=== PATIENT | male | born 1955 | race Caucasian/White ===

== ENCOUNTER → 2019-12-11 14:08 | Outpatient (BNVA) | payer MEDICARE, MEDICAID, SELFPAY | PROVIDERS: Visit Provider Urology | DX: Z76.89 Persons encountering health services in other specified circumstances (principal) ==

== ENCOUNTER → 2020-07-24 14:19 | Outpatient (BNVA) | payer MEDICARE, MEDICAID, SELFPAY | PROVIDERS: Visit Provider Urology | CPT/HCPCS: Q3014 ==

== ENCOUNTER 2020-07-29 12:02 | Outpatient (REF) | payer MEDICARE, MEDICAID, SELFPAY ==
[2020-07-29 13:19] LABS: Prostate Specific Antigen < 0.05 ng/mL (<0.05-4.0)
[2020-08-02 13:47] LABS: Testosterone, Total 247 ng/dL (250-1100)
== END 2020-07-29 12:03 | disposition home or self-care (01) ==
LOC: HO.LAB 12:02
PROVIDERS: Visit Provider Urology
DX: E29.1 Testicular hypofunction (principal); Z12.5 Encounter for screening for malignant neoplasm of prostate
CPT/HCPCS: 36415; 84153; 84403

== ENCOUNTER → 2020-08-12 15:37 | Outpatient (BNVA) | payer MEDICARE, MEDICAID, SELFPAY | PROVIDERS: Visit Provider Urology | DX: C61 Malignant neoplasm of prostate (principal); E29.1 Testicular hypofunction | CPT/HCPCS: 99212 ==

== ENCOUNTER 2021-02-03 11:41 | Outpatient (REF) | payer MEDICARE, MEDICAID, SELFPAY ==
[2021-02-03 13:54] LABS: PSA,Total (Free>4and<10) < 0.05 ng/mL (0.00-4.00)
[2021-02-10 16:16] LABS: Testosterone, Total 233 ng/dL (250-1100)
== END 2021-02-03 11:42 | disposition home or self-care (01) ==
LOC: HO.LAB 11:41
PROVIDERS: PCP Nurse Practitioner Family; Visit Provider Urology
DX: Z12.5 Encounter for screening for malignant neoplasm of prostate (principal); C61 Malignant neoplasm of prostate; N40.1 Benign prostatic hyperplasia with lower urinary tract symptoms; N13.8 Other obstructive and reflux uropathy
CPT/HCPCS: 36415; 84153; 84403

== ENCOUNTER → 2021-02-10 13:28 | Outpatient (BNVA) | payer MEDICARE, MEDICAID, SELFPAY | PROVIDERS: PCP Nurse Practitioner Family; Visit Provider Urology | DX: E29.1 Testicular hypofunction (principal); C61 Malignant neoplasm of prostate | CPT/HCPCS: Q3014 ==

== ENCOUNTER 2021-08-04 10:46 | Outpatient (REF) | payer MEDICARE, MEDICAID, SELFPAY ==
[2021-08-04 12:47] LABS: Prostate Specific Antigen < 0.05 ng/mL (<0.05-4.0)
[2021-08-10 11:57] LABS: Testosterone, Total 302 ng/dL (250-1100)
== END 2021-08-04 10:47 | disposition home or self-care (01) ==
LOC: HO.LAB 10:46
PROVIDERS: Visit Provider Urology
DX: Z12.5 Encounter for screening for malignant neoplasm of prostate (principal); C61 Malignant neoplasm of prostate
CPT/HCPCS: 36415; 84153; 84403

== ENCOUNTER → 2021-08-11 11:42 | Outpatient (BNVA) | payer MEDICARE, MEDICAID, SELFPAY | PROVIDERS: Visit Provider Urology | DX: E29.1 Testicular hypofunction (principal); C61 Malignant neoplasm of prostate | CPT/HCPCS: Q3014 ==

== ENCOUNTER 2022-08-26 10:55 | Outpatient (REF) | payer MEDICARE, MEDICAID, SELFPAY | END 2022-08-26 10:56 | disposition home or self-care (01) | LOC: HO.LAB 10:55 | PROVIDERS: Visit Provider Nurse Practitioner Family | DX: N40.1 Benign prostatic hyperplasia with lower urinary tract symptoms (principal); N13.8 Other obstructive and reflux uropathy; Z12.5 Encounter for screening for malignant neoplasm of prostate | CPT/HCPCS: 36415; 84153 ==

== ENCOUNTER 2022-09-02 10:56 | Outpatient (AMB) | payer MEDICARE, MEDICAID, SELFPAY ==
--- NOTE | 2022-09-02 11:09 | A.OFFVIS_ITS ---
Intake Intake Visit Reasons: 1 year follow up PSA Intake Note: Patient is present for follow up Hypogonadism/PSA (psa 0.10) Urology Medications: none Blood Thinner: aspirin Computational Theory Scientist Required: Yes Accompanied by: Unknown Allergies No Known Allergies [No Known Allergies*] Allergy (Verified 09/02/22 11:58) Medication List - Last Reconciled 09/02/22 by DONNA Murphy acetaminophen 650 mg PO Q4H PRN alcohol swabs 0 pad topical amlodipine 0 mg PO amlodipine 5 mg PO DAILY aspirin 81 mg PO DAILY atenolol 100 mg PO DAILY atorvastatin 20 mg PO BEDTIME blood sugar diagnostic (FreeStyle Lite Strips) As directed bupropion HCl 150 mg PO BID cetirizine 10 mg PO DAILY fluticasone propionate 50 mcg/actuation sprays intranasal glipizide ER 2.5 mg PO DAILY lancets (FreeStyle Lancets) As directed loratadine 10 mg PO DAILY drjxjgan-xdg-wqmfofi fumarate 15 mg iron 1 tab PO DAILY cwebbjyv-ncr-htmq fum-folic ac 7.5 mg iron-400 mcg 1 tab PO DAILY multivitamin with minerals 1 tab PO DAILY polyethylene glycol 3350 17 grams PO DAILY HPI HPI Comments History of Present Illness Details Henry Springer is a very pleasant 67 year old Italian speaking male patient of Dr Cota who is accompanied 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 He presents to the office today for a follow up of his prostate cancer and hypogonadism. He has a PMH of dementia, hypertension, hyperlipidemia, diabetes, hypogonadism, and prostate cancer. When asked patient reports to be doing and feeling well. Patient's provides much of today's history due to patient's progressive dementia. He is able to answer basic yes and no questions however at times is slow to respond. reports as patients demenita progresses she notes patient to be having more frequent urinary incontinent episodes. Discussed at length timed voiding/scheduled toileting to assist with decreasing incontinent episodes. She otherwise denies any issues or concerns at this time. Recent PSA results reviewed with the patient and his today. 09/11-- <0.10. It appears no testosterone level was drawn as patient had previously been having checked as he had been recieving T replacement here in the office. reports since COVID patient has since stopped his testosterone injections. She reports she will think about having them restarted but currently does not wish to. She otherwise denies any issues or concerns at this time. PREVIOUS HISTORY Prostate cancer was diagnosed 08/2014. Diagnosis was reached by needle biopsy, for elevated PSA, PSA at diagnosis 7.1. The Chloe grade is At biopsy, 3+4 = 7, right apex, right mid gland, left apex, left mid gland , at surgery, 3+4 = 7. TNM Classification of Malignant Tumours (TNM) T1c. The D'Humberto (NCCN) risk category is Intermediate Risk (PSA 10-20, Gl 7, T2). Initial therapy included Primary treatment, Prostatectomy (RRP/Robotic). Recent labs included a PSA (prostate-specific antigen) November 2015 , < 0.1, March 2016, < 0.1, a testosterone March 2016 139 10/07 PSA < 0.1, 02/09 <0.1, 08/11 <0.1 T 300, 09/11 <0.10 Associated conditions erectile dysfunction Yes hematuria No hot flashes No incontinence Yes Bladder neck contracture. Incision 09/05 Stress incontinence occasional, with cough, laugh, sneeze, does not require pad protection Urge incontinence Yes Worsening urge incontinence with use of protection osteopenia No pathologic fracture No radiation cystitis No rectal urgency No Therapeutic plan: Continue with surveillance Hypogonadism: Hematocrit persistent at 58. Needs phlebotomy. This is starting next week. Planning for therapeutic blood removal. Laboratories of planned. To happen at [facility]. He presents today for further evaluation and followup of his hypogonadism - T shot. Initial symptoms include erectile dysfunction Yes decreased libido Yes change in mood/depression Yes in muscle size/strength Yes increased fatigue/malaise Yes increased abdominal fat No tender breasts/gynecomastia No hair loss No osteopenia No The onset of symptoms has been gradual. Associate conditions include chronic pain with opioid use Yes obstructive sleep apnea No CAD No diabetes Yes dyslipidemia Yes obesity No stress - financial, family, employment No heavy alcohol or illicit drug use No He has been taking narcotics. Laboratory results baseline 03/08 139 8 T 800 HCT 53 PSA < 0.1 04/10 T 650 PSA < 0.1, HCT borderline 55 11/08 T 815 PSA < 0.1 HCt 58 - reduce T to 75units. 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 [facility] Medical History (Updated 09/04/22 @ 15:17 by DONNA Murphy) Dementia Diabetes HTN (hypertension) Social History Alcohol intake: never Patient Tobacco Use Status: Never used Tobacco Review of Systems Const Unobtainable due to mental status Reports as per HPI Physical Exam Const General: cooperative, comfortable, no acute distress, well developed and alert Orientation/consciousness: oriented to person Limitations: wheelchair HEENT Head: Yes normal to inspection, Yes normocephalic and Yes atraumatic Eyes General: appearance normal, both eyes and all related structures Neck Neck: Yes normal visual inspection and Yes trachea midline Chest Chest palpation & inspection: normal inspection of the chest Resp Effort & Inspection: normal respiratory effort and able to speak in complete sentences Cardio Rate: regular rate GI Inspection: Yes normal to inspection General: Yes no CVA tenderness Back/Spine/Pelvis Back: no CVA tenderness Skin General skin exam: no rashes or lesions noted Neuro General: oriented to person Extrem General: Yes normal to inspection Psych Appearance: grossly normal and well kempt Speech and movement: Clear speech present Attitude: cooperative Insight: Limited insight present (Psych) Judgement: Limited judgement present (Psych) Results AMB Urinalysis, Automated UA Leukoctes 0 Cindy/uL Last Edit by EzeHear It Firstemmanuelle Coronel on 09/02/22 11:50 UA Nitrite Last Edit by Elise Coronel on 09/02/22 11:50 UA Urobilinogen 0.2 mg/dL Last Edit by Elise Coronel on 09/02/22 11:50 UA Protein 30 mg/dL Last Edit by Sharingforceenma Coronel on 09/02/22 11:50 UA pH 5.5 Last Edit by Elise Coronel on 09/02/22 11:50 UA Blood 0 Dave/uL Last Edit by Elise Coronel on 09/02/22 11:50 UA Specific Sperry 1.030 Last Edit by EzeHear It Firstemmanuelle Coronel on 09/02/22 11:50 UA Ketone Negative Last Edit by Elise Coronel on 09/02/22 11:50 UA Bilirubin 1 mg/dL Last Edit by Elise Coronel on 09/02/22 11:50 UA Glucose 100 mg/dL Last Edit by Elise Coronel on 09/02/22 11:50 Results Reviewed Results Reviewed: Laboratory Last Values Urine pH (Auto) 5.5 09/02/22 11:14 Specific Sperry (Auto) 1.030 09/02/22 11:14 Urine Protein (Auto) 30 mg/dL 09/02/22 11:14 Glucose (UA)(Auto) 100 mg/dL 09/02/22 11:14 Urine Ketones (Auto) Negative 09/02/22 11:14 Urine Blood (Auto) 0 Dave/uL 09/02/22 11:14 Urine Bilirubin (Auto) 1 mg/dL 09/02/22 11:14 Urine Urobilinogen (Auto) 0.2 mg/dL 09/02/22 11:14 Leukocyte Esterase (Auto) 0 Cindy/uL 09/02/22 11:14 Assessment & Plan Assessment & Plan (1) Prostate cancer: Code(s): C61 - Malignant neoplasm of prostate (2) Hypogonadism in male: Code(s): E29.1 - Testicular hypofunction Plan In office urinalysis results reviewed with the patient his today. Recent PSA results reviewed with the patient his today; as noted above. Discussed timed voiding and scheduled toileting PSA in 6 months. Testosterone 6 months. Follow-up in 6 months with labs to be completed prior; or sooner with any issues, concerns, and or questions. Orders: Orders Prostate Specific Antigen 08/26/22 N13.8 - Other obstructive and reflux uropathy, N40.1 - Benign prostatic hyperplasia with lower urinary tract symptoms Prostate Specific Antigen 6 Months C61 - Malignant neoplasm of prostate Testosterone, Total 6 Months C61 - Malignant neoplasm of prostate AMB Urinalysis Automated 09/02/22 Z13.9 - Encounter for screening, unspecified Patient Instructions: The patient had an opportunity to ask questions regarding the treatment plan. All questions were answered. Physical exam, labs, and imaging were discussed and reviewed in detail. As well as risks, benefits, and discussion of treatment choices. No major barriers to understanding were identified. The patient expressed understanding and agreement with the above treatment plan. The patient was made aware they should contact our office by phone for worsening of their current condition, the appearance of new symptoms, or with any questions or concerns. Compliance is encouraged with any medications and follow up testing that is ordered. It is a privilege to be allowed the opportunity to participate in? your urological care.? Again, if you have any questions or concerns If you have any questions or concerns please do not hesitate to contact me. The office is [phone]. This note is constructed using voice recognition software. While every effort has been made to ensure accuracy multifold operator errors may have been included. Yours sincerely, DONNA Murphy Coding Level of Care Code Est Pt Level 3 (65000) Diagnoses Prostate cancer C61 Hypogonadism in male E29.1
== END 2022-09-02 11:56 | disposition home or self-care (01) ==
PROVIDERS: Visit Provider Nurse Practitioner Family
DX: C61 Malignant neoplasm of prostate (principal); E29.1 Testicular hypofunction
CPT/HCPCS: 99213

== ENCOUNTER → 2022-09-02 10:56 | Outpatient (BNVA) | payer MEDICARE, MEDICAID, SELFPAY | PROVIDERS: Visit Provider Nurse Practitioner Family | DX: C61 Malignant neoplasm of prostate (principal); E29.1 Testicular hypofunction | CPT/HCPCS: 99212 ==

== ENCOUNTER 2022-12-30 11:16 | Outpatient (AMB) | payer MEDICARE, MEDICAID, SELFPAY ==
[2022-12-30 11:32] VITALS: BP 130/80; PULSE 114; BMI 27.0
--- NOTE | 2022-12-30 11:32 | HO.NEPHOV_ITS ---
HPI HPI Comments History of Present Illness Details Henry was seen in the office accompanied by his . He has not had any recent medical issues or hospitalizations. His is providing at most attention to his medical care. He denies any chest pain, shortness of breath, nausea vomiting or diarrhea. He has no pedal edema or urinary symptoms. He had been followed up by Dr. Lopez for his prostate cancer. His blood sugar control had been quite suboptimal. He is just on glipizide 5 mg daily. His is concerned about his high blood sugars. His renal functions have been stable. [facility] Medical History (Updated 01/03/23 @ 12:55 by Karsten Kwong MD) Dementia Diabetes HTN (hypertension) Surgical History (Updated 12/30/22 @ 11:39 by Christina Alonso MA) History of prostate surgery Social History Alcohol intake: never Patient Tobacco Use Status: Never used Tobacco Vital Signs 12/30/22 11:32 Height 5 ft 9 in Weight 183 lb 2 oz BMI 27.0 BP 130/80 Blood Pressure Location Rt brachial Position Sitting Pulse 114 H Pulse Source Pulse Oximeter Physical Exam Vital Signs: Last Vital Signs Pulse 114 H 12/30/22 11:32 BP 130/80 12/30/22 11:32 BMI result Body Mass Index 27.0 Const General: comfortable and no acute distress HEENT Head: Yes normocephalic Mouth: Normal oral and palatal mucosa present Eyes EOM: EOMs intact bilaterally Neck Neck: Yes supple Resp Auscultation: clear to auscultation bilaterally Cardio Jugular venous distension: no JVD Rate: regular rate GI Palpation (GI): Soft to palpation Auscultation: normal bowel sounds General: Yes no CVA tenderness Back/Spine/Pelvis Back: no CVA tenderness Skin General skin exam: no rashes or lesions noted Neuro General: moves all extremities Extrem General: Yes no pedal edema Assessment & Plan Assessment & Plan (1) CKD (chronic kidney disease) stage 3, GFR 30-59 ml/min: Code(s): N18.30 - Chronic kidney disease, stage 3 unspecified Qualifiers: Chronic kidney disease stage 3 subtype: stage 3a (GFR 45-59) Qualified Code(s): N18.31 - Chronic kidney disease, stage 3a (2) Proteinuria: Code(s): R80.9 - Proteinuria, unspecified Qualifiers: Proteinuria type: other Qualified Code(s): R80.8 - Other proteinuria (3) HTN (hypertension): Code(s): I10 - Essential (primary) hypertension Qualifiers: Hypertension type: primary hypertension Qualified Code(s): I10 - Essential (primary) hypertension Cathy Figueroa is known to have chronic kidney disease stage 3 at baseline. He is diabetic. His history of prostate cancer. He is currently clinically stable. His blood pressure is at goal. He is on amlodipine and atenolol. He is not on any CHINTAN inhibitor or ARB. His blood sugar control is not optimal. He is only taking glipizide 5 mg which I asked them to go up to 7.5 mg daily. He is going to contact his primary care physician to come up with the Optimal medication strategy to keep his blood sugar at goal. I have ordered follow-up blood work . I did not make any other medication changes today. All his 's questions were answered. Time for all retrieving data, patient encounter and recommendation 21 minutes. Orders: Orders Protein Creatinine Ratio, Ur 12/30/22 N18.30 - Chronic kidney disease, stage 3 unspecified, R80.9 - Proteinuria, unspecified Electrolytes 12/30/22 N18.30 - Chronic kidney disease, stage 3 unspecified, R80.9 - Proteinuria, unspecified Blood Urea Nitrogen 12/30/22 N18.30 - Chronic kidney disease, stage 3 unspecified, R80.9 - Proteinuria, unspecified Creatinine 12/30/22 N18.30 - Chronic kidney disease, stage 3 unspecified, R80.9 - Proteinuria, unspecified Calcium 12/30/22 N18.30 - Chronic kidney disease, stage 3 unspecified, R80.9 - Proteinuria, unspecified Coding Level of Care Code Est Pt Level 3 (68130) Diagnoses Stage 3a chronic kidney disease N18.31 Chronic kidney disease stage 3 subtype: stage 3a (GFR 45-59) Other proteinuria R80.8 Proteinuria type: other Primary hypertension I10 Hypertension type: primary hypertension
== END 2022-12-30 12:23 | disposition home or self-care (01) ==
PROVIDERS: PCP Internal Medicine; Visit Provider Internal Medicine Nephrology
DX: I12.9 Hypertensive chronic kidney disease with stage 1 through stage 4 chronic kidney disease, or unspecified chronic kidney disease (principal); E11.22 Type 2 diabetes mellitus with diabetic chronic kidney disease; N18.31 Chronic kidney disease, stage 3a; R80.8 Other proteinuria
CPT/HCPCS: 99213

== ENCOUNTER → 2022-12-30 11:16 | Outpatient (BNVA) | payer MEDICARE, MEDICAID, SELFPAY | PROVIDERS: PCP Internal Medicine; Visit Provider Internal Medicine Nephrology | DX: I11.0 Hypertensive heart disease with heart failure (principal); N18.31 Chronic kidney disease, stage 3a; R80.8 Other proteinuria | CPT/HCPCS: 99212 ==

== ENCOUNTER 2023-05-16 11:27 | Outpatient (REF) | payer MEDICARE, MEDICAID, SELFPAY ==
[2023-05-16 13:23] LABS: Prostate Specific Antigen < 0.10 ng/mL (<0.05-4.0)
[2023-05-20 15:48] LABS: Testosterone, Total 286 ng/dL (250-1100)
== END 2023-05-16 11:28 | disposition home or self-care (01) ==
LOC: HO.LAB 11:27
PROVIDERS: PCP Internal Medicine; Visit Provider Nurse Practitioner Family
DX: C61 Malignant neoplasm of prostate (principal); Z12.5 Encounter for screening for malignant neoplasm of prostate
CPT/HCPCS: 36415; 84153; 84403

== ENCOUNTER 2023-05-25 14:54 | Outpatient (AMB) | payer MEDICARE, MEDICAID, SELFPAY ==
--- OUTSIDE RECORDS SUMMARY | 2023-05-25 14:55 | XMS_ITS | Continuity of Care Document ---
Author Organization [facility] Address [address] [place] [id number]- Care Team Providers Care Band Tacker Name Role Host Coordinator Declan ALVAREZ Primary Care Physician [phone] Encounter [facility] Date(s): 12/27/22 - 01/26/[address] [address] Allergies, Adverse Reactions, Alerts No Known Allergies Immunizations Given and Recorded Vaccine Date Status Refusal Reason pneumococcal 20-valent conjugate vaccine 12/23/22 Given tetanus/diphtheria/pertussis, acel(Tdap) 12/23/22 Given influenza virus vaccine, inactivated 12/23/22 Give n influenza virus vaccine, inactivated 01/18/22 Give n influenza virus vaccine, inactivated 12/19/19 Give n influenza virus vaccine, inactivated 01/09/19 Give n influenza virus vaccine, inactivated 03/27/17 Give n influenza virus vaccine, inactivated 12/28/15 Give n influenza virus vaccine, inactivated 12/08/14 Give n influenza virus vaccine, inactivated 11/12/14 Sudeep rded influenza virus vaccine, inactivated 02/26/14 Give n influenza virus vaccine, inactivated 11/16/12 Give n influenza virus vaccine, inactivated 1 12/06/10 Gi dory [id number] 12y+ bivalent booster vax 01/18/22 Given SARS-CoV-2 (COVID-19) mRNA BNT-162b2 vac 02/08/21 Given SARS-CoV-2 (COVID-19) mRNA BNT-162b2 vac 01/18/21 Given pneumococcal 23-valent vaccine 12/08/14 Given FluLaval (oldterm) 2 12/26/11 Given tetanus-diphtheria toxoids (Td) 3 12/06/10 Given 1Admin Note: vis given Citizen Of [place] 2Admin Note: vis [id number] 3Admin Note: VIS given Citizen Of [place]. Medications acetaminophen 325 mg oral tablet 650 mg, By Mouth, Every 4 hours, PRN, # 50 tablet, Refills 5, Tot. Refills 5, Maintenance, as needed for pain, 11/23/20 13:09:00 EDT, Route to Pharmacy Electronically, [facility]/pharmacy #[id number], 183, cm, 08/10/20 16:05:00 EDT, Height, 84.8, kg, 07/01/19 22:2... Start Date: 11/23/20 Status: Ordered amLODIPine 10 mg oral tablet 10 mg, By Mouth, Daily, Refills 0, Maintenance, 01/09/23 14:21:00 EST, Partial fill upon patient request if the prescription is for a schedule II opioid drug. Start Date: 01/09/23 Status: Ordered Aspirin Low Dose 81 mg oral delayed release tablet See Instructions, MARCOS BENDER, # 90 tablet, 1 Refills, Maintenance, 12/13/22 10:54:00 EDT, [id number], 175, cm, 01/18/22 12:03:00 EST, Height, 81.9, kg, 08/31/21 14:47:00 EDT, Dry Weight Start Date: 12/13/22 Status: Ordered atorvastatin 20 mg oral tablet See Instructions, MARCOS BENDER AT SUPPER, # 90 tablet, 1 Refills, Maintenance, 10/03/22 12:31:00 EDT, [id number], 175, cm, 01/18/22 12:03:00 EST, Height, 81.9, kg, 08/31/21 14:47:00 EDT, Dry Weight Start Date: 10/03/22 Status: Ordered BuPROPion (Eqv-Wellbutrin SR) 150 mg/12 hours oral tablet, extended release See Instructions, MARCOS STEWARD DOS VECES AL BALA, # 180 each, 1 Refills, Maintenance, 12/23/22 11:44:00 EDT, [facility]/pharmacy #[id number], 175, cm, 12/23/22 11:32:00 EDT, Height, 81.9, kg, 08/31/21 14:47:00EDT, Dry Weight Start Date: 12/23/22 Status: Ordered Coreg 6.25 mg oral tablet 12.5 mg, By Mouth, 2 times a day, Refills 0, Maintenance, 01/09/23 14:21:00 EST, Partial fill upon patient request if the prescription is for a schedule II opioid drug. Start Date: 01/09/23 Status: Ordered Daily Yasmine oral tablet See Instructions, TOME KIA TABLETA TODOS LOS BENDER, # 90 tablet, 1 Refills, Maintenance, 12/13/22 10:54:00 EDT, [id number], 90, TOME KIA TABLETA TODOS LOS BENDER, 175, cm, 01/18/22 12:03:00 EST, Height, 81.9, kg, 08/31/21 14:47:00 EDT, Dry Weight Start Date: 12/13/22 Status: Ordered GaviLAX oral powder for reconstitution See Instructions, DISSOLVE 17 GRAMS IN WATER AND DRINK ONCE DAILY, # 238 Gm, 5 Refills, Maintenance, 11/28/22 8:45:00 EDT, [facility]/pharmacy #[id number], 14, DISSOLVE 17 GRAMS IN WATER AND DRINK ONCE DAILY, 175, cm, 01/18/22 12:03:00 EST, Height, 81.9, kg, 08/31... Start Date: 11/28/22 Status: Ordered glipiZIDE 5 mg oral tablet, extended release 1 tablet = 5 mg, By Mouth, Daily, # 90 tablet, 1 Refills, Maintenance, 11/02/22 13:07:00 EDT, ER Tablet, [facility]/pharmacy #[id number], Partial fill upon patient request if the prescription is for a schedule IIopioid drug., 175, cm, 01/18/22 12:03:00 EST, Heigh... Start Date: 11/02/22 Status: Ordered Home Blood Pressure Monitor See Instructions, # 1 each, Refills 0, Tot. Refills 0, Maintenance, Use to check blood pressure once daily in the morning. Dx: Hypertension on medication (I10), 07/09/19 14:34:00 EDT, Supply Start Date: 07/09/19 Status: Ordered insulin lispro 100 units/mL injectable solution 2-14 units, Subcutaneous Injection, 3 times a day before meals, << Sliding Scale Comments >> 150 - 199 2 units Call if less than 70 200 - 249 4 units 250 - 299 6 units 300 - 349 8 units 350 - 399 10 units 400 - 449 12 units 450... Start Date: 01/09/23 Status: Ordered Lantus Inj 0.12 mL = 12 units, Subcutaneous Injection, Daily at bedtime, 0 Refills, Maintenance, 01/09/23 14:21:00 EST, Injection, Partial fill upon patient request if the prescription is for a schedule II opioid drug. Start Date: 01/09/23 Status: Ordered loratadine 10 mg oral tablet See Instructions, MARCOS CHAPMANA TODOS LOS BENDER, # 90 tablet, Refills 1, Maintenance, 12/13/22 10:54:00 EDT, Instructions Replace Required Details, Route to Pharmacy Electronically, [id number], 175, cm, 01/18/22 12:03:00 EST, Height, 81.9, kg,... Start Date: 12/13/22 Status: Ordered Multi-Day Plus Minerals oral tablet 1 tablet, By Mouth, Daily, resent to new pharmacy, # 90 tablet, 1 Refills, Maintenance, 10/18/21 16:12:00 EDT, Tablet, [facility]/pharmacy #[id number], 1 tablet By Mouth Daily,Instr:resent to new pharmacy, 175, cm, 10/18/21 11:40:00 EDT, Height, 81.9, kg, 08/31/21... Start Date: 10/18/21 Status: Ordered senna 187 mg oral tablet 1 tablet = 8.6 mg, By Mouth, 2 times a day, PRN Constipation, 0 Refills, Maintenance, 01/09/23 14:22:00 EST, Tablet, Partial fill upon patient request if the prescription is for a schedule II opioid drug. Start Date: 01/09/23 Status: Ordered Problem List Condition Confirmation Course Effective Dates Status Health Status Informant Allergic rhinitis Confirmed Active Cerebrovascular accident (stroke) Confirmed Active CKD (chronic kidney disease) stage 3, GFR 30-59 ml/min Confirmed Active Diastolic congestive heart failure, NYHA class 1 Confirmed Active History of prostate cancer Confirmed Active Hypertension Confirmed Active Cognitive impairment, likely vascular dementia Confirmed Active Depression, major Confirmed Active Hypogonadism in male Confirmed Active Microalbuminuria - mildly increased, ratio <30 mg/g Confirmed 11/17/14 Active Elevated PSA, BPH per urology, see April, Confirmed Active Secondary hyperparathyroidism Confirmed Active Obesity due to excess calories Confirmed Active DM (diabetes mellitus), 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 Presence of indwelling urinary catheter Confirmed Active Urine incontinence Confirmed Active Social History Social History Type Response Smoking Status Never smoker; Tobacc o user in household: No entered on: 01/12/15 Sex Patient Care team information Care Team Personnel Name: Declan Louise MD Position: [facility] Physician - Primary Care Member Role: PCP Address: Address: [address] [place] [id number]- [place] Name: Simran Shannon RN Position: [facility] RN Member Role: Primary Care Nurse Name: Torie Jo RN Position: [facility] RN Suptalha Member Role: Primary Care Nurse Name: Hussein Waters RN Position: [facility] RN Member Role: Primary Care Nurse Name: Vandana Sorensen NP Position: [facility] Associate Professional Member Role: Primary Care Nurse Address: Address: [address] [place] [id number]- Name: Karsten Kwong MD Position: [facility] Renal MD Member Role: Lifetime Consulting Physician Address: Address: [address] [place] [address] [address] [facility] [place] [address]- [place] Name: Rebecca Leon RN Position: [facility] RN Member Role: Primary Care Nurse Name: Elisabet Calle Position: [facility] RN Member Role: Primary Care Nurse Name: Paola Cavanaugh RN Position: [facility] ED RN W/OE and Tasks Member Role: Primary Care Nurse Name: Argentina Dixon RN Position: [facility] SN RN Member Role: Primary Care Nurse Name: Christina Alonso Position: [facility] AMB Nurse Member Role: Lifetime Consulting Physician Name: Ramiro Brody III, RN Position: [facility] RN Member Role: Primary Care Nurse Name: Simran Tariq RN Position: [facility] RN Member Role: Primary Care Nurse Name: Dana Fitzgerald RN Position: [facility] RN Member Role: Primary Care Nurse Name: Narayan Spencer RN Position: [facility] RN Member Role: Primary Care Nurse Name: Shell Yoder RN Position: [facility] RN Member Role: Primary Care Nurse Name: Yenni Packer RN Position: [facility] RN Member Role: Primary Care Nurse Name: Moon RN, Radha Balbuena Position: [facility] AMB Nurse Member Role: Primary Care Nurse Name: Misti Pickard RN Position: [facility] RN Member Role: Primary Care Nurse Name: William Villanueva RN Position: [facility] RN Member Role: Primary Care Nurse Name: Viky Torre RN Position: [facility] Dialysis Tech Member Role: Primary Care Nurse Name: Carolee Tesfaye RN Position: [facility] RN Member Role: Primary Care Nurse Name: Joey Perez MD Position: [facility] Renal MD Member Role: Lifetime Consulting Physician Address: Address: [address] [place] [address] [facility] [address] Name: Brittney Ledezma RN Position: [facility] Dialysis Tech Member Role: Primary Care Nurse Name: Eliezer Wagner RN Position: [facility] RN Member Role: Primary Care Nurse Name: Najma Causey RN Position: [facility] SN RN Member Role: Primary Care Nurse Name: Brunilda Thomas RN Position: [facility] RN Member Role: Primary Care Nurse Care Team Related Persons Name: ROOPA XIE Address: home [address] [place] [id number] Name: HOPE XIE Address: [address] [address]
--- OUTSIDE RECORDS SUMMARY | 2023-05-25 14:55 | XMS_ITS | Continuity of Care Document ---
Author Organization [facility] Address [address] [place] [id number]- Care Team Providers Care Health And Safety Trainer Name Role Phone Britany Springer MD [place] Care Phys[place] [facility] [place] 01/30/[address] [address]- Allergies, Adverse Reactions, Alerts Substance Reaction Severity Status NKA Active Immunizations Given and Recorded Vaccine Date Status Refusal Reason influenza virus vaccine, inactivated 12/19/19 Give n influenza virus vaccine, inactivated 01/09/19 Give n influenza virus vaccine, inactivated 03/27/17 Give n influenza virus vaccine, inactivated 12/28/15 Give n influenza virus vaccine, inactivated 12/08/14 Give n influenza virus vaccine, inactivated 02/26/14 Give n influenza virus vaccine, inactivated 11/16/12 Give n influenza virus vaccine, inactivated 1 12/06/10 Gi dory pneumococcal 23-valent vaccine 12/08/14 Given FluLaval (oldterm) 2 12/26/11 Given tetanus-diphtheria toxoids (Td) 3 12/06/10 Given 1Admin Note: vis given Gabonese 2Admin Note: vis [id number] 3Admin Note: VIS given Gabonese. Medications acetaminophen 325 mg oral tablet 650 mg, By Mouth, Every 4 hours, PRN, # 50 tablet, Refills 5, Tot. Refills 5, Maintenance, as needed for pain, 06/20/19 14:52:00 EDT, Route to Pharmacy Electronically, [facility]/pharmacy #[id number], 178, cm, 04/02/19 9:47:00 EST, Height, 94.7, kg, 06/01/18 13:52... Start Date: 06/20/19 Status: Ordered Adult diapers Adult diapers, See Instructions, # 150 each, Refills 11, Tot. Refills 11, Maintenance, Use as needed for incontinence 5x/day; length of need 1 year; ICD 10 N39.46, 01/14/19 8:43:55 EST, Compound Start Date: 01/14/19 Status: Ordered amLODIPine 2.5 mg oral tablet 2.5 mg, 1, tablet, By Mouth, Daily, for 90 days, hold for systolic blood pressure <120, and CALLCLINIC this replaces nifedipine, # 90 tablet, Refills 1, Tot. Refills 1, Hard Stop 07/17/20 11:35:00 EDT, 01/19/20 11:35:00 EST, Route to Pharmacy Electr... Start Date: 01/19/20 Stop Date: 07/17/20 Status: Ordered aspirin 81 mg oral delayed release tablet 81 mg, 1, tablet, By Mouth, Daily, # 90 tablet, Refills 1, Tot. Refills 1, Maintenance, 01/28/20 11:17:00 EST, Route to Pharmacy Electronically, [facility]/pharmacy #[id number], 183, cm, 12/27/19 13:56:00 EST, Height, 84.8, kg, 07/01/19 22:20:00 EDT, Dry Weight Start Date: 01/28/20 Stop Date: 07/26/20 Status: Ordered atorvastatin 20 mg oral tablet 1 tablet = 20 mg, By Mouth, Daily at supper, # 30 tablet, 5 Refills, Maintenance, 08/22/19 14:51:00EDT, Tablet, [facility]/pharmacy #[id number], 183, cm, 07/29/19 15:02:00 EDT, Height, 84.8, kg, 07/01/19 22:20:00 EDT, Dry Weight Start Date: 08/22/19 Status: Ordered cetirizine 10 mg oral tablet 1 tablet = 10 mg, By Mouth, Daily, # 90 tablet, 1 Refills, Maintenance, 10/21/19 11:35:00 EDT, Tablet, [facility]/pharmacy #[id number], 183, cm, 07/29/19 15:02:00 EDT, Height, 84.8, kg, 07/01/19 22:20:00 EDT, DryWeight Start Date: 10/21/19 Status: Ordered cholecalciferol 1000 intl units oral tablet 1 tablet = 1,000 International_Units, By Mouth, Daily, # 30 tablet, 0 Refills, Maintenance, 04/10/18 17:27:09 EST, Tablet Start Date: 04/10/18 Status: Ordered Compression Stockings See Instructions, # 2 pair, Refills 0, Tot. Refills 0, Maintenance, surgical, calf length 20-30 mm Hg R60.0, 07/10/17 16:54:50 EDT, Compound Start Date: 07/10/17 Status: Ordered empty cather once a day at daycare empty cather once a day at daycare, See Instructions, # 1 each, Refills 0, Tot. Refills 0, Maintenance, May empty cathether once a day while at daycare. Dx: urinary retention, 03/27/17 16:37:19, Compound Start Date: 03/27/17 Status: Ordered fluticasone 50 mcg/inh nasal spray 2 sprays, Nares, Both, Daily, # 16 Gm, 5 Refills, Maintenance, 07/20/18 13:11:53 EDT, [place], 2 sprays Nares, Both Daily Start Date: 07/20/18 Status: Ordered Gloves See Instructions, # 150 each, Refills 11, Tot. Refills 11, Maintenance, Used by for incontinence care 5x/day; ICD 10 N39.46, 01/30/19 7:35:52 EST, Compound Start Date: 01/30/19 Status: Ordered Home Blood Pressure Monitor See Instructions, # 1 each, Refills 0, Tot. Refills 0, Maintenance, Use to check blood pressure once daily in the morning. Dx: Hypertension on medication (I10), 07/09/19 14:34:00 EDT, Supply Start Date: 07/09/19 Status: Ordered hydrocortisone 0.5% topical cream 1 application, Topically, 2 times a day, # 14 Gm, 1 Refills, Maintenance, 01/09/18 14:39:21 EST, Cream, 1 application Topically 2 times a day Start Date: 01/09/18 Status: Ordered Incontinence pads Incontinence pads, See Instructions, # 150 Unknown, Refills 11, Tot. Refills 11, Maintenance, Use as needed for incontinence 5x/day; length of need 1 year; ICD 10 N39.46, 01/01/20 16:15:00 EST, Compound Start Date: 01/01/20 Status: Ordered Incontinence wipes Incontinence wipes, See Instructions, # 150 each, Refills 5, Tot. Refills 5, Maintenance, Use as needed for personal hygiene Dx: Incontinence (R32), 08/29/19 13:50:00 EDT, Supply Start Date: 08/29/19 Status: Ordered MiraLax oral powder for reconstitution = 17 Gm, By Mouth, Daily, dissolve in water before taking, # 255 Gm, 5 Refills, Maintenance, 01/28/20 14:37:00 EST, REC Powder, [facility]/pharmacy #[id number], 17 Gm By Mouth Daily,Instr:dissolve in water beforetaking, 183, cm, 12/27/19 13:56:00 EST, Height, 84.... Start Date: 01/28/20 Status: Ordered Multi-Day Plus Minerals oral tablet 1 tablet, By Mouth, Daily, # 90 tablet, 1 Refills, Maintenance, 01/28/20 11:17:00 EST, Tablet, [facility]/pharmacy #[id number], 1 tablet By Mouth Daily, 183, cm, 12/27/19 13:56:00 EST, Height, 84.8, kg, 07/01/19 22:20:00 EDT, Dry Weight Start Date: 01/28/20 Status: Ordered Pullups - size L Pullups - size L, See Instructions, # 150 units, Refills 11, Tot. Refills 11, Maintenance, Use as needed for incontinence 5x/day; length of need 1 year; ICD 10 N39.46, 01/30/19 7:36:02 EST, Compound Start Date: 01/30/19 Status: Ordered Shower chair Shower chair, See Instructions, # 1 each, Refills 0, Tot. Refills 0, Maintenance, Use as needed [facility]. Dx: Stroke (I63.9), impaired mobility (Z74.09), 07/09/19 14:21:00 EDT, Supply Start Date: 07/09/19 Status: Ordered Testosterone Intramuscular, Every 14 days, done by urologist last given Mondayoct 14 does not know dose, 0Refills, Maintenance, 10/23/16 10:56:07 Start Date: 9/3/17 Status: Ordered Wellbutrin SR 150 mg/12 hours oral tablet, extended release 1 tablet = 150 mg, By Mouth, 2 times a day, # 180 tablet, 3 Refills, Maintenance, 05/15/19 8:53:00 EDT, ER Tablet, [facility]/pharmacy #[id number], 178, cm, 04/02/19 9:47:00 EST, Height, 94.7, kg, 06/01/18 13:52:00 EDT, Dry Weight Start Date: 05/15/19 Stop Date: 05/09/20 Status: Ordered Problem List Condition Effective Dates Status Health Status Inform ant Adenocarcinoma of prostate(Confirmed) Active Allergic rhinitis(Confirmed) Active Cerebrovascular accident (stroke)(Confirmed) Active CKD (chronic kidney disease) stage 3, GFR 30-59 ml/min(Confirmed) Active Diastolic congestive heart f ailure, NYHA class 1(Confirmed) Active Diabetes(Confirmed) Active Hypertension(Confirmed) Active Cognitive impairment, likely vascular dementia(Confirmed) Active Depression, major(Confirmed) Active Hypogonadism in male(Confirmed) Active Microalbuminuria - mildly in creased, ratio <30 mg/g(Confirmed) 11/17/14 Active Elevated PSA, BPH per urolog y, see April,(Confirmed) Active Obesity due to excess calories(Confirmed) Active Presence of indwelling urina ry catheter(Confirmed) Active Social History Social History Type Response Smoking Status Never smoker; Tobacc o user in household: No entered on: 01/12/15 Sex
--- OUTSIDE RECORDS SUMMARY | 2023-05-25 14:55 | XMS_ITS | Continuity of Care Document ---
Author Organization [facility] Address [address] [place] [id number]- Care Team Providers Care Lav Crewman Name Role Phone Britany Springer MD Primary Care Physician Encounter [facility] [place] Date(s): 01/27/20 - 02/26/[address] [address]- Allergies, Adverse Reactions, Alerts Substance Reaction Severity [...] 3 12/06/10 Given 1Admin Note: vis given Setswana 2Admin Note: vis [id number] 3Admin Note: VIS given Setswana. Medications acetaminophen 325 mg oral tablet 650 mg, By Mouth, Every 4 hours, PRN, # 50 tablet, Refills 5, Tot. Refills 5, Maintenance, as needed for pain, 06/20/19 14:52:00 EDT, Route to Pharmacy Electronically, [facility]/pharmacy #[id number], 178, cm, 04/02/19 9:47:00 EST, Height, 94.7, kg, 06/01/18 13:52... Start Date: 4/30/20 Status: Ordered Adult diapers Adult diapers, See [...] Refills 1, Tot. Refills 1, Hard Stop 01/13/21 11:35:00 EST, 07/17/20 11:35:00 EDT, Route to Pharmacy Electr... Start Date: 07/17/20 Stop Date: 01/13/21 Status: Ordered amLODIPine 2.5 mg oral tablet 2.5 mg, 1, tablet, By Mouth, Daily, for 90 days, hold for systolic blood pressure <120, and CALLCLINIC this replaces nifedipine, # 90 tablet, Refills 1, Tot. Refills 1, Hard Stop 07/12/21 11:35:00 EDT, 01/13/21 11:35:00 EST, Route to Pharmacy Electr... Start Date: 01/13/21 Stop Date: 07/12/21 Status: Ordered aspirin 81 mg oral delayed release tablet 81 mg, 1, tablet, By Mouth, Daily, # 90 tablet, Refills 1, Tot. Refills 1, Maintenance, 07/26/20 11:17:00 EDT, Route to Pharmacy Electronically, [facility]/pharmacy #[id number], 183, cm, 12/27/19 13:56:00 EST, Height, 84.8, kg, 07/01/19 22:20:00 EDT, Dry Weight Start Date: 07/26/20 Stop Date: 01/22/21 Status: Ordered aspirin 81 mg oral delayed release tablet 81 mg, 1, tablet, By Mouth, Daily, for 90 days, # 90 tablet, Refills 1, Tot. Refills 1, Hard Stop 07/26/20 11:17:00 EDT, 01/28/20 11:17:00 EST, Route to Pharmacy Electronically, [facility]/pharmacy #[id number], 183, cm, 12/27/19 13:56:00 EST, Height, 84.8, kg, ... Start Date: 01/28/20 Stop Date: 07/26/20 Status: Ordered atorvastatin 20 mg oral tablet 1 tablet = 20 mg, By Mouth, Daily at supper, # 90 tablet, 2 Refills, Maintenance, 02/03/20 10:50:00EST, Tablet, [facility]/pharmacy #[id number], 183, cm, 12/27/19 13:56:00 EST, Height, 84.8, kg, 07/01/19 22:20:00 EDT, Dry Weight Start Date: 02/03/20 Status: Ordered cetirizine 10 mg oral tablet 1 tablet = 10 mg, By Mouth, Daily, # 90 tablet, 1 Refills, Maintenance, 02/03/20 10:58:00 EST, Tablet, [facility]/pharmacy #[id number], 183, cm, 12/27/19 13:56:00 EST, Height, 84.8, kg, 07/01/19 22:20:00 EDT, DryWeight Start Date: 02/03/20 Status: Ordered Compression Stockings See Instructions, # [...] 16:37:19, Compound Start Date: 03/27/17 Status: Ordered Gloves See Instructions, # 150 [...] EDT, Supply Start Date: 07/09/19 Status: Ordered Incontinence pads Incontinence pads, See [...] EDT, Supply Start Date: 08/29/19 Status: Ordered Multi-Day Plus Minerals oral tablet 1 tablet, By Mouth, Daily, # 90 tablet, 1 Refills, Maintenance, 02/03/20 10:58:00 EST, Tablet, [facility]/pharmacy #[id number], 1 tablet By Mouth Daily, 183, cm, 12/27/19 13:56:00 EST, Height, 84.8, kg, 07/01/19 22:20:00 EDT, Dry Weight Start Date: 02/03/20 Status: Ordered Pullups - size L Pullups - size L, See Instructions, # 150 units, Refills 11, Tot. Refills 11, Maintenance, Use as needed for incontinence 5x/day; length of need 1 year; ICD 10 N39.46, 01/30/19 7:36:02 EST, Compound Start Date: 01/30/19 Status: Ordered Shower chair Shower chair, See Instructions, # 1 each, Refills 0, Tot. Refills 0, Maintenance, Use as needed [facility]. Dx: Stroke (I63.9), impaired mobility (Z74.09), 07/09/19 14:21:00 EDT, Supply Start Date: 07/09/19 Status: Ordered Testosterone Intramuscular, Every 14 days, done by urologist last given Mondayoct 14 does not know dose, 0Refills, Maintenance, 10/23/16 10:56:07 Start Date: 10/23/16 Status: Ordered Wellbutrin SR 150 mg/12 hours oral tablet, extended release 1 tablet = 150 mg, By Mouth, 2 times a day, # 180 tablet, 3 Refills, Maintenance, 05/09/20 8:53:00 EDT, ER Tablet, [facility]/pharmacy #[id number], 183, cm, 12/27/19 13:56:00 EST, Height, 84.8, kg, 07/01/19 22:20:00 EDT, Dry Weight Start Date: 05/09/20 Stop Date: 05/04/21 Status: Ordered Wellbutrin SR 150 mg/12 hours oral tablet, extended release 1 tablet = 150 mg, By Mouth, 2 times a day, for 90 days, # 180 tablet, 3 Refills, Hard Stop 05/09/20 8:53:00 EDT, 05/15/19 8:53:00 EDT, ER Tablet, [facility]/pharmacy #[id number], 178, cm, 04/02/19 9:47:00 EST, Height, [...]
--- OUTSIDE RECORDS SUMMARY | 2023-05-25 14:55 | XMS_ITS | Continuity of Care Document ---
Author Organization [facility] Address [address] [place] [address]- Care Team Providers Care Air Export Coordinator Name Role Lead RefinerDeclan Louise MD Primary Care Physician [phone] [facility]counter [facility] Date[facility]s): 11/29/21 - 12/29/[address] [address] Allergies, Adverse Reactions, Alerts No Known Allergies Immunizations Given and Recorded Vaccine Date Status Refusal Reason SARS-CoV-2 (COVID-19) mRNA BNT-162b2 vac 02/08/21 Given SARS-CoV-2 (COVID-19) mRNA BNT-162b2 vac 01/18/21 Given influenza virus vaccine, inactivated 12/19/19 Give n [...] 3 12/06/10 Given 1Admin Note: vis given Finnish 2Admin Note: vis [id number] 3Admin Note: VIS given Finnish. Medications acetaminophen 325 mg oral tablet 650 mg, By Mouth, Every 4 hours, PRN, # 50 tablet, Refills 5, Tot. Refills 5, Maintenance, as needed for pain, 11/23/20 13:09:00 EDT, Route to Pharmacy Electronically, [facility]/pharmacy #[id number], 183, cm, 08/10/20 16:05:00 EDT, Height, 84.8, kg, 07/01/19 22:2... Start Date: 11/23/20 Status: Ordered Adult diapers Adult diapers, See Instructions, # 150 each, Refills 11, Tot. Refills 11, Maintenance, Use as needed for incontinence 5x/day; length of need 1 year; ICD 10 N39.46, 01/14/19 8:43:55 EST, Compound Start Date: 01/14/19 Status: Ordered Alcohol Pads See Instructions, # 200 each, Refills 5, Tot. Refills 5, Maintenance, Diabetes Mellitus. DM E11.9. TID, 01/18/21 11:32:00 EST, Supply, 183, cm, 01/18/21 11:01:00 EST, Height, 84.8, kg, 07/01/19 22:20:00 EDT, Dry Weight Start Date: 01/18/21 Stop Date: 07/17/21 Status: Ordered Alcohol Pads See Instructions, # 200 each, Refills 5, Tot. Refills 5, Maintenance, use as directed for Type 2 Diabetes Mellitus 2 times per day, E11.8, 07/15/20 17:16:00 EDT, Supply, 183, cm, 07/15/20 15:52:00 EDT, Height, 84.8, kg, 07/01/19 22:20:00 EDT, Dry Weight Start Date: 07/15/20 Stop Date: 01/11/21 Status: Ordered amLODIPine 5 mg oral tablet 5 mg, 1, tablet, By Mouth, Daily, # 90 tablet, Refills 1, Tot. Refills 1, Maintenance, 10/21/21 15:36:00 EDT, Route to Pharmacy Electronically, [facility]/pharmacy #[id number], Partial fill upon patient request if the prescription is for a schedule II opioid drug.... Start Date: 10/21/21 Status: Ordered Aspirin Low Dose 81 mg oral delayed release tablet See Instructions, MARCOS STEWARD TODOS LOS BENDER, # 90 tablet, 1 Refills, 10/18/21 16:12:00 EDT, [facility]/pharmacy #[id number], 175, cm, 10/18/21 11:40:00 EDT, Height, 81.9, kg, 08/31/21 14:47:00 EDT, Dry Weight Start Date: 10/18/21 Status: Ordered atorvastatin 20 mg oral tablet See Instructions, MARCOS CHAPMANA JESSS LOS BENDER AT SUPPER, # 90 tablet, 1 Refills, 10/18/21 16:12:00 EDT, [facility]/pharmacy #[id number], 175, cm, 10/18/21 11:40:00 EDT, Height, 81.9, kg, 08/31/21 14:47:00 EDT, Dry Weight Start Date: 10/18/21 Status: Ordered Compression Stockings See Instructions, # 2 pair, Refills 0, Tot. Refills 0, Maintenance, surgical, calf length 20-30 mm Hg R60.0, 07/10/17 16:54:50 EDT, Compound Start Date: 07/10/17 Status: Ordered Disposable Incontinence pads Disposable Incontinence pads, See Instructions, # 150 Unknown, Refills 11, Tot. Refills 11, Maintenance, Use as needed for incontinence 5x/day; length of need 1 year; ICD 10 N39.46, 11/30/21 17:34:00EDT, Compound Start Date: 11/30/21 Status: Ordered empty cather once a day at daycare empty cather once a day at daycare, See Instructions, # 1 each, Refills 0, Tot. Refills 0, Maintenance, May empty cathether once a day while at daycare. Dx: urinary retention, 03/27/17 16:37:19, Compound Start Date: 03/27/17 Status: Ordered Freestyle Lite Lancets See Instructions, # 200 each, Refills 5, Tot. Refills 5, Maintenance, Diabetes Mellitus. DM E11.9. TID, 01/18/21 11:31:00 EST, Supply, 183, cm, 01/18/21 11:01:00 EST, Height, 84.8, kg, 07/01/19 22:20:00 EDT, Dry Weight Start Date: 01/18/21 Stop Date: 07/17/21 Status: Ordered Freestyle Lite Monitor See Instructions, # 1 each, Refills 0, Tot. Refills 0, Maintenance, use to check blood sugars twicea day for Type 2 Diabetes Mellitus ICD10 E11, 07/22/20 21:42:00 EDT, Supply, 183, cm, 07/15/20 15:52:00 EDT, Height, 84.8, kg, 07/01/19 22:20:00 EDT, D... Start Date: 07/22/20 Stop Date: 08/21/20 Status: Ordered Freestyle Lite Test Strips See Instructions, # 600 each, Maintenance, 1 time per day, E11.8, use as directed for Type 2 Diabetes Mellitus, 10/13/20 17:16:00 EDT, Supply, 183, cm, 08/10/20 16:05:00 EDT, Height, 84.8, kg, 07/01/19 22:20:00 EDT, Dry Weight Start Date: 10/13/20 Stop Date: 01/11/21 Status: Ordered Freestyle Lite Test Strips See Instructions, # 200 each, Refills 5, Tot. Refills 5, Maintenance, Diabetes Mellitus. DM E11.9. TID, 01/18/21 11:30:00 EST, Supply, 183, cm, 01/18/21 11:01:00 EST, Height, 84.8, kg, 07/01/19 22:20:00 EDT, Dry Weight Start Date: 01/18/21 Stop Date: 07/17/21 Status: Ordered GaviLAX oral powder for reconstitution See Instructions, DISSOLVE 17 GRAMS IN WATER AND DRINK ONCE DAILY, # 238 Gm, 5 Refills, [facility]ORE [id number], 14, DISSOLVE 17 GRAMS IN WATER AND DRINK ONCE DAILY, 183, cm, 01/18/21 11:01:00 EST, Height, 84.8, kg, 07/01/19 22:20:00 EDT, Dry Weight Start Date: 06/29/21 Status: Ordered glipiZIDE 2.5 mg oral tablet, extended release See Instructions, MARCOS CONWAY BENDER, # 30 tablet, 5 Refills, 10/18/21 16:12:00 EDT, [facility]/pharmacy #[id number], 175, cm, 10/18/21 11:40:00 EDT, Height, 81.9, kg, 08/31/21 14:47:00 EDT, Dry Weight Start Date: 10/18/21 Status: Ordered Gloves See Instructions, # 150 each, Refills 11, Tot. Refills 11, Maintenance, Used by for incontinence care 5x/day; ICD 10 N39.46, 11/30/21 17:33:00 EDT, Compound Start Date: 11/30/21 Status: Ordered Home Blood Pressure Monitor See Instructions, # 1 each, Refills 0, Tot. Refills 0, Maintenance, Use to check blood pressure once daily in the morning. Dx: Hypertension on medication (I10), 07/09/19 14:34:00 EDT, Supply Start Date: 07/09/19 Status: Ordered Incontinence wipes Incontinence wipes, See Instructions, # 150 each, Refills 11, Tot. Refills 11, Maintenance, Use as needed for personal hygiene Dx: Incontinence (R32), 09/17/21 9:59:00 EDT, Supply Start Date: 09/17/21 Status: Ordered loratadine 10 mg oral tablet See Instructions, MARCOS LEÓNDODakota LOS BENDER, # 30 tablet, Refills 5, Tot. Refills 5, 10/19/2215:12:00 EDT, Instructions Replace Required Details, Route to Pharmacy Electronically, [facility]/pharmacy#[id number], 175, cm, 10/18/21 11:40:00 EDT, Height, 81.9... Start Date: 10/18/21 Status: Ordered Multi-Day Plus Minerals oral tablet 1 tablet, By Mouth, Daily, resent to new pharmacy, # 90 tablet, 1 Refills, Maintenance, 10/18/21 16:12:00 EDT, Tablet, [facility]/pharmacy #[id number], 1 tablet By Mouth Daily,Instr:resent to new pharmacy, 175, cm, 10/18/21 11:40:00 EDT, Height, 81.9, kg, 08/31/21... Start Date: 10/18/21 Status: Ordered Pullups - size L Pullups - size L, See Instructions, # 240 each, Refills 11, Tot. Refills 11, Maintenance, Use as needed for incontinence 5x/day; length of need 1 year; ICD 10 N39.46, 11/30/21 17:33:00 EDT, Compound Start Date: 11/30/21 Status: Ordered Reusable Incontinence Pads Reusable Incontinence Pads, See Instructions, # 10 each, Refills 11, Tot. Refills 11, Maintenance, use as needed for incontinence up to 5X/day dx: N39.46 AV = 1 year, 11/30/21 17:35:00 EDT, Supply Start Date: 11/30/21 Status: Ordered see below see below, See Instructions, # 60 each, Refills 11, Tot. Refills 11, Maintenance, reusable extra absorbent bed pads 2 per day, 30 day supply; R39. 81, 09/17/21 9:59:00 EDT, Supply Start Date: 09/17/21 Status: Ordered Shower chair Shower chair, See Instructions, # 1 each, Refills 0, Tot. Refills 0, Maintenance, [facility] Dx: Stroke (I63.9), impaired mobility (Z74.09), 07/09/19 14:21:00 EDT, Supply Start Date: 07/09/19 Status: Ordered Wellbutrin SR 150 mg/12 hours oral tablet, extended release 1 tablet = 150 mg, By Mouth, 2 times a day, # 180 tablet, 1 Refills, Maintenance, 10/31/21 8:53:00 EDT, ER Tablet, [facility]/pharmacy #[id number], 175, cm, 10/18/21 11:40:00 EDT, Height, 81.9, kg, 08/31/21 14:47:00 EDT, Dry Weight Start Date: 10/31/21 Stop Date: 04/29/22 Status: Ordered Wipes Wipes, See Instructions, # 150 each, Refills 0, Tot. Refills 0, Maintenance, R15.9, use everyday 5 per day, 06/04/20 17:29:00 EDT, Supply Start Date: 06/04/20 Status: Ordered Problem List Condition Confirmation Course Effective Dates Status H ealth Status Informant Adenocarcinoma of prostate Confirmed Active Allergic rhinitis Confirmed Active Cerebrovascular accident (stroke) Confirmed Active CKD (chronic kidney disease) stage 3, GFR 30-59 ml/min Confirmed Active Diastolic congestive heart failure, NYHA class 1 Confirmed Active Hypertension Confirmed Active Cognitive impairment, likely vascular dementia Confirmed Active Depression, major Confirmed Active Hypogonadism in male Confirmed Active Microalbuminuria - mildly increased, ratio <30 mg/g Confirmed 11/17/14 Active Elevated PSA, BPH per urology, see April, Confirmed Active Obesity due to excess calories Confirmed Active DM (diabetes mellitus), 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 Presence of indwelling urinary catheter Confirmed Active Social History Social History Type Response Smoking Status Never smoker; Tobacc o user in household: No entered on: 01/12/15 Sex Patient Care team information Care Team Personnel Name: Declan Louise MD [facility] Primary Care Physician Member Role: PCP Address: Address: [address] [place] [address]- Name: Simran Shannon RN Position: S RN Member Role: Primary Care Nurse Name: Torie Jo RN Position: [facility] RN Member Role: Primary Care Nurse Name: Hussein Waters RN [facility] RN Member Role: Primary Care Nurse Name: Vandana Sorensen NP Position: [facility] Associate Professional Member Role: Primary Care Nurse Address: Address: [address] [place] [address]- Name: Karsten Kwong MD Position: [facility] Renal MD Member Role: Lifetime Consulting Physician Address: Address: [address] [place] [address], [address] [facility] [place] [address]- Name: Rebecca Leon RN Position: [facility] RN Member Role: Primary Care Nurse Name: Elisabet Calle Position[facility] RN Member Role: Primary Care Nurse Name: Paola Cavanaugh RN Position: [facility] ED RN W/OE and Tasks Member Role: Primary Care Nurse Name: Argentina Dixon RN Position: [facility] SN RN Member Role: Primary Care Nurse Name: Christina Alonso Position: [facility] PCO RN Member Role: Lifetime Consulting Physician Name: Ramiro Brody III, RN Position: [facility] RN Member Role: Primary Care Nurse Name: Simran Tariq RN Position: [facility] RN Member Role: Primary Care Nurse Name: Dana Fitzgerald RN Position: [facility] RN Member Role: Primary Care Nurse Name: Narayan Spencer RN Position: [facility] SN RN Member Role: Primary Care Nurse Name: Shell Yoder RN Position: [facility] RN Member Role: Primary Care Nurse Name: Radha Mustafa RN Position: [facility] PCO RN Member Role: Primary Care Nurse Name: Misti Pickard RN Position[facility] RN Member Role: Primary Care Nurse Name: William Villanueva RN Position[facility] RN Member Role: Primary Care Nurse Name: Viky Torre RN Position: [facility] Assistant Secretary Member Role: Primary Care Nurse Name: Carolee Tesfaye RN Position[facility] RN Member Role: Primary Care Nurse Name: Joey Perez MD Position: [facility] Renal MD Member Role: Lifetime Consulting Physician Address: Address: [address] [place] [address] [facility] [address] Name: Brittney Ledezma RN Position: [facility] Assistant Secretary Member Role: Primary Care Nurse Name: Eliezer Wagner RN Position[facility] ED RN W/OE and Tasks Member Role: Primary Care Nurse Name: Najma Causey RN Position[facility] SN RN Member Role: Primary Care Nurse Name: Brunilda Thomas RN Position[facility] RN Member Role: Primary Care Nurse Care Team Related Persons Name: ROOPA XIE Address: [address] [address] Name: HOPE XIE Address: [address] [address]
--- NOTE | 2023-05-25 14:56 | A.OFFVIS_ITS ---
Intake Intake Visit Reasons: 6m/PSA(testosterone pending) Intake Note: Patient presents today for a follow up on: PSA/Testosterone Meds- None Allergies to Antibiotic- No Known Allergies Blood Thinner- Aspirin Refractory Manager Required: No Allergies No Known Allergies [No Known Allergies*] Allergy (Verified 05/25/23 15:01) Medication List - Last Reconciled 05/25/23 by JOSE Murphy-SUZAN acetaminophen 650 mg PO Q4H PRN alcohol swabs 0 pad topical amlodipine 10 mg PO DAILY aspirin 81 mg PO DAILY atorvastatin 20 mg PO BEDTIME blood sugar diagnostic (FreeStyle Lite Strips) As directed bupropion HCl SR 150 mg PO BID cetirizine 10 mg PO DAILY fluticasone propionate 50 mcg/actuation sprays intranasal glipizide ER 5 mg PO DAILY lancets (FreeStyle Lancets) As directed loratadine 10 mg PO DAILY psppxoom-bzp-exzzfmv fumarate 15 mg iron 1 tab PO DAILY bdczvzvm-swv-lxyy fum-folic ac 7.5 mg iron-400 mcg 1 tab PO DAILY multivitamin with folic acid 400 mcg (Daily-Yasmine (with folic acid)) 1 tab PO DAILY multivitamin with minerals 1 tab PO DAILY polyethylene glycol 3350 17 grams PO DAILY HPI HPI Comments History of Present Illness Details Henry is a very pleasant 68 year old Lao speaking male patient of Dr Cota who is accompanied by his during today's telehealth visit. He has a PMH of dementia, hypertension, hyperlipidemia, diabetes, hypogonadism, and prostate cancer. He is being followed up on today for his hypogonadism and history of prostate cancer. In discussion with the who provides most of the patient's history given patient's progressive dementia she discusses his recent hospitalization to [facility] for approximately 1 week for failure to thrive and urinary tract infection. She discusses he then went to rehab for 1 month however is now home and recovering well. She discusses he has his PCP appointment on the of this month. She currently denies the patient to have any urinary issues or concerns. Recent PSA and testosterone labs reviewed with the patient his today. PSAs: 08/10 <0.05, 02/09 <0.05 08/11 <0.05, 09/11 <0.10, 05/13 <0.10 Total Testosterone: 247, 02/09 233, 08/11 302, 05/13 286 He is able to answer basic yes and no questions however is slow to respond and hard to understand via telehealth however patients help with todays visit. reports as patients dementia progresses she note patient to be having more frequent urinary incontinent episodes. Discussed at length timed voiding/scheduled toileting to assist with decreasing incontinent episodes. She otherwise denies any issues or concerns at this time. She otherwise denies any issues or concerns at this time. PREVIOUS HISTORY Prostate cancer was diagnosed 08/2014. Diagnosis was reached by needle biopsy, for elevated PSA, PSA at diagnosis 7.1. The Bluefield grade is At biopsy, 3+4 = 7, right apex, right mid gland, left apex, left mid gland , at surgery, 3+4 = 7. TNM Classification of Malignant Tumours (TNM) T1c. The D'Humberto (NCCN) risk category is Intermediate Risk (PSA 10-20, Gl 7, T2). Initial therapy included Primary treatment, Prostatectomy (RRP/Robotic). Recent labs included a PSA (prostate-specific antigen) November 2015 , < 0.1, March 2016, < 0.1, a testosterone March 2016 139 10/07 PSA < 0.1, 02/09 <0.1, 08/11 <0.1 T 300, 09/11 <0.10 Associated conditions erectile dysfunction Yes hematuria No hot flashes No incontinence Yes Bladder neck contracture. Incision 09/05 Stress incontinence occasional, with cough, laugh, sneeze, does not require pad protection Urge incontinence Yes Worsening urge incontinence with use of protection osteopenia No pathologic fracture No radiation cystitis No rectal urgency No Therapeutic plan: Continue with surveillance Hypogonadism: Hematocrit persistent at 58. Needs phlebotomy. This is starting next week. Planning for therapeutic blood removal. Laboratories of planned. To happen at [facility]. He presents today for further evaluation and followup of his hypogonadism - T shot. Initial symptoms include erectile dysfunction Yes decreased libido Yes change in mood/depression Yes in muscle size/strength Yes increased fatigue/malaise Yes increased abdominal fat No tender breasts/gynecomastia No hair loss No osteopenia No The onset of symptoms has been gradual. Associate conditions include chronic pain with opioid use Yes obstructive sleep apnea No CAD No diabetes Yes dyslipidemia Yes obesity No stress - financial, family, employment No heavy alcohol or illicit drug use No He has been taking narcotics. Laboratory results baseline 03/08 139 8/18 T 800 HCT 53 PSA < 0.1 2 T 650 PSA < 0.1, HCT borderline 55 9 T 815 PSA < 0.1 HCt 58 - reduce T to 75units. 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 [facility] Medical History Dementia Diabetes HTN (hypertension) Surgical History History of prostate surgery Social History Alcohol intake: never Patient Tobacco Use Status: Never used Tobacco Review of Systems Const Unobtainable due to mental status Reports as per HPI Physical Exam Const General: cooperative Psych Speech and movement: Clear speech present Attitude: cooperative Insight: Limited insight present (Psych) Judgement: Limited judgement present (Psych) Assessment & Plan Assessment & Plan (1) Hypogonadism in male: Code(s): E29.1 - Testicular hypofunction (2) Prostate cancer: Code(s): C61 - Malignant neoplasm of prostate Plan Recent PSA and testosterone results reviewed with the patient his today; as noted above. Discussed if urinary tract infections continue can performed further workup with retroperitoneal ultrasound. Discussed potential causes of urinary tract infections. Discussed timed voidin/scheduled toileting. PSA and testosterone in 6 months. Follow-up in 6 months with labs to be completed prior; or sooner with any issues, concerns, and or questions. Orders: Orders Prostate Specific Antigen 6 Months C61 - Malignant neoplasm of prostate, E29.1 - Testicular hypofunction Testosterone, Free/Total 6 Months C61 - Malignant neoplasm of prostate, E29.1 - Testicular hypofunction Patient Instructions: The patient had an opportunity to ask questions regarding the treatment plan. All questions were answered. Physical exam, labs, and imaging were discussed and reviewed in detail. As well as risks, benefits, and discussion of treatment choices. No major barriers to understanding were identified. The patient expressed understanding and agreement with the above treatment plan. The patient was made aware they should contact our office by phone for worsening of their current condition, the appearance of new symptoms, or with any questions or concerns. Compliance is encouraged with any medications and follow up testing that is ordered. It is a privilege to be allowed the opportunity to participate in? your urological care.? Again, if you have any questions or concerns If you have any questions or concerns please do not hesitate to contact me. The office is [phone]. This note is constructed using voice recognition software. While every effort has been made to ensure accuracy sales engineer errors may have been included. Yours sincerely, Katelynn Joyce [facility] Telehealth Telehealth Location of provider rendering services: practice address Location of patient: address on file Patient Identification confirmed using: Name, : Yes Telehealth method: voice only Patient verbally consented to treatment: Yes Patient verbally consented to billing insurance company: Yes Patient informed of any privacy concerns related to visit: Yes Minutes spent on Phone/Video with Pt.: 20 Coding Level of Care Code Tele Est Pt Level 3 (52722) Diagnoses Hypogonadism in male E29.1 Prostate cancer C61
--- OUTSIDE RECORDS SUMMARY | 2023-05-25 14:56 | XMS_ITS | Continuity of Care Document ---
Author Organization [facility] Address [address] [place] [address]- Care Team Providers Care In Store Marketer Name Role Independent Driver Declan ALVAREZ Primary Care Physician [facility]counter [facility] Date(s): 07/20/22 - 08/19/[address] [address]- Encounter Diagnosis Cognitive impairment, likely vascular dementia(Discharge Diagnosis) - 07/22/22 Allergies, Adverse Reactions, Alerts No Known Allergies Immunizations Given and Recorded Vaccine Date Status Refusal Reason influenza virus vaccine, inactivated 01/18/22 Give n [...] virus vaccine, inactivated 1 12/06/10 Gi dory [id number] 12y+ bivalent booster vax 01/18/22 Given SARS-CoV-2 (COVID-19) mRNA BNT-162b2 vac 02/08/21 Given SARS-CoV-2 (COVID-19) mRNA BNT-162b2 vac 01/18/21 Given pneumococcal 23-valent vaccine 12/08/14 Given FluLaval (oldterm) 2 12/26/11 Given tetanus-diphtheria toxoids (Td) 3 12/06/10 Given 1Admin Note: vis given Maltese 2Admin Note: vis [id number] 3Admin Note: VIS given Maltese. Medications acetaminophen 325 mg oral tablet 650 mg, By Mouth, Every 4 hours, PRN, # 50 tablet, Refills 5, Tot. Refills 5, Maintenance, as needed for pain, 11/23/20 13:09:00 EDT, Route to Pharmacy Electronically, [facility]/pharmacy #[id number], 183, cm, 08/10/20 16:05:00 EDT, Height, 84.8, kg, 07/01/19 22:2... Start Date: 11/23/20 Status: Ordered Adult diapers Adult diapers, See Instructions, # 150 each, Refills 11, Tot. Refills 11, Maintenance, Use as needed for incontinence 5x/day; length of need 1 year; ICD 10 N39.46, 07/26/22 8:53:00 EDT, Compound Start Date: 07/26/22 Status: Ordered Alcohol Pads See Instructions, # [...] Diabetes Mellitus 2 times per day, E11.8, 02/18/22 9:43:00 EST, Supply, 175, cm, 01/18/22 12:03:00 EST, Height, 81.9, kg, 08/31/21 14:47:00 EDT, Dry Weight Start Date: 02/18/22 Stop Date: 08/17/22 Status: Ordered amLODIPine 5 mg oral tablet See Instructions, MARCOS MCKENNAS, # 90 tablet, 1 Refills, Maintenance, 07/06/22 13:39:00 EDT, [facility]/pharmacy #[id number], 175, cm, 01/18/22 12:03:00 EST, Height, 81.9, kg, 08/31/21 14:47:00 EDT, Dry Weight Start Date: 07/06/22 Status: Ordered Aspirin Low Dose 81 mg oral delayed release tablet See Instructions, TOME KIA TABLETA TODOS LOS BENDER, # 90 tablet, 1 Refills, Maintenance, 03/04/22 13:01:00 EST, [facility], 175, cm, 01/18/22 12:03:00 EST, Height, 81.9, kg, 08/31/21 14:47:00 EDT, Dry Weight Start Date: 03/04/22 Status: Ordered atorvastatin 20 mg oral tablet See Instructions, TOME KIA TABLETA TODOS [place] BENDER AT SUPPER, # 90 tablet, 1 Refills, 06/17/22 9:43:00 EDT, [facility]/pharmacy #[id number], 175, cm, 01/18/22 12:03:00 EST, Height, 81.9, kg, 08/31/21 14:47:00 EDT,Dry Weight Start Date: 06/17/22 Status: Ordered BuPROPion (Eqv-Wellbutrin SR) 150 mg/12 hours oral tablet, extended release See Instructions, TOME KIA TABLETA DOS VECES AL BALA, # 180 Unknown, 1 Refills, Maintenance, 03/04/22 13:01:00 EST, [facility]14, 175, cm, 01/18/22 12:03:00 EST, Height, 81.9, kg, 08/31/21 14:47:00EDT, Dry Weight Start Date: 03/04/22 Status: Ordered Compression Stockings See Instructions, # 2 pair, Refills 0, Tot. Refills 0, Maintenance, surgical, calf length 20-30 mm Hg R60.0, 07/10/17 16:54:50 EDT, Compound Start Date: 07/10/17 Status: Ordered Daily Yasmine oral tablet See Instructions, TOME KIA TABLETA POR VIA ORAL TODOS LOS BENDER, # 90 tablet, 1 Refills, Maintenance, 03/04/22 13:01:00 EST, [facility], 90, TOME KIA TABLETA POR VIA ORAL TODOS LOS BENDER, 175, cm,01/18/22 12:03:00 EST, Height, 81.9, kg, 08/31/21 1... Start Date: 03/04/22 Status: Ordered Disposable Incontinence pads Disposable Incontinence pads, See Instructions, # 150 Unknown, Refills 11, Tot. Refills 11, Maintenance, Use as needed for incontinence 5x/day; length of need 1 year; ICD 10 N39.46, 07/29/22 8:57:00 EDT, Compound Start Date: 07/29/22 Status: Ordered empty cather once a day [...] Refills 5, Maintenance, Diabetes Mellitus. DM E11.9. check sugars once daily, 04/18/22 12:43:00 EST, Supply, 175, cm, 01/18/22 12:03:00 EST, Height, 81.9, kg, 08/31/21 14:47:00 EDT, Dry Weight Start Date: 04/18/22 Stop Date: 10/15/22 Status: Ordered Freestyle Lite Monitor See Instructions, [...] Refills 5, Maintenance, Diabetes Mellitus. DM E11.9. check sugars once daily, 04/18/22 12:43:00 EST, Supply, 175, cm, 01/18/22 12:03:00 EST, Height, 81.9, kg, 08/31/21 14:47:00 EDT, Dry Weight Start Date: 04/18/22 Stop Date: 10/15/22 Status: Ordered GaviLAX oral powder for reconstitution See Instructions, DISSOLVE 17 GRAMS IN WATER AND DRINK ONCE DAILY, # 238 Gm, 5 Refills, [facility] 18551, 14, DISSOLVE 17 GRAMS IN WATER AND DRINK ONCE DAILY, 183, cm, 01/18/21 11:01:00 EST, Height, 84.8, kg, 07/01/19 22:20:00 EDT, Dry Weight Start Date: 06/29/21 Status: Ordered glipiZIDE 2.5 mg oral tablet, extended release 1 tablet = 2.5 mg, By Mouth, Daily, for 90 days, # 90 tablet, 0 Refills, Physician Stop 10/18/22 14:15:00 EDT, 07/20/22 14:15:00 EDT, [facility]/pharmacy #[id number], 175, cm, 01/18/22 12:03:00 EST, Height, 81.9,kg, 08/31/21 14:47:00 EDT, Dry Weight Start Date: 07/20/22 Stop Date: 10/18/22 Status: Ordered Gloves See Instructions, # 150 each, Refills 11, Tot. Refills 11, Maintenance, Used by for incontinence care 5x/day; ICD 10 N39.46, 07/29/22 8:57:00 EDT, Compound Start Date: 07/29/22 Status: Ordered Home Blood Pressure Monitor See [...] 10 mg oral tablet See Instructions, MARCOS CHAPMANAmy MCKENNAS, # 90 tablet, Refills 1, Maintenance, 03/04/22 13:01:00 EST, Instructions Replace Required Details, Route to Pharmacy Electronically, [facility] [id number], 175, cm, 01/18/22 12:03:00 EST, Height, 81.9, kg,... Start Date: 03/04/22 Status: Ordered Multi-Day Plus Minerals oral tablet 1 tablet, By Mouth, Daily, resent to new pharmacy, # 90 tablet, 1 Refills, Maintenance, 10/18/21 16:12:00 EDT, Tablet, [facility]/pharmacy #[id number], 1 tablet By Mouth Daily,Instr:resent to new pharmacy, 175, cm, 10/18/21 11:40:00 EDT, Height, 81.9, kg, 08/31/21... Start Date: 10/18/21 Status: Ordered Pullups - size L Pullups - size L, See Instructions, # 240 each, Refills 11, Tot. Refills 11, Maintenance, Use as needed for incontinence 5x/day; length of need 1 year; ICD 10 N39.46, 07/26/22 8:54:00 EDT, Compound Start Date: 07/26/22 Status: Ordered Reusable Incontinence Pads Reusable Incontinence Pads, See Instructions, # 10 each, Refills 11, Tot. Refills 11, Maintenance, use as needed for incontinence up to 5X/day dx: N39.46 AV = 1 year, 07/26/22 8:53:00 EDT, Supply Start Date: 07/26/22 Status: Ordered see below see below, See Instructions, # 60 each, Refills 11, Tot. Refills 11, Maintenance, reusable extra absorbent bed pads 2 per day, 30 day supply; R39. 81, 09/17/21 9:59:00 EDT, Supply Start Date: 09/17/21 Status: Ordered Shower chair Shower chair, See Instructions, # 1 each, Refills 0, Tot. Refills 0, Maintenance, Use as needed [facility]. Dx: Stroke (I63.9), impaired mobility (Z74.09), 03/04/22 12:59:00 EST, Supply Start Date: 03/04/22 Status: Ordered Wheelchair Wheelchair, See Instructions, # 1 each, Refills 0, Tot. Refills 0, Maintenance, Dx: CVA, dementia Av: indefinite, 01/18/22 12:19:00 EST, Supply Start Date: 01/18/22 Status: Ordered Wipes Wipes, See Instructions, # [...] Presence of indwelling urinary catheter Confirmed Active Diagnosis Diagnosis Type Effective Dates Health Status Cl inical Service Informant Cognitive impairment, likely vascular dementia Discharge Diagnosis 07/22/22 Non-Specified Social History Social History Type Response Smoking Status Never smoker; Tobacc o user in household: No entered on: 01/12/15 Sex Patient Care team information Care Team Personnel Name: Declan Louise MD Position: [facility] Physician - Primary Care Member Role: PCP Address: Address: [address] [place] [id number]- [place] Name: Simran Shannon RN Position: [facility] RN Member Role: Primary Care Nurse Name: Torie Jo RN Position: [facility] RN Supv Member Role: Primary Care Nurse Name: Hussein Waters RN Position: [facility] RN Member Role: Primary Care Nurse Name: Vandana Sorensen NP Position: [facility] Associate Professional Member Role: Primary Care Nurse Address: Address: [address] [place] [address]- Name: Karsten Kwong MD Position: [facility] Renal MD Member Role: Lifetime Consulting Physician Address: Address: [address] [place] [address], [address] [facility] [place], [place] [address] Name: Rebecca Leon RN Position: [facility] RN Member Role: Primary Care Nurse Name: Elisabet Calle Position: [facility] RN Member Role: Primary Care Nurse Name: Paola Cavanaugh RN Position: [facility] ED RN W/OE and Tasks Member Role: Primary Care Nurse Name: Argentina Dixon RN Position: [facility] SN RN Member Role: Primary Care Nurse Name: Christina Alonso Position: [facility] AMB Nurse Member Role: Lifetime Consulting Physician Name: Ramiro Brody III, RN Position: [facility] RN Member Role: Primary Care Nurse Name: Simran Tariq RN Position: [facility] RN Member Role: Primary Care Nurse Name: Dana Fitzgerald RN Position: [facility] RN Member Role: Primary Care Nurse Name: Narayan Spencer RN Position: [facility] SN RN Member Role: Primary Care Nurse Name: Shell Yoder RN Position: [facility] RN Member Role: Primary Care Nurse Name: Radha Mustafa RN Position: [facility] AMB Nurse Member Role: Primary Care Nurse Name: Misti Pickard RN Position: [facility] RN Member Role: Primary Care Nurse Name: William Villanueva RN Position: [facility] RN Member Role: Primary Care Nurse Name: Viky Torre RN Position: [facility] Dimensional Integration Engineer Member Role: Primary Care Nurse Name: Carolee Tesfaye RN Position: [facility] RN Member Role: Primary Care Nurse Name: Joey Perez MD Position: [facility] Renal MD Member Role: Lifetime Consulting Physician Address: Address: [address] [place] [address] [facility] [place] [address]- Name: Brittney Ledezma RN Position: [facility] Dimensional Integration Engineer Member Role: Primary Care Nurse Name: Eliezer Wagner RN Position: [facility] ED RN W/OE and Tasks Member Role: Primary Care Nurse Name: Najma Causey RN Position: [facility] SN RN Member Role: Primary Care Nurse Name: Brunilda Thomas RN Position: [facility] RN Member Role: Primary Care Nurse Care Team Related Persons Name: ROOPA XIE Address: [address] [address] Name: HOPE XIE Address: [address] [address]
--- OUTSIDE RECORDS SUMMARY | 2023-05-25 14:56 | XMS_ITS | Continuity of Care Document ---
Author Organization [facility] Address [address] [place] [address]- Care Team Providers Care Trimming Cutter Name Role Phone Britany Springer MD Primary Care Physician Encounter [facility] Date(s): 09/02/19 - 10/02/[address] [address]- [facility] Allergies, Adverse Reactions, Alerts Substance Reaction Severity Status NKA Active Immunizations Given and Recorded Vaccine Date Status Refusal Reason influenza virus vaccine, inactivated 01/09/19 Give n [...] 3 12/06/10 Given 1Admin Note: vis given Cypriot 2Admin Note: vis [id number] 3Admin Note: VIS given Cypriot. Medications acetaminophen 325 mg oral tablet 650 mg, By Mouth, Every 4 hours, PRN, # 50 tablet, Refills 5, Tot. Refills 5, Maintenance, as needed for pain, 06/20/19 14:52:00 EDT, Route to Pharmacy Electronically, [facility]/pharmacy #[id number], 178, cm, 04/02/19 9:47:00 EST, Height, 94.7, [...] 2.5 mg, 1, tablet, By Mouth, Daily, hold for systolic blood pressure <120, and [facility] this replaces nifedipine, # 30 tablet, Refills 2, Tot. Refills 2, Maintenance, 07/22/19 11:15:00 EDT, Route to Pharmacy Electronically, [facility]/pharmacy #[id number], ins... Start Date: 07/22/19 Stop Date: 10/20/19 Status: Ordered aspirin 81 mg oral delayed release tablet 81 mg, 1, tablet, By Mouth, Daily, # 90 tablet, Refills 3, Tot. Refills 3, Maintenance, 01/09/19 16:18:54 EST, Route to Pharmacy Electronically, [id number], [facility]/pharmacy #[id number] Start Date: 01/09/19 Stop Date: 01/04/20 Status: Ordered atorvastatin 20 mg oral tablet 1 tablet = 20 mg, By Mouth, Daily at supper, # 30 tablet, 5 Refills, Maintenance, 08/22/19 14:51:00EDT, Tablet, [facility]/pharmacy #[id number], 183, cm, 07/29/19 15:02:00 EDT, Height, 84.8, kg, 07/01/19 22:20:00 EDT, Dry Weight Start Date: 08/22/19 Status: Ordered cetirizine 10 mg oral tablet 1 tablet = 10 mg, By Mouth, Daily, # 90 tablet, 1 Refills, Maintenance, 06/20/19 15:01:00 EDT, Tablet, [facility]/pharmacy #[id number], 178, cm, 04/02/19 9:47:00 EST, Height, 94.7, kg, 06/01/18 13:52:00 EDT, Dry Weight Start Date: 06/20/19 Status: Ordered cholecalciferol 1000 intl units oral [...] Gm, 5 Refills, Maintenance, 07/20/18 13:11:53 EDT, Muse, 2 sprays Nares, Both Daily Start Date: [...] pads Incontinence pads, See Instructions, # 150 units, Refills 11, Tot. Refills 11, Maintenance, Use as needed for incontinence 5x/day; length of need 1 year; ICD 10 N39.46, 01/30/19 7:35:57 EST, Compound Start Date: 01/30/19 Status: Ordered Incontinence wipes Incontinence wipes, See Instructions, # 150 each, Refills 5, Tot. Refills 5, Maintenance, Use as needed for personal hygiene Dx: Incontinence (R32), 08/29/19 13:50:00 EDT, Supply Start Date: 08/29/19 Status: Ordered MiraLax oral powder for reconstitution = 17 Gm, By Mouth, Daily, dissolve in water before taking, # 255 Gm, 5 Refills, Maintenance, 06/20/19 15:01:00 EDT, REC Powder, [facility]/pharmacy #[id number], 17 Gm By Mouth Daily,Instr:dissolve in water beforetaking, 178, cm, 04/02/19 9:47:00 EST, Height, 94.7... Start Date: 06/20/19 Status: Ordered Multi-Day Plus Minerals oral tablet 1 tablet, By Mouth, Daily, # 30 tablet, 5 Refills, Maintenance, 07/22/19 18:27:00 EDT, Tablet, [facility]/pharmacy #[id number], 1 tablet By Mouth Daily, 183, cm, 07/05/19 9:20:00 EDT, Height, 84.8, kg, 07/01/19 22:20:00 EDT, Dry Weight Start Date: 07/22/19 Status: Ordered Pullups - size L Pullups - size L, See Instructions, # 150 units, Refills 11, Tot. Refills 11, Maintenance, Use as needed for incontinence 5x/day; length of need 1 year; ICD 10 N39.46, 01/30/19 7:36:02 EST, Compound Start Date: 01/30/19 Status: Ordered Shower chair Shower chair, See Instructions, # 1 each, Refills 0, Tot. Refills 0, Maintenance, Use as needed [facility]. Dx: Stroke (I63.9), impaired mobility (Z74.09), 07/09/19 [...] Refills, Maintenance, 05/15/19 8:53:00 EDT, ER Tablet, [id number], 178, cm, 04/02/19 9:47:00 EST, Height, [...]
--- OUTSIDE RECORDS SUMMARY | 2023-05-25 14:56 | XMS_ITS | Continuity of Care Document ---
Author Organization [facility] Address [address] [place] [address]- Care Team Providers Care Blank Driller Name Role Phone Damián De Jesus MD Primary Care Physician Encounter [facility] ACCT R [id number] Date(s): 04/02/19 - 04/12/[address] [address]- [facility] Attending Physician: Admmaureen, Norbert Admitting Physician: Admtr, Norbert Referring Physician: Admtr, Ar8 Allergies, Adverse Reactions, Alerts Substance Reaction Severity [...] 3 12/06/10 Given 1Admin Note: vis given Haitian 2Admin Note: vis [phone] 3Admin Note: VIS given Haitian. Medications acetaminophen 325 mg oral tablet 650 mg, By Mouth, Every 4 hours, PRN, # 50 tablet, Refills 1, Tot. Refills 1, Maintenance, as needed for pain, 01/09/19 16:19:20 EST, Route to Pharmacy Electronically, [id number], [facility]/pharmacy #[id number] Start Date: 01/09/19 Status: Ordered Adult diapers Adult diapers, See Instructions, # 150 each, Refills 11, Tot. Refills 11, Maintenance, Use as needed for incontinence 5x/day; length of need 1 year; ICD 10 N39.46, 01/14/19 8:43:55 EST, Compound Start Date: 01/14/19 Status: Ordered aspirin 81 mg oral delayed release tablet 81 mg, 1, tablet, By Mouth, Daily, # 90 tablet, Refills 3, Tot. Refills 3, Maintenance, 01/09/19 16:18:54 EST, Route to Pharmacy Electronically, [id number], [facility]/pharmacy #[id number] Start Date: 01/09/19 Stop Date: 01/04/20 Status: Ordered atenolol 100 mg oral tablet 1 tablet = 100 mg, By Mouth, Daily, # 90 tablet, 3 Refills, Maintenance, 05/22/18 11:53:14 EDT Start Date: 05/22/18 Status: Ordered atorvastatin 20 mg oral tablet 1 tablet = 20 mg, By Mouth, Daily at supper, # 30 tablet, 5 Refills, Maintenance, 01/09/19 16:18:57EST, Tablet Start Date: 01/09/19 Status: Ordered cetirizine 10 mg oral tablet 1 tablet = 10 mg, By Mouth, Daily, # 90 tablet, 0 Refills, Maintenance, 01/09/19 16:19:55 EST, Tablet Start Date: 01/09/19 Status: Ordered cholecalciferol 1000 intl units oral [...] Gm, 5 Refills, Maintenance, 07/20/18 13:11:53 EDT, Lawrence, 2 sprays Nares, Both Daily Start Date: 07/20/18 Status: Ordered Gloves See Instructions, # 150 each, Refills 11, Tot. Refills 11, Maintenance, Used by for incontinence care 5x/day; ICD 10 N39.46, 01/30/19 7:35:52 EST, Compound Start Date: 01/30/19 Status: Ordered hydrocortisone 0.5% topical cream 1 [...] EST, Compound Start Date: 01/30/19 Status: Ordered MiraLax oral powder for reconstitution = 17 Gm, By Mouth, Daily, dissolve in water before taking, # 255 Gm, 2 Refills, Maintenance, 01/09/19 16:19:03 EST, REC Powder, 17 Gm By Mouth Daily,Instr:dissolve in water before taking Start Date: 01/09/19 Status: Ordered Multi-Day Plus Minerals oral tablet 1 tablet, By Mouth, Daily, # 30 tablet, 5 Refills, Maintenance, 01/09/19 16:19:07 EST, Tablet, 1 tablet By Mouth Daily Start Date: 01/09/19 Status: Ordered NIFEdipine 60 mg oral tablet, extended release 60 mg, 1, tablet, By Mouth, Daily, # 30 tablet, Refills 5, Tot. Refills 5, Maintenance, 09/26/18 14:07:41 EDT, Route to Pharmacy Electronically, [id number], [facility]/pharmacy #[id number] Start Date: 09/26/18 Status: Ordered Pullups - size L Pullups - size L, See Instructions, # 150 units, Refills 11, Tot. Refills 11, Maintenance, Use as needed for incontinence 5x/day; length of need 1 year; ICD 10 N39.46, 01/30/19 7:36:02 EST, Compound Start Date: 01/30/19 Status: Ordered Testosterone Intramuscular, Every 14 days, done by urologist last given Mondayoct 14 does not know dose, 0Refills, Maintenance, 10/23/16 10:56:07 Start Date: 10/23/16 Status: Ordered Wellbutrin SR 150 mg/12 hours oral tablet, extended release 1 tablet = 150 mg, By Mouth, 2 times a day, # 180 tablet, 1 Refills, Maintenance, 01/09/19 16:18:58EST, ER Tablet Start Date: 01/09/19 Status: Ordered Problem List Condition Effective Dates [...]
--- OUTSIDE RECORDS SUMMARY | 2023-05-25 14:56 | XMS_ITS | Continuity of Care Document ---
Author Organization [facility] Address [address] [place] [address]- Care Team Providers Care Clothing Room Supervisor Name Role Phone Britany Springer MD Primary Care Physician Encounter [facility] [id number] Date(s): 02/03/20 - 03/04/[address] [address]- Attending Physician: Norbert Malhotra Admitting Physician: AdmtrNorbert Referring Physician: Admtr, ArMatt Allergies, Adverse Reactions, Alerts Substance Reaction Severity [...] 3 12/06/10 Given 1Admin Note: vis given French 2Admin Note: vis [id number] 3Admin Note: VIS given French. Medications acetaminophen 325 mg oral tablet 650 mg, By Mouth, Every 4 hours, PRN, # 50 tablet, Refills 5, Tot. Refills 5, Maintenance, as needed for pain, 06/20/19 14:52:00 EDT, Route to Pharmacy Electronically, [facility]/pharmacy #[id number], 178, cm, 04/02/19 9:47:00 EST, Height, 94.7, kg, 04/12/19 13:52... Start Date: 06/20/19 Status: Ordered Adult [...] 07/26/20 11:17:00 EDT, Route to Pharmacy Electronically, [facility]/pharmacy #[id number], 183, cm, 12/27/19 13:56:00 EST, Height, 84.8, kg, 07/01/19 22:20:00 EDT, Dry Weight Start Date: 07/26/20 Stop Date: 01/22/21 Status: Ordered aspirin 81 mg oral delayed release tablet 81 mg, 1, tablet, By Mouth, Daily, for 90 days, # 90 tablet, Refills 1, Tot. Refills 1, Hard Stop 07/26/20 11:17:00 EDT, 01/28/20 11:17:00 EST, Route to Pharmacy Electronically, [facility]/pharmacy #[id number], 183, cm, 12/27/19 13:56:00 EST, Height, 84.8, kg, ... Start Date: 01/28/20 Stop Date: 07/26/20 Status: Ordered atorvastatin 20 mg oral tablet 1 tablet = 20 mg, By Mouth, Daily at supper, # 90 tablet, 2 Refills, Maintenance, 02/03/20 10:50:00EST, Tablet, [facility]/pharmacy #[id number], 183, cm, 12/27/19 13:56:00 EST, Height, 84.8, kg, 07/01/19 22:20:00 EDT, Dry Weight Start Date: 02/03/20 Status: Ordered cetirizine 10 mg oral tablet 1 tablet = 10 mg, By Mouth, Daily, # 90 tablet, 1 Refills, Maintenance, 02/03/20 10:58:00 EST, Tablet, [facility]/pharmacy #[id number], 183, cm, 12/27/19 13:56:00 EST, Height, [...] 1 Refills, Maintenance, 02/03/20 10:58:00 EST, Tablet, [id number], 1 tablet By Mouth Daily, 183, [...] Tot. Refills 0, Maintenance, Use as needed [facility]. Dx: Stroke (I63.9), impaired mobility (Z74.09), 07/09/19 [...] Refills, Maintenance, 05/09/20 8:53:00 EDT, ER Tablet, [facility]/pharmacy #[id number], 183, cm, 12/27/19 13:56:00 EST, Height, 84.8, kg, 07/01/19 22:20:00 EDT, Dry Weight Start Date: 05/09/20 Stop Date: 05/04/21 Status: Ordered Wellbutrin SR 150 mg/12 hours oral tablet, extended release 1 tablet = 150 mg, By Mouth, 2 times a day, for 90 days, # 180 tablet, 3 Refills, Hard Stop 05/09/20 8:53:00 EDT, 05/15/19 8:53:00 EDT, ER Tablet, [facility]/pharmacy #[id number], 178, cm, 04/02/19 9:47:00 EST, Height, [...]
--- OUTSIDE RECORDS SUMMARY | 2023-05-25 14:56 | XMS_ITS | Continuity of Care Document ---
Author Organization [facility] Address [address] [place] [address]- Care Team Providers Care Revenue Director Name Role Product Communications Manager Declan ALVAREZ Primary Care Physician [phone] Encounter [facility] Date(s): 12/29/22 - 01/28/[address] [address] Allergies, Adverse Reactions, Alerts No Known [...] virus vaccine, inactivated 1 12/06/10 Gi dory [id number] 12y+ bivalent booster vax 01/18/22 Given SARS-CoV-2 (COVID-19) mRNA BNT-162b2 vac 02/08/21 Given SARS-CoV-2 (COVID-19) mRNA BNT-162b2 vac 01/18/21 Given pneumococcal 23-valent vaccine 12/08/14 Given FluLaval (oldterm) 2 12/26/11 Given tetanus-diphtheria toxoids (Td) 3 12/06/10 Given 1Admin Note: vis given Senegalese 2Admin Note: vis [phone] 3Admin Note: VIS given Senegalese. Medications acetaminophen 325 mg oral tablet 650 mg, By Mouth, Every 4 hours, PRN, # 50 tablet, Refills 5, Tot. Refills 5, Maintenance, as needed for pain, 11/23/20 13:09:00 EDT, Route to Pharmacy Electronically, [facility]/pharmacy #[id number], 183, cm, 08/10/20 16:05:00 EDT, Height, [...] 1 Refills, Maintenance, 12/13/22 10:54:00 EDT, [facility] STORE [id number], 175, cm, 01/18/22 12:03:00 EST, Height, 81.9, kg, 08/31/21 14:47:00 EDT, Dry Weight Start Date: 12/13/22 Status: Ordered atorvastatin 20 mg oral tablet See Instructions, MARCOS BENDER AT SUPPER, # 90 tablet, 1 Refills, Maintenance, 10/03/22 12:31:00 EDT, [facility] STORE [id number], 175, cm, 01/18/22 12:03:00 EST, Height, 81.9, kg, 08/31/21 14:47:00 EDT, Dry Weight Start Date: 10/03/22 Status: Ordered BuPROPion (Eqv-Wellbutrin SR) 150 mg/12 hours oral tablet, extended release See Instructions, MARCOS STEWARD DOS VECES AL BALA, # 180 each, 1 Refills, Maintenance, 12/23/22 11:44:00 EDT, [facility]/pharmacy #[id number], 175, cm, 12/23/22 11:32:00 EDT, Height, [...] 1 Refills, Maintenance, 12/13/22 10:54:00 EDT, [facility] STORE 47947, 90, TOME KIA TABLETA TODOS LOS BENDER, 175, cm, 01/18/22 12:03:00 EST, Height, 81.9, kg, 08/31/21 14:47:00 EDT, Dry Weight Start Date: 12/13/22 Status: Ordered GaviLAX oral powder for reconstitution See Instructions, DISSOLVE 17 GRAMS IN WATER AND DRINK ONCE DAILY, # 238 Gm, 5 Refills, Maintenance, 11/28/22 8:45:00 EDT, [facility]/pharmacy #[id number], 14, DISSOLVE 17 GRAMS IN WATER AND DRINK ONCE DAILY, 175, cm, 01/18/22 12:03:00 EST, Height, 81.9, kg, 08/31... Start Date: 11/28/22 Status: Ordered glipiZIDE 5 mg oral tablet, extended release 1 tablet = 5 mg, By Mouth, Daily, # 90 tablet, 1 Refills, Maintenance, 11/02/22 13:07:00 EDT, ER Tablet, [facility]/pharmacy #[id number], Partial fill upon patient request if [...] Required Details, Route to Pharmacy Electronically, [facility] STORE [id number], 175, cm, 01/18/22 12:03:00 EST, Height, 81.9, kg,... Start Date: 12/13/22 Status: Ordered Multi-Day Plus Minerals oral tablet 1 tablet, By Mouth, Daily, resent to new pharmacy, # 90 tablet, 1 Refills, Maintenance, 10/18/21 16:12:00 EDT, Tablet, [facility]/pharmacy #[id number], 1 tablet By Mouth Daily,Instr:resent to [...] Team Personnel Name: Declan Louise MD Position: [facility] Physician - Primary Care Member Role: PCP Address: Address: [address] [place] [address]- [place] Name: Simran Shannon RN Position: [facility] RN Member Role: Primary Care Nurse Name: Torie Jo RN Position: [facility] RN Suptalha Member Role: Primary Care Nurse Name: Hussein Waters RN Position: [facility] RN Member Role: Primary Care Nurse Name: Vandana Sorensen NP Position: [facility] Associate Professional Member Role: Primary Care Nurse Address: Address: [address] [place] [address]- Name: Karsten Kwong MD Position: [facility] Renal MD Member Role: Lifetime Consulting Physician Address: Address: [address] [place] [address] [address] [facility] [place] [address]- [place] Name: Rebecca Leon RN Position: [facility] RN Member Role: Primary Care Nurse Name: Elisabet Calle Position: [facility] RN Member Role: Primary Care Nurse Name: Paola Cavanaugh RN Position: [facility] ED RN W/OE and Tasks Member Role: Primary Care Nurse Name: Argentina Dixon RN Position: [facility] SN RN Member Role: Primary Care Nurse Name: Christina Alonso Position: [facility] AMB Nurse Member Role: Lifetime Consulting Physician Name: Ramiro Brody III, RN Position: [facility] RN Member Role: Primary Care Nurse Name: Simran Tariq RN Position: [facility] RN Member Role: Primary Care Nurse Name: Dana Fitzgerald RN Position: [facility] RN Member Role: Primary Care Nurse Name: Narayan Spencer RN Position: [facility] RN Member Role: Primary Care Nurse Name: Shell Yoder RN Position: [facility] RN Member Role: Primary Care Nurse Name: Yenni Packer RN Position: [facility] RN Member Role: Primary Care Nurse Name: Moon RN, Radha Balbuena Position: [facility] AMB Nurse Member Role: Primary Care Nurse Name: Misti Pickard RN Position: [facility] RN Member Role: Primary Care Nurse Name: William Villanueva RN Position: [facility] RN Member Role: Primary Care Nurse Name: Viky Torre RN Position: [facility] Health Care Marketing Specialist Member Role: Primary Care Nurse Name: Carolee Tesfaye RN Position: [facility] RN Member Role: Primary Care Nurse Name: Joey Perez MD Position: [facility] Renal MD Member Role: Lifetime Consulting Physician Address: Address: [address] [place] [address] [facility] [address] Name: Brittney Ledezma RN Position: [facility] Health Care Marketing Specialist Member Role: Primary Care Nurse Name: Eliezer Wagner RN Position: [facility] RN Member Role: Primary Care Nurse Name: Najma Causey RN Position: [facility] SN RN Member Role: Primary Care Nurse Name: Brunilda Thomas RN Position: [facility] RN Member Role: Primary Care Nurse Care Team Related Persons Name: ROOPA XIE Address: home [address] [place] [address] Name: HOPE XIE Address: [address] [address]
--- OUTSIDE RECORDS SUMMARY | 2023-05-25 14:56 | XMS_ITS | Continuity of Care Document ---
Author Organization [facility] Address [address] [place] [address]- Care Team Providers Care Silicator Name Role Phone Britany Springer MD Primary Care Physician Encounter [facility] Date(s): 05/12/21 - 06/11/[address] [address]- Allergies, Adverse Reactions, Alerts No Known Allergies [...] 3 12/06/10 Given 1Admin Note: vis given Wolof 2Admin Note: vis [phone] 3Admin Note: VIS given Wolof. Medications acetaminophen 325 mg oral tablet 650 mg, By Mouth, Every 4 hours, PRN, # 50 tablet, Refills 5, Tot. Refills 5, Maintenance, as needed for pain, 11/23/20 13:09:00 EDT, Route to Pharmacy Electronically, [facility]/pharmacy #[id number], 183, cm, 06/21/21 16:05:00 EDT, Height, 84.8, kg, 07/01/19 22:2... [...] 07/15/20 Stop Date: 01/11/21 Status: Ordered amLODIPine 2.5 mg oral tablet 2.5 mg, 1, tablet, By Mouth, Daily, for 90 days, hold for systolic blood pressure <120, and [facility] this replaces nifedipine, # 90 tablet, Refills 1, Tot. Refills 1, Hard Stop 07/12/21 11:35:00 EDT, 01/13/21 11:35:00 EST, Route to Pharmacy Electr... Start Date: 01/13/21 Stop Date: 07/12/21 Status: Ordered amLODIPine 2.5 mg oral tablet 2.5 mg, 1, tablet, By Mouth, Daily, for 90 days, hold for systolic blood pressure <120, and [facility] this replaces nifedipine, # 90 tablet, Refills 3, Tot. Refills 3, Hard Stop 07/07/22 11:35:00 EDT, 07/12/21 11:35:00 EDT, Route to Pharmacy Electr... Start Date: 07/12/21 Stop Date: 07/07/22 Status: Ordered Aspirin Low Dose 81 mg oral delayed release tablet See Instructions, MARCOS ADAM TABLETA RANDELL BENDER, # 90 tablet, 1 Refills, 04/23/21 8:48:00 EST, [id number], 183, cm, 01/18/21 11:01:00 EST, Height, 84.8, kg, 07/01/19 22:20:00 EDT, Dry Weight Start Date: 04/23/21 Status: Ordered atorvastatin 20 mg oral tablet See Instructions, MARCOS BENDER AT SUPPER, # 90 tablet, 1 Refills, [facility], 183, cm, 01/18/21 11:01:00 EST, Height, 84.8, kg, 07/01/19 22:20:00 EDT, Dry Weight Start Date: 03/12/21 Status: Ordered Compression Stockings See Instructions, # [...] Date: 01/18/21 Stop Date: 07/17/21 Status: Ordered glipiZIDE 2.5 mg oral tablet, extended release See Instructions, MARCOS LEÓNDODakota LOS BENDER, # 30 tablet, 5 Refills, 04/23/21 8:48:00 EST, [facility]/pharmacy #[id number], 183, cm, 01/18/21 11:01:00 EST, Height, 84.8, kg, 07/01/19 22:20:00 EDT, Dry Weight Start Date: 04/23/21 Status: Ordered Gloves See Instructions, # 150 [...] needed for personal hygiene Dx: Incontinence (R32), 05/13/21 17:34:00 EDT, Supply Start Date: 05/13/21 Status: Ordered loratadine 10 mg oral tablet See Instructions, MARCOS MEJIAS LOS BENDER, # 30 tablet, Refills 5, Instructions Replace Required Details, Route to Pharmacy Electronically, [facility] STORE [id number], 183, cm, 01/18/21 11:01:00 EST, Height, 84.8, kg, 07/01/19 22:20:00 EDT, Dry Weight Start Date: 06/03/21 Status: Ordered Multi-Day Plus Minerals oral tablet 1 tablet, By Mouth, Daily, resent to new pharmacy, # 90 tablet, 1 Refills, Maintenance, 11/23/20 13:08:00 EDT, Tablet, [facility]/pharmacy #[id number], 1 tablet By Mouth Daily,Instr:resent to new pharmacy, 183, cm, 08/10/20 16:05:00 EDT, Height, 84.8, kg, 07/01/19... Start Date: 11/23/20 Status: Ordered Pullups - size L Pullups - size L, See Instructions, # 240 each, Refills 11, Tot. Refills 11, Maintenance, Use as needed for incontinence 5x/day; length of need 1 year; ICD 10 N39.46, 05/13/21 17:34:00 EDT, Compound Start Date: 05/13/21 Status: Ordered see below see below, See Instructions, # 60 each, Refills 11, Tot. Refills 11, Maintenance, reusable extra absorbent bed pads 2 per day, 30 day supply; R39. 81, 04/29/20 13:45:00 EST, Supply, 183, cm, 12/26/2012:56:00 EST, Height, 84.8, kg, 07/01/19 22:20:00 E... Start Date: 04/29/20 Status: Ordered Shower chair Shower chair, See Instructions, # 1 each, Refills 0, Tot. Refills 0, Maintenance, [facility] Dx: Stroke (I63.9), impaired mobility (Z74.09), 07/09/19 [...] day, # 180 tablet, 1 Refills, Maintenance, 05/04/21 8:53:00 EDT, ER Tablet, [facility]/pharmacy #[id number], 183, cm, 01/18/21 11:01:00 EST, Height, 84.8, kg, 07/01/19 22:20:00 EDT, Dry Weight Start Date: 05/04/21 Stop Date: 10/31/21 Status: Ordered Wipes Wipes, See Instructions, # 150 each, Refills 0, Tot. Refills 0, Maintenance, R15.9, use everyday 5 per day, 06/04/20 17:29:00 EDT, Supply Start Date: 06/04/20 Status: Ordered Problem List Condition Effective Dates [...]
--- OUTSIDE RECORDS SUMMARY | 2023-05-25 14:56 | XMS_ITS | Continuity of Care Document ---
Author Organization [facility] ter Address [address] [place] [address]- Care Team Providers Care Gold Marker Name Role Phone Damián De Jesus MD Primary Care Physician [phone] Encounter [facility] Date(s): 02/26/19 - 02/26/[address] [address]- [facility] Attending Physician: Abisai Lopez MD Allergies, Adverse Reactions, Alerts Substance Reaction Severity [...] 3 12/06/10 Given 1Admin Note: vis given Bruneian 2Admin Note: vis [phone] 3Admin Note: VIS given Bruneian. Medications acetaminophen 325 mg oral tablet 650 mg, By Mouth, Every 4 hours, PRN, # 50 tablet, Refills 1, Tot. Refills 1, Maintenance, as needed for pain, 01/09/19 16:19:20 EST, Route to Pharmacy Electronically, [id number], [facility]/pharmacy #[id number] Start Date: 01/09/19 Status: Ordered [...] 01/09/19 16:18:54 EST, Route to Pharmacy Electronically, [id number], [facility]/pharmacy #[id number] Start Date: 01/09/19 Stop Date: [...] Gm, 5 Refills, Maintenance, 07/20/18 13:11:53 EDT, Chicken, 2 sprays Nares, Both Daily Start Date: [...] 09/26/18 14:07:41 EDT, Route to Pharmacy Electronically, [id number], [facility]/pharmacy #[id number] Start Date: 09/26/18 Status: Ordered Pullups - [...]
--- OUTSIDE RECORDS SUMMARY | 2023-05-25 14:56 | XMS_ITS | Continuity of Care Document ---
Author Organization [facility] Address [address] [place] [address]- Care Team Providers Care Wing Commander Name Role Phone Britany Springer MD Primary Care Physician ( [phone] Encounter [facility] Date(s): 08/22/19 - 09/21/[address] [address]- [facility] Allergies, Adverse Reactions, Alerts Substance Reaction Severity [...] 3 12/06/10 Given 1Admin Note: vis given Estonian 2Admin Note: vis [id number] 3Admin Note: VIS given Estonian. Medications acetaminophen 325 mg oral tablet 650 mg, By Mouth, Every 4 hours, PRN, # 50 tablet, Refills 5, Tot. Refills 5, Maintenance, as needed for pain, 06/20/19 14:52:00 EDT, Route to Pharmacy Electronically, [facility]/pharmacy #[id number], 178, cm, 04/02/19 9:47:00 EST, Height, 94.7, [...] 07/22/19 11:15:00 EDT, Route to Pharmacy Electronically, [facility]/pharmacy #[id number], ins... Start Date: 07/22/19 Stop Date: 10/20/19 Status: Ordered aspirin 81 mg oral delayed release tablet 81 mg, 1, tablet, By Mouth, Daily, # 90 tablet, Refills 3, Tot. Refills 3, Maintenance, 01/09/19 16:18:54 EST, Route to Pharmacy Electronically, [id number], [facility]/pharmacy #[id number] Start Date: 01/09/19 Stop Date: 01/04/20 Status: Ordered atorvastatin 20 mg oral tablet 1 tablet = 20 mg, By Mouth, Daily at supper, # 30 tablet, 5 Refills, Maintenance, 08/22/19 14:51:00EDT, Tablet, [facility]/pharmacy #[id number], 183, cm, 07/29/19 15:02:00 EDT, Height, 84.8, kg, 07/01/19 22:20:00 EDT, Dry Weight Start Date: 08/22/19 Status: Ordered cetirizine 10 mg oral tablet 1 tablet = 10 mg, By Mouth, Daily, # 90 tablet, 1 Refills, Maintenance, 06/20/19 15:01:00 EDT, Tablet, [facility]/pharmacy #[id number], 178, cm, 04/02/19 9:47:00 EST, [...] Gm, 5 Refills, Maintenance, 07/20/18 13:11:53 EDT, Mcdonough, 2 sprays Nares, Both Daily Start Date: [...] Refills, Maintenance, 06/20/19 15:01:00 EDT, REC Powder, [facility]/pharmacy #[id number], 17 Gm By Mouth Daily,Instr:dissolve in water beforetaking, 178, cm, 04/02/19 9:47:00 EST, Height, 94.7... Start Date: 06/20/19 Status: Ordered Multi-Day Plus Minerals oral tablet 1 tablet, By Mouth, Daily, # 30 tablet, 5 Refills, Maintenance, 07/22/19 18:27:00 EDT, Tablet, [facility]/pharmacy #[id number], 1 tablet By Mouth Daily, [...] Tot. Refills 0, Maintenance, Use as needed [facility]. Dx: Stroke (I63.9), impaired mobility (Z74.09), [...]
--- OUTSIDE RECORDS SUMMARY | 2023-05-25 14:56 | XMS_ITS | Continuity of Care Document ---
Author Organization [facility] Address [address] [place] [address]- Care Team Providers Care Continuous Improvement Consultant Name Role Phone Britany Springer MD Primary Care Physician ( [phone] Encounter [facility] [id number] Date(s): 02/08/21 - 03/10/[address] [address]- Attending Physician: Norbert Malhotra Admitting Physician: AdmNorbert reddy Referring Physician: Admtr, ArMatt Allergies, Adverse Reactions, Alerts No Known Allergies [...] 3 12/06/10 Given 1Admin Note: vis given Norwegian 2Admin Note: vis [phone] 3Admin Note: VIS given Norwegian. Medications acetaminophen 325 mg oral tablet 650 mg, By Mouth, Every 4 hours, PRN, # 50 tablet, Refills 5, Tot. Refills 5, Maintenance, as needed for pain, 11/23/20 13:09:00 EDT, Route to Pharmacy Electronically, [facility]/pharmacy #[id number], 183, cm, 08/10/20 16:05:00 EDT, Height, [...] oral delayed release tablet See Instructions, MARCOS CHAPMANA TODOS LOS BENDER, # 90 tablet, 1 Refills, Maintenance, [id number], 183, cm, 08/10/20 16:05:00 EDT, Height, 84.8, kg, 07/01/19 22:20:00 EDT, Dry Weight Start Date: 10/05/20 Status: Ordered atorvastatin 20 mg oral tablet 1 tablet = 20 mg, By Mouth, Daily at supper, # 90 tablet, 1 Refills, Maintenance, 11/05/20 20:47:00EDT, Tablet, [facility]/pharmacy #[id number], 183, cm, 08/10/20 16:05:00 EDT, Height, 84.8, kg, 07/01/19 22:20:00 EDT, Dry Weight Start Date: 11/05/20 Status: Ordered Claritin 10 mg oral tablet 10 mg, 1, tablet, By Mouth, Daily, # 30 tablet, Refills 5, Tot. Refills 5, Maintenance, 11/23/20 13:09:00 EDT, Route to Pharmacy Electronically, [facility]/pharmacy #[id number], Partial fill upon patient request if the prescription is for a schedule II opioid drug... Start Date: 11/23/20 Status: Ordered Compression Stockings See Instructions, # [...] oral tablet, extended release See Instructions, MARCOS MEJIAS LOS BENDER, # 30 tablet, 4 Refills, 01/18/21 12:40:00 EST, [facility]/pharmacy #[id number], 183, cm, 01/18/21 11:01:00 EST, Height, 84.8, kg, 07/01/19 22:20:00 EDT, Dry Weight Start Date: 01/18/21 Status: Ordered Gloves See Instructions, # 150 [...] needed for personal hygiene Dx: Incontinence (R32), 08/17/20 14:37:00 EDT, Supply Start Date: 08/17/20 Status: Ordered Multi-Day Plus Minerals oral tablet 1 tablet, By Mouth, Daily, resent to new pharmacy, # 90 tablet, 1 Refills, Maintenance, 11/23/20 13:08:00 EDT, Tablet, [facility]/pharmacy #[id number], 1 tablet By Mouth Daily,Instr:resent to [...] EST, Compound Start Date: 01/30/19 Status: Ordered see below see below, See [...] [facility]x: Stroke (I63.9), impaired mobility (Z74.09), 07/09/19 [...] Refills, Maintenance, 05/09/20 8:53:00 EDT, ER Tablet, [facility]/pharmacy #[id number], 183, cm, 12/27/19 13:56:00 EST, Height, 84.8, kg, 07/01/19 22:20:00 EDT, Dry Weight Start Date: 05/09/20 Stop Date: 05/04/21 Status: Ordered Wipes Wipes, See Instructions, # [...]
--- OUTSIDE RECORDS SUMMARY | 2023-05-25 14:56 | XMS_ITS | Continuity of Care Document ---
Author Organization [facility] Address [address] [place] [address]- Care Team Providers Care Field Interviewer Name Role Tub Wash Operator Declan ALVAREZ Primary Care Physician Encounter [facility] Date(s): 02/02/23 - 03/04/[address] [address]- Allergies, Adverse Reactions, Alerts No Known Allergies [...] virus vaccine, inactivated 1 12/06/10 Gi dory [id number] 12y+ bivalent booster vax 01/18/22 Given SARS-CoV-2 (COVID-19) mRNA BNT-162b2 vac 02/08/21 Given SARS-CoV-2 (COVID-19) mRNA BNT-162b2 vac 01/18/21 Given pneumococcal 23-valent vaccine 12/08/14 Given FluLaval (oldterm) 2 12/26/11 Given tetanus-diphtheria toxoids (Td) 3 12/06/10 Given 1Admin Note: vis given North Korean 2Admin Note: vis [id number] 3Admin Note: VIS given North Korean. Medications acetaminophen 325 mg oral tablet 650 mg, By Mouth, Every 4 hours, PRN, # 50 tablet, Refills 5, Tot. Refills 5, Maintenance, as needed for pain, 11/23/20 13:09:00 EDT, Route to Pharmacy Electronically, [facility]/pharmacy #[id number], 183, cm, 08/10/20 16:05:00 EDT, Height, 84.8, kg, 07/01/19 22:2... Start Date: 11/23/20 Status: Ordered amLODIPine 10 mg oral tablet 10 mg, By Mouth, Daily, # 90 each, Refills 3, Tot. Refills 3, Maintenance, 02/24/23 12:06:00 EST, Route to Pharmacy Electronically, [facility]/pharmacy #[id number], Partial fill upon patient request if the prescription is for a schedule II opioid drug., 175, cm, 0... Start Date: 02/24/23 Stop Date: 02/19/24 Status: Ordered Aspirin Low Dose 81 mg oral delayed release tablet See Instructions, MARCOS ADAM TABLETA TOS ZORAIDA BENDER, # 90 tablet, 1 Refills, Maintenance, 02/24/23 12:05:00 EST, [facility]/pharmacy #[id number], 175, cm, 02/24/23 11:28:00 EST, Height, 81.9, kg, 01/04/23 22:19:00 EST, Dry Weight Start Date: 02/24/23 Status: Ordered atorvastatin 20 mg oral tablet See Instructions, TOME KIA TABLETA TOS ZORAIDA BENDER AT SUPPER, # 90 tablet, 1 Refills, Maintenance, 02/24/23 12:05:00 EST, [facility]/pharmacy #[id number], 175, cm, 02/24/23 11:28:00 EST, Height, 81.9, kg, 01/04/2322:19:00 EST, Dry Weight Start Date: 02/24/23 Status: Ordered BuPROPion (Eqv-Wellbutrin SR) 150 mg/12 hours oral tablet, extended release See Instructions, TOME KIA TABLETA DOS VECES AL BALA, # 180 each, 1 Refills, Maintenance, 02/24/23 12:05:00 EST, [facility]/pharmacy #[id number], 175, cm, 02/24/23 11:28:00 EST, Height, 81.9, kg, 01/04/23 22:19:00EST, Dry Weight Start Date: 02/24/23 Status: Ordered Daily Yasmine oral tablet See Instructions, NANETTEE KIA TABLETA TODOS LOS BENDER, # 90 tablet, 1 Refills, Maintenance, 02/24/23 12:05:00 EST, [facility]/pharmacy #[id number], 90, TOME KIA TABLETA TODOS ZORAIDA BENDER, 175, cm, 02/24/23 11:28:00 EST,Height, 81.9, kg, 01/04/23 22:19:00 EST, Dry Weight Start Date: 02/24/23 Status: Ordered GaviLAX oral powder for reconstitution See Instructions, DISSOLVE 17 GRAMS IN WATER AND DRINK ONCE DAILY, # 238 Gm, 5 Refills, Maintenance, 02/24/23 12:05:00 EST[id number], DISSOLVE 17 GRAMS IN WATER AND DRINK ONCE DAILY, 175, cm, 02/24/23 11:28:00 EST, Height, 81.9, kg, 12/21... Start Date: 02/24/23 Status: Ordered glipiZIDE 5 mg oral tablet, extended release 1 tablet = 5 mg, By Mouth, Daily, dose of 5 mg ER please dose., # 90 tablet, 3 Refills, Maintenance, 02/24/23 11:59:00 EST, ER Tablet, [facility]/pharmacy #[id number], Partial fill upon patient request if the prescription is for a schedule II opioid drug., 175, cm... Start Date: 02/24/23 Stop Date: 02/19/24 Status: Ordered Home Blood Pressure Monitor See Instructions, # 1 each, Refills 0, Tot. Refills 0, Maintenance, Use to check blood pressure once daily in the morning. Dx: Hypertension on medication (I10), 07/09/19 14:34:00 EDT, Supply Start Date: 07/09/19 Status: Ordered loratadine 10 mg oral tablet See Instructions, TOME KIA TABLETA TODOS LOS BENDER, # 90 tablet, Refills 1, Tot. Refills 1, Maintenance, 02/24/23 12:05:00 EST, Instructions Replace Required Details, Route to Pharmacy Electronically,[facility]/pharmacy #[id number], 175, cm, 02/24/23 11:28:00 EST,... Start Date: 02/24/23 Status: Ordered Multi-Day Plus Minerals oral tablet 1 tablet, By Mouth, Daily, resent to new pharmacy, # 90 tablet, 1 Refills, Maintenance, 10/18/21 16:12:00 EDT, Tablet, [facility]/pharmacy #[id number], 1 tablet By Mouth Daily,Instr:resent to new pharmacy, 175, cm, 10/18/21 11:40:00 EDT, Height, 81.9, kg, 08/31/21... Start Date: 10/18/21 Status: Ordered Transport wheelchair Transport wheelchair, See Instructions, # 1 each, Refills 0, Tot. Refills 0, Maintenance, Dx: CVA, 03/03/23 11:46:00 EST, Supply Start Date: 03/03/23 Status: Ordered Problem List Condition Confirmation Course [...] Team Personnel Name: Declan Louise MD Position: [facility] Physician - Primary Care Member Role: PCP Address: Address: [address] [place] [address]- Name: Simran Shannon RN Position: S RN Member Role: Primary Care Nurse Name: Torie Jo RN Position: S RN Supv Member Role: Primary Care Nurse Name: Hussein Waters RN Position: S RN Member Role: Primary Care Nurse Name: Franchesca BERRYVandana Position: [facility] Associate Professional Member Role: Primary Care Nurse Address: Address: [address] [place] [address]- [place] Name: Karsten Kwong MD Position: [facility] Renal MD Member Role: Lifetime Consulting Physician Address: Address: [address] [place] [address] [address] [facility] [place] [address]- [place] Name: Rebecca Leon RN Position: [facility] RN Member Role: Primary Care Nurse Name: Elisabet Calle Position: [facility] RN Member Role: Primary Care Nurse Name: Paola Cavanaugh RN Position: [facility] ED RN W/OE and Tasks Member Role: Primary Care Nurse Name: Argentina Dixon RN Position: [facility] ED RN W/OE and Tasks Member Role: Primary Care Nurse Name: Christina Alonso Position: [facility] AMB Nurse Member Role: Lifetime Consulting Physician Name: Ramiro Brody III, RN Position: [facility] RN Member Role: Primary Care Nurse Name: Simran Tariq RN Position: [facility] RN Member Role: Primary Care Nurse Name: Narayan Spencer RN Position: [facility] SN RN Member Role: Primary Care Nurse Name: Shell Yoder RN Position: [facility] RN Member Role: Primary Care Nurse Name: Yenni Packer RN Position: [facility] RN Member Role: Primary Care Nurse Name: Radha Mustafa RN Position: [facility] AMB Nurse Member Role: Primary Care Nurse Name: Misti Pickard RN Position: [facility] RN Member Role: Primary Care Nurse Name: William Villanueva RN Position: [facility] RN Member Role: Primary Care Nurse Name: Viky Torre RN Position: [facility] Machine Iii Coremaker Member Role: Primary Care Nurse Name: Carolee Tesfaye RN Position: [facility] RN Member Role: Primary Care Nurse Name: Joey Perez MD Position: [facility] Renal MD Member Role: Lifetime Consulting Physician Address: Address: [address] [place] [address] [facility] [place] [address]- [place] Name: Brittney Ledezma RN Position: [facility] Machine Iii Coremaker Member Role: Primary Care Nurse Name: Eliezer Wagner RN Position: [facility] RN Member Role: Primary Care Nurse Name: Najma Causey RN Position: [facility] SN RN Member Role: Primary Care Nurse Name: Brunilda Thomas RN Position: [facility] RN Member Role: Primary Care Nurse Care Team Related Persons Name: ROOPA XIE Address: [address] [address] Name: HOPE XIE Address: [address] [address]
--- OUTSIDE RECORDS SUMMARY | 2023-05-25 14:56 | XMS_ITS | Continuity of Care Document ---
Author Organization [facility] Address [address] [place] [address]- Care Team Providers Care Worm Packer Name Role Lithograph Press Feeder Declan ALVAREZ Primary Care Physician Encounter [facility] Date(s): 08/04/22 - 09/03/[address] [address] Allergies, Adverse Reactions, Alerts No [...] virus vaccine, inactivated 1 12/06/10 Gi dory [id number] 12y+ bivalent booster vax 01/18/22 Given SARS-CoV-2 (COVID-19) mRNA BNT-162b2 vac 02/08/21 Given SARS-CoV-2 (COVID-19) mRNA BNT-162b2 vac 01/18/21 Given pneumococcal 23-valent vaccine 12/08/14 Given FluLaval (oldterm) 2 12/26/11 Given tetanus-diphtheria toxoids (Td) 3 12/06/10 Given 1Admin Note: vis given Greek 2Admin Note: vis [id number] 3Admin Note: VIS given Greek. Medications acetaminophen 325 mg oral tablet 650 mg, By Mouth, Every 4 hours, PRN, # 50 tablet, Refills 5, Tot. Refills 5, Maintenance, as needed for pain, 11/23/20 13:09:00 EDT, Route to Pharmacy Electronically, [facility]/pharmacy #[id number], 183, cm, 08/10/20 16:05:00 EDT, Height, [...] 5 mg oral tablet See Instructions, MARCOS ADAM TABLETAmy BENDER, # 90 tablet, 1 Refills, Maintenance, 07/06/22 13:39:00 EDT, [facility]/pharmacy #[id number], 175, cm, 01/18/22 12:03:00 EST, Height, 81.9, kg, 08/31/21 14:47:00 EDT, Dry Weight Start Date: 07/06/22 Status: Ordered Aspirin Low Dose 81 mg oral delayed release tablet See Instructions, TOME KIA TABLETA TODOS LOS BENDER, # 90 tablet, 1 Refills, Maintenance, 03/04/22 13:01:00 EST, [facility], 175, cm, 01/18/22 12:03:00 EST, Height, 81.9, kg, 08/31/21 14:47:00 EDT, Dry Weight Start Date: 03/04/22 Status: Ordered atorvastatin 20 mg oral tablet See Instructions, TOME KIA TABLETA TODOS LOS BENDER AT SUPPER, # 90 tablet, 1 Refills, 06/17/22 9:43:00 EDT, [facility]/pharmacy #[id number], 175, cm, 01/18/22 12:03:00 EST, Height, 81.9, kg, 08/31/21 14:47:00 EDT,Dry Weight Start Date: 06/17/22 Status: Ordered BuPROPion (Eqv-Wellbutrin SR) 150 mg/12 hours oral tablet, extended release See Instructions, TOME KIA TABLETA DOS VECES AL BALA, # 180 Unknown, 1 Refills, Maintenance, 03/04/22 13:01:00 EST, [facility], 175, cm, 01/18/22 12:03:00 EST, Height, 81.9, [...] tablet, 1 Refills, Maintenance, 03/04/22 13:01:00 EST, [facility], 90, TOME KIA TABLETA POR VIA ORAL [...] ONCE DAILY, # 238 Gm, 5 Refills, [facility], 14, DISSOLVE 17 GRAMS IN WATER AND DRINK ONCE DAILY, 183, cm, 01/18/21 11:01:00 EST, Height, 84.8, kg, 07/01/19 22:20:00 EDT, Dry Weight Start Date: 06/29/21 Status: Ordered glipiZIDE 2.5 mg oral tablet, extended release See Instructions, MARCOS ADAM TABLETA TOS LOS BENDER, # 90 tablet, 0 Refills, Maintenance, 08/30/22 9:54:00 EDT, [facility], 175, cm, 01/18/22 12:03:00 EST, Height, 81.9, kg, 08/31/21 14:47:00 EDT,Dry Weight Start Date: 08/30/22 Status: Ordered Gloves See Instructions, # 150 [...] oral tablet See Instructions, TOME KIA TABLETA [employer] LOS BENDER, # 90 tablet, Refills 1, Maintenance, 03/04/22 13:01:00 EST, Instructions Replace Required Details, Route to Pharmacy Electronically, [id number], 175, cm, 01/18/22 12:03:00 EST, Height, 81.9, kg,... Start Date: 03/04/22 Status: Ordered Multi-Day Plus Minerals oral tablet 1 tablet, By Mouth, Daily, resent to new pharmacy, # 90 tablet, 1 Refills, Maintenance, 10/18/21 16:12:00 EDT, Tablet, [facility]/pharmacy #[id number], 1 tablet By Mouth Daily,Instr:resent to [...] Tot. Refills 0, Maintenance, Use as needed [facility]. Dx: Stroke (I63.9), impaired mobility (Z74.09), 03/04/22 [...] Team Personnel Name: Declan Louise MD Position: [facility] Physician - Primary Care Member Role: PCP Address: Address: [address] [place] [address]- Name: Simran Shannon RN Position: [facility] RN Member Role: Primary Care Nurse Name: Torie Jo RN Position: [facility] RN Supv Member Role: Primary Care Nurse Name: Hussein Waters RN Position: [facility] RN Member Role: Primary Care Nurse Name: Vandana Sorensen NP Position: [facility] Associate Professional Member Role: Primary Care Nurse Address: Address: [address] [place] [address]- [place] Name: Karsten Kwong MD Position: [facility] Renal MD Member Role: Lifetime Consulting Physician Address: Address: [address] [place] [address], [address] [facility] [place] [address]- Name: Rebecca Leon RN Position: [facility] RN Member Role: Primary Care Nurse Name: Elisabet Calle Position: [facility] RN Member Role: Primary Care Nurse Name: Paola Cavanaugh RN Position: [facility] ED RN W/OE and Tasks Member Role: Primary Care Nurse Name: Argentina Dixon RN Position: [facility] SN RN Member Role: Primary Care Nurse Name: Christina Alonso Position: [facility] AMB Nurse Member Role: Lifetime Consulting Physician Name: Ramiro Brody III, RN Position: [facility] RN Member Role: Primary Care Nurse Name: Simarn Tariq RN Position: [facility] RN Member Role: Primary Care Nurse Name: Dana Fitzgerald RN Position: [facility] RN Member Role: Primary Care Nurse Name: Narayan Spencer RN Position: [facility] SN RN Member Role: Primary Care Nurse Name: Shell Yoder RN Position: [facility] RN Member Role: Primary Care Nurse Name: Radha Mustafa RN Position: [facility] AMB Nurse Member Role: Primary Care Nurse Name: Misti Pickard RN Position: [facility] RN Member Role: Primary Care Nurse Name: William Villanueva RN Position: [facility] RN Member Role: Primary Care Nurse Name: Viky Torre RN Position: [facility] Clothing Sales Assistant Member Role: Primary Care Nurse Name: Carolee Tesfaye RN Position: [facility] RN Member Role: Primary Care Nurse Name: Joey Perez MD Position: [facility] Renal MD Member Role: Lifetime Consulting Physician Address: Address: [address] [place] [address] [facility] [address] Name: Brittney Ledezma RN Position: [facility] Clothing Sales Assistant Member Role: Primary Care Nurse Name: Eliezer Wagner RN Position: [facility] ED RN W/OE and Tasks Member Role: Primary Care Nurse Name: Najma Causey RN Position: [facility] SN RN Member Role: Primary Care Nurse Name: Brunilda Thomas RN Position: [facility] RN Member Role: Primary Care Nurse Care Team Related Persons Name: ROJAS ROOPA Address: [address] [address] Name: HOPE XIE Address: [address] [address]
--- OUTSIDE RECORDS SUMMARY | 2023-05-25 14:56 | XMS_ITS | Continuity of Care Document ---
Author Organization [facility] Address [address] [place] [address]- Care Team Providers Care Exhibition Designer Name Role Forest Officer Declan ALVAREZ Primary Care Physician [facility]counter [facility] Date(s): 11/08/22 - 12/08/[address] [id number] Allergies, Adverse Reactions, Alerts No Known [...] virus vaccine, inactivated 1 12/06/10 Gi dory [id number] 12y+ bivalent booster vax 01/18/22 Given SARS-CoV-2 (COVID-19) mRNA BNT-162b2 vac 02/08/21 Given SARS-CoV-2 (COVID-19) mRNA BNT-162b2 vac 01/18/21 Given pneumococcal 23-valent vaccine 12/08/14 Given FluLaval (oldterm) 2 12/26/11 Given tetanus-diphtheria toxoids (Td) 3 12/06/10 Given 1Admin Note: vis given [place] Islander 2Admin Note: vis [id number] 3Admin Note: VIS given [place] Islander. Medications acetaminophen 325 mg oral tablet 650 mg, By Mouth, Every 4 hours, PRN, # 50 tablet, Refills 5, Tot. Refills 5, Maintenance, as needed for pain, 11/23/20 13:09:00 EDT, Route to Pharmacy Electronically, [facility]/pharmacy #[id number], 183, cm, 08/10/20 16:05:00 EDT, Height, [...] Diabetes Mellitus 2 times per day, E11.8, 11/25/22 10:25:00 EDT, Supply, 175, cm, 01/18/22 12:03:00 EST, Height, 81.9, kg, 08/31/21 14:47:00 EDT, Dry Weight Start Date: 11/25/22 Stop Date: 05/24/23 Status: Ordered amLODIPine 5 mg oral tablet See Instructions, MARCOS BENDER, # 90 tablet, 1 Refills, Maintenance, 10/17/22 12:07:00 EDT, [facility] STORE [id number], 175, cm, 01/18/22 12:03:00 EST, Height, 81.9, kg, 08/31/21 14:47:00 EDT, Dry Weight Start Date: 10/17/22 Status: Ordered Aspirin Low Dose 81 mg oral delayed release tablet See Instructions, TOME KIA TABLETAmy BENDER, # 90 tablet, 0 Refills, Maintenance, 11/17/22 8:27:00 EDT, [facility]/pharmacy #[id number], 175, cm, 01/18/22 12:03:00 EST, Height, 81.9, kg, 08/31/21 14:47:00 EDT, Dry Weight Start Date: 11/17/22 Status: Ordered atorvastatin 20 mg oral tablet See Instructions, TOME KIA TABLETA RANDELL CONWAY BENDER AT SUPPER, # 90 tablet, 1 Refills, 06/17/22 9:43:00 EDT, [facility]/pharmacy #[id number], 175, cm, 01/18/22 12:03:00 EST, Height, 81.9, kg, 08/31/21 14:47:00 EDT,Dry Weight Start Date: 06/17/22 Status: Ordered atorvastatin 20 mg oral tablet See Instructions, TOME KIA TABLETA RANDELL BENDER AT SUPPER, # 90 tablet, 1 Refills, Maintenance, 10/03/22 12:31:00 EDT, [facility] STORE [id number], 175, cm, 01/18/22 12:03:00 EST, Height, 81.9, kg, 08/31/21 14:47:00 EDT, Dry Weight Start Date: 10/03/22 Status: Ordered BuPROPion (Eqv-Wellbutrin SR) 150 mg/12 hours oral tablet, extended release See Instructions, TOME KIA TABLETA DOS VECES AL BALA, # 60 each, 0 Refills, Maintenance, 11/08/22 15:41:00 EDT, [facility]/pharmacy #[id number], 175, cm, 01/18/22 12:03:00 EST, Height, 81.9, kg, 08/31/21 14:47:00 EDT, Dry Weight Start Date: 11/08/22 Status: Ordered Compression Stockings See Instructions, # 2 pair, Refills 0, Tot. Refills 0, Maintenance, surgical, calf length 20-30 mm Hg R60.0, 07/10/17 16:54:50 EDT, Compound Start Date: 07/10/17 Status: Ordered Daily Yasmine oral tablet See Instructions, TOME KIA TABLETA POR VIA ORAL RANDELL CONWAY BENDER, # 90 each, 0 Refills, Maintenance, 11/17/22 8:27:00 EDT, [facility]/pharmacy #[id number], TOME KIA TABLETA POR VIA ORAL TODOS LOS BENDER, 175, cm, 01/18/22 12:03:00 EST, Height, 81.9, kg, 08/31/21 14:47... Start Date: 11/17/22 Status: Ordered Disposable Incontinence pads Disposable Incontinence [...] Gm, 5 Refills, Maintenance, 11/28/22 8:45:00 EDT, [facility]/pharmacy #[id number], 14, DISSOLVE 17 GRAMS IN WATER AND DRINK ONCE DAILY, 175, cm, 01/18/22 12:03:00 EST, Height, 81.9, kg, 08/31... Start Date: 11/28/22 Status: Ordered glipiZIDE 5 mg oral tablet, extended release 1 tablet = 5 mg, By Mouth, Daily, # 90 tablet, 1 Refills, Maintenance, 11/02/22 13:07:00 EDT, ER Tablet, [facility]/pharmacy #[id number], Partial fill upon patient request if the prescription is for a schedule IIopioid drug., 175, cm, 01/18/22 12:03:00 EST, Heigh... Start Date: 11/02/22 Status: Ordered Gloves See Instructions, # 150 [...] Instructions, MARCOS CHAPMANA TODOS LOS BENDER, # 30 tablet, Refills 3, Tot. Refills 3, Maintenance, 11/28/22 8:45:00 EDT, Instructions Replace Required Details, Route to Pharmacy Electronically, [facility]/pharmacy #[id number], 175, cm, 01/18/22 12:03:00 EST,... Start Date: 11/28/22 Status: Ordered Multi-Day Plus Minerals oral tablet 1 tablet, By Mouth, Daily, resent to new pharmacy, # 90 tablet, 1 Refills, Maintenance, 10/18/21 16:12:00 EDT, Tablet, [facility]/pharmacy #[id number], 1 tablet By Mouth Daily,Instr:resent to [...] Tot. Refills 0, Maintenance, [facility]. Dx: Stroke (I63.9), impaired mobility (Z74.09), [...] Care team information Care Team Personnel Name: Banker ALVAREZ, Declan Lanier Position: [facility] Physician - Primary Care Member Role: PCP Address: Address: [address] [place] [id number] Name: Simran Shannon RN Position: S RN Member Role: Primary Care Nurse Name: Torie Jo RN Position: S RN Supv Member Role: Primary Care Nurse Name: Hussein Waters RN Position: S RN Member Role: Primary Care Nurse Name: Vandana Sorensen NP Position: [facility] Associate Professional Member Role: Primary Care Nurse Address: Address: [address] [place] [address]- [place] Name: Karsten Kwong MD Position: [facility] Renal MD Member Role: Lifetime Consulting Physician Address: Address: [address] [place] [address], [address] [facility] [place] [address]- [place] Name: Rebecca Leon RN Position: [facility] RN Member Role: Primary Care Nurse Name: Elisabet Calle Position: [facility] RN Member Role: Primary Care Nurse Name: Paola Cavanaugh RN Position: [facility] ED RN W/OE and Tasks Member Role: Primary Care Nurse Name: Argentina Dixon RN Position: [facility] SN RN Member Role: Primary Care Nurse Name: Christina Alonso Position: [facility] AMB Nurse Member Role: Lifetime Consulting Physician Name: Ramiro Brody III, RN Position: [facility] RN Member Role: Primary Care Nurse Name: Simran Tariq RN Position: [facility] RN Member Role: Primary Care Nurse Name: Dana Fitzgerald RN Position: [facility] RN Member Role: Primary Care Nurse Name: Narayan Spencer RN Position: [facility] SN RN Member Role: Primary Care Nurse Name: Shell Yoder RN Position: [facility] RN Member Role: Primary Care Nurse Name: Radha Mustafa RN Position: [facility] AMB Nurse Member Role: Primary Care Nurse Name: Misti Pickard RN Position: [facility] RN Member Role: Primary Care Nurse Name: William Villanueva RN Position: [facility] RN Member Role: Primary Care Nurse Name: Viky Torre RN Position: [facility] Parts Chaser Member Role: Primary Care Nurse Name: Carolee Tesfaye RN Position: [facility] RN Member Role: Primary Care Nurse Name: Joey Perez MD Position: [facility] Renal MD Member Role: Lifetime Consulting Physician Address: Address: [address] [place] [address] [facility] [place] [address]- [place] Name: Brittney Ledezma RN Position: [facility] Parts Chaser Member Role: Primary Care Nurse Name: Eliezer Wagner RN Position: [facility] RN Member Role: Primary Care Nurse Name: Najma Causey RN Position: [facility] SN RN Member Role: Primary Care Nurse Name: Brunilda Thomas RN Position: S RN Member Role: Primary Care Nurse Care Team Related Persons Name: ROOPA XIE Address: [address] [address] Name: HOPE XIE Address: [address] [address]
--- OUTSIDE RECORDS SUMMARY | 2023-05-25 14:56 | XMS_ITS | Continuity of Care Document ---
Author Organization [facility] Address [address] [place] [address]- Care Team Providers Care Furniture Salesperson Name Role Band Straightener Declan ALVAREZ Primary Care Physician [facility]counter [facility] Date(s): 11/16/22 - 12/16/[address] [id number] Allergies, Adverse Reactions, Alerts No [...] virus vaccine, inactivated 1 12/06/10 Gi dory [id number] 12y+ bivalent booster vax 01/18/22 Given SARS-CoV-2 (COVID-19) mRNA BNT-162b2 vac 02/08/21 Given SARS-CoV-2 (COVID-19) mRNA BNT-162b2 vac 01/18/21 Given pneumococcal 23-valent vaccine 12/08/14 Given FluLaval (oldterm) 2 12/26/11 Given tetanus-diphtheria toxoids (Td) 3 12/06/10 Given 1Admin Note: vis given Icelandic 2Admin Note: vis [id number] 3Admin Note: VIS given Icelandic. Medications acetaminophen 325 mg oral tablet 650 mg, By Mouth, Every 4 hours, PRN, # 50 tablet, Refills 5, Tot. Refills 5, Maintenance, as needed for pain, 11/23/20 13:09:00 EDT, Route to Pharmacy Electronically, [facility]/pharmacy #[id number], 183, cm, 08/10/20 16:05:00 EDT, Height, [...] tablet, 1 Refills, Maintenance, 10/17/22 12:07:00 EDT, [facility] STORE [id number], 175, cm, 01/18/22 12:03:00 EST, Height, 81.9, kg, 08/31/21 14:47:00 EDT, Dry Weight Start Date: 10/17/22 Status: Ordered Aspirin Low Dose 81 mg oral delayed release tablet See Instructions, MARCOS ADAM TABLETA RANDELL BENDER, # 90 tablet, 1 Refills, Maintenance, 12/13/22 10:54:00 EDT, [id number], 175, cm, 01/18/22 12:03:00 EST, Height, 81.9, kg, 08/31/21 14:47:00 EDT, Dry Weight Start Date: 12/13/22 Status: Ordered atorvastatin 20 mg oral tablet See Instructions, MARCOS ADAM TABLETA RANDELL MCKENNAS AT SUPPER, # 90 tablet, 1 Refills, 06/17/22 9:43:00 EDT, [facility]/pharmacy #[id number], 175, cm, 01/18/22 12:03:00 EST, Height, 81.9, kg, 08/31/21 14:47:00 EDT,Dry Weight Start Date: 06/17/22 Status: Ordered atorvastatin 20 mg oral tablet See Instructions, NANETTEKeyur ADAM TABLETA RANDELL BENDER AT SUPPER, # 90 tablet, 1 Refills, Maintenance, 10/03/22 12:31:00 EDT, [id number], 175, cm, 01/18/22 12:03:00 EST, Height, 81.9, kg, 08/31/21 14:47:00 EDT, Dry Weight Start Date: 10/03/22 Status: Ordered BuPROPion (Eqv-Wellbutrin SR) 150 mg/12 hours oral tablet, extended release See Instructions, MARCOS ADAM TABLETAmy HOBBS AL BALA, # 60 each, 0 Refills, Maintenance, 11/08/22 15:41:00 EDT, [facility]/pharmacy #[id number], 175, cm, 01/18/22 12:03:00 EST, Height, 81.9, kg, 08/31/21 14:47:00 EDT, Dry Weight Start Date: 11/08/22 Status: Ordered Compression Stockings See Instructions, # 2 pair, Refills 0, Tot. Refills 0, Maintenance, surgical, calf length 20-30 mm Hg R60.0, 07/10/17 16:54:50 EDT, Compound Start Date: 07/10/17 Status: Ordered Daily Yasmine oral tablet See Instructions, MARCOS ADAM TABLETA RANDELL BENDER, # 90 tablet, 1 Refills, Maintenance, 12/13/22 10:54:00 EDT, [facility] STORE 43672, 90, MARCOS MERCADOS LOS BENDER, 175, cm, 01/18/22 12:03:00 EST, Height, 81.9, kg, 08/31/21 14:47:00 EDT, Dry Weight Start Date: 12/13/22 Status: Ordered Disposable Incontinence pads Disposable Incontinence [...] Gm, 5 Refills, Maintenance, 11/28/22 8:45:00 EDT, [facility]/pharmacy #[id number], 14, DISSOLVE 17 GRAMS IN WATER AND DRINK ONCE DAILY, 175, cm, 01/18/22 12:03:00 EST, Height, 81.9, kg, 08/31... Start Date: 11/28/22 Status: Ordered glipiZIDE 5 mg oral tablet, extended release 1 tablet = 5 mg, By Mouth, Daily, # 90 tablet, 1 Refills, Maintenance, 11/02/22 13:07:00 EDT, ER Tablet, [facility]/pharmacy #[id number], Partial fill upon patient request if [...] Replace Required Details, Route to Pharmacy Electronically, [facility] STORE [id number], 175, cm, 01/18/22 12:03:00 EST, Height, 81.9, kg,... Start Date: 12/13/22 Status: Ordered Multi-Day Plus Minerals oral tablet 1 tablet, By Mouth, Daily, resent to new pharmacy, # 90 tablet, 1 Refills, Maintenance, 10/18/21 16:12:00 EDT, Tablet, [facility]/pharmacy #[id number], 1 tablet By Mouth Daily,Instr:resent to [...] Tot. Refills 0, Maintenance, Use as needed forshowering. Dx: Stroke (I63.9), impaired mobility (Z74.09), 03/04/22 [...] Team Personnel Name: Declan Louise MD Position: [facility] Physician - Primary Care Member Role: PCP Address: Address: [address] [place] [id number] Name: Simran Shannon RN Position: S RN Member Role: Primary Care Nurse Name: Torie Jo RN Position: S RN Supv Member Role: Primary Care Nurse Name: Hussein Waters RN Position: S RN Member Role: Primary Care Nurse Name: Vandana Sorensen NP Position: [facility] Associate Professional Member Role: Primary Care Nurse Address: Address: [address] [place] [address]- [place] Name: Karsten Kwong MD Position: [facility] Renal MD Member Role: Lifetime Consulting Physician Address: Address: [address] [place] [address], [address] [facility] [place] [address]- Name: Rebecca Leon RN Position: [facility] RN Member Role: Primary Care Nurse Name: Elisabet Calle Position: [facility] RN Member Role: Primary Care Nurse Name: Paola Cavanaugh RN Position: [facility] ED RN W/OE and Tasks Member Role: Primary Care Nurse Name: Argentina Dixon RN Position: [facility] ED RN W/OE and Tasks Member Role: Primary Care Nurse Name: Christina Alonso Position: [facility] AMB Nurse Member Role: Lifetime Consulting Physician Name: Ramiro Brody III, RN Position: [facility] RN Member Role: Primary Care Nurse Name: Simran Tariq RN Position: [facility] RN Member Role: Primary Care Nurse Name: Dana Fitzgerald RN Position: [facility] RN Member Role: Primary Care Nurse Name: Narayan Spencer RN Position: [facility] SN RN Member Role: Primary Care Nurse Name: Shell Yoder RN Position: [facility] RN Member Role: Primary Care Nurse Name: Radha Mustafa RN Position: [facility] AMB Nurse Member Role: Primary Care Nurse Name: Misti Pickard RN Position: [facility] RN Member Role: Primary Care Nurse Name: William Villanueva RN Position: [facility] RN Member Role: Primary Care Nurse Name: Viky Torre RN Position: [facility] Teacher Theater Arts Member Role: Primary Care Nurse Name: Carolee Tesfaye RN Position: [facility] RN Member Role: Primary Care Nurse Name: Joey Perez MD Position: [facility] Renal MD Member Role: Lifetime Consulting Physician Address: Address: [address] [place] [address] [facility] [place] [address]- Name: Brittney Ledezma RN Position: [facility] Teacher Theater Arts Member Role: Primary Care Nurse Name: Eliezer Wagner RN Position: [facility] RN Member Role: Primary Care Nurse Name: Najma Causey RN Position: [facility] SN RN Member Role: Primary Care Nurse Name: Brunilda Thomas RN Position: S RN Member Role: Primary Care Nurse Care Team Related Persons Name: ROOPA XIE Address: [address] [address] Name: HOPE XIE Address: [address] [address]
--- OUTSIDE RECORDS SUMMARY | 2023-05-25 14:56 | XMS_ITS | Continuity of Care Document ---
Author Organization [facility] Address [address] [place] [address]- Care Team Providers Care Stitcher Special Machine Name Role Phone Britany Springer MD Primary Care Physician [place] [facility] [place] - 02/16/[address] [address]- Allergies, Adverse Reactions, Alerts Substance Reaction Severity [...] 3 12/06/10 Given 1Admin Note: vis given Iraqi 2Admin Note: vis [id number] 3Admin Note: VIS given Iraqi. Medications acetaminophen 325 mg oral tablet 650 mg, By Mouth, Every 4 hours, PRN, # 50 tablet, Refills 5, Tot. Refills 5, Maintenance, as needed for pain, 06/20/19 14:52:00 EDT, Route to Pharmacy Electronically, [facility]/pharmacy #[id number], 178, cm, 04/02/19 9:47:00 EST, Height, 94.7, [...] 07/26/20 11:17:00 EDT, Route to Pharmacy Electronically, [facility]/pharmacy #[id number], 183, cm, 12/27/19 13:56:00 EST, Height, 84.8, kg, 07/01/19 22:20:00 EDT, Dry Weight Start Date: 07/26/20 Stop Date: 01/22/21 Status: Ordered aspirin 81 mg oral delayed release tablet 81 mg, 1, tablet, By Mouth, Daily, for 90 days, # 90 tablet, Refills 1, Tot. Refills 1, Hard Stop 07/26/20 11:17:00 EDT, 01/28/20 11:17:00 EST, Route to Pharmacy Electronically, [facility]/pharmacy #[id number], 183, cm, 12/27/19 13:56:00 EST, Height, 84.8, kg, 05/... Start Date: 01/28/20 Stop Date: 07/26/20 Status: Ordered atorvastatin 20 mg oral tablet 1 tablet = 20 mg, By Mouth, Daily at supper, # 90 tablet, 2 Refills, Maintenance, 02/03/20 10:50:00EST, Tablet, [facility]/pharmacy #[id number], 183, cm, 12/27/19 13:56:00 EST, Height, 84.8, kg, 07/01/19 22:20:00 EDT, Dry Weight Start Date: 02/03/20 Status: Ordered cetirizine 10 mg oral tablet 1 tablet = 10 mg, By Mouth, Daily, # 90 tablet, 1 Refills, Maintenance, 02/03/20 10:58:00 EST, Tablet, [facility]/pharmacy #[id number], 183, cm, 12/27/19 13:56:00 EST, Height, [...] 1 Refills, Maintenance, 02/03/20 10:58:00 EST, Tablet, [facility]/pharmacy #[id number], 1 tablet By Mouth Daily, 183, [...] Tot. Refills 0, Maintenance, Use as needed [facility]. Dx: Stroke (I63.9), impaired mobility (Z74.09), 07/09/19 [...] 8:53:00 EDT, 05/15/19 8:53:00 EDT, ER Tablet, [facility]/pharmacy #[id number], 178, cm, 04/02/19 9:47:00 EST, Height, [...]
--- OUTSIDE RECORDS SUMMARY | 2023-05-25 14:56 | XMS_ITS | Continuity of Care Document ---
Author Organization [facility] Address [address] [place] [address]- Care Team Providers Care Rehabilitation Physician Name Role Sales Trainer Declan ALVAREZ Primary Care Physician Encounter [facility] Date(s): 07/27/22 - 08/26/[address] [address] Allergies, Adverse Reactions, Alerts No [...] virus vaccine, inactivated 1 12/06/10 Gi dory [id number] 12y+ bivalent booster vax 01/18/22 Given SARS-CoV-2 (COVID-19) mRNA BNT-162b2 vac 02/08/21 Given SARS-CoV-2 (COVID-19) mRNA BNT-162b2 vac 01/18/21 Given pneumococcal 23-valent vaccine 12/08/14 Given FluLaval (oldterm) 2 12/26/11 Given tetanus-diphtheria toxoids (Td) 3 12/06/10 Given 1Admin Note: vis given Welsh 2Admin Note: vis [id number] 3Admin Note: VIS given Welsh. Medications acetaminophen 325 mg oral tablet 650 mg, By Mouth, Every 4 hours, PRN, # 50 tablet, Refills 5, Tot. Refills 5, Maintenance, as needed for pain, 11/23/20 13:09:00 EDT, Route to Pharmacy Electronically, [facility]/pharmacy #[id number], 183, cm, 08/10/20 16:05:00 EDT, [...] tablet, 1 Refills, Maintenance, 07/06/22 13:39:00 EDT, [facility]/pharmacy #[id number], 175, cm, 01/18/22 12:03:00 EST, Height, 81.9, kg, 08/31/21 14:47:00 EDT, Dry Weight Start Date: 07/06/22 Status: Ordered Aspirin Low Dose 81 mg oral delayed release tablet See Instructions, TOME KIA TABLETA TODOS LOS BENDER, # 90 tablet, 1 Refills, Maintenance, 03/04/22 13:01:00 EST, [id number], 175, cm, 01/18/22 12:03:00 EST, Height, 81.9, kg, 08/31/21 14:47:00 EDT, Dry Weight Start Date: 03/04/22 Status: Ordered atorvastatin 20 mg oral tablet See Instructions, TOME KIA TABLETA TODOS LOS BENDER AT SUPPER, # 90 tablet, 1 Refills, 06/17/22 9:43:00 EDT, [facility]/pharmacy #[id number], 175, cm, 01/18/22 12:03:00 EST, Height, 81.9, kg, 08/31/21 14:47:00 EDT,Dry Weight Start Date: 06/17/22 Status: Ordered BuPROPion (Eqv-Wellbutrin SR) 150 mg/12 hours oral tablet, extended release See Instructions, TOME KIA TABLETA DOS VECES AL BALA, # 180 Unknown, 1 Refills, Maintenance, 03/04/22 13:01:00 EST, [id number], 175, cm, 01/18/22 12:03:00 EST, Height, 81.9, [...] Refills, Maintenance, 03/04/22 13:01:00 EST, [facility], 90, TOME KIA TABLETA POR VIA ORAL [...] ONCE DAILY, # 238 Gm, 5 Refills, [facility] ST[facility] [id number], 14, DISSOLVE 17 GRAMS IN WATER AND DRINK ONCE DAILY, 183, cm, 01/18/21 11:01:00 EST, Height, 84.8, kg, 07/01/19 22:20:00 EDT, Dry Weight Start Date: 06/29/21 Status: Ordered glipiZIDE 2.5 mg oral tablet, extended release 1 tablet = 2.5 mg, By Mouth, Daily, for 90 days, # 90 tablet, 0 Refills, Physician Stop 10/18/22 14:15:00 EDT, 07/20/22 14:15:00 EDT, [facility]/pharmacy #[id number], 175, cm, 01/18/22 12:03:00 EST, Height, [...] 10 mg oral tablet See Instructions, MARCOS STEWARD RANDELL BENDER, # 90 tablet, Refills 1, Maintenance, 03/04/22 13:01:00 EST, Instructions Replace Required Details, Route to Pharmacy Electronically, [facility] STORE [id number], 175, cm, 01/18/22 12:03:00 EST, Height, 81.9, kg,... Start Date: 03/04/22 Status: Ordered Multi-Day Plus Minerals oral tablet 1 tablet, By Mouth, Daily, resent to new pharmacy, # 90 tablet, 1 Refills, Maintenance, 10/18/21 16:12:00 EDT, Tablet, [facility]/pharmacy #[id number], 1 tablet By Mouth Daily,Instr:resent [...] Tot. Refills 0, Maintenance, Use as needed [facility]. Dx: Stroke (I63.9), impaired mobility (Z74.09), [...] Team Personnel Name: Declan Louise MD Position: [facility] Physician - Primary Care Member Role: PCP Address: Address: [address] [place] [address]- [place] Name: Simran Shannon RN Position: [facility] RN Member Role: Primary Care Nurse Name: Toire Jo RN Position: [facility] RN Supv Member Role: Primary Care Nurse Name: Hussein Waters RN Position: [facility] RN Member Role: Primary Care Nurse Name: Vandana Sorensen NP Position: [facility] Associate Professional Member Role: Primary Care Nurse Address: Address: [address] [place] [address]- [place] Name: Karsten Kwong MD Position: [facility] Renal MD Member Role: Lifetime Consulting Physician Address: Address: [address] [place] [address], [address] [facility] [place] [address]- [place] Name: Rebecca Leon RN Position: [facility] RN Member Role: Primary Care Nurse Name: Elisabet Calle Position: [facility] RN Member Role: Primary Care Nurse Name: Paola Cavanaugh RN Position: [facility] ED RN W/OE and Tasks Member Role: Primary Care Nurse Name: Argentina Dixon RN Position: [facility] SN RN Member Role: Primary Care Nurse Name: Christina Alonso Position: [facility] AMB Nurse Member Role: Lifetime Consulting Physician Name: Ramiro Brody III, RN Position: [facility] RN Member Role: Primary Care Nurse Name: Simran Tariq RN Position: [facility] RN Member Role: Primary Care Nurse Name: Dana Fitzgerald RN Position: [facility] RN Member Role: Primary Care Nurse Name: Narayan Spencer RN Position: [facility] SN RN Member Role: Primary Care Nurse Name: Shell Yoder RN Position: [facility] RN Member Role: Primary Care Nurse Name: Radha Mustafa RN Position: [facility] AMB Nurse Member Role: Primary Care Nurse Name: Misti Pickard RN Position: [facility] RN Member Role: Primary Care Nurse Name: William Villanueva RN Position: [facility] RN Member Role: Primary Care Nurse Name: Viky Torre RN Position: [facility] Flame Gouger Member Role: Primary Care Nurse Name: Carolee Tesfaye RN Position: [facility] RN Member Role: Primary Care Nurse Name: Joey Perez MD Position: [facility] Renal MD Member Role: Lifetime Consulting Physician Address: Address: [address] [place] [address] [facility] [place] [address]- Name: Brittney Ledemza RN Position: [facility] Flame Gouger Member Role: Primary Care Nurse Name: Eliezer Wagner RN Position: [facility] ED RN W/OE and Tasks Member Role: Primary Care Nurse Name: Najma Causey RN Position: [facility] SN RN Member Role: Primary Care Nurse Name: Brunilda Thomas RN Position: [facility] RN Member Role: Primary Care Nurse Care Team Related Persons Name: ROJASROOPA Address: home [address] [place] [address] Name: HOPE XIE Address: home [address] [place] [address]
--- OUTSIDE RECORDS SUMMARY | 2023-05-25 14:56 | XMS_ITS | Continuity of Care Document ---
Author Organization [facility] Address [address] [place] [address]- Care Team Providers Care Auditor/Quality Name Role Farm AdvisorDeclan Louise MD Primary Care Physician [facility]counter [facility] Date(s): 10/18/21 - 11/17/[address] [address] Allergies, Adverse Reactions, Alerts No Known Allergies [...] influenza virus vaccine, inactivated 1 12/06/10 Gi droy pneumococcal 23-valent vaccine 12/08/14 Given FluLaval (oldterm) 2 12/26/11 Given tetanus-diphtheria toxoids (Td) 3 12/06/10 Given 1Admin Note: vis given French 2Admin Note: vis [id number] 3Admin Note: VIS given French. Medications acetaminophen 325 mg oral tablet 650 mg, By Mouth, Every 4 hours, PRN, # 50 tablet, Refills 5, Tot. Refills 5, Maintenance, as needed for pain, 11/23/20 13:09:00 EDT, Route to Pharmacy Electronically, [facility]/pharmacy #[id number], 183, cm, 08/10/20 16:05:00 EDT, [...] 10/21/21 15:36:00 EDT, Route to Pharmacy Electronically, [facility]/pharmacy #[id number], Partial fill upon patient request if the prescription is for a schedule II opioid drug.... Start Date: 10/21/21 Status: Ordered Aspirin Low Dose 81 mg oral delayed release tablet See Instructions, MARCOS STEWARD TODOS LOS BENDER, # 90 tablet, 1 Refills, 10/18/21 16:12:00 EDT, [facility]/pharmacy #[id number], 175, cm, 10/18/21 11:40:00 EDT, Height, 81.9, kg, 08/31/21 14:47:00 EDT, Dry Weight Start Date: 10/18/21 Status: Ordered atorvastatin 20 mg oral tablet See Instructions, MARCOS CHAPMANAmy MERCADOS LOS BENDER AT SUPPER, # 90 tablet, 1 Refills, 10/18/21 16:12:00 EDT, [facility]/pharmacy #[id number], 175, cm, 10/18/21 11:40:00 EDT, Height, [...] EDT, Height, 84.8, kg, 07/01/19 22:20:00 EDT, Arlette.. Start Date: 07/22/20 Stop Date: 08/21/20 Status: [...] ONCE DAILY, # 238 Gm, 5 Refills, [facility] STORE 15634, 14, DISSOLVE 17 GRAMS IN WATER AND DRINK ONCE DAILY, 183, cm, 01/18/21 11:01:00 EST, Height, 84.8, kg, 07/01/19 22:20:00 EDT, Dry Weight Start Date: 06/29/21 Status: Ordered glipiZIDE 2.5 mg oral tablet, extended release See Instructions, MARCOS STEWARD TODOS LOS BENDER, # 30 tablet, 5 Refills, 10/18/21 16:12:00 EDT, [facility]/pharmacy #[id number], 175, cm, 10/18/21 11:40:00 EDT, Height, 81.9, kg, 08/31/21 14:47:00 EDT, Dry Weight Start Date: 10/18/21 Status: Ordered Gloves See Instructions, # 150 each, Refills 11, Tot. Refills 11, Maintenance, Used by for incontinence care 5x/day; ICD 10 N39.46, 09/17/21 9:56:00 EDT, Compound Start Date: 09/17/21 Status: Ordered Home Blood Pressure Monitor See [...] of need 1 year; ICD 10 N39.46, 09/17/21 9:59:00 EDT, Compound Start Date: 09/17/21 Status: Ordered Incontinence wipes Incontinence wipes, See [...] Required Details, Route to Pharmacy Electronically, [facility]/pharmacy#[id number], 175, cm, 10/18/21 11:40:00 EDT, Height, 81.9... Start Date: 10/18/21 Status: Ordered Multi-Day Plus Minerals oral tablet 1 tablet, By Mouth, Daily, resent to new pharmacy, # 90 tablet, 1 Refills, Maintenance, 10/18/21 16:12:00 EDT, Tablet, [facility]/pharmacy #[id number], 1 tablet By Mouth Daily,Instr:resent to new pharmacy, 175, cm, 10/18/21 11:40:00 EDT, Height, 81.9, kg, 08/31/21... Start Date: 10/18/21 Status: Ordered Pullups - size L Pullups - size L, See Instructions, # 240 each, Refills 11, Tot. Refills 11, Maintenance, Use as needed for incontinence 5x/day; length of need 1 year; ICD 10 N39.46, 09/17/21 9:59:00 EDT, Compound Start Date: 09/17/21 Status: Ordered see below see below, See Instructions, # 60 each, Refills 11, Tot. Refills 11, Maintenance, reusable extra absorbent bed pads 2 per day, 30 day supply; R39. 81, 09/17/21 9:59:00 EDT, Supply Start Date: 09/17/21 Status: Ordered Shower chair Shower chair, See Instructions, # 1 each, Refills 0, Tot. Refills 0, Maintenance, [facility] Dx: Stroke (I63.9), impaired mobility (Z74.09), 07/09/19 14:21:00 EDT, Supply Start Date: 07/09/19 Status: Ordered Wellbutrin SR 150 mg/12 hours oral tablet, extended release 1 tablet = 150 mg, By Mouth, 2 times a day, # 180 tablet, 1 Refills, Maintenance, 10/31/21 8:53:00 EDT, ER Tablet, [facility]/pharmacy #[id number], 175, cm, 10/18/21 11:40:00 EDT, Height, [...] on: 01/12/15 Sex Patient Care team information Personnel Name: Banker ALVAREZ, Declan Lanier Address: Address: [facility] [place] [address]-
--- OUTSIDE RECORDS SUMMARY | 2023-05-25 14:56 | XMS_ITS | Continuity of Care Document ---
Author Organization [facility] Address [address] [place] [address]- Care Team Providers Care Animator Name Role Phone Britany Springer MD Primary Care Physician [place] [facility] [place] [facility] [address] [place] [address] Allergies, Adverse Reactions, Alerts Substance Reaction Severity [...] 3 12/06/10 Given 1Admin Note: vis given Kyrgyz 2Admin Note: vis [id number] 3Admin Note: VIS given Kyrgyz. Medications acetaminophen 325 mg oral tablet 650 mg, By Mouth, Every 4 hours, PRN, # 50 tablet, Refills 5, Tot. Refills 5, Maintenance, as needed for pain, 06/20/19 14:52:00 EDT, Route to Pharmacy Electronically, [facility]/pharmacy #[id number], 178, cm, 04/02/19 9:47:00 EST, Height, 94.7, [...] 07/26/20 11:17:00 EDT, Route to Pharmacy Electronically, [facility]/pharmacy #[id number], 183, cm, 12/27/19 13:56:00 EST, Height, 84.8, kg, 07/01/19 22:20:00 EDT, Dry Weight Start Date: 07/26/20 Stop Date: 01/22/21 Status: Ordered aspirin 81 mg oral delayed release tablet 81 mg, 1, tablet, By Mouth, Daily, for 90 days, # 90 tablet, Refills 1, Tot. Refills 1, Hard Stop 07/26/20 11:17:00 EDT, 01/28/20 11:17:00 EST, Route to Pharmacy Electronically, [facility]/pharmacy #[id number], 183, cm, 12/27/19 13:56:00 EST, Height, 84.8, kg, .. Start Date: 01/28/20 Stop Date: 07/26/20 Status: Ordered atorvastatin 20 mg oral tablet 1 tablet = 20 mg, By Mouth, Daily at supper, # 90 tablet, 2 Refills, Maintenance, 02/03/20 10:50:00EST, Tablet, [facility]/pharmacy #[id number], 183, cm, 12/27/19 13:56:00 EST, Height, 84.8, kg, 07/01/19 22:20:00 EDT, Dry Weight Start Date: 02/03/20 Status: Ordered cetirizine 10 mg oral tablet 1 tablet = 10 mg, By Mouth, Daily, # 90 tablet, 1 Refills, Maintenance, 02/03/20 10:58:00 EST, Tablet, [facility]/pharmacy #[id number], 183, cm, 12/27/19 13:56:00 [...] 1 Refills, Maintenance, 02/03/20 10:58:00 EST, Tablet, [facility]/pharmacy #[id number], 1 tablet By Mouth [...] forshowering. Dx: Stroke (I63.9), impaired mobility (Z74.09), 07/09/19 [...] Date: 05/09/20 Stop Date: 05/04/21 Status: Ordered Problem List Condition Effective Dates [...]
--- OUTSIDE RECORDS SUMMARY | 2023-05-25 14:56 | XMS_ITS | Continuity of Care Document ---
Author Organization [facility] Address [address] [place] [address]- Care Team Providers Care Warehouse Traffic Supervisor Name Role Phone Britany Springer MD Primary Care Physician [place] [facility] [place] - 07/05/[address] [address]- Allergies, Adverse Reactions, Alerts Substance Reaction Severity [...] 3 12/06/10 Given 1Admin Note: vis given [facility] 2Admin Note: vis [id number] 3Admin Note: VIS given [facility]. Medications acetaminophen 325 mg oral tablet 650 mg, By Mouth, Every 4 hours, PRN, # 50 tablet, Refills 5, Tot. Refills 5, Maintenance, as needed for pain, 06/20/19 14:52:00 EDT, Route to Pharmacy Electronically, [facility]/pharmacy #[id number], 178, cm, 04/02/19 9:47:00 EST, Height, 94.7, [...] 07/26/20 11:17:00 EDT, Route to Pharmacy Electronically, [facility]/pharmacy #[id number], 183, cm, 12/27/19 13:56:00 EST, Height, 84.8, kg, 07/01/19 22:20:00 EDT, Dry Weight Start Date: 07/26/20 Stop Date: 01/22/21 Status: Ordered aspirin 81 mg oral delayed release tablet 81 mg, 1, tablet, By Mouth, Daily, for 90 days, # 90 tablet, Refills 1, Tot. Refills 1, Hard Stop 07/26/20 11:17:00 EDT, 01/28/20 11:17:00 EST, Route to Pharmacy Electronically, [facility]/pharmacy #[id number], 183, cm, 12/27/19 13:56:00 EST, Height, 84.8, kg, /... Start Date: 01/28/20 Stop Date: 07/26/20 Status: Ordered atorvastatin 20 mg oral tablet 1 tablet = 20 mg, By Mouth, Daily at supper, # 90 tablet, 2 Refills, Maintenance, 02/03/20 10:50:00EST, Tablet, [facility]/pharmacy #[id number], 183, cm, 12/27/19 13:56:00 EST, Height, 84.8, kg, 07/01/19 22:20:00 EDT, Dry Weight Start Date: 02/03/20 Status: Ordered cetirizine 10 mg oral tablet 1 tablet = 10 mg, By Mouth, Daily, # 90 tablet, 1 Refills, Maintenance, 02/03/20 10:58:00 EST, Tablet, [facility]/pharmacy #[id number], 183, cm, 12/27/19 [...] Tot. Refills 0, Maintenance, [facility] Dx: Stroke (I63.9), impaired mobility (Z74.09), [...] Refills, Maintenance, 05/09/20 8:53:00 EDT, ER Tablet, [facility]/pharmacy #[id number], 183, cm, 12/27/19 [...]
--- OUTSIDE RECORDS SUMMARY | 2023-05-25 14:56 | XMS_ITS | Continuity of Care Document ---
Author Organization [facility] Address [address] [place] [place] [address]- Care Team Providers Care Cylinder Loader Name Role Hogshead BuilderDeclan Louise MD Primary Care Physician [facility]counter [facility] Date(s): 10/21/21 - 11/20/[address] [address] Allergies, Adverse Reactions, Alerts [...] Note: vis given French 2Admin Note: vis [id number] 3Admin Note: VIS given French. Medications acetaminophen 325 mg oral tablet 650 mg, By Mouth, Every 4 hours, PRN, # 50 tablet, Refills 5, Tot. Refills 5, Maintenance, as needed for pain, 11/23/20 13:09:00 EDT, Route to Pharmacy Electronically, [facility]/pharmacy #[id number], 183, cm, 08/10/20 16:05:00 EDT, Height, [...] 10/21/21 15:36:00 EDT, Route to Pharmacy Electronically, [facility]/pharmacy #[id number], Partial fill upon patient request if the prescription is for a schedule II opioid drug.... Start Date: 10/21/21 Status: Ordered Aspirin Low Dose 81 mg oral delayed release tablet See Instructions, MARCOS CHAPMANA TODOS LOS BENDER, # 90 tablet, 1 Refills, 10/18/21 16:12:00 EDT, [facility]/pharmacy #[id number], 175, cm, 10/18/21 11:40:00 EDT, Height, 81.9, kg, 08/31/21 14:47:00 EDT, Dry Weight Start Date: 10/18/21 Status: Ordered atorvastatin 20 mg oral tablet See Instructions, MARCOS CHAPMANAmy MERCADOS LOS BENDER AT SUPPER, # 90 tablet, 1 Refills, 10/18/21 16:12:00 EDT, [facility]/pharmacy #[id number], 175, cm, 10/18/21 11:40:00 EDT, Height, [...] ONCE DAILY, # 238 Gm, 5 Refills, [facility] STORE 92899, 14, DISSOLVE 17 GRAMS IN WATER AND DRINK ONCE DAILY, 183, cm, 01/18/21 11:01:00 EST, Height, 84.8, kg, 07/01/19 22:20:00 EDT, Dry Weight Start Date: 06/29/21 Status: Ordered glipiZIDE 2.5 mg oral tablet, extended release See Instructions, MARCOS STEWARD TODOS LOS BENDER, # 30 tablet, 5 Refills, 10/18/21 16:12:00 EDT, [facility]/pharmacy #[id number], 175, cm, 10/18/21 11:40:00 EDT, Height, [...] TODOS LOS BENDER, # 30 tablet, Refills 5, Tot. Refills 5, 10/19/2215:12:00 EDT, Instructions Replace Required Details, Route to Pharmacy Electronically, [facility]/pharmacy#[id number], 175, cm, 10/18/21 11:40:00 EDT, Height, 81.9... Start Date: 10/18/21 Status: Ordered Multi-Day Plus Minerals oral tablet 1 tablet, By Mouth, Daily, resent to new pharmacy, # 90 tablet, 1 Refills, Maintenance, 10/18/21 16:12:00 EDT, Tablet, [facility]/pharmacy #[id number], 1 tablet By Mouth Daily,Instr:resent to new pharmacy, 175, cm, 10/18/21 11:40:00 EDT, Height, 81.9, kg, 08/31/21... Start Date: 10/18/21 Status: Ordered Paxlovid 150 mg-100 mg oral tablet See Instructions, Renal impairment, eGFR 30-60: 150mg nirmatrelvir with 100mg ritonavir; both tablets taken together twice daily By Mouth for 5 days, with or without food, # 20 tablet, 0 Refills, Acute 11/23/21 18:45:00 EDT, 11/18/21 18:45:00 [facility], [facility]... Start Date: 11/18/21 Stop Date: 11/23/21 Status: Ordered Pullups - size L Pullups [...] Tot. Refills 0, Maintenance, [facility] Dx: Stroke (I63.9), impaired mobility (Z74.09), 07/09/19 14:21:00 EDT, Supply Start Date: 07/09/19 Status: Ordered Wellbutrin SR 150 mg/12 hours oral tablet, extended release 1 tablet = 150 mg, By Mouth, 2 times a day, # 180 tablet, 1 Refills, Maintenance, 10/31/21 8:53:00 EDT, ER Tablet, [id number], 175, cm, 10/18/21 11:40:00 EDT, Height, [...] Name: Banker ALVAREZ, Declan Lanier Address: Address: [address] [place] [address]
--- OUTSIDE RECORDS SUMMARY | 2023-05-25 14:56 | XMS_ITS | Continuity of Care Document ---
Author Organization [facility] Address [address] [place] [address]- Care Team Providers Care Supervisor Sawing And Assembly Name Role Rubber Mixer Declan ALVAREZ Primary Care Physician [phone] Encounter [facility] Date(s): 11/02/22 - 12/02/[address] [id number] Allergies, Adverse Reactions, Alerts No Known [...] virus vaccine, inactivated 1 12/06/10 Gi dory [id number] 12y+ bivalent booster vax 01/18/22 Given SARS-CoV-2 (COVID-19) mRNA BNT-162b2 vac 02/08/21 Given SARS-CoV-2 (COVID-19) mRNA BNT-162b2 vac 01/18/21 Given pneumococcal 23-valent vaccine 12/08/14 Given FluLaval (oldterm) 2 12/26/11 Given tetanus-diphtheria toxoids (Td) 3 12/06/10 Given 1Admin Note: vis given Austrian 2Admin Note: vis [id number] 3Admin Note: VIS given Austrian. Medications acetaminophen 325 mg oral tablet 650 mg, By Mouth, Every 4 hours, PRN, # 50 tablet, Refills 5, Tot. Refills 5, Maintenance, as needed for pain, 11/23/20 13:09:00 EDT, Route to Pharmacy Electronically, [facility]/pharmacy #[id number], 183, cm, 08/10/20 16:05:00 EDT, [...] tablet, 1 Refills, Maintenance, 10/17/22 12:07:00 EDT, [facility] STORE [id number], 175, cm, 01/18/22 12:03:00 EST, Height, 81.9, kg, 08/31/21 14:47:00 EDT, Dry Weight Start Date: 10/17/22 Status: Ordered Aspirin Low Dose 81 mg oral delayed release tablet See Instructions, MARCOS ADAM TABLETA RANDELL BENDER, # 90 tablet, 0 Refills, Maintenance, 11/17/22 8:27:00 EDT, [id number], 175, cm, 01/18/22 12:03:00 EST, Height, 81.9, kg, 08/31/21 14:47:00 EDT, Dry Weight Start Date: 11/17/22 Status: Ordered atorvastatin 20 mg oral tablet See Instructions, TOME KIA TABLETA RANDELL CONWAY BENDER AT SUPPER, # 90 tablet, 1 Refills, 06/17/22 9:43:00 EDT, [id number], 175, cm, 01/18/22 12:03:00 EST, Height, 81.9, kg, 08/31/21 14:47:00 EDT,Dry Weight Start Date: 06/17/22 Status: Ordered atorvastatin 20 mg oral tablet See Instructions, TOME KIA TABLETA RANDELL BENDER AT SUPPER, # 90 tablet, 1 Refills, Maintenance, 10/03/22 12:31:00 EDT, [facility] STORE [id number], 175, cm, 01/18/22 12:03:00 EST, Height, 81.9, kg, 08/31/21 14:47:00 EDT, Dry Weight Start Date: 10/03/22 Status: Ordered BuPROPion (Eqv-Wellbutrin SR) 150 mg/12 hours oral tablet, extended release See Instructions, TOME KIA TABLETA DOS VECES AL BALA, # 60 each, 0 Refills, Maintenance, 11/08/22 15:41:00 EDT, [id number], 175, cm, 01/18/22 12:03:00 EST, Height, [...] each, 0 Refills, Maintenance, 11/17/22 8:27:00 EDT, [facility]/pharmacy #[id number], TOME KIA TABLETA POR VIA ORAL [...] Gm, 5 Refills, Maintenance, 11/28/22 8:45:00 EDT, [facility]/pharmacy #[id number], 14, DISSOLVE 17 GRAMS IN WATER AND DRINK ONCE DAILY, 175, cm, 01/18/22 12:03:00 EST, Height, 81.9, kg, 08/31... Start Date: 11/28/22 Status: Ordered glipiZIDE 5 mg oral tablet, extended release 1 tablet = 5 mg, By Mouth, Daily, # 90 tablet, 1 Refills, Maintenance, 11/02/22 13:07:00 EDT, ER Tablet, [facility]/pharmacy #[id number], Partial fill upon patient request [...] mg oral tablet See Instructions, MARCOS STEWARD TODOS LOS BENDER, # 30 tablet, Refills 3, Tot. Refills 3, Maintenance, 11/28/22 8:45:00 EDT, Instructions Replace Required Details, Route to Pharmacy Electronically, [facility]/pharmacy #[id number], 175, cm, 01/18/22 12:03:00 EST,... Start Date: 11/28/22 Status: Ordered Multi-Day Plus Minerals oral tablet 1 tablet, By Mouth, Daily, resent to new pharmacy, # 90 tablet, 1 Refills, Maintenance, 10/18/21 16:12:00 EDT, Tablet, [facility]/pharmacy #[id number], 1 tablet By Mouth Daily,Instr:resent [...] Tot. Refills 0, Maintenance, [facility] Dx: Stroke (I63.9), impaired mobility (Z74.09), 03/04/22 [...] Personnel Name: Banker ALVAREZ, Declan Lanier Position: [facility] Physician - Primary Care Member Role: PCP Address: Address: [address] [place] [id number] Name: Simran Shannon RN Position: S RN Member Role: Primary Care Nurse Name: Torie Jo RN Position: S RN Supv Member Role: Primary Care Nurse Name: Hussein Waters RN Position: S RN Member Role: Primary Care Nurse Name: Vandana Sorensen NP Position: [facility] Associate Professional Member Role: Primary Care Nurse Address: Address: [address] [place] [address]- [place] Name: Karsten Kwong MD Position: [facility] Renal MD Member Role: Lifetime Consulting Physician Address: Address: [address] [place] [address], [address] [facility] [place] [address]- [place] Name: Rebecca Leon RN Position: [facility] RN Member Role: Primary Care Nurse Name: Elisabet Calle Position: [facility] RN Member Role: Primary Care Nurse Name: Paola Cavanaugh RN Position: [facility] ED RN W/OE and Tasks Member Role: Primary Care Nurse Name: Argentina Dixon RN Position: [facility] ED RN W/OE and Tasks Member Role: Primary Care Nurse Name: Christina Alonso Position: [facility] AMB Nurse Member Role: Lifetime Consulting Physician Name: Ramiro Brody III, RN Position: [facility] RN Member Role: Primary Care Nurse Name: Simran Tariq RN Position: [facility] RN Member Role: Primary Care Nurse Name: Dana Fitzgerald RN Position: [facility] RN Member Role: Primary Care Nurse Name: Narayan Spencer RN Position: [facility] ED RN W/OE and Tasks Member Role: Primary Care Nurse Name: Shell Yoder RN Position: [facility] RN Member Role: Primary Care Nurse Name: Radha Mustafa RN Position: [facility] Nurse Member Role: Primary Care Nurse Name: Misti Pickard RN Position: [facility] RN Member Role: Primary Care Nurse Name: William Villanueva RN Position: [facility] RN Member Role: Primary Care Nurse Name: Viky Torre RN Position: [facility] Test Car Driver Member Role: Primary Care Nurse Name: Carolee Tesfaye RN Position: [facility] RN Member Role: Primary Care Nurse Name: Joey Perez MD Position: [facility] Renal MD Member Role: Lifetime Consulting Physician Address: Address: [address] [place] [address] [facility] [place] [address]- [place] Name: [place] Ledezma RN Position: [facility] Test Car Driver Member Role: Primary Care Nurse Name: Eliezer Wagner RN Position: [facility] RN Member Role: Primary Care Nurse Name: Najma Causey RN Position: [facility] RN Member Role: Primary Care Nurse Name: Brunilda Thomas RN Position: S RN Member Role: Primary Care Nurse Care Team Related Persons Name: ROOPA XIE Address: [address] [address] Name: HOPE XIE Address: [address] [address]
--- OUTSIDE RECORDS SUMMARY | 2023-05-25 14:56 | XMS_ITS | Continuity of Care Document ---
Author Organization [facility] Address [address] [place] [address]- Care Team Providers Care College Or University Business Manager Name Role Phone Britany Springer MD Primary Care Physician Encounter [facility] Date(s): 06/10/21 - 07/10/[address] [address]- Allergies, Adverse Reactions, Alerts No Known Allergies [...] 3 12/06/10 Given 1Admin Note: vis given Wallisian 2Admin Note: vis [id number] 3Admin Note: VIS given Wallisian. Medications acetaminophen 325 mg oral tablet 650 mg, By Mouth, Every 4 hours, PRN, # 50 tablet, Refills 5, Tot. Refills 5, Maintenance, as needed for pain, 11/23/20 13:09:00 EDT, Route to Pharmacy Electronically, [facility]/pharmacy #[id number], 183, cm, 06/21/21 16:05:00 EDT, Height, 84.8, [...] # 90 tablet, 1 Refills, [id number], 183, cm, 01/18/21 11:01:00 EST, Height, 84.8, [...] ONCE DAILY, # 238 Gm, 5 Refills, [facility] STORE 83237, 14, DISSOLVE 17 GRAMS IN WATER AND DRINK ONCE DAILY, 183, cm, 01/18/21 11:01:00 EST, Height, 84.8, kg, 07/01/19 22:20:00 EDT, Dry Weight Start Date: 06/29/21 Status: Ordered glipiZIDE 2.5 mg oral tablet, extended release See Instructions, MARCOS STEWARD TOSAWYER LOS BENDER, # 30 tablet, 5 Refills, 04/23/21 8:48:00 EST, [facility]/pharmacy #[id number], 183, cm, 01/18/21 11:01:00 EST, Height, [...] of need 1 year; ICD 10 N39.46, 07/09/21 13:28:00 EDT, Compound Start Date: 07/09/21 Status: Ordered Incontinence wipes Incontinence wipes, See Instructions, # 150 each, Refills 5, Tot. Refills 5, Maintenance, Use as needed for personal hygiene Dx: Incontinence (R32), 05/13/21 17:34:00 EDT, Supply Start Date: 05/13/21 Status: Ordered loratadine 10 mg oral tablet See Instructions, MARCOS STEWARD TODOS LOS BENDER, # 30 tablet, Refills 5, Instructions Replace Required Details, Route to Pharmacy Electronically, [facility] STORE 55630, 183, cm, 01/18/21 11:01:00 EST, Height, 84.8, kg, 07/01/19 22:20:00 EDT, Dry Weight Start Date: 06/03/21 Status: Ordered Multi-Day Plus Minerals oral tablet 1 tablet, By Mouth, Daily, resent to new pharmacy, # 90 tablet, 0 Refills, Maintenance, 07/05/21 10:45:00 EDT, Tablet, [facility]/pharmacy #[id number], 1 tablet By Mouth Daily,Instr:resent to new pharmacy, 183, cm, 01/18/21 11:01:00 EST, Height Start Date: 07/05/21 Status: Ordered Pullups - size L Pullups [...] Refills, Maintenance, 05/04/21 8:53:00 EDT, ER Tablet, [facility]/pharmacy #[id number], 183, cm, 01/18/21 11:01:00 EST, Height, [...]
--- OUTSIDE RECORDS SUMMARY | 2023-05-25 14:56 | XMS_ITS | Continuity of Care Document ---
Author Organization [facility] Address [address] [place] [address]- Care Team Providers Care System Support Developer Name Role Street Car MechanicDeclan Louise MD Primary Care Physician Encounter [facility] Date(s): 01/07/22 - 01/14/22 [facility] [address] [place] [address]- Attending Physician: Amisha Oneal NP Allergies, Adverse Reactions, Alerts No Known Allergies [...] 3 12/06/10 Given 1Admin Note: vis given Honduran 2Admin Note: vis [id number] 3Admin Note: VIS given Honduran. Medications acetaminophen 325 mg oral tablet 650 mg, By Mouth, Every 4 hours, PRN, # 50 tablet, Refills 5, Tot. Refills 5, Maintenance, as needed for pain, 11/23/20 13:09:00 EDT, Route to Pharmacy Electronically, [facility]/pharmacy #[id number], 183, cm, 08/10/20 16:05:00 [...] 10/21/21 15:36:00 EDT, Route to Pharmacy Electronically, [facility]/pharmacy #[id number], Partial fill upon patient request if the prescription is for a schedule II opioid drug.... Start Date: 10/21/21 Status: Ordered Aspirin Low Dose 81 mg oral delayed release tablet See Instructions, MARCOS STEWARD TODOS LOS BENDER, # 90 tablet, 1 Refills, 10/18/21 16:12:00 EDT, [facility]/pharmacy #[id number], 175, cm, 10/18/21 11:40:00 EDT, Height, 81.9, kg, 08/31/21 14:47:00 EDT, Dry Weight Start Date: 10/18/21 Status: Ordered atorvastatin 20 mg oral tablet See Instructions, MARCOS CHAPMANAmy MERCADOS LOS BENDER AT SUPPER, # 90 tablet, 1 Refills, 10/18/21 16:12:00 EDT, [facility]/pharmacy #[id number], 175, cm, 10/18/21 11:40:00 EDT, Height, [...] ONCE DAILY, # 238 Gm, 5 Refills, [facility] STORE 93731, 14, DISSOLVE 17 GRAMS IN WATER AND DRINK ONCE DAILY, 183, cm, 01/18/21 11:01:00 EST, Height, 84.8, kg, 07/01/19 22:20:00 EDT, Dry Weight Start Date: 06/29/21 Status: Ordered glipiZIDE 2.5 mg oral tablet, extended release See Instructions, MARCOS CONWAY BENDER, # 30 tablet, 5 Refills, 10/18/21 16:12:00 EDT, [facility]/pharmacy #[id number], 175, cm, 10/18/21 11:40:00 EDT, Height, [...] Replace Required Details, Route to Pharmacy Electronically, [facility]/pharmacy#[id number], 175, cm, 10/18/21 11:40:00 EDT, Height, 81.9... Start Date: 10/18/21 Status: Ordered Multi-Day Plus Minerals oral tablet 1 tablet, By Mouth, Daily, resent to new pharmacy, # 90 tablet, 1 Refills, Maintenance, 10/18/21 16:12:00 EDT, Tablet, [facility]/pharmacy #[id number], 1 tablet By Mouth [...] Tot. Refills 0, Maintenance, Use as needed [facility]. Dx: Stroke (I63.9), impaired mobility (Z74.09), 07/09/19 14:21:00 EDT, Supply Start Date: 07/09/19 Status: Ordered Wellbutrin SR 150 mg/12 hours oral tablet, extended release 1 tablet = 150 mg, By Mouth, 2 times a day, # 180 tablet, 1 Refills, Maintenance, 10/31/21 8:53:00 EDT, ER Tablet, [facility]/pharmacy #[id number], 175, cm, 10/18/21 11:40:00 EDT, Height, [...] Team Personnel Name: Declan Louise MD Position: [facility] Primary Care Physician Member Role: PCP Address: Address: [address] [place] [id number]- Name: Simran Shannon RN Position: S RN Member Role: Primary Care Nurse Name: Torie Jo RN Position: S RN Member Role: Primary Care Nurse Name: Hussein Waters RN Position: [facility] RN Member Role: Primary Care Nurse Name: Vandana Sorensen NP Position: [facility] Associate Professional Member Role: Primary Care Nurse Address: Address: [address] [place] [address]- Name: Karsten Kwong MD Position: [facility] Renal MD Member Role: Lifetime Consulting Physician Address: Address: [address] [place] [address], [address] [facility] [place] [address]- Name: Rebecca Leon RN Position: [facility] RN Member Role: Primary Care Nurse Name: Elisabet Calle Position: [facility] RN Member Role: Primary Care Nurse Name: Paola Cavanaugh RN Position: [facility] ED RN W/OE and Tasks Member Role: Primary Care Nurse Name: Argentina Dixon RN Position: [facility] SN RN Member Role: Primary Care Nurse Name: Christina Alonso Position: [facility] PCO RN Member Role: Lifetime Consulting Physician Name: Ramiro Brody III, RN Position: [facility] RN Member Role: Primary Care Nurse Name: Simran Tariq RN Position: [facility] RN Member Role: Primary Care Nurse Name: Dana Fitzgerald RN Position: [facility] RN Member Role: Primary Care Nurse Name: Narayan Spencer RN Position: [facility] SN RN Member Role: Primary Care Nurse Name: Shell Yoder RN Position: S RN Member Role: Primary Care Nurse Name: Radha Mustafa RN Position: [facility] PCO RN Member Role: Primary Care Nurse Name: Misti Pickard RN Position: [facility] RN Member Role: Primary Care Nurse Name: William Villanueva RN Position: [facility] RN Member Role: Primary Care Nurse Name: Viky Torre RN Position: [facility] Qa Intern Member Role: Primary Care Nurse Name: Carolee Tesfaye RN Position: [facility] RN Member Role: Primary Care Nurse Name: Joey Perez MD Position: [facility] Renal MD Member Role: Lifetime Consulting Physician Address: Address: [address] [place] [address] [facility] [address] Name: Brittney Ledezma RN Position: [facility] Qa Intern Member Role: Primary Care Nurse Name: Eliezer Wagner RN Position: [facility] ED RN W/OE and Tasks Member Role: Primary Care Nurse Name: Najma Causey RN Position: [facility] SN RN Member Role: Primary Care Nurse Name: Brunilda Thomas RN Position: [facility] RN Member Role: Primary Care Nurse Care Team Related Persons Name: ROOPA XIE Address: [address] [address] Name: HOPE XIE Address: [address] [address]
--- OUTSIDE RECORDS SUMMARY | 2023-05-25 14:56 | XMS_ITS | Continuity of Care Document ---
Author Organization [facility] Address [address] [place] [address]- Care Team Providers Care Tire Bladder Maker Name Role Phone Britany Springer MD Primary Care Physician Encounter [facility] Date(s): 01/01/21 - 02/27/[address] [address]- Attending Physician: Not on Staff, Attending MD Allergies, Adverse Reactions, Alerts Substance Reaction [...] vis given North Korean 2Admin Note: vis [id number] 3Admin Note: VIS given North Korean. Medications acetaminophen 325 mg oral tablet 650 mg, By Mouth, Every 4 hours, PRN, # 50 tablet, Refills 5, Tot. Refills 5, Maintenance, as needed for pain, 11/23/20 13:09:00 EDT, [facility], [id number], 183, cm, 08/10/20 16:05:00 EDT, Height, [...] delayed release tablet See Instructions, MARCOS CHAPMANA TOLOUIE BENDER, # 90 tablet, 1 Refills, Maintenance, [facility] STORE 27786, 183, cm, 08/10/20 16:05:00 EDT, Height, 84.8, kg, 07/01/19 22:20:00 EDT, Dry Weight Start Date: 10/05/20 Status: Ordered atorvastatin 20 mg oral tablet 1 tablet = 20 mg, By Mouth, Daily at supper, # 90 tablet, 1 Refills, Maintenance, 11/05/20 20:47:00EDT, Tablet, [facility]/pharmacy #[id number], 183, cm, 08/10/20 16:05:00 EDT, Height, 84.8, kg, 07/01/19 22:20:00 EDT, Dry Weight Start Date: 11/05/20 Status: Ordered Claritin 10 mg oral tablet 10 mg, 1, tablet, By Mouth, Daily, # 30 tablet, Refills 5, Tot. Refills 5, Maintenance, 11/23/20 13:09:00 EDT, [id number] Partial fill upon patient request if [...] tablet, extended release See Instructions, MARCOS STEWARD [place] LOS BENDER, # 30 tablet, 4 Refills, [...] 1 Refills, Maintenance, 11/23/20 13:08:00 EDT, Tablet, [facility]/pharmacy #[id number], 1 tablet By Mouth [...] Tot. Refills 0, Maintenance, [facility]. Dx: Stroke (I63.9), impaired mobility (Z74.09), 07/09/19 [...] Refills, Maintenance, 05/09/20 8:53:00 EDT, ER Tablet, [facility]/pharmacy #[id number], 183, cm, 12/27/19 13:56:00 EST, Height, [...]
--- OUTSIDE RECORDS SUMMARY | 2023-05-25 14:56 | XMS_ITS | Continuity of Care Document ---
Author Organization [facility] Address [address] [place] [address]- Care Team Providers Care Glass Cut Off Supervisor Name Role Corner Brace Block Machine Operator Declan ALVAREZ Primary Care Physician [phone] Encounter [facility] Date(s): 02/07/23 - 03/09/[address] [id number] Allergies, Adverse Reactions, Alerts No Known Allergies [...] virus vaccine, inactivated 1 12/06/10 Gi dory [id number] 12y+ bivalent booster vax 01/18/22 Given SARS-CoV-2 (COVID-19) mRNA BNT-162b2 vac 02/08/21 Given SARS-CoV-2 (COVID-19) mRNA BNT-162b2 vac 01/18/21 Given pneumococcal 23-valent vaccine 12/08/14 Given FluLaval (oldterm) 2 12/26/11 Given tetanus-diphtheria toxoids (Td) 3 12/06/10 Given 1Admin Note: vis given Uruguayan 2Admin Note: vis [id number] 3Admin Note: VIS given Uruguayan. Medications acetaminophen 325 mg oral tablet 650 mg, By Mouth, Every 4 hours, PRN, # 50 tablet, Refills 5, Tot. Refills 5, Maintenance, as needed for pain, 11/23/20 13:09:00 EDT, Route to Pharmacy Electronically, [facility]pharmacy [id number], 183, cm, 08/10/20 16:05:00 EDT, Height, 84.8, kg, 07/01/19 22:2... Start Date: 11/23/20 Status: Ordered amLODIPine 10 mg oral tablet 10 mg, By Mouth, Daily, # 90 each, Refills 3, Tot. Refills 3, Maintenance, 02/24/23 12:06:00 EST, Route to Pharmacy Electronically, [facility]pharmacy [id number], Partial fill upon patient request if the prescription is for a schedule II opioid drug., 175, cm, 0... Start Date: 02/24/23 Stop Date: 02/19/24 Status: Ordered Aspirin Low Dose 81 mg oral delayed release tablet See Instructions, MARCOS ADAM TABLETA TOS ZORAIDA BENDER, # 90 tablet, 1 Refills, Maintenance, 02/24/23 12:05:00 EST, [facility]/pharmacy #[id number], 175, cm, 02/24/23 11:28:00 EST, Height, 81.9, kg, 01/04/23 22:19:00 EST, Dry Weight Start Date: 02/24/23 Status: Ordered atorvastatin 20 mg oral tablet See Instructions, NANETTEE KIA TABLETA TODOS ZORAIDA BENDER AT SUPPER, # 90 tablet, 1 Refills, Maintenance, 02/24/23 12:05:00 EST, [facility]/pharmacy #[id number], 175, cm, 02/24/23 11:28:00 EST, Height, 81.9, kg, 01/04/2322:19:00 EST, Dry Weight Start Date: 02/24/23 Status: Ordered BuPROPion (Eqv-Wellbutrin SR) 150 mg/12 hours oral tablet, extended release See Instructions, TOME KIA TABLETA DOS VECES AL BALA, # 180 each, 1 Refills, Maintenance, 02/24/23 12:05:00 EST, [facility]/pharmacy #[id number], 175, cm, 02/24/23 11:28:00 EST, Height, 81.9, kg, 01/04/23 22:19:00EST, Dry Weight Start Date: 02/24/23 Status: Ordered Daily Yasmine oral tablet See Instructions, NANETTEE KIA TABLETA TODOS LOS BENDER, # 90 tablet, 1 Refills, Maintenance, 02/24/23 12:05:00 EST, [facility]/pharmacy #[id number], 90, TOME KIA TABLETA TODOS LOS BENDER, 175, cm, 02/24/23 11:28:00 EST,Height, 81.9, kg, 01/04/23 22:19:00 EST, Dry Weight Start Date: 02/24/23 Status: Ordered GaviLAX oral powder for reconstitution See Instructions, DISSOLVE 17 GRAMS IN WATER AND DRINK ONCE DAILY, # 238 Gm, 5 Refills, Maintenance, 02/24/23 12:05:00 EST, [facility]/pharmacy #[id number], 14, DISSOLVE 17 GRAMS IN WATER AND DRINK ONCE DAILY, 175, cm, 02/24/23 11:28:00 EST, Height, 81.9, kg, 12/21... Start Date: 02/24/23 Status: Ordered glipiZIDE 5 mg oral tablet, extended release 1 tablet = 5 mg, By Mouth, Daily, dose of 5 mg ER please dose., # 90 tablet, 3 Refills, Maintenance, 02/24/23 11:59:00 EST, ER Tablet, [facility]/pharmacy #[id number], Partial fill upon patient request if [...] Instructions Replace Required Details, Route to Pharmacy Electronically,[facility]/pharm[id number], 175, cm, 02/24/23 11:28:00 EST,... Start Date: 02/24/23 Status: Ordered Multi-Day Plus Minerals oral tablet 1 tablet, By Mouth, Daily, resent to new pharmacy, # 90 tablet, 1 Refills, Maintenance, 10/18/21 16:12:00 EDT, Tablet, [facility]/pharmacy #[id number], 1 tablet By Mouth Daily,Instr:resent to [...] Team Personnel Name: Declan Louise MD Position: [facility] Physician - Primary Care Member Role: PCP Address: Address: [address] [place] [address]- Name: Simran Shannon RN Position: S RN Member Role: Primary Care Nurse Name: Torie Jo RN Position: S RN Supv Member Role: Primary Care Nurse Name: Hussein Waters RN Position: S RN Member Role: Primary Care Nurse Name: Vnadana Sorensen NP Position: [facility] Associate Professional Member Role: Primary Care Nurse Address: Address: [address] [place] [address]- [place] Name: Karsten Kwong MD Position: [facility] Renal MD Member Role: Lifetime Consulting Physician Address: Address: [address] [place] [address] [address] [place] [address]- [place] Name: Rebecca Leon RN Position: [facility] RN Member Role: Primary Care Nurse Name: Elisabet Calle Position: [facility] RN Member Role: Primary Care Nurse Name: Paola Cavanaugh RN Position: [facility] ED RN W/OE and Tasks Member Role: Primary Care Nurse Name: Argentina Dixon RN Position: [facility] ED RN W/OE and Tasks Member Role: Primary Care Nurse Name: Christina Alonso Position: [facility] AMB Nurse Member Role: Lifetime Consulting Physician Name: Ramiro Brody III, RN Position: [facility] RN Member Role: Primary Care Nurse Name: Simran Tariq RN Position: [facility] RN Member Role: Primary Care Nurse Name: Narayan Spencer RN Position: [facility] SN RN Member Role: Primary Care Nurse Name: Shell Yoder RN Position: [facility] RN Member Role: Primary Care Nurse Name: Yenni Packer RN Position: [facility] RN Member Role: Primary Care Nurse Name: Radha Mustafa RN Position: [facility] AMB Nurse Member Role: Primary Care Nurse Name: Misti Pickard RN Position: [facility] RN Member Role: Primary Care Nurse Name: William Villanueva RN Position: [facility] RN Member Role: Primary Care Nurse Name: Viky Torre RN Position: [facility] Scheduler Maintenance Member Role: Primary Care Nurse Name: Carolee Tesfaye RN Position: [facility] RN Member Role: Primary Care Nurse Name: Joey Perez MD Position: [facility] Renal MD Member Role: Lifetime Consulting Physician Address: Address: [address] [place] [address] [facility] [place] [address]- [place] Name: Brittney Ledezma RN Position: [facility] Scheduler Maintenance Member Role: Primary Care Nurse Name: Eliezer Wagner RN Position: [facility] RN Member Role: Primary Care Nurse Name: Najma Causey RN Position: [facility] SN RN Member Role: Primary Care Nurse Name: Martha AMBRIZ, Brunilda Position: [facility] RN Member Role: Primary Care Nurse Care Team Related Persons Name: ROOPA XEI Address: [address] [address] Name: HOPE XIE Address: [address] [address]
--- OUTSIDE RECORDS SUMMARY | 2023-05-25 14:57 | XMS_ITS | Continuity of Care Document ---
Author Organization [facility] Address [address] [place] [address]- Care Team Providers Care Pond Scaler Name Role Blood Donor RecruiterDeclan Louise MD Primary Care Physician [facility]counter [facility] Date(s): 03/04/22 - 04/03/[address] [id number] Allergies, Adverse Reactions, Alerts No Known Allergies [...] virus vaccine, inactivated 1 12/06/10 Gi dory [id number] 12y+ bivalent booster vax 01/18/22 Given SARS-CoV-2 (COVID-19) mRNA BNT-162b2 vac 02/08/21 Given SARS-CoV-2 (COVID-19) mRNA BNT-162b2 vac 01/18/21 Given pneumococcal 23-valent vaccine 12/08/14 Given FluLaval (oldterm) 2 12/26/11 Given tetanus-diphtheria toxoids (Td) 3 12/06/10 Given 1Admin Note: vis given Emirati 2Admin Note: vis [id number] 3Admin Note: VIS given Emirati. Medications acetaminophen 325 mg oral tablet 650 mg, By Mouth, Every 4 hours, PRN, # 50 tablet, Refills 5, Tot. Refills 5, Maintenance, as needed for pain, 11/23/20 13:09:00 EDT, Route to Pharmacy Electronically, [facility]/pharmacy #[id number], 183, cm, 08/10/20 [...] 15:36:00 EDT, Route to Pharmacy Electronically, [facility]/pharmacy #[id number], Partial fill upon patient request if the prescription is for a schedule II opioid drug.... Start Date: 10/21/21 Status: Ordered Aspirin Low Dose 81 mg oral delayed release tablet See Instructions, MARCOS STEWARD TODOS LOS BENDER, # 90 tablet, 1 Refills, Maintenance, 03/04/22 13:01:00 EST, [id number], 175, cm, 01/18/22 12:03:00 EST, Height, 81.9, kg, 08/31/21 14:47:00 EDT, Dry Weight Start Date: 03/04/22 Status: Ordered atorvastatin 20 mg oral tablet See Instructions, TOME KIA TABLETA TODOS LOS BENDER AT SUPPER, # 90 tablet, 1 Refills, 10/18/21 16:12:00 EDT, [id number], 175, cm, 10/18/21 11:40:00 EDT, Height, 81.9, kg, 08/31/21 14:47:00 EDT, Dry Weight Start Date: 10/18/21 Status: Ordered BuPROPion (Eqv-Wellbutrin SR) 150 mg/12 hours oral tablet, extended release See Instructions, TOME KIA TABLETA DOS VECES AL BALA, # 180 Unknown, 1 Refills, Maintenance, 03/04/22 13:01:00 EST, [id number], 175, cm, 01/18/22 12:03:00 EST, Height, 81.9, [...] Refills, Maintenance, 03/04/22 13:01:00 EST, [id number], 90, TOME KIA TABLETA POR VIA ORAL TODOS LOS BENDER, 175, cm,01/18/22 12:03:00 EST, Height, 81.9, kg, 08/31/21 1... Start Date: 03/04/22 Status: Ordered Disposable Incontinence pads Disposable Incontinence pads, See Instructions, # 150 Unknown, Refills 11, Tot. Refills 11, Maintenance, Use as needed for incontinence 5x/day; length of need 1 year; ICD 10 N39.46, 10/11/22 17:34:00EDT, Compound Start Date: 11/30/21 Status: Ordered [...] 5, Maintenance, Diabetes Mellitus. DM E11.9. TID, 02/18/22 9:44:00 EST, Supply, 175, cm, 01/18/22 12:03:00 EST, Height, 81.9, kg, 08/31/21 14:47:00 EDT, Dry Weight Start Date: 02/18/22 Stop Date: 08/17/22 Status: Ordered Freestyle Lite Monitor See Instructions, [...] 5, Maintenance, Diabetes Mellitus. DM E11.9. TID, 02/18/22 9:44:00 EST, Supply, 175, cm, 01/18/22 12:03:00 EST, Height, 81.9, kg, 08/31/21 14:47:00 EDT, Dry Weight Start Date: 02/18/22 Stop Date: 08/17/22 Status: Ordered GaviLAX oral powder for reconstitution See Instructions, DISSOLVE 17 GRAMS IN WATER AND DRINK ONCE DAILY, # 238 Gm, 5 Refills, [facility], 14, DISSOLVE 17 GRAMS IN WATER AND DRINK ONCE DAILY, 183, cm, 01/18/21 11:01:00 EST, Height, 84.8, kg, 07/01/19 22:20:00 EDT, Dry Weight Start Date: 06/29/21 Status: Ordered glipiZIDE 2.5 mg oral tablet, extended release See Instructions, TOME KIA TABLETA TODOS LOS BENDER, # 30 tablet, 5 Refills, 10/18/21 16:12:00 EDT, [facility]/pharmacy #[id number], 175, cm, 10/18/21 [...] Required Details, Route to Pharmacy Electronically, [facility] STORE [id number], 175, cm, 01/18/22 12:03:00 EST, Height, 81.9, kg,... Start Date: 03/04/22 Status: Ordered Multi-Day Plus Minerals oral tablet 1 tablet, By Mouth, Daily, resent to new pharmacy, # 90 tablet, 1 Refills, Maintenance, 10/18/21 16:12:00 EDT, Tablet, [facility]/pharmacy #[id number], 1 tablet By [...] Use as needed [facility]. Dx: Stroke (I63.9), impaired mobility (Z74.09), 03/04/22 [...] Team Personnel Name: Declan Louise MD Position: [facility] Primary Care Physician Member Role: PCP Address: Address: [address] [place] [address]- Name: Simran Shannon RN Position: [facility] RN Member Role: Primary Care Nurse Name: Torie Jo RN Position: [facility] RN Member Role: Primary Care Nurse Name: Hussein Waters RN Position: [facility] RN Member Role: Primary Care Nurse Name: Vandana Sorensen NP Position: [facility] Associate Professional Member Role: Primary Care Nurse Address: Address: [address] [place] [address]- Name: Karsten Kwong MD Position: [facility] Renal MD Member Role: Lifetime Consulting Physician Address: Address: [address] [place] [address], [address] [facility] [place] [address]- Name: Rebecca Leon RN Position: [facility] RN Member Role: Primary Care Nurse Name: Elisabet Calle Position: [facility] RN Member Role: Primary Care Nurse Name: Paola Cavanaugh RN Position: [facility] ED RN W/OE and Tasks Member Role: Primary Care Nurse Name: Argentina Dixon RN Position: [facility] SN RN Member Role: Primary Care Nurse Name: Christina Alonso Position: [facility] PCO RN Member Role: Lifetime Consulting Physician Name: Ramiro Brody III, RN Position: [facility] RN Member Role: Primary Care Nurse Name: Simran Tariq RN Position: [facility] RN Member Role: Primary Care Nurse Name: Dana Fitzgerald RN Position: [facility] RN Member Role: Primary Care Nurse Name: Narayan Spencer RN Position: [facility] SN RN Member Role: Primary Care Nurse Name: Shell Yoder RN Position: [facility] RN Member Role: Primary Care Nurse Name: Radha Mustafa RN Position: [facility] PCO RN Member Role: Primary Care Nurse Name: Misti Pickard RN Position: [facility] RN Member Role: Primary Care Nurse Name: William Villanueva RN Position: [facility] RN Member Role: Primary Care Nurse Name: Viky Torre RN Position: [facility] Package Center Supervisor Member Role: Primary Care Nurse Name: Carolee Tesfaye RN Position: [facility] RN Member Role: Primary Care Nurse Name: Joey Perez MD Position: [facility] Renal MD Member Role: Lifetime Consulting Physician Address: Address: [address] [place] [address] [facility] [address] Name: Brittney Ledezma RN Position: [facility] Package Center Supervisor Member Role: Primary Care Nurse Name: Eliezer Wagner RN Position: [facility] ED RN W/OE and Tasks Member Role: Primary Care Nurse Name: Najma Causey RN Position: [facility] SN RN Member Role: Primary Care Nurse Name: Brunilda Thomas RN Position: [facility] RN Member Role: Primary Care Nurse Care Team Related Persons Name: ROOPA XIE Address: [address] [address] Name: HOPE XIE Address: [address] [address]
--- OUTSIDE RECORDS SUMMARY | 2023-05-25 14:57 | XMS_ITS | Continuity of Care Document ---
Author Organization [facility] Address [address] [place] [address]- Care Team Providers Care Kiln Feeder Name Role Phone Britany Springer MD Primary Care Physician ( [phone] Encounter [facility] Date(s): 10/21/19 - 11/20/[address] [address]- [facility] Allergies, Adverse Reactions, Alerts Substance [...] 3 12/06/10 Given 1Admin Note: vis given Kazakh 2Admin Note: vis [id number] 3Admin Note: VIS given Kazakh. Medications acetaminophen 325 mg oral tablet 650 mg, By Mouth, Every 4 hours, PRN, # 50 tablet, Refills 5, Tot. Refills 5, Maintenance, as needed for pain, 06/20/19 14:52:00 EDT, Route to Pharmacy Electronically, [facility]/pharmacy #[id number], 178, cm, 04/02/19 9:47:00 EST, Height, 94.7, [...] and CALL CLINIC this replaces nifedipine, # 90 tablet, Refills 0, Tot. Refills 0, Maintenance, 10/21/19 11:35:00 EDT, Route to Pharmacy Electronically, [facility]/pharmacy #[id number], ins... Start Date: 10/21/19 Stop Date: 01/19/20 Status: Ordered aspirin 81 mg oral delayed release tablet 81 mg, 1, tablet, By Mouth, Daily, # 90 tablet, Refills 3, Tot. Refills 3, Maintenance, 01/09/19 16:18:54 EST, Route to Pharmacy Electronically, [id number], [facility]/pharmacy #[id number] Start Date: 01/09/19 Stop Date: 01/04/20 Status: Ordered atorvastatin 20 mg oral tablet 1 tablet = 20 mg, By Mouth, Daily at supper, # 30 tablet, 5 Refills, Maintenance, 08/22/19 14:51:00EDT, Tablet, [facility]/pharmacy #[id number], 183, cm, 07/29/19 15:02:00 EDT, Height, 84.8, kg, 07/01/19 22:20:00 EDT, Dry Weight Start Date: 08/22/19 Status: Ordered cetirizine 10 mg oral tablet 1 tablet = 10 mg, By Mouth, Daily, # 90 tablet, 1 Refills, Maintenance, 10/21/19 11:35:00 EDT, Tablet, [facility]/pharmacy #[id number], 183, cm, 07/29/19 15:02:00 EDT, [...] Gm, 5 Refills, Maintenance, 07/20/18 13:11:53 EDT, [place], 2 sprays Nares, Both Daily Start Date: [...] Refills, Maintenance, 06/20/19 15:01:00 EDT, REC Powder, [facility]/pharmacy #[id number], 17 Gm By Mouth Daily,Instr:dissolve in water beforetaking, 178, cm, 04/02/19 9:47:00 EST, Height, 94.7... Start Date: 06/20/19 Status: Ordered Multi-Day Plus Minerals oral tablet 1 tablet, By Mouth, Daily, # 30 tablet, 5 Refills, Maintenance, 07/22/19 18:27:00 EDT, Tablet, [facility]/pharmacy #[id number], 1 tablet By Mouth [...] Tot. Refills 0, Maintenance, Use as needed [facility]. Dx: Stroke (I63.9), impaired mobility (Z74.09), [...]
--- OUTSIDE RECORDS SUMMARY | 2023-05-25 14:57 | XMS_ITS | Continuity of Care Document ---
Author Organization [facility] Address [address] [place] [address]- Care Team Providers Care Hr Administrative Assistant Name Role Senior Business Intelligence AnalystDeclan Louise MD Primary Care Physician Encounter [facility] ACCT R [id number] Date(s): 11/18/21 - 12/18/[address] [address] Attending Physician: AdmNorbert reddy Admitting Physician: AdmtrNorbert Referring Physician: Admtr, Ar8 Allergies, Adverse Reactions, Alerts No Known Allergies [...] 3 12/06/10 Given 1Admin Note: vis given Albanian 2Admin Note: vis [id number] 3Admin Note: VIS given Albanian. Medications acetaminophen 325 mg oral tablet 650 mg, By Mouth, Every 4 hours, PRN, # 50 tablet, Refills 5, Tot. Refills 5, Maintenance, as needed for pain, 11/23/20 13:09:00 EDT, Route to Pharmacy Electronically, [facility]/pharmacy #[id number], 183, cm, 08/10/20 16:05:00 EDT, [...] 10/21/21 15:36:00 EDT, Route to Pharmacy Electronically, [facility]/pharmacy #[id number], Partial fill upon patient request if the prescription is for a schedule II opioid drug.... Start Date: 10/21/21 Status: Ordered Aspirin Low Dose 81 mg oral delayed release tablet See Instructions, MARCOS CONWAY BENDER, # 90 tablet, 1 Refills, 10/18/21 16:12:00 EDT, [facility]/pharmacy #[id number], 175, cm, 10/18/21 11:40:00 EDT, Height, 81.9, kg, 08/31/21 14:47:00 EDT, Dry Weight Start Date: 10/18/21 Status: Ordered atorvastatin 20 mg oral tablet See Instructions, MARCOS ADAM TABLETA TODOS LOS BENDER AT SUPPER, # 90 tablet, 1 Refills, 10/18/21 16:12:00 EDT, [facility]/pharmacy #[id number], 175, cm, 10/18/21 11:40:00 EDT, [...] ONCE DAILY, # 238 Gm, 5 Refills, [facility] 65542, 14, DISSOLVE 17 GRAMS IN WATER AND DRINK ONCE DAILY, 183, cm, 01/18/21 11:01:00 EST, Height, 84.8, kg, 07/01/19 22:20:00 EDT, Dry Weight Start Date: 06/29/21 Status: Ordered glipiZIDE 2.5 mg oral tablet, extended release See Instructions, MARCOS STEWARD TOSAWYER LOS BENDER, # 30 tablet, 5 Refills, 10/18/21 16:12:00 EDT, [facility]/pharmacy #[id number], 175, cm, 10/18/21 11:40:00 EDT, Height, 81.9, kg, 07/12/22 14:47:00 EDT, Dry Weight Start Date: 10/18/21 [...] Replace Required Details, Route to Pharmacy Electronically, [facility]/pharmacy#[id number], 175, cm, 10/18/21 11:40:00 EDT, Height, 81.9... Start Date: 10/18/21 Status: Ordered Multi-Day Plus Minerals oral tablet 1 tablet, By Mouth, Daily, resent to new pharmacy, # 90 tablet, 1 Refills, Maintenance, 10/18/21 16:12:00 EDT, Tablet, [facility]/pharmacy #[id number], 1 tablet By Mouth Daily,Instr:resent [...] Tot. Refills 0, Maintenance, [facility]: Stroke (I63.9), impaired mobility (Z74.09), 07/09/19 14:21:00 EDT, Supply Start Date: 07/09/19 Status: Ordered Wellbutrin SR 150 mg/12 hours oral tablet, extended release 1 tablet = 150 mg, By Mouth, 2 times a day, # 180 tablet, 1 Refills, Maintenance, 10/31/21 8:53:00 EDT, ER Tablet, [facility]/pharmacy #[id number], 175, cm, 10/18/21 11:40:00 EDT, [...] Name: Banker ALVAREZ, Declan Lanier Address: Address: [address] [place] [address]
--- OUTSIDE RECORDS SUMMARY | 2023-05-25 14:57 | XMS_ITS | Continuity of Care Document ---
Author Organization [facility] Address [address] [place] [address]- Care Team Providers Care Risk Control Product Liability Director Name Role Site SpecialistDeclan Louise MD Primary Care Physician Encounter [facility] Date(s): 10/27/21 - 12/16/[address] [address]- Attending Physician: Hussein Sloan MD Admitting Physician: Hussein Sloan MD Allergies, Adverse Reactions, Alerts No Known Allergies [...] 3 12/06/10 Given 1Admin Note: vis given Bhutanese 2Admin Note: vis [id number] 3Admin Note: VIS given Bhutanese. Medications acetaminophen 325 mg oral tablet 650 mg, By Mouth, Every 4 hours, PRN, # 50 tablet, Refills 5, Tot. Refills 5, Maintenance, as needed for pain, 11/23/20 13:09:00 EDT, Route to Pharmacy Electronically, [facility]/pharmacy #[id number], 183, cm, 08/10/20 16:05:00 [...] 10/21/21 15:36:00 EDT, Route to Pharmacy Electronically, [facility]/pharmacy #[id number], Partial fill upon patient request if the prescription is for a schedule II opioid drug.... Start Date: 10/21/21 Status: Ordered Aspirin Low Dose 81 mg oral delayed release tablet See Instructions, MARCOS STEWARD TODOS [place] BENDER, # 90 tablet, 1 Refills, 10/18/21 16:12:00 EDT, [facility]/pharmacy #[id number], 175, cm, 10/18/21 11:40:00 EDT, Height, 81.9, kg, 08/31/21 14:47:00 EDT, Dry Weight Start Date: 10/18/21 Status: Ordered atorvastatin 20 mg oral tablet See Instructions, MARCOS CHAPMANA TODOS LOS BENDER AT SUPPER, # 90 tablet, 1 Refills, 10/18/21 16:12:00 EDT, [facility]/pharmacy #[id number], 175, cm, 10/18/21 11:40:00 [...] ONCE DAILY, # 238 Gm, 5 Refills, [facility] STORE 86701, 14, DISSOLVE 17 GRAMS IN WATER AND DRINK ONCE DAILY, 183, cm, 01/18/21 11:01:00 EST, Height, 84.8, kg, 07/01/19 22:20:00 EDT, Dry Weight Start Date: 06/29/21 Status: Ordered glipiZIDE 2.5 mg oral tablet, extended release See Instructions, MARCOS STEWARD TODOS [place], # 30 tablet, 5 Refills, 10/18/21 16:12:00 EDT, [facility]/pharmacy #[id number], 175, cm, 10/18/21 11:40:00 [...] Replace Required Details, Route to Pharmacy Electronically, [facility]/pharmacy#[id number], 175, cm, 10/18/21 11:40:00 EDT, Height, 81.9... Start Date: 10/18/21 Status: Ordered Multi-Day Plus Minerals oral tablet 1 tablet, By Mouth, Daily, resent to new pharmacy, # 90 tablet, 1 Refills, Maintenance, 10/18/21 16:12:00 EDT, Tablet, [facility]/pharmacy #[id number], 1 tablet By Mouth [...] Tot. Refills 0, Maintenance, [facility] Dx: Stroke (I63.9), impaired mobility (Z74.09), 07/09/19 14:21:00 EDT, Supply Start Date: 07/09/19 Status: Ordered Wellbutrin SR 150 mg/12 hours oral tablet, extended release 1 tablet = 150 mg, By Mouth, 2 times a day, # 180 tablet, 1 Refills, Maintenance, 10/31/21 8:53:00 EDT, ER Tablet, [facility]/pharmacy #[id number], 175, cm, 10/18/21 11:40:00 [...] Name: Banker ALVAREZ, Declan Lanier Address: Address: [address] [place] [address]
--- OUTSIDE RECORDS SUMMARY | 2023-05-25 14:57 | XMS_ITS | Continuity of Care Document ---
Author Organization [facility] Address [address] [place] [address]- Care Team Providers Care Fitter Mechanic Name Role Phone Britany Springer MD Primary Care Physician ( [phone] Encounter [facility] [place] Date(s): 03/18/20 - 04/17/[address] [address]- Allergies, Adverse Reactions, Alerts Substance Reaction Severity [...] 3 12/06/10 Given 1Admin Note: vis given [place] Islander 2Admin Note: vis [id number] 3Admin Note: VIS given [place] Islander. Medications acetaminophen 325 mg oral tablet 650 mg, By Mouth, Every 4 hours, PRN, # 50 tablet, Refills 5, Tot. Refills 5, Maintenance, as needed for pain, 06/20/19 14:52:00 EDT, Route to Pharmacy Electronically, [facility]/pharmacy #[id number], 178, cm, 04/02/19 9:47:00 EST, Height, 94.7, [...] 07/26/20 11:17:00 EDT, Route to Pharmacy Electronically, [facility]/pharmacy #[id number], 183, cm, 12/27/19 13:56:00 EST, Height, 84.8, kg, 07/01/19 22:20:00 EDT, Dry Weight Start Date: 07/26/20 Stop Date: 01/22/21 Status: Ordered aspirin 81 mg oral delayed release tablet 81 mg, 1, tablet, By Mouth, Daily, for 90 days, # 90 tablet, Refills 1, Tot. Refills 1, Hard Stop 07/26/20 11:17:00 EDT, 01/28/20 11:17:00 EST, Route to Pharmacy Electronically, [facility]/pharmacy #[id number], 183, cm, 12/27/19 13:56:00 EST, Height, 84.8, kg, ... Start Date: 01/28/20 Stop Date: 07/26/20 Status: Ordered atorvastatin 20 mg oral tablet 1 tablet = 20 mg, By Mouth, Daily at supper, # 90 tablet, 2 Refills, Maintenance, 02/03/20 10:50:00EST, Tablet, [facility]/pharmacy #[id number], 183, cm, 12/27/19 13:56:00 EST, Height, 84.8, kg, 07/01/19 22:20:00 EDT, Dry Weight Start Date: 02/03/20 Status: Ordered cetirizine 10 mg oral tablet 1 tablet = 10 mg, By Mouth, Daily, # 90 tablet, 1 Refills, Maintenance, 02/03/20 10:58:00 EST, Tablet, [facility]/pharmacy #[id number], 183, cm, 12/27/19 13:56:00 EST, [...] 1 Refills, Maintenance, 02/03/20 10:58:00 EST, Tablet, [facility]/pharmacy #[id number], 1 tablet By Mouth Daily, [...] Tot. Refills 0, Maintenance, Use as needed [facility]. Dx: Stroke (I63.9), impaired mobility [...] 8:53:00 EDT, 05/15/19 8:53:00 EDT, ER Tablet, [facility]/pharmacy #[id number], 178, cm, 04/02/19 9:47:00 EST, [...]
--- OUTSIDE RECORDS SUMMARY | 2023-05-25 14:57 | XMS_ITS | Continuity of Care Document ---
Author Organization [facility] Address [address] [place] [address]- Care Team Providers Care Hardware Trainer Name Role Phone Britany Springer MD Primary Care Physician Encounter [facility] Date(s): 01/02/20 - 02/01/[address] [address]- Allergies, Adverse Reactions, Alerts Substance Reaction Severity [...] 3 12/06/10 Given 1Admin Note: vis given Burmese 2Admin Note: vis [id number] 3Admin Note: VIS given Burmese. Medications acetaminophen 325 mg oral tablet 650 mg, By Mouth, Every 4 hours, PRN, # 50 tablet, Refills 5, Tot. Refills 5, Maintenance, as needed for pain, 06/20/19 14:52:00 EDT, Route to Pharmacy Electronically, [facility]/pharmacy #1951, 178, cm, 04/02/19 9:47:00 EST, Height, 94.7, [...] 01/28/20 11:17:00 EST, Route to Pharmacy Electronically, [facility]/pharmacy #[id number], 183, cm, 12/27/19 13:56:00 EST, Height, 84.8, kg, 07/01/19 22:20:00 EDT, Dry Weight Start Date: 01/28/20 Stop Date: 07/26/20 Status: Ordered atorvastatin 20 mg oral tablet 1 tablet = 20 mg, By Mouth, Daily at supper, # 30 tablet, 5 Refills, Maintenance, 08/22/19 14:51:00EDT, Tablet, [facility]/pharmacy #[id number], 183, cm, 07/29/19 15:02:00 EDT, Height, 84.8, kg, 07/01/19 22:20:00 EDT, Dry Weight Start Date: 08/22/19 Status: Ordered cetirizine 10 mg oral tablet 1 tablet = 10 mg, By Mouth, Daily, # 90 tablet, 1 Refills, Maintenance, 10/21/19 11:35:00 EDT, Tablet, [facility]/pharmacy #[id number], 183, cm, 07/29/19 15:02:00 EDT, [...] Gm, 5 Refills, Maintenance, 07/20/18 13:11:53 EDT, [place], 2 sprays Nares, Both Daily Start Date: [...] Refills, Maintenance, 01/28/20 14:37:00 EST, REC Powder, [facility]/pharmacy #[id number], 17 Gm By Mouth Daily,Instr:dissolve in water beforetaking, 183, cm, 12/27/19 13:56:00 EST, Height, 84.... Start Date: 01/28/20 Status: Ordered Multi-Day Plus Minerals oral tablet 1 tablet, By Mouth, Daily, # 90 tablet, 1 Refills, Maintenance, 01/28/20 11:17:00 EST, Tablet, [facility]/pharmacy #[id number], 1 tablet By Mouth Daily, [...] Refills, Maintenance, 05/15/19 8:53:00 EDT, ER Tablet, [facility]/pharmacy #[id number], 178, cm, 04/02/19 9:47:00 EST, [...]
--- OUTSIDE RECORDS SUMMARY | 2023-05-25 14:57 | XMS_ITS | Continuity of Care Document ---
Author Organization [facility] Address [address] [place] [address]- Care Team Providers Care Dramatic Coach Name Role Phone Gian ALVAREZ, Britany Lazaro Primary Care Physician Encounter [facility] Date(s): 07/29/19 - 09/12/[address] [address]- [place] Attending Physician: Not on Staff, Attending MD Referring Physician: Markus Valentin NP Allergies, Adverse Reactions, Alerts Substance Reaction Severity [...] 3 12/06/10 Given 1Admin Note: vis given Sami 2Admin Note: vis [id number] 3Admin Note: VIS given Sami. Medications acetaminophen 325 mg oral tablet 650 mg, By Mouth, Every 4 hours, PRN, # 50 tablet, Refills 5, Tot. Refills 5, Maintenance, as needed for pain, 06/20/19 14:52:00 EDT, Route to Pharmacy Electronically, [facility]/pharmacy #[id number], 178, cm, 04/02/19 9:47:00 EST, Height, 94.7, [...] EDT, Route to Pharmacy Electronically, [facility]/pharmacy #[id number], ins... Start Date: 07/22/19 Stop Date: 10/20/19 Status: Ordered aspirin 81 mg oral delayed release tablet 81 mg, 1, tablet, By Mouth, Daily, # 90 tablet, Refills 3, Tot. Refills 3, Maintenance, 01/09/19 16:18:54 EST, Route to Pharmacy Electronically, [id number], [facility] #[id number] Start Date: 01/09/19 Stop Date: 01/04/20 Status: Ordered atorvastatin 20 mg oral tablet 1 tablet = 20 mg, By Mouth, Daily at supper, # 30 tablet, 5 Refills, Maintenance, 08/22/19 14:51:00EDT, Tablet, [id number], 183, cm, 07/29/19 15:02:00 EDT, Height, 84.8, kg, 07/01/19 22:20:00 EDT, Dry Weight Start Date: 08/22/19 Status: Ordered cetirizine 10 mg oral tablet 1 tablet = 10 mg, By Mouth, Daily, # 90 tablet, 1 Refills, Maintenance, 06/20/19 15:01:00 EDT, Tablet, [facility]/pharmacy #[id number], 178, cm, 04/02/19 9:47:00 [...] Gm, 5 Refills, Maintenance, 07/20/18 13:11:53 EDT, [place], 2 sprays Nares, Both Daily Start Date: [...] 06/20/19 15:01:00 EDT, REC Powder, [facility]/pharmacy #[id number], 17 Gm By Mouth Daily,Instr:dissolve in water beforetaking, 178, cm, 04/02/19 9:47:00 EST, Height, 94.7... Start Date: 06/20/19 Status: Ordered Multi-Day Plus Minerals oral tablet 1 tablet, By Mouth, Daily, # 30 tablet, 5 Refills, Maintenance, 07/22/19 18:27:00 EDT, Tablet, [facility]/pharmacy #[id number], 1 tablet By Mouth [...] Tot. Refills 0, Maintenance, Use as needed [facility]. Dx: Stroke (I63.9), impaired mobility (Z74.09), [...]
--- OUTSIDE RECORDS SUMMARY | 2023-05-25 14:57 | XMS_ITS | Continuity of Care Document ---
Author Organization [facility] Address [address] [place] [address]- Care Team Providers Care Physical Sciences Instructor Name Role Phone Britany Springer MD Primary Care Physician Encounter [facility] [place] Date(s): 07/16/20 - 08/15/[address] [address]- Allergies, Adverse Reactions, Alerts Substance Reaction Severity [...] 3 12/06/10 Given 1Admin Note: vis given Armenian 2Admin Note: vis [phone] 3Admin Note: VIS given Armenian. Medications acetaminophen 325 mg oral tablet 650 mg, By Mouth, Every 4 hours, PRN, # 50 tablet, Refills 5, Tot. Refills 5, Maintenance, as needed for pain, 06/20/19 14:52:00 EDT, Route to Pharmacy Electronically, [facility]/pharmacy #[id number], 178, cm, 04/02/19 9:47:00 EST, Height, 94.7, [...] 07/26/20 11:17:00 EDT, Route to Pharmacy Electronically, [facility]/pharmacy #[id number], 183, cm, 12/27/19 13:56:00 EST, Height, 84.8, kg, 07/01/19 22:20:00 EDT, Dry Weight Start Date: 07/26/20 Stop Date: 01/22/21 Status: Ordered atorvastatin 20 mg oral tablet 1 tablet = 20 mg, By Mouth, Daily at supper, # 90 tablet, 2 Refills, Maintenance, 02/03/20 10:50:00EST, Tablet, [facility]/pharmacy #[id number], 183, cm, 12/27/19 13:56:00 EST, Height, 84.8, kg, 07/01/19 22:20:00 EDT, Dry Weight Start Date: 02/03/20 Status: Ordered Claritin 10 mg oral tablet 10 mg, 1, tablet, By Mouth, Daily, # 30 tablet, Refills 0, Tot. Refills 0, Maintenance, 07/15/20 16:23:00 EDT, Route to Pharmacy Electronically, [facility]/pharmacy #[id number], Partial fill upon patient request if the prescription is for a schedule II opioid drug... Start Date: 07/15/20 Status: Ordered Compression Stockings See Instructions, # [...] Start Date: 03/27/17 Status: Ordered Freestyle Lite Monitor See Instructions, [...] Ordered Freestyle Lite Test Strips See Instructions, for 90 days, # 600 each, Tot. Refills 2, Hard Stop 10/13/20 17:16:00 EDT, 2 timesper day, E11.8, use as directed for Type 2 Diabetes Mellitus, 07/15/20 17:16:00 EDT, Supply, 183, cm, 07/15/20 15:52:00 EDT, Height, 84.8, kg, 07/01/19... Start Date: 07/15/20 Stop Date: 10/13/20 Status: Ordered glipiZIDE 2.5 mg oral tablet, extended release See Instructions, MARCOS KIA TABLETA POR VIA ORAL [place] CONW[place] BENDER, # 30 tablet, 0 Refills, Maintenance, [id number], 183, cm, 07/15/20 15:52:00 EDT, Height, 84.8, kg, 07/01/19 22:20:00 EDT, Dry Weight Start Date: 08/10/20 Status: Ordered Gloves See Instructions, # 150 [...] 1 Refills, Maintenance, 02/03/20 10:58:00 EST, Tablet, [facility]/pharmacy #[id number], 1 tablet By Mouth Daily, [...] Tot. Refills 0, Maintenance, Use as needed [facility]. Dx: Stroke (I63.9), impaired mobility (Z74.09), 07/09/19 [...]
--- OUTSIDE RECORDS SUMMARY | 2023-05-25 14:57 | XMS_ITS | Continuity of Care Document ---
Author Organization [facility] Address [address] [place] [address]- Care Team Providers Care Risk Professional Name Role Phone Britany Springer MD Primary Care Physician [place] [facility] [place] [facility] [id number] Date(s): 08/12/19 - 09/11/[address] [address]- [facility] Attending Physician: Norbert Malhotra Admitting Physician: Norbert Malhotra Referring Physician: AdmtrNorbert Allergies, Adverse Reactions, Alerts Substance Reaction Severity [...] 3 12/06/10 Given 1Admin Note: vis given Nepali 2Admin Note: vis [id number] 3Admin Note: VIS given Nepali. Medications acetaminophen 325 mg oral tablet 650 mg, By Mouth, Every 4 hours, PRN, # 50 tablet, Refills 5, Tot. Refills 5, Maintenance, as needed for pain, 06/20/19 14:52:00 EDT, Route to Pharmacy Electronically, [facility]/pharmacy #[id number], 178, cm, 04/02/19 9:47:00 EST, Height, 94.7, [...] 07/22/19 11:15:00 EDT, Route to Pharmacy Electronically, [facility]/pharmacy #[id number], ins... Start Date: 07/22/19 Stop Date: 10/20/19 Status: Ordered aspirin 81 mg oral delayed release tablet 81 mg, 1, tablet, By Mouth, Daily, # 90 tablet, Refills 3, Tot. Refills 3, Maintenance, 01/09/19 16:18:54 EST, Route to Pharmacy Electronically, [id number], [id number] Start Date: 01/09/19 Stop Date: [...] 1 Refills, Maintenance, 06/20/19 15:01:00 EDT, Tablet, [id number], 178, cm, 04/02/19 9:47:00 [...] Gm, 5 Refills, Maintenance, 07/20/18 13:11:53 EDT, [place], 2 sprays Nares, Both Daily Start Date: [...] Refills, Maintenance, 06/20/19 15:01:00 EDT, REC Powder, [facility]/pharmacy #[id number], 17 Gm By Mouth Daily,Instr:dissolve in water beforetaking, 178, cm, 04/02/19 9:47:00 EST, Height, 94.7... Start Date: 06/20/19 Status: Ordered Multi-Day Plus Minerals oral tablet 1 tablet, By Mouth, Daily, # 30 tablet, 5 Refills, Maintenance, 07/22/19 18:27:00 EDT, Tablet, [facility]/pharmacy #[id number], 1 tablet By Mouth Daily, 183, [...] Tot. Refills 0, Maintenance, Use as needed [facility]. Dx: Stroke (I63.9), impaired mobility (Z74.09), [...]
--- OUTSIDE RECORDS SUMMARY | 2023-05-25 14:57 | XMS_ITS | Continuity of Care Document ---
Author Organization [facility] Address [address] [place] [address]- Care Team Providers Care Boiler Water Tester Name Role Bead Forming Machine Operator Declan ALVAREZ Primary Care Physician [facility]counter [facility] Date(s): 07/20/22 - 08/19/[address] [address] Allergies, Adverse Reactions, Alerts No [...] virus vaccine, inactivated 1 12/06/10 Gi dory [id number] 12y+ bivalent booster vax 01/18/22 Given SARS-CoV-2 (COVID-19) mRNA BNT-162b2 vac 02/08/21 Given SARS-CoV-2 (COVID-19) mRNA BNT-162b2 vac 01/18/21 Given pneumococcal 23-valent vaccine 12/08/14 Given FluLaval (oldterm) 2 12/26/11 Given tetanus-diphtheria toxoids (Td) 3 12/06/10 Given 1Admin Note: vis given [place]an 2Admin Note: vis [id number] 3Admin Note: VIS given [place]. Medications acetaminophen 325 mg oral tablet 650 mg, By Mouth, Every 4 hours, PRN, # 50 tablet, Refills 5, Tot. Refills 5, Maintenance, as needed for pain, 11/23/20 13:09:00 EDT, Route to Pharmacy Electronically, [facility]/pharmacy #[id number], 183, cm, 08/10/20 16:05:00 EDT, [...] tablet, 1 Refills, Maintenance, 07/06/22 13:39:00 EDT, [facility]/pharmacy #[id number], 175, cm, 01/18/22 12:03:00 EST, Height, 81.9, kg, 08/31/21 14:47:00 EDT, Dry Weight Start Date: 07/06/22 Status: Ordered Aspirin Low Dose 81 mg oral delayed release tablet See Instructions, TOME KIA TABLETA TODOS LOS BENDER, # 90 tablet, 1 Refills, Maintenance, 03/04/22 13:01:00 EST, [facility], 175, cm, 01/18/22 12:03:00 EST, Height, 81.9, kg, 08/31/21 14:47:00 EDT, Dry Weight Start Date: 03/04/22 Status: Ordered atorvastatin 20 mg oral tablet See Instructions, TOME KIA TABLETA TODOS LOS BENDER AT SUPPER, # 90 tablet, 1 Refills, 06/17/22 9:43:00 EDT, [facility]/pharmacy #[id number], 175, cm, 01/18/22 12:03:00 EST, Height, 81.9, kg, 08/31/21 14:47:00 EDT,Dry Weight Start Date: 06/17/22 Status: Ordered BuPROPion (Eqv-Wellbutrin SR) 150 mg/12 hours oral tablet, extended release See Instructions, TOME KIA TABLETA DOS VECES AL BALA, # 180 Unknown, 1 Refills, Maintenance, 03/04/22 13:01:00 EST, [facility] STORE [facility]8940, 175, cm, 01/18/22 12:03:00 EST, Height, 81.9, [...] Refills, Maintenance, 03/04/22 13:01:00 EST, [facility], 90, TOME KIA TABLETA POR VIA ORAL [...] ONCE DAILY, # 238 Gm, 5 Refills, [facility] STORE 48019, 14, DISSOLVE 17 GRAMS IN WATER AND DRINK ONCE DAILY, 183, cm, 01/18/21 11:01:00 EST, Height, 84.8, kg, 07/01/19 22:20:00 EDT, Dry Weight Start Date: 06/29/21 Status: Ordered glipiZIDE 2.5 mg oral tablet, extended release 1 tablet = 2.5 mg, By Mouth, Daily, for 90 days, # 90 tablet, 0 Refills, Physician Stop 10/18/22 14:15:00 EDT, 07/20/22 14:15:00 EDT, [facility]/pharmacy #[id number], 175, cm, 01/18/22 12:03:00 EST, [...] Replace Required Details, Route to Pharmacy Electronically, [facility] STORE 56086, 175, cm, 01/18/22 12:03:00 EST, Height, 81.9, kg,... Start Date: 03/04/22 Status: Ordered Multi-Day Plus Minerals oral tablet 1 tablet, By Mouth, Daily, resent to new pharmacy, # 90 tablet, 1 Refills, Maintenance, 10/18/21 16:12:00 EDT, Tablet, [facility]/pharmacy #[id number], 1 tablet By Mouth Daily,Instr:resent [...] Tot. Refills 0, Maintenance, Use as needed [facility] [address]. Dx: Stroke (I63.9), impaired mobility (Z74.09), 03/04/22 [...] Team Personnel Name: Declan Louise MD Position: [facility] Physician - Primary Care Member Role: PCP Address: Address: [address] [place] [address]- [place] Name: Simran Shannon RN Position: [facility] RN Member Role: Primary Care Nurse Name: Torie Jo RN Position: [facility] RN Supv Member Role: Primary Care Nurse Name: Hussein Waters RN Position: [facility] RN Member Role: Primary Care Nurse Name: Vandana Sorensen NP Position: [facility] Associate Professional Member Role: Primary Care Nurse Address: Address: [address] [place] [address]- [place] Name: Karsten Kwong MD Position: [facility] Renal MD Member Role: Lifetime Consulting Physician Address: Address: [address] [place] [address], [address] [facility] [place] [address]- [place] Name: Rebecca [place] RN Position: [facility] RN Member Role: Primary Care Nurse Name: Elisabet Calle Position: [facility] RN Member Role: Primary Care Nurse Name: Paola Cavanaugh RN Position: [facility] ED RN W/OE and Tasks Member Role: Primary Care Nurse Name: Argentina Dixon RN Position: [facility] SN RN Member Role: Primary Care Nurse Name: Christina Alonso Position: [facility] AMB Nurse Member Role: Lifetime Consulting Physician Name: Ramiro Brody III, RN Position: [facility] RN Member Role: Primary Care Nurse Name: Simran Tariq RN Position: [facility] RN Member Role: Primary Care Nurse Name: Dana Fitzgerald RN Position: [facility] RN Member Role: Primary Care Nurse Name: Narayan Spencer RN Position: [facility] SN RN Member Role: Primary Care Nurse Name: Shell Yoder RN Position: [facility] RN Member Role: Primary Care Nurse Name: Radha Mustafa RN Position: [facility] AMB Nurse Member Role: Primary Care Nurse Name: Misti Pickard RN Position: [facility] RN Member Role: Primary Care Nurse Name: William Villanueva RN Position: [facility] RN Member Role: Primary Care Nurse Name: Viky Torre RN Position: [facility] Soup Mixer Member Role: Primary Care Nurse Name: Carolee Tesfaye RN Position: [facility] RN Member Role: Primary Care Nurse Name: Joey Perez MD Position: [facility] Renal MD Member Role: Lifetime Consulting Physician Address: Address: [address] [place] [address] [facility] [place] [address]- Name: Brittney Ledezma RN Position: [facility] Soup Mixer Member Role: Primary Care Nurse Name: Eliezer Wagner RN Position: [facility] ED RN W/OE and Tasks Member Role: Primary Care Nurse Name: Najma Causey RN Position: [facility] SN RN Member Role: Primary Care Nurse Name: Brunilda Thomas RN Position: [facility] RN Member Role: Primary Care Nurse Care Team Related Persons Name: ROJASROOPA Address: home [address] [place] [id number] Name: HOPE XIE Address: home [address] [place] [address]
--- OUTSIDE RECORDS SUMMARY | 2023-05-25 14:57 | XMS_ITS | Continuity of Care Document ---
Author Organization [facility] Address [address] [place] [address]- Care Team Providers Care Basket Bottom Machine Operator Name Role Phone Britany Springer MD Primary Care Physician Encounter [facility] [place] Date(s): 08/12/20 - 09/11/[address] [address]- Allergies, Adverse Reactions, Alerts Substance Reaction Severity [...] 3 12/06/10 Given 1Admin Note: vis given Malaysian 2Admin Note: vis [id number] 3Admin Note: VIS given Malaysian. Medications acetaminophen 325 mg oral tablet 650 mg, By Mouth, Every 4 hours, PRN, # 50 tablet, Refills 5, Tot. Refills 5, Maintenance, as needed for pain, 06/20/19 14:52:00 EDT, Route to Pharmacy Electronically, [facility]/pharmacy #[id number], 178, cm, 04/02/19 9:47:00 EST, Height, 94.7, [...] 07/26/20 11:17:00 EDT, Route to Pharmacy Electronically, [facility]/pharmacy #[id number], 183, cm, 12/27/19 13:56:00 EST, Height, 84.8, kg, 07/01/19 22:20:00 EDT, Dry Weight Start Date: 07/26/20 Stop Date: 01/22/21 Status: Ordered atorvastatin 20 mg oral tablet 1 tablet = 20 mg, By Mouth, Daily at supper, # 90 tablet, 2 Refills, Maintenance, 02/03/20 10:50:00EST, Tablet, [facility]/pharmacy #[id number], 183, cm, 12/27/19 13:56:00 EST, Height, 84.8, kg, 07/01/19 22:20:00 EDT, Dry Weight Start Date: 02/03/20 Status: Ordered Claritin 10 mg oral tablet 10 mg, 1, tablet, By Mouth, Daily, # 30 tablet, Refills 0, Tot. Refills 0, Maintenance, 07/15/20 16:23:00 EDT, Route to Pharmacy Electronically, [facility]/pharmacy #[id number], Partial fill upon patient request if [...] 30 tablet, 0 Refills, Maintenance, [id number], 183, cm, 07/15/20 15:52:00 EDT, Height, 84.8, [...] 1 Refills, Maintenance, 02/03/20 10:58:00 EST, Tablet, [facility]/pharmacy #[id number], 1 tablet By Mouth Daily, 183, [...] Tot. Refills 0, Maintenance, Use as needed [facility]. Dx: Stroke (I63.9), impaired mobility [...]
--- OUTSIDE RECORDS SUMMARY | 2023-05-25 14:57 | XMS_ITS | Continuity of Care Document ---
Author Organization [facility] Address [address] [place] [address]- Care Team Providers Care Methods Specialist Engineer Name Role Phone Britany Springer MD Primary Care Physician ( [phone] Encounter [facility] Date(s): 04/24/20 - 08/12/20 [facility] [address] [place] [id number] Attending Physician: Ale Billings MD Admitting Physician: Ale Billings MD Referring Physician: Britany Springer MD Allergies, Adverse Reactions, Alerts Substance Reaction [...] 3 12/06/10 Given 1Admin Note: vis given Bangladeshi 2Admin Note: vis [id number] 3Admin Note: VIS given Bangladeshi. Medications acetaminophen 325 mg oral tablet 650 mg, By Mouth, Every 4 hours, PRN, # 50 tablet, Refills 5, Tot. Refills 5, Maintenance, as needed for pain, 06/20/19 14:52:00 EDT, Route to Pharmacy Electronically, [facility]/pharmacy #[id number], 178, cm, 04/02/19 9:47:00 EST, Height, 94.7, [...] 07/26/20 11:17:00 EDT, Route to Pharmacy Electronically, [facility]/pharmacy #[id number], 183, cm, 12/27/19 13:56:00 EST, Height, 84.8, kg, 07/01/19 22:20:00 EDT, Dry Weight Start Date: 07/26/20 Stop Date: 01/22/21 Status: Ordered atorvastatin 20 mg oral tablet 1 tablet = 20 mg, By Mouth, Daily at supper, # 90 tablet, 2 Refills, Maintenance, 02/03/20 10:50:00EST, Tablet, [facility]/pharmacy #[id number], 183, cm, 12/27/19 13:56:00 EST, Height, 84.8, kg, 07/01/19 22:20:00 EDT, Dry Weight Start Date: 02/03/20 Status: Ordered Claritin 10 mg oral tablet 10 mg, 1, tablet, By Mouth, Daily, # 30 tablet, Refills 0, Tot. Refills 0, Maintenance, 07/15/20 16:23:00 EDT, Route to Pharmacy Electronically, [facility]/pharmacy #[id number], Partial fill upon patient request [...] Test Strips See Instructions, # 600 each, Tot. Refills 2, Maintenance, 2 times per day, E11.8, use as directed for Type 2 Diabetes Mellitus, 07/15/20 17:16:00 EDT, Supply, 183, cm, 07/15/20 15:52:00 EDT, Height,84.8, kg, 07/01/19 22:20:00 EDT, Dry Weight Start Date: 07/15/20 Stop Date: 10/13/20 Status: Ordered glipiZIDE 2.5 mg oral tablet, extended release See Instructions, TOME KIA TABLETA POR VIA ORAL [facility], # 30 tablet, 0 Refills, Maintenance, [id number], 183, cm, 07/15/20 15:52:00 EDT, Height, 84.8, [...] 1 Refills, Maintenance, 02/03/20 10:58:00 EST, Tablet, [facility]/pharmacy #[id number], 1 tablet By Mouth Daily, [...] Tot. Refills 0, Maintenance, [facility] Dx: Stroke (I63.9), impaired mobility [...] Refills, Maintenance, 05/09/20 8:53:00 EDT, ER Tablet, [facility]/pharmacy #[id number], 183, cm, 12/27/19 13:56:00 EST, [...]
--- OUTSIDE RECORDS SUMMARY | 2023-05-25 14:57 | XMS_ITS | Continuity of Care Document ---
Author Organization [facility] Address [address] [place] [address]- Care Team Providers Care Ward Service Supervisor Name Role Pharmacy Customer Care SpecialistDeclan Louise MD Primary Care Physician Encounter [facility] [place] Date(s): 11/17/21 - 12/18/[address] [address]- Encounter Diagnosis COVID-19(Discharge Diagnosis) - 11/18/21 Attending Physician: Katelyn Madrigal MD Admitting Physician: Katelyn Madrigal MD Allergies, Adverse Reactions, Alerts No Known [...] 3 12/06/10 Given 1Admin Note: vis given Ivorian 2Admin Note: vis [phone] 3Admin Note: VIS given Ivorian. Medications acetaminophen 325 mg oral tablet 650 mg, By Mouth, Every 4 hours, PRN, # 50 tablet, Refills 5, Tot. Refills 5, Maintenance, as needed for pain, 11/23/20 13:09:00 EDT, Route to Pharmacy Electronically, [facility]/pharmacy #[id number], 183, cm, 08/10/20 16:05:00 EDT, [...] 10/21/21 15:36:00 EDT, Route to Pharmacy Electronically, [facility]/pharmacy #[id number], Partial fill upon patient request if the prescription is for a schedule II opioid drug.... Start Date: 10/21/21 Status: Ordered Aspirin Low Dose 81 mg oral delayed release tablet See Instructions, [facility], # 90 tablet, 1 Refills, 10/18/21 16:12:00 EDT, [facility]/pharmacy #[id number], 175, cm, 10/18/21 11:40:00 EDT, Height, 81.9, kg, 08/31/21 14:47:00 EDT, Dry Weight Start Date: 10/18/21 Status: Ordered atorvastatin 20 mg oral tablet See Instructions, MARC[facility] CHAPMANA RANDLEL BENDER AT SUPPER, # 90 tablet, 1 Refills, 10/18/21 16:12:00 EDT, [facility]/pharmacy #[id number], 175, cm, 10/18/21 11:40:00 EDT, Height, [...] ONCE DAILY, # 238 Gm, 5 Refills, [id number], 14, DISSOLVE 17 GRAMS IN WATER AND DRINK ONCE DAILY, 183, cm, 01/18/21 11:01:00 EST, Height, 84.8, kg, 07/01/19 22:20:00 EDT, Dry Weight Start Date: 06/29/21 Status: Ordered glipiZIDE 2.5 mg oral tablet, extended release See Instructions, [facility], # 30 tablet, 5 Refills, 10/18/21 16:12:00 EDT, [facility]/pharmacy #[id number], 175, cm, 10/18/21 11:40:00 EDT, Height, [...] Required Details, Route to Pharmacy Electronically, [facility]/pharmacy#[id number], 175, cm, 10/18/21 11:40:00 EDT, Height, 81.9... Start Date: 10/18/21 Status: Ordered Multi-Day Plus Minerals oral tablet 1 tablet, By Mouth, Daily, resent to new pharmacy, # 90 tablet, 1 Refills, Maintenance, 10/18/21 16:12:00 EDT, Tablet, [facility]/pharmacy #[id number], 1 tablet By Mouth Daily,Instr:resent [...] Tot. Refills 0, Maintenance, [facility] Dx: Stroke (I63.9), impaired mobility (Z74.09), 07/09/19 14:21:00 EDT, Supply Start Date: 07/09/19 Status: Ordered Wellbutrin SR 150 mg/12 hours oral tablet, extended release 1 tablet = 150 mg, By Mouth, 2 times a day, # 180 tablet, 1 Refills, Maintenance, 10/31/21 8:53:00 EDT, ER Tablet, [facility]/pharmacy #[id number], 175, cm, 10/18/21 11:40:00 EDT, Height, [...] Diagnosis Diagnosis Type Effective Dates Health Status Clini reji Service Informant COVID-19 Discharge Diagnosis 11/18/21 Social History Social History Type Response Smoking Status Never smoker; Tobacc o user in household: No entered on: 01/12/15 Sex Patient Care team information Personnel Name: Banker ALVAREZ, Declan Lanier Address: Address: [address] [place] [id number]
--- OUTSIDE RECORDS SUMMARY | 2023-05-25 14:57 | XMS_ITS | Continuity of Care Document ---
Author Organization [facility] Address [address] [place] [address]- Care Team Providers Care Product Marketing Specialist Name Role Phone Damián De Jesus MD Primary Care Physician [phone] [place] [facility] [place] 07/05/19 - 08/04/[address] [address]- [facility] Attending Physician: Not on Staff, Attending MD Admitting Physician: Not on Staff, Admitting MD Referring Physician: Not on Staff, Referring MD Allergies, Adverse Reactions, Alerts Substance Reaction [...] 3 12/06/10 Given 1Admin Note: vis given Central African 2Admin Note: vis [id number] 3Admin Note: VIS given Central African. Medications acetaminophen 325 mg oral tablet 650 mg, By Mouth, Every 4 hours, PRN, # 50 tablet, Refills 5, Tot. Refills 5, Maintenance, as needed for pain, 06/20/19 14:52:00 EDT, Route to Pharmacy Electronically, [facility]/pharmacy #[id number], 178, cm, 04/02/19 9:47:00 EST, Height, [...] 07/22/19 11:15:00 EDT, Route to Pharmacy Electronically, [facility]/pharmacy #[id number], ins... Start Date: 07/22/19 Stop Date: 10/20/19 Status: Ordered aspirin 81 mg oral delayed release tablet 81 mg, 1, tablet, By Mouth, Daily, # 90 tablet, Refills 3, Tot. Refills 3, Maintenance, 01/09/19 16:18:54 EST, Route to Pharmacy Electronically, [id number], [facility]/pharmacy #[id number] Start Date: 01/09/19 Stop Date: 01/04/20 Status: Ordered atorvastatin 20 mg oral tablet 1 tablet = 20 mg, By Mouth, Daily at supper, # 30 tablet, 5 Refills, Maintenance, 01/09/19 16:18:57EST, Tablet Start Date: 01/09/19 Status: Ordered cetirizine 10 mg oral tablet 1 tablet = 10 mg, By Mouth, Daily, # 90 tablet, 1 Refills, Maintenance, 06/20/19 15:01:00 EDT, Tablet, [facility]/pharmacy #[id number], 178, cm, 04/02/19 9:47:00 EST, Height, [...] Gm, 5 Refills, Maintenance, 07/20/18 13:11:53 EDT, [place], 2 sprays Nares, Both Daily Start Date: [...] needed for personal hygiene Dx: Incontinence (R32), 07/16/19 15:07:00 EDT, Supply Start Date: 07/16/19 Status: Ordered MiraLax oral powder for reconstitution = 17 Gm, By Mouth, Daily, dissolve in water before taking, # 255 Gm, 5 Refills, Maintenance, 06/20/19 15:01:00 EDT, REC Powder, [facility]/pharmacy #[id number], 17 Gm By Mouth Daily,Instr:dissolve in water beforetaking, 178, cm, 04/02/19 9:47:00 EST, Height, 94.7... Start Date: 06/20/19 Status: Ordered Multi-Day Plus Minerals oral tablet 1 tablet, By Mouth, Daily, # 30 tablet, 5 Refills, Maintenance, 07/22/19 18:27:00 EDT, Tablet, [facility]/pharmacy #[id number], 1 tablet By Mouth Daily, 183, [...] Tot. Refills 0, Maintenance, Use as needed [facility]. Dx: Stroke (I63.9), impaired mobility (Z74.09), [...] Refills, Maintenance, 05/15/19 8:53:00 EDT, ER Tablet, [facility]/pharmacy #[id number], 178, cm, 04/02/19 9:47:00 EST, Height, [...]
--- OUTSIDE RECORDS SUMMARY | 2023-05-25 14:57 | XMS_ITS | Continuity of Care Document ---
Author Organization [facility] ter Address [address] [place] [id number]- Care Team Providers Care Flight Test Mechanic Name Role House Shorer Declan ALVAREZ Primary Care Physician [phone] Encounter [facility] Date(s): 01/04/23 - 01/09/[address] [address] Encounter Diagnosis Nausea and vomiting(Final) - 01/04/23 Acute kidney injury(Final) - 01/04/23 Sepsis(Final) - 01/04/23 Discharge Disposition: A-Transfer SNF Attending Physician: Dena Petersen MD Admitting Physician: Darleen Verdugo DO Referring Physician: Not on Staff, Referring MD Allergies, Adverse Reactions, Alerts No Known [...] virus vaccine, inactivated 1 12/06/10 Gi dory [id number] 12y+ bivalent booster vax 01/18/22 Given SARS-CoV-2 (COVID-19) mRNA BNT-162b2 vac 02/08/21 Given SARS-CoV-2 (COVID-19) mRNA BNT-162b2 vac 01/18/21 Given pneumococcal 23-valent vaccine 12/08/14 Given FluLaval (oldterm) 2 12/26/11 Given tetanus-diphtheria toxoids (Td) 3 12/06/10 Given 1Admin Note: vis given Barbadian 2Admin Note: vis [id number] 3Admin Note: VIS given Barbadian. Medications acetaminophen 325 mg oral tablet 650 mg, By Mouth, Every 4 hours, PRN, # 50 tablet, Refills 5, Tot. Refills 5, Maintenance, as needed for pain, 11/23/20 13:09:00 EDT, Route to Pharmacy Electronically, [facility]/pharmacy #[id number], 183, cm, 08/10/20 16:05:00 EDT, Height, 84.8, kg, 07/01/19 22:2... Start Date: 11/23/20 Status: Ordered amLODIPine 10 mg oral tablet 10 mg, Tablet, By Mouth, 01/09/23 9:00:00 EST Start Date: 01/09/23 Stop Date: 01/09/23 Status: Completed amLODIPine 10 mg oral tablet 10 mg, By Mouth, Daily, Refills 0, Maintenance, 01/09/23 14:21:00 EST, Partial fill upon patient request if the prescription is for a schedule II opioid drug. Start Date: 01/09/23 Status: Ordered Aspirin Low Dose 81 mg oral delayed release tablet See Instructions, MARCOS ADAM TABLETA TOS LOS BENDER, # 90 tablet, 1 Refills, Maintenance, 12/13/22 10:54:00 EDT, [facility] STORE [id number], 175, cm, 01/18/22 12:03:00 EST, Height, 81.9, kg, 08/31/21 14:47:00 EDT, Dry Weight Start Date: 12/13/22 Status: Ordered atorvastatin 20 mg oral tablet See Instructions, MARCOS ADAM TABLETA TODOS LOS BENDER AT SUPPER, # 90 tablet, 1 Refills, Maintenance, 10/03/22 12:31:00 EDT, [facility] STORE [id number], 175, cm, 01/18/22 12:03:00 EST, Height, 81.9, kg, 08/31/21 14:47:00 EDT, Dry Weight Start Date: 10/03/22 Status: Ordered BuPROPion (Eqv-Wellbutrin SR) 150 mg/12 hours oral tablet, extended release See Instructions, MARCOS HOBBS AL BALA, # 180 each, 1 Refills, Maintenance, 12/23/22 11:44:00 EDT, [facility]/pharmacy #[id number], 175, cm, 12/23/22 11:32:00 EDT, Height, 81.9, kg, 08/31/21 14:47:00EDT, Dry Weight Start Date: 12/23/22 Status: Ordered Coreg 6.25 mg oral tablet 12.5 mg, Tablet, By Mouth, 01/09/23 9:00:00 EST Start Date: 01/09/23 Stop Date: 01/09/23 Status: Completed Coreg 6.25 mg oral tablet 12.5 mg, By Mouth, 2 times a day, Refills 0, Maintenance, 01/09/23 14:21:00 EST, Partial fill upon patient request if the prescription is for a schedule II opioid drug. Start Date: 01/09/23 Status: Ordered Daily Yasmine oral tablet See Instructions, MARCOS BENDER, # 90 tablet, 1 Refills, Maintenance, 12/13/22 10:54:00 EDT, [id number], 90, MARCOS BENDER, 175, cm, 01/18/22 12:03:00 EST, Height, 81.9, kg, 08/31/21 14:47:00 EDT, Dry Weight Start Date: 12/13/22 Status: Ordered GaviLAX oral powder for reconstitution See Instructions, DISSOLVE 17 GRAMS IN WATER AND DRINK ONCE DAILY, # 238 Gm, 5 Refills, Maintenance, 11/28/22 8:45:00 EDT, [id number], 14, DISSOLVE 17 GRAMS IN WATER AND DRINK ONCE DAILY, 175, cm, 01/18/22 12:03:00 EST, Height, 81.9, kg, 08/31... Start Date: 11/28/22 Status: Ordered glipiZIDE 5 mg oral tablet, extended release 1 tablet = 5 mg, By Mouth, Daily, # 90 tablet, 1 Refills, Maintenance, 11/02/22 13:07:00 EDT, ER Tablet, [id number], Partial fill upon patient request if [...] mg oral tablet See Instructions, MARCOS STEWARD TOLOUIE BENDER, # 90 tablet, Refills 1, Maintenance, 12/13/22 10:54:00 EDT, Instructions Replace Required Details, Route to Pharmacy Electronically, [facility] STORE [id number], 175, cm, 01/18/22 12:03:00 EST, Height, 81.9, [...] catheter Confirmed Active Urine incontinence Confirmed Active Results Orders for Microbiology Reports Name Date Urine Culture (Culture Urine) 01/05/23 Blood Culture 01/04/23 Blood Culture #2 01/04/23 Microbiology Reports TEST:Urine Culture STATUS:Auth (Verified) BODY SITE: SOURCE:URINE COLLECTED DATE/TIME:01/05/23 12:50 PM Urine Culture SPECIMEN DESCRIPTION : URINE CLEAN CATCH/MIDSTREAM SPECIAL REQUESTS : NONE CULTURE : NO GROWTH REPORT STATUS : FINAL 01/06/2023 TEST:Blood Culture, Second Order STATUS:Auth (Verified) BODY SITE: SOURCE:Blood COLLECTED DATE/TIME:01/04/23 2:55 PM Blood Culture, Second Order SPECIMEN DESCRIPTION : BLOOD NO SITE SPECIAL REQUESTS : NONE CULTURE : NO GROWTH 5 DAYS. REPORT STATUS : FINAL 01/09/2023 TEST:Blood Culture STATUS:Auth (Verified) BODY SITE: SOURCE:Blood COLLECTED DATE/TIME:01/04/23 2:40 PM Blood Culture SPECIMEN DESCRIPTION : BLOOD NO SITE SPECIAL REQUESTS : NONE CULTURE : NO GROWTH 5 DAYS. REPORT STATUS : FINAL 01/09/2023 Radiology Reports * Exam Date Time Procedure Performing Provider Status 01/04/23 5:46 PM Chest 2 Views Frontal and Lat Socorro Pruett; Auth (Verified) Notes: (Chest 2 Views Frontal and Lat) Reason For Exam: Shortness of Breath, Fever;Other: RESULT: Chest 2 Views Frontal and Lat Chest 2 Views Frontal and Lat Reason: Shortness of Breath, Fever; Clinical Question(s): Pneumonia COMPARISON: CXR 08/30/2021 FINDINGS: LINES AND TUBES: None. LUNGS AND PLEURA: Low lung volumes with mild basilar atelectasis. Blunting of the left costophrenic angle may represent a small left pleural effusion. No pneumothorax. HEART, MEDIASTINUM AND RICCO: Unchanged. Low lung volumes accentuates the cardiomediastinal silhouette. BONES AND SOFT TISSUES: No acute abnormality. Degenerative changes of the spine. IMPRESSION: Low lung volumes. No acute abnormality. I have personally reviewed the images and I agree with this report. WSN: [id number] Ordering Physician: Osbaldo Khalil Dictated By: Kain Young MD Dictated Date/Time: 01/04/23 5:56 pm Reviewed By: Shayna Coronado MD Signed By: Shayna Coronado MD Signed Date/Time: 01/04/23 6:01 pm Transcribed By: MARISA Transcribed Date/Time: 01/04/23 5:51 pm * Exam Date Time Procedure Performing Provider Status 01/04/23 2:43 PM US RUQ Adrienne Ochoa; Au th (Verified) Notes: (US RUQ) Reason For Exam: Abdominal Pain;Other: RESULT: US RUQ US RUQ Hx of Present Illness: vomting and hyperglycemia. past deficites from past stroke; Reason: Other:; Abdominal Pain; Clinical Question(s): Cholecystitis COMPARISON: 10/12/2015. FINDINGS: Examination is significantly limited due to bowel gas, limited mobility, and patient cooperation. Liver: Diffusely echogenic parenchyma. No suspicious lesion. Smooth hepatic contour. Main portal vein patent with normal hepatopetal direction of flow. Gallbladder: No gallstones. Normal wall thickness. No pericholecystic fluid. Negative French sign. Biliary Tree: No intrahepatic or extrahepatic bile duct dilation is identified. Common duct was notvisualized. Pancreas: Obscured by overlying bowel gas. Right kidney: 13.1 cm in length. Many echogenic foci, some with shadowing, the largest measures 1.2cm in the lower pole. Lower pole simple cyst measuring 3.3 cm. There is mild fullness of the right collecting system with the renal pelvis measuring 1.3 cm. IMPRESSION: Examination is moderately limited. There is no evidence of acute cholecystitis. Echogenic liver likely representing hepatic steatosis. Nonobstructing stone seen in the lower pole of the right kidney. There is mild fullness of the right collecting system without geetha hydronephrosis. I have personally reviewed the images and I agree with this report. WSN: [id number] Ordering Physician: Osbaldo Khalil Dictated By: Ferny Andrew DO Dictated Date/Time: 01/04/23 3:58 pm Reviewed By: Mahamed Hernandez MD Signed By: Mahamed Hernandez MD Signed Date/Time: 01/04/23 4:03 pm Transcribed By: MARISA Transcribed Date/Time: 01/04/23 3:16 pm Vital Signs Most recent to oldest [Reference Range]: 1 2 3 Height 175 cm (01/09/23 2:34 PM) 175 cm (01/09/23 5:46 AM) 175 cm (01/08/23 8:16 PM) Weight 80 kg (01/04/23 10:19 PM) Oxygen Saturation [94-100 %] 93 % *L* (01/09/23 2:34 PM) 98 % (01/09/23 5:46 AM) 96 % (01/08/23 8:16 PM) Pulse Rate [55-90 bpm] 82 bpm (01/09/23 2:34 PM) 78 bpm (01/09/23 10:54 AM) 78 bpm (01/09/23 5:46 AM) Body Mass Index [18.5-24.99 kg/m2] 26.12 kg/m2 *H* (01/04/23 10:19 PM) Blood Pressure [90-138/55-84 mm Hg] 112/80mm Hg (01/09/23 2:34 PM) 164/95mm Hg *H* (01/09/23 10:54 AM) 164/95mm Hg *H* (01/09/23 10:54 AM) Respiratory Rate [16-30 br/min] 18 br/min (01/09/23 2:34 PM) 19 br/min (01/09/23 5:46 AM) 17 br/min (01/08/23 8:16 PM) Temperature [96.8-100.4 DegF] 98.2 DegF (11/20/23 2:34 PM) 98.4 DegF (01/09/23 5:46 AM) 98.6 DegF (01/08/23 8:16 PM) Mode of Delivery (Oxygen) Room air (01/09/23 2:34 PM) Room air (01/09/23 5:46 AM) Room air (01/08/23 8:16 PM) Blood pressure sites Arm, left (01/09/23 2:34 PM) Arm, left (01/09/23 5:46 AM) Arm, left (01/08/23 8:16 PM) Temperature Route Oral (01/09/23 2:34 PM) Oral (01/09/23 5:46 AM) Oral (01/08/23 8:16 PM) Dry Weight 81.9 kg (01/04/23 10:19 PM) Weight Obtained Via Bed scale (01/04/23 10:19 PM) Social History Social History Type Response Smoking Status Never smoker; Tobacc o user in household: No entered on: 01/12/15 Sex Consult note * Sherice Snow MD: PERFORM, SIGN, VERIFY Event Display: Consult Authored Date: [id number] Patient: AMILCAR TURNER Age: 67 years Sex: Male : 1955 Associated Diagnoses: None Author: Sherice Snow MD [facility] Consultation Note Consult received, REJI on CKD, sepsis Will order urine lytes Full consult note to follow Impression and Plan * Sherice Snow MD: VERIFY, PERFORM, SIGN Event Display: Consultation Note Authored Date: [id number] Patient: AMILCAR TURNER Age: 67 years Sex: Male : 1955 Associated Diagnoses: None Author: Sherice Snow MD [facility] Consultation Note History of Present Illness Patient is a 67-year-old male with history of vascular dementia, type 2 diabetes mellitus on insulin, elevated PSA, chronic kidney disease stage III, prior history of CVA who presented to the ED withnausea and vomiting. Admitted for sepsis. Nephrology consulted for REJI on CKD. Per HPI, pt's reported that patient had 2-day history of nausea and vomiting with poor oral intake. Allergies: Allergies (Active and Proposed Allergies Only) NKA (Severity: Unknown severity, Onset: Unknown) Medications: Acetaminophen (acetaminophen 325 mg oral tablet) 650 Milligram By Mouth Every 4 hours as needed as needed for pain Amlodipine (amLODIPine 5 mg oral tablet) See Instructions TOME KIA TABLETA TODOS LOS BENDER Aspirin (Aspirin Low Dose 81 mg oral delayed release tablet) See Instructions TOME KIA TABLETA TODOS LOS BENDER Atorvastatin (atorvastatin 20 mg oral tablet) See Instructions TOME KIA TABLETA TODOS LOS BENDER AT SUPPER BuPROpion (BuPROPion (Eqv-Wellbutrin SR) 150 mg/12 hours oral tablet, extended release) See Instructions TOME KIA TABLETA DOS VECES AL BALA Durable Medical Equipment (Compression Stockings) See Instructions surgical, calf length 20-30 mm HgR60.0 Durable Medical Equipment (Home Blood Pressure Monitor) See Instructions Use to check blood pressure once daily in the morning. Dx: Hypertension on medication (I10) Durable Medical Equipment (Wipes) See Instructions R15.9, use everyday 5 per day Durable Medical Equipment (Freestyle Lite Monitor) See Instructions for 30 Days use to check blood sugars twice a day for Type 2 Diabetes Mellitus ICD10 E11 Durable Medical Equipment (Freestyle Lite Test Strips) See Instructions for 90 Days 1 time per day,E11.8, use as directed for Type 2 Diabetes Mellitus Durable Medical Equipment (Alcohol Pads) See Instructions for 30 Days Diabetes Mellitus. DM E11.9. TID Durable Medical Equipment (Incontinence wipes) See Instructions Use as needed for personal hygieneDx: Incontinence (R32) Durable Medical Equipment (see below) See Instructions reusable extra absorbent bed pads 2 per day,30 day supply; R39. 81 Durable Medical Equipment (Wheelchair) See Instructions Dx: CVA, dementiaLoN: indefinite Durable Medical Equipment (Shower chair) See Instructions Use as needed for showering.Dx: Stroke (I63.9), impaired mobility (Z74.09) Durable Medical Equipment (Freestyle Lite Lancets) See Instructions for 30 Days Diabetes Mellitus. DM E11.9. check sugars once daily Durable Medical Equipment (Freestyle Lite Test Strips) See Instructions for 30 Days Diabetes Mellitus. DM E11.9. check sugars once daily Durable Medical Equipment (Reusable Incontinence Pads) See Instructions use as needed for incontinence up to 5X/daydx: N39.46LON = 1 year Durable Medical Equipment (Adult diapers) See Instructions Use as needed for incontinence 5x/day; length of need 1 year; ICD 10 N39.46 Durable Medical Equipment (Pullups - size L) See Instructions Use as needed for incontinence 5x/day; length of need 1 year; ICD 10 N39.46 Durable Medical Equipment (Disposable Incontinence pads) See Instructions Use as needed for incontinence 5x/day; length of need 1 year; ICD 10 N39.46 Durable Medical Equipment (Gloves) See Instructions Used by for incontinence care 5x/day; ICD 10 N39.46 Durable Medical Equipment (Alcohol Pads) See Instructions for 30 Days use as directed for Type 2 Diabetes Mellitus 2 times per day, E11.8 Durable Medical Equipment (Transport chair) See Instructions Dx: h/o CVA, generalized weakness GlipiZIDE (glipiZIDE 5 mg oral tablet, extended release) 1 tab(s) 5 Milligram By Mouth Daily Loratadine (loratadine 10 mg oral tablet) See Instructions TOME KIA TABLETA TODOS LOS BENDER Miscellaneous Rx (empty cather once a day at daycare) See Instructions May empty cathether once a day while at daycare. Dx: urinary retention Multivitamin (Daily Yasmine oral tablet) See Instructions TOME KIA TABLETA TODOS LOS BENDER Multivitamin With Minerals (Multi-Day Plus Minerals oral tablet) 1 tab(s) By Mouth Daily resent to [facility] pharmacy Polyethylene Glycol 3350 (GaviLAX oral powder for reconstitution) See Instructions DISSOLVE 17 GRAMS IN WATER AND DRINK ONCE DAILY Past Medical History: Microalbuminuria - mildly increased, ratio <30 mg/g Allergic rhinitis CKD (chronic kidney disease) stage 3, GFR 30-59 ml/min Cerebrovascular accident (stroke) Cognitive impairment, likely vascular dementia DM (diabetes mellitus), type 2 with renal complications Depression, major Diastolic congestive heart failure, NYHA class 1 Elevated PSA, BPH per urology, see April, History of prostate cancer Hypertension Hypogonadism in male Obesity due to excess calories Presence of indwelling urinary catheter Secondary hyperparathyroidism Urine incontinence Social History: Alcohol Details: Use: Never. Exercise Details: Self assessment: Fair condition. Substance Abuse Details: Use: Never. Tobacco Details: Never smoker, Tobacco user in household: No. Details: Never smoker, Tobacco user in household: No. Details: Use: Former smoker. Family History: Review of Systems Unable to obtain Physical Examination Temperature 98.5 (14:20) Systolic Blood Pressure 123 (14:20) Diastolic Blood Pressure 78 (14:20) Pulse 88 (14:20) SpO2 95 (14:20) Respiratory Rate 16 (14:20) General: No Acute Distress. HEENT: Mucous membranes moist CV: Regular rate and rhythm Respiratory: Clear to auscultation bilaterally. Abdominal: Soft Extremities: No peripheral edema Neuro: A+OX3 Skin: No rashes Results Review Today's results 01/06/2023 1:13 EST Sodium 141 mmol/L Potassium 3.9 mmol/L Chloride 107 mmol/L Bicarbonate Level 23 mmol/L Anion Gap 11 Glucose Level 120 mg/dL H BUN 30 mg/dL H Creatinine-Blood 2.4 mg/dL H Estimated GFR Creatinine 28 ML/MIN/1.73 M2 Magnesium 1.8 mg/dL 01/06/2023 1:10 EST WBC 15.3 k/mm3 H RBC 4.42 m/mm3 L Hgb 12.7 Gm/dL L Hct 39.3 % L MCV 88.9 femtoliters MCH 28.7 pg MCHC 32.3 g/dL L Platelet Count 276 k/mm3 RDW-SD 43.8 femtoliters MPV 10.0 femtoliters Nucleated RBC (Automated) 0.0 #/100 WBC'S Abs. NRBC 0.0 k/mm3 Abs. Neut 11.3 k/mm3 H Abs. Lymph 2.2 k/mm3 Abs. Pierce 1.7 k/mm3 H Abs. Eo 0.1 k/mm3 Abs. Baso 0.0 k/mm3 Neut % 73.7 % Lymph % 14.3 % L Pierce % 10.8 % H Eos % 0.4 % Baso % 0.2 % Imm Gran 0.6 % Abs. Imm Gran 0.1 k/mm3 Impression and Plan Patient is a 67-year-old male with history of vascular dementia, type 2 diabetes mellitus on insulin, elevated PSA, chronic kidney disease stage III, prior history of CVA who presented to the ED withnausea and vomiting. Admitted for sepsis. Nephrology consulted for REJI on CKD. 1. Pt with REJI on CKD Likely in setting of sepsis/volume depletion Initially with lactate of 3.1, also with poor PO intake and vomitting Scr baseline is 1.6 on 12/23/22, then Scr increased to 2.4 on admission on 01/04/23, then increased to 2.6 on 01/05/23 and improved to 2.4 today UA with + ketones and 3+ glucose on admission Currently on NS 125 cc/hr 2. HTN Bp poorly controlled, currently a target range now Currently on Coreg 12.5 mg oral BID and norvasc 10 mg oral daily Recommendations: Continue NS at 125 cc/hr Will send urine lytes and spot urine TP/CR ratio Will add on C3 and C4 for tomorrow's labs Continue current BP meds Bladder scan to r/o urinary retention Avoid nephrotoxins including NSAIDs and IV contrast Sherice Snow MD [facility] History and physical note * Shelby ALVAREZ, Fabricio: PERFORM Event Display: History and Physical Hospital Authored Date: Patient: ??AMILCAR TURNER ? Age:??67 Years?Sex:??Male?:??1955?? Chief Complaint/Reason for Consultation vomting and hyperglycemia. past deficites from past stroke. History of Present Illness Patient is a 67-year-old male with history of vascular dementia, type 2 diabetes mellitus on insulin, elevated PSA, chronic kidney disease stage III,??prior history of CVA??who presented to the ED with nausea and vomiting.?? Patient has??baseline cognitive??impairment and??history is limited. ??Most of the information has been obtained from chart review.?? Patient's was present at bedside and??she reported 2-day history of nausea and vomiting with poor oral intake and no??diarrhea.?Patient's ??reported that??the vomitus was??dark in color??and did not notice any blood. ??No feversor chills.?? She has not noted him to have difficulty breathing or having any cough or sputum production. ?? COVID-19 PCR, RSV PCR and influenza a and B PCR's are negative.?? His labs revealed elevated??creatinine from his baseline??and right upper quadrant ultrasound??revealed??no evidence of cholecystitis. ??His bilirubin is slightly elevated. ??He received 1 L of IV fluid and Zofran??and??admitted for management of acute kidney injury.?? Sepsis was considered??likely from urinary source but UA wasnot??obtained.?? He was given Rocephin empirically for suspected urinary source.?? His lactic acid??improved to??1.7 from 3.2. ??His white cell count was significantly elevated at 20.?? At the time of my evaluation patient appeared in no acute distress and no nausea and vomiting.UA was??still not obtained. Review of Systems Limited due to clinical condition Objective Vital Signs?? Temperature: 98.3 DegF (01/04/23 20:18:00) Temperature Route: Oral (01/04/23 20:18:00) Pulse Rate:??125 bpm??High (01/04/23 20:18:00) Respiratory Rate: 20 br/min (01/04/23 20:18:00) Systolic Blood Pressure: 120 mm Hg (01/04/23 20:18:00) Diastolic Blood Pressure:??96 mm Hg??High (01/04/23 20:18:00) Blood pressure sites: Arm, right (01/04/23 20:18:00) Mean Arterial Pressure: 104 mm Hg (01/04/23 20:18:00) Pulse Pressure: 24 mm Hg (01/04/23 20:18:00) Oxygen Saturation: 98 % (01/04/23 20:18:00) Mode of Delivery (Oxygen): Room air (01/04/23 20:18:00) Early Warning Score: 5 (01/04/23 20:19:34) ? Physical Exam Constitutional: Obese elderly male in no acute distress Head EENT: Extraocular muscle movement intact.??Moist mucous membranes.?? Neck: Supple. No JVD. Respiratory: Clear to auscultation. No wheezing or crackles. No use of accessory muscles. Cardiovascular: S1S2 regular. No murmurs, rubs or gallops. Gastrointestinal: Abdomen soft, non-tender, non-distended. Normal bowel sounds. Genitourinary: No CVA tenderness. Extremities: No lower extremity pitting??edema. No cyanosis or clubbing. Neurologic: AAOx1-2, Speech normal. No focal neurological deficits. Skin: No rash. Psychiatric: Labile mood Assessment/Plan Diagnoses Acute kidney injury ??(N17.9) Nausea and vomiting ??(R11.2) 1. ??Acute kidney injury superimposed on chronic kidney disease ??(N17.9) 2. ??DM (diabetes mellitus), type 2 with renal complications ??(E11.) 3. ??Cognitive impairment, likely vascular dementia ??(R41.89) 4. ??Hypertension ??(I10) 5. ??Sepsis ??(A41.9) 6. ??Hypercalcemia ??(E83.52) ?? Assessment:??Patient is a 67-year-old male with history of vascular dementia, type 2 diabetes mellitus on insulin, elevated PSA, chronic kidney disease stage III, prior history of CVA who presented to the ED with nausea and vomiting.??Admitted for??management of acute kidney injury superimposed on c hronic kidney disease stage III, hyperglycemia??and lactic acidosis concerning for sepsis with elevated white cell count??likely due to urinary source ?? Acute kidney injury superimposed on chronic kidney disease (N17.9):??Continue IV hydration and repeat??BMP in the morning.??His baseline creatinine is around 1.5-1.6. Renally dose all medications avoid NSAIDs. ?? DM (diabetes mellitus), type 2 with renal complications (E11.):??He is on glipizide which has been held,??start Lantus 12 units nightly and??insulin per sliding scale and diabetic diet ?? Cognitive impairment, likely vascular dementia (R41.89):??Has vascular dementia??continue supportive care ?? Hypertension (I10):??Continue amlodipine ?? Sepsis (A41.9):??Sepsis versus reactive state.??He was empirically treated for urinary tract infection with Rocephin,??no urinalysis obtained as patient has not provided any urine sample yet,??if??UA??is consistent with infection continue Rocephin??else??elevated white cell count and lactic acid??is probably secondary to??dehydration ?? Hypercalcemia (E83.52):??Likely secondary to dehydration??with poor oral intake, anticipate improvement with??IV fluids ?? Mild hyperbilirubinemia is likely secondary to??dehydration ?? History of depression continue bupropion ?? VTE Prophylaxis:??Enoxaparin ?VTE Prophylaxis Assessment:??VTE Prophylaxis Ordered ?? Code Status:??Full code ?Order Code Status:??Code Status Ordered ?? Ongoing Medical Necessity:??Acute kidney injury superimposed on chronic kidney disease, hyperglycemia.? UTI ?? Discharge Planning:??We decided ?? Medications reconciled for chronic??comorbid conditions ? Primary Contact: ?ROOPA SALDIVAR?Relation to Pt: Life Partner? Histories Allergies Allergies ?(Active and Proposed Allergies Only) NKA? (Severity: Unknown severity, Onset: Unknown) ? Past Medical History/Problem List Active Problems??(16) Allergic rhinitis Cerebrovascular accident (stroke) CKD (chronic kidney disease) stage 3, GFR 30-59 ml/min Cognitive impairment, likely vascular dementia Depression, major Diastolic congestive heart failure, NYHA class 1 DM (diabetes mellitus), type 2 with renal complications Elevated PSA, BPH per urology, see April, History of prostate cancer Hypertension Hypogonadism in male Microalbuminuria - mildly increased, ratio <30 mg/g Obesity due to excess calories Presence of indwelling urinary catheter Secondary hyperparathyroidism Urine incontinence ? Past Surgical History Laparoscopic lysis of adhesions: 11/01/16 Cystoscopy and transurethral resection of bladder neck contracture: 10/23/16 Cystoscopy and transurethral resection of bladder neck contracture: 09/19/16 Prostatectomy: 2013 ? Social History Alcohol Details:??Use: Never. Exercise Details:??Self assessment: Fair condition. Substance Abuse Details:??Use: Never. Tobacco Details:??Never smoker, Tobacco user in household: No. Details:??Never smoker, Tobacco user in household: No. Details:??Use: Former smoker. ? Psychosocial History ? Family History Mother: Hypertension Father: Diabetes mellitus type II ? Travel History Travel Outside [facility]: No ?? Medications Home Medications Acetaminophen (acetaminophen 325 mg oral tablet)?650?Milligram?By Mouth?Every 4 hours?as needed?as needed for pain Amlodipine (amLODIPine 5 mg oral tablet)?See Instructions?MARCOS ADAM TABLETA [facility] Aspirin (Aspirin Low Dose 81 mg oral delayed release tablet)?See Instructions?M[facility]OS ADAM TABLETA [facility] Atorvastatin (atorvastatin 20 mg oral tablet)?See Instructions?MARCOS ADAM TABLETA TOS [place] [employer] AT [employer] BuPROpion (BuPROPion (Eqv-Wellbutrin SR) 150 mg/12 hours oral tablet, extended release)?See Instructions?MARCOS CHAPMANA DOS VECES AL BALA Durable Medical Equipment (Compression Stockings)?See Instructions?surgical, calf length 20-30 mm HgR60.0 Durable Medical Equipment (Home Blood Pressure Monitor)?See Instructions?Use to check blood pressure once daily in the morning. Dx: Hypertension on medication (I10) Durable Medical Equipment (Wipes)?See Instructions?R15.9, use everyday 5 per day Durable Medical Equipment (Freestyle Lite Monitor)?See Instructions?for 30?Days?use to check blood sugars twice a day for Type 2 Diabetes Mellitus ICD10 E11 Durable Medical Equipment (Freestyle Lite Test Strips)?See Instructions?for 90?Days?1 time per day, E11.8, use as directed for Type 2 Diabetes Mellitus Durable Medical Equipment (Alcohol Pads)?See Instructions?for 30?Days?Diabetes Mellitus. DM E11.9. TID Durable Medical Equipment (Incontinence wipes)?See Instructions?Use as needed for personal hygieneDx: Incontinence (R32) Durable Medical Equipment (see below)?See Instructions?reusable extra absorbent bed pads 2 per day, 30 day supply; R39. 81 Durable Medical Equipment (Wheelchair)?See Instructions?Dx: CVA, dementiaLoN: indefinite Durable Medical Equipment (Shower chair)?See Instructions?Use as needed for showering.Dx: Stroke (I63.9), impaired mobility (Z74.09) Durable Medical Equipment (Freestyle Lite Lancets)?See Instructions?for 30?Days?Diabetes Mellitus. DM E11.9. check sugars once daily Durable Medical Equipment (Freestyle Lite Test Strips)?See Instructions?for 30?Days?Diabetes Mellitus. DM E11.9. check sugars once daily Durable Medical Equipment (Reusable Incontinence Pads)?See Instructions?use as needed for incontinence up to 5X/daydx: N39.46LON = 1 year Durable Medical Equipment (Adult diapers)?See Instructions?Use as needed for incontinence 5x/day; length of need 1 year; ICD 10 ??N39.46 Durable Medical Equipment (Pullups - size L)?See Instructions?Use as needed for incontinence 5x/day; length of need 1 year; ICD 10 ??N39.46 Durable Medical Equipment (Disposable Incontinence pads)?See Instructions?Use as needed for incontinence 5x/day; length of need 1 year; ICD 10 ??N39.46 Durable Medical Equipment (Gloves)?See Instructions?Used by for incontinence care 5x/day; ICD 10 ??N39.46 Durable Medical Equipment (Alcohol Pads)?See Instructions?for 30?Days?use as directed for Type 2 Diabetes Mellitus 2 times per day, E11.8 Durable Medical Equipment (Transport chair)?See Instructions?Dx: h/o CVA, generalized weakness GlipiZIDE (glipiZIDE 5 mg oral tablet, extended release)?1?tab(s)?5?Milligram?By Mouth?Daily Loratadine (loratadine 10 mg oral tablet)?See Instructions?TOME KIA TABLETA TOS [facility] BENDER Miscellaneous Rx (empty cather once a day at daycare)?See Instructions?May empty cathether once a day while at daycare. Dx: urinary retention Multivitamin (Daily Yasmine oral tablet)?See Instructions?TOME KIA TABLETA TOS [place] BENDER Multivitamin With Minerals (Multi-Day Plus Minerals oral tablet)?1?tab(s)?By Mouth?Daily?resent to new pharmacy Polyethylene Glycol 3350 (GaviLAX oral powder for reconstitution)?See Instructions?DISSOLVE 17 GRAMS IN WATER AND DRINK ONCE DAILY ? Inpatient Medications Medications (27) Active SCHEDULED: (11) Amlodipine 5 mg Tablet (amLODIPine 5 mg oral tablet) ??5 mg, By Mouth, Daily Aspirin 81 mg EC Tablet (aspirin 81 mg oral delayed release tablet) ??81 mg, By Mouth, Daily Atorvastatin 20 mg Tablet (atorvastatin 20 mg oral tablet) ??20 mg, By Mouth, Daily at bedtime BuPROPion 150 mg SR Tablet (Wellbutrin SR Tablet) ??150 mg, By Mouth, 2 times a day Ceftriaxone 1 Gm Inj (Ceftriaxone Inj) ??1 Gm, IVPB, Every 24 hours Enoxaparin 30 mg Inj (Enoxaparin Inj) ??30 mg 0.3 mL, Subcutaneous Injection, Daily Insulin Glargine 100 units/mL Inj (Lantus Inj) ??12 units 0.12 mL, Subcutaneous Injection, Daily atbedtime Insulin Lispro 100 units/mL Inj (3mL) (Insulin LISPRO Sliding Scale) ??2-10 units, Subcutaneous Injection, Every 6 hours Loratadine 10 mg Tablet (loratadine 10 mg oral tablet) ??5 mg, By Mouth, Daily Multivitamin Tablet ??1 tablet, By Mouth, Daily NaCl 0.9% Flush 3ml (NaCL 0.9% Flush) ??3 mL, IV Push, Every 8 hours CONTINUOUS: (1) NaCL 0.9% (1000 mL) Cont IV 1,000 mL (0.9% NaCL 1,000 mL) ??1,000 mL, IV Infusion, 125 mL/hr PRN: (15) Acetaminophen 325 mg Tablet (Acetaminophen Tablet) ??650 mg, By Mouth, Every 4 hours Al hydroxide/Mg hydroxide/simethicone 200 mg-200 mg-20 mg/5 mL Susp UD (Maalox Plus Liquid) ??30 mL, By Mouth, Every 4 hours Dextromethorphan-Guaifenesin 20 mg-200 mg/10 mL Liqu UD (Robitussin DM Liquid) ??10 mL, By Mouth, Every 4 hours Dextrose Inj Syringe (Dextrose 50% Inj Syringe (25Gm)) ??12.5 Gm, IV Push Slowly, Every 20 minutes Dextrose Inj Syringe (Dextrose 50% Inj Syringe (25Gm)) ??25 Gm, IV Push Slowly, Every 15 minutes Docusate Sodium 100 mg Capsule (Docusate Sodium Capsule) ??100 mg 1 capsule, By Mouth, 2 times a day Glucagon 1 mg Inj (Glucagon Inj) ??1 mg, Intramuscular, Once Glucose 40% Gel (15 Gm) (Glucose Gel) ??15 Gm, By Mouth, Every 20 minutes Glucose 40% Gel (15 Gm) (Glucose Gel) ??30 Gm, By Mouth, Every 20 minutes Melatonin 3 mg Tablet (Melatonin Tablet) ??3 mg, By Mouth, Daily at bedtime NaCl 0.9% Flush 3ml (NaCL 0.9% Flush) ??3 mL, IV Push, Every 8 hours Ondansetron 2mg/mL Inj (2mL Vial) (Ondansetron Inj) ??4 mg, IV Push, Every 6 hours Polyethylene Glycol 17 Gm Powder (MiraLax Powder) ??17 Gm 1 pack/packet, By Mouth, Daily Senna Tablet ??8.6 mg 1 tablet, By Mouth, 2 times a day Simethicone 80 mg Chewable Tablet (Simethicone Tablet) ??80 mg, Chew, 3 times a day ? Results Recent Labs BLOOD COUNT & DIFF WBC 20.4 k/mm3 (High)?? 01/04/2023 11:36 RBC 5.82 m/mm3 ()?? 01/04/2023 11:36 Hgb 17.1 Gm/dL ()?? 01/04/2023 11:36 Hct 50.8 % (High)?? 01/04/2023 11:36 MCV 87.3 femtoliters ()?? 01/04/2023 11:36 MCH 29.4 pg ()?? 01/04/2023 11:36 MCHC 33.7 g/dL ()?? 01/04/2023 11:36 Platelet Count 438 k/mm3 ()?? 01/04/2023 11:36 RDW-SD 42.1 femtoliters ()?? 01/04/2023 11:36 MPV 10.1 femtoliters ()?? 01/04/2023 11:36 Nucleated RBC (Automated) 0.0 #/100 WBC'S ()?? 01/04/2023 11:36 Abs. NRBC 0.0 k/mm3 ()?? 01/04/2023 11:36 Abs. Neut 17.4 k/mm3 (High)?? 01/04/2023 11:36 Abs. Lymph 1.4 k/mm3 ()?? 01/04/2023 11:36 Abs. Pierce 1.6 k/mm3 (High)?? 01/04/2023 11:36 Abs. Eo 0.0 k/mm3 ()?? 01/04/2023 11:36 Abs. Baso 0.0 k/mm3 ()?? 01/04/2023 11:36 Neut % 85.0 % (High)?? 01/04/2023 11:36 Lymph % 6.6 % (Low)?? 01/04/2023 11:36 Pierce % 7.7 % ()?? 01/04/2023 11:36 Eos % 0.0 % ()?? 01/04/2023 11:36 Baso % 0.2 % ()?? 01/04/2023 11:36 Platelet Comment FEW ()?? 01/04/2023 11:36 Imm Gran 0.5 % ()?? 01/04/2023 11:36 Abs. Imm Gran 0.1 k/mm3 ()?? 01/04/2023 11:36 ?? CHEM GENERAL Sodium 140 mmol/L ()?? 01/04/2023 11:36 Potassium 5.1 mmol/L ()?? 01/04/2023 11:36 Chloride 96 mmol/L (Low)?? 01/04/2023 11:36 Bicarbonate Level 28 mmol/L ()?? 01/04/2023 11:36 Anion Gap 16 ()?? 01/04/2023 11:36 Glucose Level 292 mg/dL (High)?? 01/04/2023 11:36 Glucose, POC 232 mg/dL (High)?? 01/04/2023 20:18 BUN 31 mg/dL (High)?? 01/04/2023 11:36 Creatinine-Blood 2.4 mg/dL (High)?? 01/04/2023 11:36 Estimated GFR Creatinine 28 ML/MIN/1.73 M2 ()?? 01/04/2023 11:36 Calcium 10.9 mg/dL (High)?? 01/04/2023 11:36 Protein, Total 7.5 Gm/dL ()?? 01/04/2023 11:36 Albumin 5.1 Gm/dL (High)?? 01/04/2023 11:36 AG Ratio 2.1 ()?? 01/04/2023 11:36 Alkaline Phosphatase 217 units/L (High)?? 01/04/2023 11:36 Lipase 26 units/L ()?? 01/04/2023 11:36 AST (SGOT) 40 units/L ()?? 01/04/2023 11:36 ALT (SGPT) 80 units/L (High)?? 01/04/2023 11:36 Bilirubin, Total 1.6 mg/dL (High)?? 01/04/2023 11:36 Lactate 1.7 mmol/L ()?? 01/04/2023 18:31 ?? VIROLOGY Influenza A PCR NEGATIVE ()?? 01/04/2023 17:23 Influenza B PCR NEGATIVE ()?? 01/04/2023 17:23 RSV PCR NEGATIVE ()?? 01/04/2023 17:23 COVID-19 PCR Specimen Source NASAL ()?? 01/04/2023 17:23 COVID-19 PCR Result NEGATIVE ()?? 01/04/2023 17:23 ? Abnormal Labs ?? BLOOD COUNT & DIFF ??Abs. Imm Gran ??0.1 k/mm3 () ??01/04/2023 11:36 ??Abs. Pierce ??1.6 k/mm3 (High) ??01/04/2023 11:36 ??Abs. NRBC ??0.0 k/mm3 () ??01/04/2023 11:36 ??Abs. Neut ??17.4 k/mm3 (High) ??01/04/2023 11:36 ??Hct ??50.8 % (High) ??01/04/2023 11:36 ??Imm Gran ??0.5 % () ??01/04/2023 11:36 ??Lymph % ??6.6 % (Low) ??01/04/2023 11:36 ??Neut % ??85.0 % (High) ??01/04/2023 11:36 ??Nucleated RBC (Automated) ??0.0 #/100 WBC'S () ??01/04/2023 11:36 ??Platelet Comment ??FEW () ??01/04/2023 11:36 ??RDW-SD ??42.1 femtoliters () ??01/04/2023 11:36 ??WBC ??20.4 k/mm3 (High) ??01/04/2023 11:36 ? CHEM GENERAL ??AG Ratio ??2.1 () ??01/04/2023 11:36 ??ALT (SGPT) ??80 units/L (High) ??01/04/2023 11:36 ??Albumin ??5.1 Gm/dL (High) ??01/04/2023 11:36 ??Alkaline Phosphatase ??217 units/L (High) ??01/04/2023 11:36 ??BUN ??31 mg/dL (High) ??01/04/2023 11:36 ??Bilirubin, Total ??1.6 mg/dL (High) ??01/04/2023 11:36 ??Calcium ??10.9 mg/dL (High) ??01/04/2023 11:36 ??Chloride ??96 mmol/L (Low) ??01/04/2023 11:36 ??Creatinine-Blood ??2.4 mg/dL (High) ??01/04/2023 11:36 ??Estimated GFR Creatinine ??28 ML/MIN/1.73 M2 () ??01/04/2023 11:36 ??Glucose Level ??292 mg/dL (High) ??01/04/2023 11:36 ??Glucose, POC ??232 mg/dL (High) ??01/04/2023 20:18 ? VIROLOGY ??COVID-19 PCR Specimen Source ??NASAL () ??01/04/2023 17:23 ??COVID-19 PCR Result ??NEGATIVE () ??01/04/2023 17:23 ??Influenza A PCR ??NEGATIVE () ??01/04/2023 17:23 ??Influenza B PCR ??NEGATIVE () ??01/04/2023 17:23 ??RSV PCR ??NEGATIVE () ??01/04/2023 17:23 ? Note: Critical results are displayed in red. ? Urinalysis?? No qualifying data available. ?? Microbiology ?? COVID-19, RSV, and Flu A/B, Rapid PCR?? Completed?? Source: Nasal Body Site: Nose Collected Dt/Tm: 01/04/2023 17:16 Last Updated Dt/Tm: 01/04/2023 18:36 ? (01/04/2023 14:43 EST US RUQ) ?? IMPRESSION:? Examination is moderately limited. There is no evidence of acute cholecystitis. ?? Echogenic liver likely representing hepatic steatosis. ?? Nonobstructing stone seen in the lower pole of the right kidney. There is mild fullness of the right collecting system without geetha hydronephrosis. [1] [1]??US RUQ; David ALVAREZ, Mahamed 01/04/2023 14:43 EST Hospital Progress note * Joey Perez MD: VERIFY, PERFORM, SIGN Event Display: Progress Note Hospital Authored Date: [id number] Patient: AMILCAR TURNER Age: 67 years Sex: Male : 1955 Associated Diagnoses: None Author: Joey Perez MD [facility] Progress Note Interval History Seen and examined, evntsn oted Review of Systems Review of Systems Respiratory: no shortness of breath. Cardiovascular: no chest pain. Gastrointestinal: no abdominal pain, no nausea, no vomiting. Physical Examination Vital Signs Vitals : VITALS 01/09/2023 14:34 EST Height 175 cm Temperature 98.2 DegF Temperature Route Oral Pulse Rate 82 bpm Respiratory Rate 18 br/min Systolic Blood Pressure 112 mm Hg Diastolic Blood Pressure 80 mm Hg Blood pressure sites Arm, left Mean Arterial Pressure 91 mm Hg Pulse Pressure 32 mm Hg Oxygen Saturation 93 % L Mode of Delivery (Oxygen) Room air . Weight : Weight lb/oz 01/04/2023 22:19 EST Weight lb/oz 176 lb 6 oz . BMI : Body Mass Index 01/04/2023 22:19 EST Body Mass Index 26.12 kg/m2 H . General Appearance NAD. HEENT Moist mucous membranes. Respiratory Decreased breath sounds. Cardiac Rhythms: RRR. Abdomen/GI Abdomen: soft, non-tender. Extremities No edema. Neurologic Alert & oriented x 2 . Results Review 7 Day Results Results Laboratory : LABORATORY 01/09/2023 0:14 EST Sodium 141 mmol/L Potassium 3.9 mmol/L Chloride 104 mmol/L Bicarbonate Level 24 mmol/L Anion Gap 13 BUN 25 mg/dL H Creatinine-Blood 1.5 mg/dL H Estimated GFR Creatinine 50 ML/MIN/1.73 M2 Calcium 8.9 mg/dL Impression and Plan Patient is a 67-year-old male with history of vascular dementia, type 2 diabetes mellitus on insulin, elevated PSA, chronic kidney disease stage III, prior history of CVA who presented to the ED withnausea and vomiting. Admitted for sepsis. Nephrology consulted for REJI on CKD. 1. Acute Kidney Injury: recovered 2. Chronic Kidney Disease BL Cr 1.6mg/dL Cr 2.4mg/dL on admission 2. HTN Currently on carvedilol 12.5 mg oral BID and amlodipine 10 mg oral daily REC: no changes in meds; outpt f/u w RTANE ( i will arrange) * Krystal Narvaez: VERIFY, PERFORM, SIGN Event Display: Progress Note Hospital Authored Date: [id number] Patient: AMILCAR TURNER Age: 67 years Sex: Male : 1955 Associated Diagnoses: None Author: Krystal Narvaez Findings Problem Related to Alteration in Genitourinary : Alteration in Genitourinary Function/new 01/08/2023 11:00 EST Alteration in Status Related to UTI Goals & Outcomes, Genitourinary Pt will achieve normal/improved fluid balance, Pt will maintainadequate function appropriate for pt, Pt will maintain normal fluid balance Interventions, Assess/monitor/maintain Genitourinary status, Assist & encourage pt with meticulous rome care, Encourage PO fluid intake as allowed by diet, Assess/monitor effects of antibiotics, Assess/monitor s/s of urinary tract infection, Teach Pt/caregiver s/s of urinary tract infection BH Goals/Interventions, Genitourinary Yes Genitourinary, Problem Start 01/04/2023 23:23 Reviewed Plan with, Genitourinary Patient Patient Progression, Genitourinary Patient progressing according to plan Genitourinary, Problem Ongoing Yes . Evaluation P: Alteration in I: Interventions per Care Plan E: Patient alert to self and self. Able to make needs known. IVF discontinued. Hypotensive, BP medications given per APR. All other VSS, afebrile. Eating and eliminating with no issues. Primofit draining clear yellow urine. Continues on IV Ceftriaxone. BUN 25 Creat 1.5. Plan for rehab, awaiting placement. All needs met, safety maintained, all needs met. . Discharge Information Rehabilitation Discharge : Rehab Discharge Index 01/06/2023 14:52 EST Comments on treatment indicated see comment Distance pt will ambulate ~3' from bed>chair with RW and fair balance Full chart review completed Yes Plan of care PT Gait training, Transfer training, Therapeutic exercise, Functional Activities, Balance training * Obed ALVAREZ, Dorcas: SIGN, MODIFY Ambika Lynn: MODIFY, SIGN Ambika Lynn: SIGN, VERIFY Ambika Lynn: VERIFY, PERFORM Ambika Lynn: PERFORM Event Display: Progress Note Hospital Authored Date: Patient: AMILCAR TURNER Age: 67 years Sex: Male : 1955 Associated Diagnoses: None Author: Ambika Lynn [facility] Progress Note Interval History IVF d/c this morning Carvedilol increased to 12.5 mg BID 2.8 L UOP in 24 hours Cr 1.5mg/dL today, at baseline No acute complaints Review of Systems Review of Systems Respiratory: no shortness of breath. Cardiovascular: no chest pain. Gastrointestinal: no abdominal pain, no nausea, no vomiting. Physical Examination Vital Signs Vitals : VITALS 01/08/2023 5:58 EST Temperature 97.9 DegF Temperature Route Oral Pulse Rate 80 bpm Respiratory Rate 17 br/min Systolic Blood Pressure 161 mm Hg H Diastolic Blood Pressure 97 mm Hg H Blood pressure sites Arm, right Mean Arterial Pressure 118 mm Hg Pulse Pressure 64 mm Hg Oxygen Saturation 98 % Mode of Delivery (Oxygen) Room air . General Appearance NAD. HEENT Moist mucous membranes. Respiratory Decreased breath sounds. Cardiac Rhythms: RRR. Abdomen/GI Abdomen: soft, non-tender. Extremities No edema. Neurologic Alert & oriented x 2 . Results Review 7 Day Results Results Laboratory : LABORATORY 01/08/2023 0:19 EST WBC 10.1 k/mm3 RBC 4.26 m/mm3 L Hgb 12.3 Gm/dL L Hct 37.2 % L MCV 87.3 femtoliters MCH 28.9 pg MCHC 33.1 g/dL Platelet Count 299 k/mm3 RDW-SD 40.4 femtoliters MPV 10.1 femtoliters Nucleated RBC (Automated) 0.0 #/100 WBC'S Abs. NRBC 0.0 k/mm3 Sodium 139 mmol/L Potassium 3.6 mmol/L Chloride 107 mmol/L Bicarbonate Level 21 mmol/L L Anion Gap 11 Glucose Level 168 mg/dL H BUN 25 mg/dL H Creatinine-Blood 1.5 mg/dL H Estimated GFR Creatinine 50 ML/MIN/1.73 M2 Impression and Plan Patient is a 67-year-old male with history of vascular dementia, type 2 diabetes mellitus on insulin, elevated PSA, chronic kidney disease stage III, prior history of CVA who presented to the ED withnausea and vomiting. Admitted for sepsis. Nephrology consulted for REJI on CKD. 1. Acute Kidney Injury on Chronic Kidney Disease BL Cr 1.6mg/dL Cr 2.4mg/dL on admission REJI likely in the setting of sepsis and volume depletion. Supported by improvement in Cr w/ IVF. Initially with lactate of 3.1, also with poor PO intake and vomiting UA with + ketones and 3+ glucose on admission Complements within normal limits 2. HTN Currently on carvedilol 12.5 mg oral BID and amlodipine 10 mg oral daily Plan: - Continue antihypertensives - Daily renal panel - Monitor I/Os - Avoid nephrotoxins Thank you for the courtesy of this consult, [facility] will continue to follow. Ambika Farmer PA-C [facility] [address] , [address] Available by [facility] Discussed with Dr. Clay * Obed ALVAREZ, John PaulFracisco: PERFORM Event Display: Progress Note Hospital Authored Date: I have discussed and evaluated patient with Ambika Farmer PA-C Note * Melanie Beverly RN: PERFORM Event Display: Discharge/Transfer Note Hospital Authored Date: [id number] Nursing Discharge Note Entered On: 01/09/2023 15:00 EST Performed On: 01/09/2023 15:00 EST by Melaine Beverly RN Nursing Discharge Note 2 Discharge Time : 01/09/2023 15:10 EST Melanie Beverly RN - 01/09/2023 15:12 EST Discharge Level of Care at Discharge : long-term facility Discharge Nursing Homes/Rehab Facilities : [facility] Patient Left Unit Via : Ambulance Patient Accompanied Off Unit with : Ambulance/Chair Van Personnel Handover Given to Transport Personnel : Yes DC Instructions Provided & Signed by Pt : Yes Patient Understands D/C Instructions : Yes Verbalized Understanding of D/C Plan By : Patient Patient Instructions Discharge Signed : Yes Did Pt have Specialty Bed or Wound Vac : No Melanie Beverly RN - 01/09/2023 15:00 EST * Trinity ALVAREZ, Dena Josue: PERFORM Event Display: Discharge/Transfer Note Hospital Authored Date: [id number] Patient: ??AMILCAR TURNER ? Age:??67 Years?Sex:??Male?:??1955?? Patient Information Discharge Location: Primary Care Physician: Declan Louise MD Admit Date/Time: 01/04/23 17:20 Discharge Disposition Discharge Disposition: ?? Discharge Diagnosis Acute kidney injury superimposed on chronic kidney disease (N17.9) DM (diabetes mellitus), type 2 with renal complications (E11.29) Cognitive impairment, likely vascular dementia (R41.89) Hypertension (I10) Sepsis (A41.9) Hypercalcemia (E83.52) Acute kidney injury (N17.9) Nausea and vomiting (R11.2) ?? _ Discharge Medications Acetaminophen (acetaminophen 325 mg oral tablet)?650?Milligram?By Mouth?Every 4 hours?as needed?as needed for pain Amlodipine (amLODIPine 10 mg oral tablet)?10?Milligram?By Mouth?Daily Aspirin (Aspirin Low Dose 81 mg oral delayed release tablet)?See Instructions?TOME KIA TABLETA TOS [place] [employer] Atorvastatin (atorvastatin 20 mg oral tablet)?See Instructions?TOME KIA TABLETA TOS LOS BENDER AT SUPPER BuPROpion (BuPROPion (Eqv-Wellbutrin SR) 150 mg/12 hours oral tablet, extended release)?See Instructions?TOME KIA TABLETA DOS VECES AL BALA Carvedilol (Coreg 6.25 mg oral tablet)?12.5?Milligram?By Mouth?2 times a day Durable Medical Equipment (Home Blood Pressure Monitor)?See Instructions?Use to check blood pressure once daily in the morning. Dx: Hypertension on medication (I10) GlipiZIDE (glipiZIDE 5 mg oral tablet, extended release)?1?tab(s)?5?Milligram?By Mouth?Daily Insulin Glargine (Lantus Inj)?0.12?Milliliter?12?unit(s)?Subcutaneous Injection?Daily at bedtime Insulin Lispro (insulin lispro 100 units/mL injectable solution)?2-14 units?Subcutaneous Injection?3 times a day before meals?<< Sliding Scale Comments >>150 - 199 ?? 2 units Call if less than [id number] - 249 ?? 4 units 250 - 299 ?? 6 units 300 - 349 ?? 8 units 350 - 399 ?? 10 units 400 - 449 ?? 12 units 450 - 499 ?? 14 units Call if greater than 400<< Sliding Scale Comm... Loratadine (loratadine 10 mg oral tablet)?See Instructions?TOME KIA TABLETA TODOS LOS BENDER Multivitamin (Daily Yasmine oral tablet)?See Instructions?TOME KIA TABLETA TODOS LOS BENDER Multivitamin With Minerals (Multi-Day Plus Minerals oral tablet)?1?tab(s)?By Mouth?Daily?resent to new pharmacy Polyethylene Glycol 3350 (GaviLAX oral powder for reconstitution)?See Instructions?DISSOLVE 17 GRAMS IN WATER AND DRINK ONCE DAILY Senna (senna 187 mg oral tablet)?1?tab(s)?8.6?Milligram?By Mouth?2 times a day?as needed?Constipation ? Medications Started Coreg Doses Changed amlodipine increased to 10 mg Allergies Allergies ?(Active and Proposed Allergies Only) NKA? (Severity: Unknown severity, Onset: Unknown) ? Hospital Course ?67 y/o male with history of vascular dementia, type 2 diabetes mellitus on insulin, elevated PSA, chronic kidney disease stage III, prior history of CVA who presented to the ED with nausea and vomiting. Admitted for management of acute kidney injury superimposed on chronic kidney disease stage III, hyperglycemia and lactic acidosis concerning for sepsis with elevated white cell count likely due to urinary source ? Acute kidney injury superimposed on chronic kidney disease (N17.9):??His baseline creatinine is around 1.5-1.6 Creat was 2.4 Creat down to 1.45 and stable ?PT recommended rehab He is being discharged to rehab in a stable condition ?? Plan: Will encourage PO intake Avoid nephrotoxin ? DM (diabetes mellitus), type 2 with renal complications (E11.29):??Hold oral hypoglycemic agents Continue Lantus and sliding scale insulin Continue??home meds ? Cognitive impairment, likely vascular dementia (R41.89): ??History of??vascular dementia ? Hypertension (I10):??BP uncontrolled Improved ? Plan: Will continue amlodipine and coreg ? Sepsis (A41.9):??Presented with??elevated WBC??elevated lactate,??also had low- grade fever ?? unfortunately antibiotic started without??sending urine samples UA clean (sample sent after starting antibiotic) WBC normalized blood CS negative ??Received??ceftriaxone for??5 days ?? No further antibiotic needed ? Hypercalcemia (E83.52):??Likely secondary to dehydration with poor oral intake, anticipate improvement with IV fluids Normalized after hydration ? Acute kidney injury (N17.9):??Improved as above ? Code Status:??Full code ? Objective Vital Signs?? Temperature: 98.4 DegF (01/09/23 05:46:00) Temperature Route: Oral (01/09/23 05:46:00) Pulse Rate: 78 bpm (01/09/23 10:54:00) Respiratory Rate: 19 br/min (01/09/23 05:46:00) Systolic Blood Pressure:??164 mm Hg??High (01/09/23 10:54:00) Systolic Blood Pressure:??164 mm Hg??High (01/09/23 10:54:00) Diastolic Blood Pressure:??95 mm Hg??High (01/09/23 10:54:00) Diastolic Blood Pressure:??95 mm Hg??High (01/09/23 10:54:00) Blood pressure sites: Arm, left (01/09/23 05:46:00) Mean Arterial Pressure: 118 mm Hg (01/09/23 05:46:00) Pulse Pressure: 69 mm Hg (01/09/23 05:46:00) Oxygen Saturation: 98 % (01/09/23 05:46:00) Mode of Delivery (Oxygen): Room air (01/09/23 05:46:00) Early Warning Score: 0 (01/09/23 14:23:42) ? . Physical Exam Awake, alert, oriented Lungs: Clear to auscultation bilateral, no wheezing no rales Heart: Regular rate and rhythm, no murmur, no rub or gallop Abdomen: Soft, nontender, nondistended; Bowel sounds present Extremity: No edema cyanosis clubbing Neurological: No focal deficit Psychiatric: Normal mood and affect Pending Results Add On Lab Order ordered on 01/06/2023 Blood Culture ordered on 01/04/2023 Blood Culture #2 ordered on 01/04/2023 Follow-Up Appointments Added Follow Up ?Time Frame ?Comments Dorcas Clay MD?1 to 2 weeks Declan Louise MD?After d/c from rehab Home Health Face to Face ^HomeHealthFTF Results Discharge Labs BLOOD COUNT & DIFF WBC 10.1 k/mm3 ()?? 01/08/2023 00:19 RBC 4.26 m/mm3 (Low)?? 01/08/2023 00:19 Hgb 12.3 Gm/dL (Low)?? 01/08/2023 00:19 Hct 37.2 % (Low)?? 01/08/2023 00:19 MCV 87.3 femtoliters ()?? 01/08/2023 00:19 MCH 28.9 pg ()?? 01/08/2023 00:19 MCHC 33.1 g/dL ()?? 01/08/2023 00:19 Platelet Count 299 k/mm3 ()?? 01/08/2023 00:19 RDW-SD 40.4 femtoliters ()?? 01/08/2023 00:19 MPV 10.1 femtoliters ()?? 01/08/2023 00:19 Nucleated RBC (Automated) 0.0 #/100 WBC'S ()?? 01/08/2023 00:19 Abs. NRBC 0.0 k/mm3 ()?? 01/08/2023 00:19 Abs. Neut 7.3 k/mm3 (High)?? 01/07/2023 09:35 Abs. Lymph 1.6 k/mm3 ()?? 01/07/2023 09:35 Abs. Pierce 0.8 k/mm3 ()?? 01/07/2023 09:35 Abs. Eo 0.2 k/mm3 ()?? 01/07/2023 09:35 Abs. Baso 0.0 k/mm3 ()?? 01/07/2023 09:35 Neut % 73.6 % ()?? 01/07/2023 09:35 Lymph % 16.6 % ()?? 01/07/2023 09:35 Pierce % 7.6 % ()?? 01/07/2023 09:35 Eos % 1.5 % ()?? 01/07/2023 09:35 Baso % 0.2 % ()?? 01/07/2023 09:35 Platelet Comment FEW ()?? 01/04/2023 11:36 Imm Gran 0.5 % ()?? 01/07/2023 09:35 Abs. Imm Gran 0.1 k/mm3 ()?? 01/07/2023 09:35 ? CHEM GENERAL Sodium 141 mmol/L ()?? 01/09/2023 00:14 Potassium 3.9 mmol/L ()?? 01/09/2023 00:14 Chloride 104 mmol/L ()?? 01/09/2023 00:14 Bicarbonate Level 24 mmol/L ()?? 01/09/2023 00:14 Anion Gap 13 ()?? 01/09/2023 00:14 Glucose Level 168 mg/dL (High)?? 01/08/2023 00:19 Glucose, POC 159 mg/dL (High)?? 01/09/2023 12:05 BUN 25 mg/dL (High)?? 01/09/2023 00:14 Creatinine-Blood 1.5 mg/dL (High)?? 01/09/2023 00:14 Estimated GFR Creatinine 50 ML/MIN/1.73 M2 ()?? 01/09/2023 00:14 Calcium 8.9 mg/dL ()?? 01/09/2023 00:14 Magnesium 1.8 mg/dL ()?? 01/06/2023 01:13 Protein, Total 7.5 Gm/dL ()?? 01/04/2023 11:36 Albumin 5.1 Gm/dL (High)?? 01/04/2023 11:36 AG Ratio 2.1 ()?? 01/04/2023 11:36 Alkaline Phosphatase 217 units/L (High)?? 01/04/2023 11:36 Lipase 26 units/L ()?? 01/04/2023 11:36 AST (SGOT) 40 units/L ()?? 01/04/2023 11:36 ALT (SGPT) 80 units/L (High)?? 01/04/2023 11:36 Bilirubin, Total 1.2 mg/dL ()?? 01/05/2023 00:11 Lactate 1.7 mmol/L ()?? 01/04/2023 18:31 ? IMMUNOLOGY GENERAL Complement C3 132 mg/dL ()?? 01/06/2023 01:13 Complement C4 35 mg/dL ()?? 01/06/2023 01:13 ?? UA/URINALYSIS Appear/Color, Urine LIGHT YELLOW ()?? 01/05/2023 12:50 Specific [place], Urine 1.016 ()?? 01/05/2023 12:50 pH, Urine 7.0 ()?? 01/05/2023 12:50 Albumin, Urine TRACE (Abnormal)?? 01/05/2023 12:50 Glucose, Urine 3+ (Abnormal)?? 01/05/2023 12:50 Ketones, Urine 1+ (Abnormal)?? 01/05/2023 12:50 Bilirubin, Urine NEGATIVE ()?? 01/05/2023 12:50 Hemoglobin, Urine TRACE (Abnormal)?? 01/05/2023 12:50 Nitrite, Urine NEGATIVE ()?? 01/05/2023 12:50 Leukocyte, Urine NEGATIVE ()?? 01/05/2023 12:50 Urobilinogen NORMAL mg/dL ()?? 01/05/2023 12:50 WBC's, Urine 1 /HPF ()?? 01/05/2023 12:50 RBC's, Urine 1 /HPF ()?? 01/05/2023 12:50 Bacteria SLIGHT HPF (Abnormal)?? 01/05/2023 12:50 Squamous Epith <1 /HPF ()?? 01/05/2023 12:50 ? URINE OTHER Sodium, Urine Random 152 mmol/L ()?? 01/06/2023 14:03 Chloride, Urine Random 142 mmol/L ()?? 01/06/2023 14:03 Urea Nitrogen, Urine Random 705.9 mg/dL ()?? 01/06/2023 14:03 Protein, Total Urine Random 21 mg/dL ()?? 01/06/2023 14:03 TP/Cr Ratio 0.20 ()?? 01/06/2023 14:03 Creatinine, Urine 101.1 mg/dL ()?? 01/06/2023 14:03 Est Creatinine Clearance 46.98 mL/min ()?? 01/08/2023 01:42 ? VIROLOGY Influenza A PCR NEGATIVE ()?? 01/04/2023 17:23 Influenza B PCR NEGATIVE ()?? 01/04/2023 17:23 RSV PCR NEGATIVE ()?? 01/04/2023 17:23 COVID-19 PCR Specimen Source NASAL ()?? 01/04/2023 17:23 COVID-19 PCR Result NEGATIVE ()?? 01/04/2023 17:23 ? Microbiology ?? COVID-19, RSV, and Flu A/B, Rapid PCR?? Completed?? Source: Nasal Body Site: Nose Collected Dt/Tm: 01/04/2023 17:16 Last Updated Dt/Tm: 01/04/2023 18:36 Urine Culture?? Completed?? Source: Urine Clean Catch Body Site: ?? Collected Dt/Tm: 01/05/2023 12:50 Last Updated Dt/Tm: 01/05/2023 12:50 ?SPECIMEN DESCRIPTION : URINE CLEAN CATCH/MIDSTREAMSPECIAL REQUESTS : NONECULTURE : NO GROWTHREPORT STATUS : FINAL 01/06/2023 ? 35 minutes spent on discharge * Nicole Alonzo RN: PERFORM, SIGN, VERIFY Event Display: Case Management Discharge Plan Authored Date: [id number] Patient: AMILCAR TURNER Age: 67 years Sex: Male : 1955 Associated Diagnoses: None Author: Nicole Alonzo RN Discharge Plan Case Management Discharge Plan : Case Management Discharge Plan Data 01/09/2023 13:35 EST Discharge Level of Care at Discharge long-term facility Discharge Nursing Homes/Rehab Facilities [facility] Discharge Transportation Arranged [facility] [address] [place] [address] [phone] Discharge Arranged Transport Date/Time 01/09/2023 15:00 Mode of Transportation Arranged Ambulance Name of Agency #1 [facility] Agency Tmr Teacher #1 Intake Service Categories #1 Occupational Therapy, Physical Therapy, Prison Service Start Date and Time #1 01/09/2023 15:00 Service Comments #1 Amilcar is being discharged to [facility] today. He will receive PT, OT, and long-term. Name of Person Notified of Transfer Radha Saldivar, HCP * Rush AMBRIZ, Melanie Mera: PERFORM Event Display: Patient Education/Instruction Authored Date: [id number] Inpatient Adult Discharge Instructions [address] [address] Name: AMILCAR TURNER : 1955 Visit: 01/04/2023 17:20:00 Current Date: 01/09/2023 15:01 Account: [id number] Inpatient Adult Discharge Instructions We would like to thank you for allowing us to assist you with your healthcare needs. The following includes patient education materials and information regarding your injury/illness. Our entire staffstrives to provide an excellent experience for our patients and their families. PLEASE ENSURE YOU FOLLOW-UP PER THE INSTRUCTIONS BELOW! ?? YOUR OPINION IS IMPORTANT TO US! Please complete the survey you may receive by mail or email. Your feedback will be used to make improvements to the healthcare experiences of our patients and their families. Surveys are administered by [employer] ?? If further treatment with your primary care physician or another doctor is recommended, it is important for you to keep the appointment. Call your primary care physician or return to the Emergency Department immediately if your condition worsens, fails to improve, or new symptoms develop. If you need to find a doctor, you can call [facility] for a referral at [phone] or toll free at [phone]) or log in to [email or web address].. ?? [facility], in keeping with [facility] guidance, no longer requires face masks for staff, patientsor visitors in most situations. Similiar to time spent indoors at other locations, there is the chance that you were exposed to repiratory viruses during your time with us (such as flu or COVID-19). If you develop symptoms concerning for a viral respiratory infection, please seek testing (and treatment if indicated) from your medical provider or home test kit. ?? You can view and manage your care through the patient portal or by using a health care yulia of your choosing. [employer] is a website that allows you to securely view your medical information including your hospital discharge summary, office visit summaries, medications and follow-up visits. You can also request appointments, renew medications, and request access to your medical information using a health care yulia of your choosing, or just ask a question. You can enroll at [email or web address] or register during your next office visit. You have been discharged from [facility], Patient Care Unit: S3. If you have any questions regarding these instructions after you leave, please call us and we will be happy to assist you. [facility] Your Care Team Attending Physician Trinity ALVAREZ, Dena Josue Consulting Providers Edy ALVAREZ, Boonyanuth; Dorcas Clay MD; Shelby ALVAREZ, Reeceannapolisminda Discharging Providers Trinity ALVAREZ, Dena Josue Reason for Admission vomting and hyperglycemia. past deficites from past stroke. Your Diagnosis Acute kidney injury Nausea and vomiting Sepsis DM (diabetes mellitus), type 2 with renal complications Cognitive impairment, likely vascular dementia Hypertension Hypercalcemia Acute kidney injury superimposed on chronic kidney disease Tests Performed Below is a partial list of the tests performed during your hospitalization. You may have had other tests and procedures not included in this list. Please discuss all test results with your provider. Basic Metabolic Panel Bilirubin Total BUN Calcium Level CBC CBC w/ Differential COMPLEMENT C3 COMPLEMENT C4 COMPLETE URINALYSIS Comprehensive Metabolic Panel COVID-19, RSV, and Flu A/B, Rapid PCR Creatinine Electrolytes Glucose Level GLUCOSE POC Lactate Level Lactic Acid Level Lipase Magnesium Level Protein/Creatinine Ratio Urine Sodium Urine UREA NITROGEN, URINE MG/DL Urine Chloride US RUQ XR Chest 2 Views Frontal and Lat Primary Care Provider Declan Louise MD Advance Directive Health Care Proxy on File Yes - Health Care Proxy Yes - MOLST Discharge Vitals Temperature: 98.2 DegF Height: 175 cm Pulse Rate: 82 bpm Weight: 80 kg Respiratory Rate: 18 br/min Body Mass Index:??26.12 kg/m2??High Systolic Blood Pressure: 112 mm Hg Body surface area: 1.97 Diastolic Blood Pressure: 80 mm Hg ?? Oxygen Saturation:??93 %??Low ?? Studies Pending All tests and labs ordered during this hospital stay have been completed unless listed below. Please discuss all pending results with your provider listed above in these instructions. ?? Add On Lab Order Blood Culture Blood Culture #2 What to do next Instructions From Your Doctor Discharge Orders You Need to Schedule the Following Appointments Follow Up with??Dorcas Clay MD When:??Within 1 to 2 weeks Follow Up with??Declan Louise MD Why: After d/c from rehab Where: ?? Discharge Medications JOHNNYSUSANAMILCAR :1955 Visit Date:01/04/2023 Medications: Please continue your medications until treatment is completed or stopped by your provider. Medications not listed below should be discontinued. Discuss any questions related to medications with your provider. What How Much When Why Instructions Next Dose New Carvedilol (Coreg 6.25 mg oral tablet) 12.5 Milligram Oral Twice a day 01/09 tonight New Insulin Glargine (Lantus Inj) 12 unit(s) Subcutaneous Injection Daily at Bedtime 01/09 tonight New Insulin Lispro (insulin lispro 100 units/ mL injectable solution) 2-14 units Subcutaneous Injection 3 times a day before meals << Sliding Scale Comments >> 150 - 199 ?? 2 units Call if less than 70 200 - 249 ?? 4 units 250 - 299 ?? 6 units 300 - 349 ?? 8 units 350 - 399 ?? 10 units 400 - 449 ?? 12 units 450 - 499 ?? 14 units Call if greater than 400 << Sliding Scale Comments >> ?? 01/09 at 5pm New Senna (senna 187 mg oral tablet) 1 tab(s) Oral Twice a day as needed for Constipation as needed Changed Amlodipine (amLODIPine 10 mg oral tablet) 10 Milligram Oral Daily 01/10 tomorrow morning Changed Durable Medical Equipment (Home Blood Pressure Monitor) See instructions Hypertension Use to check blood pressure once daily in the morning. Dx: Hypertension on medication (I10) ?? 01/10 tomorrow morning Unchanged Acetaminophen (acetaminophen 325 mg oral tablet) 650 Milligram Oral Every 4 hours as needed for as needed for pain as needed Unchanged Aspirin (Aspirin Low Dose 81 mg oral delayed release tablet) See instructions TOME KIA TABLETA TODOS LOS BENDER ?? 01/10 tomorrow morning Unchanged Atorvastatin (atorvastatin 20 mg oral tablet) See instructions TOME KIA TABLETA TODOS LOS BENDER AT SUPPER ?? 01/09 at 5pm Unchanged BuPROpion (BuPROPion (Eqv-Wellbutrin SR) 150 mg/ 12 hours oral tablet, extended release) See instructions TOME KIA TABLETA DOS VECES AL BALA ?? 01/09 tonight Unchanged GlipiZIDE (glipiZIDE 5 mg oral tablet, extended release) 1 tab(s) Oral Daily 01/10 tomorrow morning Unchanged Loratadine (loratadine 10 mg oral tablet) See instructions TOME KIA TABLETA TODOS LOS BENDER ?? 01/10 tomorrow morning Unchanged Multivitamin (Daily Yasmine oral tablet) See instructions TOME KIA TABLETA TODOS LOS BENDER ?? 01/10 tomorrow morning Unchanged Multivitamin With Minerals (Multi-Day Plus Minerals oral tablet) 1 tab(s) Oral Daily resent to new pharmacy ?? 01/10 tomorrow morning Unchanged Polyethylene Glycol 3350 (GaviLAX oral powder for reconstitution) See instructions DISSOLVE 17 GRAMS IN WATER AND DRINK ONCE DAILY ?? 01/10 tomorrow morning ?? What How Much When Comments Stop Taking Miscellaneous Rx (empty cather once a day at daycare) See instructions May empty cathether once a day while at daycare. Dx: urinary retention ?? Test Results Below is a partial list of the most recent Laboratory test results done prior to this discharge. You may have had other tests and procedures not included in this list. Please discuss all test resultswith your provider. Est Creatinine Clearance - 46.98 mL/min (01/08/2023) Basic Metabolic Panel (01/05/2023) ???Sodium - 139 mmol/L???Potassium - 4.1 mmol/L???Chloride - 102 mmol/L???Bicarbonate Level - 24 mmol/L???Anion Gap - 13???Glucose Level - 207 mg/dL???BUN - 32 mg/dL???Creatinine-Blood - 2.6 mg/dL???Estimated GFR Creatinine - 26 ML/MIN/1.73 M2???Calcium - 9.5 mg/dL Bilirubin Total (01/05/2023) ???Bilirubin, Total - 1.2 mg/dL BUN (01/09/2023) ???BUN - 25 mg/dL Calcium Level (01/09/2023) ???Calcium - 8.9 mg/dL CBC (01/08/2023) ???WBC - 10.1 k/mm3???RBC - 4.26 m/mm3???Hgb - 12.3 Gm/dL???Hct - 37.2 %???MCV - 87.3 femtoliters???MCH - 28.9 pg???MCHC - 33.1 g/dL???Platelet Count - 299 k/mm3???RDW-SD - 40.4 femtoliters???MPV - 10.1 femtoliters???Nucleated RBC (Automated) - 0.0 #/100 WBC'S???Abs. NRBC - 0.0 k/mm3 CBC w/ Differential (01/07/2023) ???WBC - 9.9 k/mm3???RBC - 4.59 m/mm3???Hgb - 13.4 Gm/dL???Hct - 41.1 %???MCV - 89.5 femtoliters???MCH - 29.2 pg???MCHC - 32.6 g/dL???Platelet Count - 282 k/mm3???RDW-SD - 42.5 femtoliters???MPV - 9.9 femtoliters???Nucleated RBC (Automated) - 0.0 #/100 WBC'S???Abs. NRBC - 0.0 k/mm3???Abs. Neut - 7.3 k/mm3???Abs. Lymph - 1.6 k/mm3???Abs. Pierce - 0.8 k/mm3???Abs. Eo - 0.2 k/mm3???Abs. Baso - 0.0 k/mm3???Neut % - 73.6 %???Lymph % - 16.6 %???Pierce % - 7.6 %???Eos % - 1.5 %???Baso % - 0.2 %???Imm Gran- 0.5 %???Abs. Imm Gran - 0.1 k/mm3 COMPLEMENT C3 (01/06/2023) ???Complement C3 - 132 mg/dL COMPLEMENT C4 (01/06/2023) ???Complement C4 - 35 mg/dL COMPLETE URINALYSIS (01/05/2023) ???Appear/Color, Urine - LIGHT YELLOW???Specific [place], Urine - 1.016???pH, Urine - 7.0???Albumin, Urine - TRACE???Glucose, Urine - 3+???Ketones, Urine - 1+???Bilirubin, Urine - NEGATIVE???Hemoglobin, Urine - TRACE???Nitrite, Urine - NEGATIVE???Leukocyte, Urine - NEGATIVE???Urobilinogen - NORMAL???WBC's, Urine - 1 /HPF? ?RBC's, Urine - 1 /HPF? ?Bacteria - SLIGHT? ?Squamous Epith - <1 /HPF Comprehensive Metabolic Panel (01/04/2023) ???Sodium - 140 mmol/L???Potassium - 5.1 mmol/L???Chloride - 96 mmol/L???Bicarbonate Level - 28 mmol/L???Anion Gap - 16???Glucose Level - 292 mg/dL???BUN - 31 mg/dL???Creatinine-Blood - 2.4 mg/dL???Estimated GFR Creatinine - 28 ML/MIN/1.73 M2???Calcium - 10.9 mg/dL???Protein, Total - 7.5 Gm/dL???Alb umin - 5.1 Gm/dL???AG Ratio - 2.1???Alkaline Phosphatase - 217 units/L???AST (SGOT) - 40 units/L???ALT (SGPT) - 80 units/L???Bilirubin, Total - 1.6 mg/dL COVID-19, RSV, and Flu A/B, Rapid PCR (01/04/2023) ???Influenza A PCR - NEGATIVE???Influenza B PCR - NEGATIVE???RSV PCR - NEGATIVE???COVID-19 PCR Specimen Source - NASAL???COVID-19 PCR Result - NEGATIVE Creatinine (01/09/2023) ???Creatinine-Blood - 1.5 mg/dL???Estimated GFR Creatinine - 50 ML/MIN/1.73 M2 Electrolytes (01/09/2023) ???Sodium - 141 mmol/L???Potassium - 3.9 mmol/L???Chloride - 104 mmol/L???Bicarbonate Level - 24 mmol/L???Anion Gap - 13 Glucose Level (01/08/2023) ???Glucose Level - 168 mg/dL GLUCOSE POC (01/09/2023) ???Glucose, POC - 159 mg/dL Lactate Level (01/04/2023) ???Lactate - 3.2 mmol/L Lactic Acid Level (01/04/2023) ???Lactate - 1.7 mmol/L Lipase (01/04/2023) ???Lipase - 26 units/L Magnesium Level (01/06/2023) ???Magnesium - 1.8 mg/dL Protein/Creatinine Ratio Urine (01/06/2023) ???Protein, Total Urine Random - 21 mg/dL???TP/Cr Ratio - 0.20???Creatinine, Urine - 101.1 mg/dL Sodium Urine (01/06/2023) ???Sodium, Urine Random - 152 mmol/L UREA NITROGEN, URINE MG/DL (01/06/2023) ???Urea Nitrogen, Urine Random - 705.9 mg/dL Urine Chloride (01/06/2023) ???Chloride, Urine Random - 142 mmol/L Allergies (NKA means No Known Allergies) NKA Problems Active Problems??(16) Allergic rhinitis?? Cerebrovascular accident (stroke)?? CKD (chronic kidney disease) stage 3, GFR 30-59 ml/min?? Cognitive impairment, likely vascular dementia?? Depression, major?? Diastolic congestive heart failure, NYHA class 1?? DM (diabetes mellitus), type 2 with renal complications?? Elevated PSA, BPH per urology, see April,?? History of prostate cancer?? Hypertension?? Hypogonadism in male?? Microalbuminuria - mildly increased, ratio <30 mg/g?? Obesity due to excess calories?? Presence of indwelling urinary catheter?? Secondary hyperparathyroidism?? Urine incontinence?? Education Materials Below is the list of Educational Leaflet Providered with your Discharge Instructions. Valuables and Belongings I fully understand and agree that [facility] accepts no responsibility for all my personal property including clothing, toilet articles, radios, jewelry, dentures, hearing aids, rings, money, or any other property that is in my possession or is brought to me after admission. I understand certain valuables may be placed in a hospital safe for a short period of time. I understand that the hospital is not liable for loss or damage due to accident, fire, or other natural occurrence while said property is in the safe. I accept full responsibility for any personal property that I keep with me, and will not hold the hospital responsible in case of loss or disappearance. I acknowledge that i have been encouraged to send valuables and belongings home. ?? Review of Valuable and Belonging List: With patient Possessions released to: patient had no belongings when arrived to S3 unit Date for Pt to Sign Valuables/Belongings: 01/09/23 14:42:00 ?? Other Discharge Information ? Case Management Discharge Plan?? Discharge Plan?? Discharge Agency Information?? Discharge Level of Care at Discharge: long-term facility Name of Agency #1: [facility] Discharge Transportation Arranged: [facility]rendan Tatum [facility] [id number] [phone] Agency Tmr Teacher #1: Intake Mode of Transportation Arranged: Ambulance Service Start Date and Time #1: 01/09/23 15:00:00 Discharge Arranged Transport Date/Time: 01/09/23 15:00:00 Service Categories #1: Occupational Therapy, Physical Therapy, Prison Discharge Nursing Homes/Rehab Facilities: [facility] Service Comments #1: Amilcar is being discharged to [facility] today. ??He will receive PT, OT,and long-term. ?? Name of Person Notified of Transfer: Radha Saldivar, HCP ?? Pulmonary Rehab Status?? Pulmonary Rehab Discharge Status?? Respiratory Rate: 18 br/min ? Common Emergency Awareness Tips IS IT A STROKE? Act FAST and Check for these signs: FACE Does the face look uneven? ARM Does one arm drift down? SPEECH Does their speech sound strange? TIME Call at any sign of stroke ?? Heart Attack Signs Chest discomfort: Most heart attacks involve discomfort in the center of the chest and lasts more than a few minutes, or goes away and comes back. It can feel like uncomfortable pressure, squeezing, fullness or pain. Discomfort in upper body: Symptoms can include pain or discomfort in one or both arms, back, neck, jaw or stomach. Shortness of breath: With or without discomfort. Other signs: Breaking out in a cold sweat, nausea, or lightheaded. Remember, MINUTES DO MATTER. If you experience any of these heart attack warning signs, call to get immediate medical attention! ?? Smoking can increase your chances of developing chronic health problems and can cause harmful effects to other family members in your house. If you smoke, you are strongly encouraged to quit. Please call [facility] at [phone] or [phone] ([phone]) or log in to [email or web address] for referrals to smoking cessation programs. ?? 780 Suicide & Crisis Lifeline is available 12/09 if you or someone you know needs to find a reason to keep living. By calling 984 you'll be connected to a skilled, trained counselor at a crisis center in your area. INPATIENT DISCHARGE INSTRUCTIONS SIGNATURE PAGE AMILCAR TURNER Location:[facility] Registration Date and Time:01/04/2023 17:20 EST Primary Care Physician: Declan Louise MD, Attending Physician: Trinity ALVAREZ, Dena Josue, I AMILCAR TURNER, have received the above patient education materials/instructions and have verbalized understanding. If ambulance or transport services are being used I further acknowledge being given a choice of service. ?? If you need to contact me, please call me at this number: . Patient/Structural Steel Engineer Name: Patient/Structural Steel Engineer Signature: Relationship to Patient: Witness Name/Signature: Date: Patient Care team information Care Team Personnel Name: Declan Louise MD Position: S Physician - Primary Care Member Role: PCP Address: Address: [address] [place] [address] [place] [address]- [place] Name: Simran Shannon RN Position: [facility] RN Member Role: Primary Care Nurse Name: Torie Jo RN Position: [facility] RN Supv Member Role: Primary Care Nurse Name: Hussein Waters RN Position: [facility] RN Member Role: Primary Care Nurse Name: Vandana Sorensen NP Position: [facility] Associate Professional Member Role: Primary Care Nurse Address: Address: [address] [place] [address]- [place] Name: Karsten Kwong MD Position: [facility] Renal MD Member Role: Lifetime Consulting Physician Address: Address: [address] [place] [address] [address] [facility] [place] [address]- [place] Name: Rebecca Leon RN Position: [facility] RN Member Role: Primary Care Nurse Name: Elisabet Calle Position: [facility] RN Member Role: Primary Care Nurse Name: Paola Cavanaugh RN Position: [facility] ED RN W/OE and Tasks Member Role: Primary Care Nurse Name: Argentina Dixon RN Position: [facility] ED RN W/OE and Tasks Member Role: Primary Care Nurse Name: Christina Alonso Position: [facility] AMB Nurse Member Role: Lifetime Consulting Physician Name: Ramiro Brody III, RN Position: [facility] RN Member Role: Primary Care Nurse Name: Simran Tariq RN Position: [facility] RN Member Role: Primary Care Nurse Name: Dana Fitzgerald RN Position: [facility] RN Member Role: Primary Care Nurse Name: Narayan Spencer RN Position: [facility] SN RN Member Role: Primary Care Nurse Name: Shell Yoder RN Position: [facility] RN Member Role: Primary Care Nurse Name: Yenni Packer RN Position: [facility] RN Member Role: Primary Care Nurse Name: Radha Mustafa RN Position: [facility] AMB Nurse Member Role: Primary Care Nurse Name: Misti Pickard RN Position: [facility] RN Member Role: Primary Care Nurse Name: William Villanueva RN Position: [facility] RN Member Role: Primary Care Nurse Name: Viky Torre RN Position: [facility] Hospital Strategy Specialist Member Role: Primary Care Nurse Name: Carolee Tesfaye RN Position: [facility] RN Member Role: Primary Care Nurse Name: Joey Perez MD Position: [facility] Renal MD Member Role: Lifetime Consulting Physician Address: Address: [address] [place] [address] [facility] [place], [place] [address] Name: Brittney Ledezma RN Position: [facility] Hospital Strategy Specialist Member Role: Primary Care Nurse Name: Eliezer Wagner RN Position: [facility] RN Member Role: Primary Care Nurse Name: Najma Causey RN Position: [facility] SN RN Member Role: Primary Care Nurse Name: Brunilda Thomas RN Position: [facility] RN Member Role: Primary Care Nurse Name: [facility] Attending Position: [facility] ED Medicine MD Name: Gloria Reis RN Position: [facility] ED RN W/OE and Tasks Member Role: Patient Care Provider Name: Vandana Leger Position: [facility] ED TA [facility] Member Role: Patient Care Provider Name: Bessy Douglas Position: [facility] ED OA Charge Member Role: ED Associate Care Team Related Persons Name: ROOPA SALDIVAR Address: home [address] [place] [id number] Name: HOPE SALDIVAR Address: [address] [address]
--- OUTSIDE RECORDS SUMMARY | 2023-05-25 14:57 | XMS_ITS | Continuity of Care Document ---
Author Organization [facility] Address [address] [place] [address]- Care Team Providers Care Turner Machine Name Role Wet Plant Operator Declan ALVAREZ Primary Care Physician [facility]counter [facility] Date(s): 02/03/23 - 03/05/[address] [address] Allergies, Adverse Reactions, Alerts No [...] virus vaccine, inactivated 1 12/06/10 Gi dory [id number] 12y+ bivalent booster vax 01/18/22 Given SARS-CoV-2 (COVID-19) mRNA BNT-162b2 vac 02/08/21 Given SARS-CoV-2 (COVID-19) mRNA BNT-162b2 vac 01/18/21 Given pneumococcal 23-valent vaccine 12/08/14 Given FluLaval (oldterm) 2 12/26/11 Given tetanus-diphtheria toxoids (Td) 3 12/06/10 Given 1Admin Note: vis given Kittitian 2Admin Note: vis [id number] 3Admin Note: VIS given Kittitian. Medications acetaminophen 325 mg oral tablet 650 mg, By Mouth, Every 4 hours, PRN, # 50 tablet, Refills 5, Tot. Refills 5, Maintenance, as needed for pain, 11/23/20 13:09:00 EDT, Route to Pharmacy Electronically, [facility]/pharmacy #[id number], 183, cm, 08/10/20 16:05:00 EDT, Height, 84.8, kg, 07/01/19 22:2... Start Date: 11/23/20 Status: Ordered amLODIPine 10 mg oral tablet 10 mg, By Mouth, Daily, # 90 each, Refills 3, Tot. Refills 3, Maintenance, 02/24/23 12:06:00 EST, Route to Pharmacy Electronically, [facility]/pharmacy #[id number], Partial fill upon patient request if the prescription is for a schedule II opioid drug., 175, cm, 0... Start Date: 02/24/23 Stop Date: 02/19/24 Status: Ordered Aspirin Low Dose 81 mg oral delayed release tablet See Instructions, MARCOS ADAM TABLETA TOS ZORAIDA BENDER, # 90 tablet, 1 Refills, Maintenance, 02/24/23 12:05:00 EST, [facility]/pharmacy #[id number], 175, cm, 02/24/23 11:28:00 EST, Height, 81.9, kg, 01/04/23 22:19:00 EST, Dry Weight Start Date: 02/24/23 Status: Ordered atorvastatin 20 mg oral tablet See Instructions, NANETTEE KIA TABLETA TODOS ZORAIDA BENDER AT SUPPER, # 90 tablet, 1 Refills, Maintenance, 02/24/23 12:05:00 EST, [facility]/pharmacy #[id number], 175, cm, 02/24/23 11:28:00 EST, Height, 81.9, kg, 01/04/2322:19:00 EST, Dry Weight Start Date: 02/24/23 Status: Ordered BuPROPion (Eqv-Wellbutrin SR) 150 mg/12 hours oral tablet, extended release See Instructions, TOME KIA TABLETA DOS VECES AL BALA, # 180 each, 1 Refills, Maintenance, 02/24/23 12:05:00 EST, [facility]/pharmacy #[id number], 175, cm, 02/24/23 11:28:00 EST, Height, 81.9, kg, 01/04/23 22:19:00EST, Dry Weight Start Date: 02/24/23 Status: Ordered Daily Yasmine oral tablet See Instructions, NANETTEE KIA TABLETA TODOS LOS BENDER, # 90 tablet, 1 Refills, Maintenance, 02/24/23 12:05:00 EST, [facility]/pharmacy #[id number], 90, TOME KIA TABLETA TODOS LOS BENDER, 175, cm, 02/24/23 11:28:00 EST,Height, 81.9, kg, 01/04/23 22:19:00 EST, Dry Weight Start Date: 02/24/23 Status: Ordered GaviLAX oral powder for reconstitution See Instructions, DISSOLVE 17 GRAMS IN WATER AND DRINK ONCE DAILY, # 238 Gm, 5 Refills, Maintenance, 02/24/23 12:05:00 EST, [facility]/pharmacy #[id number], 14, DISSOLVE 17 GRAMS IN WATER AND DRINK ONCE DAILY, 175, cm, 02/24/23 11:28:00 EST, Height, 81.9, kg, 12/21... Start Date: 02/24/23 Status: Ordered glipiZIDE 5 mg oral tablet, extended release 1 tablet = 5 mg, By Mouth, Daily, dose of 5 mg ER please dose., # 90 tablet, 3 Refills, Maintenance, 02/24/23 11:59:00 EST, ER Tablet, [facility]/pharmacy #[id number], Partial fill upon patient request [...] Instructions Replace Required Details, Route to Pharmacy Electronically,[facility]/pharmacy #[id number], 175, cm, 02/24/23 11:28:00 EST,... Start Date: 02/24/23 Status: Ordered Multi-Day Plus Minerals oral tablet 1 tablet, By Mouth, Daily, resent to new pharmacy, # 90 tablet, 1 Refills, Maintenance, 10/18/21 16:12:00 EDT, Tablet, [facility]/pharmacy #[id number], 1 tablet By Mouth Daily,Instr:resent [...] Team Personnel Name: Declan Louise MD Position: [facility] Physician - Primary Care Member Role: PCP Address: Address: [address] [place] [address]- Name: Simran Shannon RN Position: S RN Member Role: Primary Care Nurse Name: Torie Jo RN Position: S RN Supv Member Role: Primary Care Nurse Name: Hussein Wtaers RN Position: S RN Member Role: Primary Care Nurse Name: Vandana Sorensen NP Position: [facility] Associate Professional Member Role: Primary Care Nurse Address: Address: [address] [place] [address]- [place] Name: Karsten Kwong MD Position: [facility] Renal MD Member Role: Lifetime Consulting Physician Address: Address: [address] [place] [address] [address] [place] [address]- [place] Name: Rebecca Leon RN Position: [facility] RN Member Role: Primary Care Nurse Name: Elisabet Calle Position: [facility] RN Member Role: Primary Care Nurse Name: Paola Cavanaugh RN Position: [facility] ED RN W/OE and Tasks Member Role: Primary Care Nurse Name: Argentina Dixon RN Position: [facility] ED RN W/OE and Tasks Member Role: Primary Care Nurse Name: Christina Alonso Position: [facility] AMB Nurse Member Role: Lifetime Consulting Physician Name: Ramiro Brody III, RN Position: [facility] RN Member Role: Primary Care Nurse Name: Simran Tariq RN Position: [facility] RN Member Role: Primary Care Nurse Name: Narayan Spencer RN Position: [facility] SN RN Member Role: Primary Care Nurse Name: Shell Yoder RN Position: [facility] RN Member Role: Primary Care Nurse Name: Yenni Packer RN Position: [facility] RN Member Role: Primary Care Nurse Name: Radha Mustafa RN Position: [facility] AMB Nurse Member Role: Primary Care Nurse Name: Misti Pickard RN Position: [facility] RN Member Role: Primary Care Nurse Name: William Villanueva RN Position: [facility] RN Member Role: Primary Care Nurse Name: Viky Torre RN Position: [facility] Associate Member Role: Primary Care Nurse Name: Carolee Tesfaye RN Position: [facility] RN Member Role: Primary Care Nurse Name: Joey Perez MD Position: [facility] Renal MD Member Role: Lifetime Consulting Physician Address: Address: [address] [place] [address] [facility] [place] [address]- [place] Name: Brittney Ledezma RN Position: [facility] Associate Member Role: Primary Care Nurse Name: Eliezer Wagner RN Position: [facility] RN Member Role: Primary Care Nurse Name: Najma Causey RN Position: [facility] SN RN Member Role: Primary Care Nurse Name: Martha AMBRIZ, Brunilda Position: [facility] RN Member Role: Primary Care Nurse Care Team Related Persons Name: ROOPA XIE Address: [address] [address] Name: HOPE XIE Address: [address] [address]
--- OUTSIDE RECORDS SUMMARY | 2023-05-25 14:57 | XMS_ITS | Continuity of Care Document ---
Author Organization [facility] Address [address] [place] [address]- Care Team Providers Care Ems Educator Name Role Phone Britany Springer MD Primary Care Physician Encounter [facility] Date(s): 09/14/20 - 10/14/[address] [address]- Allergies, Adverse Reactions, Alerts Substance Reaction Severity [...] 3 12/06/10 Given 1Admin Note: vis given Nigerien 2Admin Note: vis [phone] 3Admin Note: VIS given Nigerien. Medications acetaminophen 325 mg oral tablet 650 mg, By Mouth, Every 4 hours, PRN, # 50 tablet, Refills 5, Tot. Refills 5, Maintenance, as needed for pain, 06/20/19 14:52:00 EDT, Route to Pharmacy Electronically, [facility]/pharmacy #[id number], 178, cm, 04/02/19 9:47:00 EST, Height, 94.7, [...] Date: 01/13/21 Stop Date: 07/12/21 Status: Ordered Aspirin Low Dose 81 mg oral delayed release tablet See Instructions, MARCOS STEWARD TODOS LOS BENDER, # 90 tablet, 1 Refills, Maintenance, [facility], 183, cm, 08/10/20 16:05:00 EDT, Height, 84.8, kg, 07/01/19 22:20:00 EDT, Dry Weight Start Date: 10/05/20 Status: Ordered atorvastatin 20 mg oral tablet 1 tablet = 20 mg, By Mouth, Daily at supper, # 90 tablet, 2 Refills, Maintenance, 02/03/20 10:50:00EST, Tablet, [facility]/pharmacy #[id number], 183, cm, 12/27/19 13:56:00 EST, Height, 84.8, kg, 07/01/19 22:20:00 EDT, Dry Weight Start Date: 02/03/20 Status: Ordered Claritin 10 mg oral tablet 10 mg, 1, tablet, By Mouth, Daily, # 30 tablet, Refills 0, Tot. Refills 0, Maintenance, 07/15/20 16:23:00 EDT, Route to Pharmacy Electronically, [facility]/pharmacy #[id number], Partial fill upon patient request [...] Date: 10/13/20 Stop Date: 01/11/21 Status: Ordered glipiZIDE 2.5 mg oral tablet, extended release See Instructions, MARCOS STEWARD RANDELL BENDER, # 30 tablet, 2 Refills, [id number], 183, cm, 08/10/20 16:05:00 EDT, Height, 84.8, kg, 07/01/19 22:20:00 EDT, Dry Weight Start Date: 10/10/20 Status: Ordered Gloves See Instructions, # 150 [...] Daily, # 90 tablet, 1 Refills, Maintenance, 10/05/20 10:39:00 EDT, Tablet, [facility], 1 tablet By Mouth Daily, 183, cm, 08/10/20 16:05:00 EDT, Height, 84.8, kg, 07/01/19 22:20:00 EDT, Dry Weight Start Date: 10/05/20 Status: Ordered Pullups - size L Pullups [...] Tot. Refills 0, Maintenance, [facility] Dx: Stroke (I63.9), impaired mobility (Z74.09), 07/09/19 [...] Refills, Maintenance, 05/09/20 8:53:00 EDT, ER Tablet, [facility]/pharmacy #[id number], 183, cm, 12/27/19 13:56:00 EST, [...]
--- OUTSIDE RECORDS SUMMARY | 2023-05-25 14:57 | XMS_ITS | Continuity of Care Document ---
Author Organization [facility] Address [address] [place] [address]- Care Team Providers Care Engineering Writer Name Role Phone Britany Springer MD Primary Care Physician Encounter 07/06/19 - 08/21/19 [facility] [address] [place] [address]- [facility] Discharge Disposition: GOALS MET Allergies, Adverse Reactions, Alerts Substance Reaction Severity [...] Note: vis given Senegalese 2Admin Note: vis [phone] 3Admin Note: VIS given Senegalese. Medications acetaminophen 325 mg oral tablet 650 mg, By Mouth, Every 4 hours, PRN, # 50 tablet, Refills 5, Tot. Refills 5, Maintenance, as needed for pain, 06/20/19 14:52:00 EDT, Route to Pharmacy Electronically, [facility]/pharmacy #[id number], 178, cm, 04/02/19 9:47:00 EST, Height, 94.7, [...] 11:15:00 EDT, [id number], ins... Start Date: 07/22/19 Stop Date: 10/20/19 Status: Ordered aspirin 81 mg oral delayed release tablet 81 mg, 1, tablet, By Mouth, Daily, # 90 tablet, Refills 3, Tot. Refills 3, Maintenance, 01/09/19 16:18:54 EST, Route to Pharmacy Electronically, [id number], [facility]/pharmacy #[id number] Start Date: 01/09/19 Stop Date: 01/04/20 Status: Ordered atorvastatin 20 mg oral tablet 1 tablet = 20 mg, By Mouth, Daily at supper, # 30 tablet, 5 Refills, Maintenance, 01/09/19 16:18:57EST, Tablet Start Date: 01/09/19 Status: Ordered cetirizine 10 mg oral tablet 1 tablet = 10 mg, By Mouth, Daily, # 90 tablet, 1 Refills, Maintenance, 06/20/19 15:01:00 EDT, Tablet, [facility]/pharmacy #[id number], 178, cm, 04/02/19 [...] Gm, 5 Refills, Maintenance, 07/20/18 13:11:53 EDT, [place], 2 sprays Nares, Both Daily Start Date: [...] Refills, Maintenance, 06/20/19 15:01:00 EDT, REC Powder, [facility]/pharmacy #[id number], 17 Gm By Mouth Daily,Instr:dissolve in water beforetaking, 178, cm, 04/02/19 9:47:00 EST, Height, 94.7... Start Date: 06/20/19 Status: Ordered Multi-Day Plus Minerals oral tablet 1 tablet, By Mouth, Daily, # 30 tablet, 5 Refills, Maintenance, 07/22/19 18:27:00 EDT, Tablet, [facility]/pharmacy #[id number], 1 tablet By [...] Tot. Refills 0, Maintenance, [facility] Dx: Stroke (I63.9), impaired mobility (Z74.09), [...] Refills, Maintenance, 05/15/19 8:53:00 EDT, ER Tablet, [facility]/pharmacy #[id number], 178, cm, 04/02/19 [...]
--- OUTSIDE RECORDS SUMMARY | 2023-05-25 14:57 | XMS_ITS | Continuity of Care Document ---
Author Organization [facility] Address [address] [place] [address]- Care Team Providers Care Operations Technician Name Role Phone Damián De Jesus MD Primary Care Physician [phone] Encounter [facility] Date(s): 07/09/19 - 07/16/[address] [address]- [place] Attending Physician: Nataliia Reddy MD Referring Physician: Rupert العلي MD Allergies, Adverse Reactions, Alerts Substance Reaction [...] Note: vis given Uruguayan 2Admin Note: vis [phone] 3Admin Note: VIS given Uruguayan. Medications acetaminophen 325 mg oral tablet 650 mg, By Mouth, Every 4 hours, PRN, # 50 tablet, Refills 5, Tot. Refills 5, Maintenance, as needed for pain, 06/20/19 14:52:00 EDT, Route to Pharmacy Electronically, [facility]/pharmacy #[id number], 178, cm, 04/02/19 9:47:00 EST, Height, 94.7, [...] 01/09/19 16:18:54 EST, Route to Pharmacy Electronically, [id number], [facility]/pharmacy #[id number] Start Date: 01/09/19 Stop Date: 01/04/20 Status: Ordered atorvastatin 20 mg oral tablet 1 tablet = 20 mg, By Mouth, Daily at supper, # 30 tablet, 5 Refills, Maintenance, 01/09/19 16:18:57EST, Tablet Start Date: 01/09/19 Status: Ordered cetirizine 10 mg oral tablet 1 tablet = 10 mg, By Mouth, Daily, # 90 tablet, 1 Refills, Maintenance, 06/20/19 15:01:00 EDT, Tablet, [facility]/pharmacy #[id number], 178, cm, 04/02/19 9:47:00 [...] Gm, 5 Refills, Maintenance, 07/20/18 13:11:53 EDT, [place], 2 sprays Nares, Both Daily Start Date: [...] Maintenance, 06/20/19 15:01:00 EDT, REC Powder, [facility]/pharmacy #[id number], 17 Gm By Mouth Daily,Instr:dissolve in water beforetaking, 178, cm, 04/02/19 9:47:00 EST, Height, 94.7... Start Date: 06/20/19 Status: Ordered Multi-Day Plus Minerals oral tablet 1 tablet, By Mouth, Daily, # 30 tablet, 5 Refills, Maintenance, 01/09/19 16:19:07 EST, Tablet, 1 tablet By Mouth Daily Start Date: 01/09/19 Status: Ordered Pullups - size L Pullups - size L, See Instructions, # 150 units, Refills 11, Tot. Refills 11, Maintenance, Use as needed for incontinence 5x/day; length of need 1 year; ICD 10 N39.46, 01/30/19 7:36:02 EST, Compound Start Date: 01/30/19 Status: Ordered Shower chair Shower chair, See Instructions, # 1 each, Refills 0, Tot. Refills 0, Maintenance, Use as needed forshowbeba. Dx: Stroke (I63.9), impaired mobility (Z74.09), 07/09/19 [...] Refills, Maintenance, 05/15/19 8:53:00 EDT, ER Tablet, [facility]/pharmacy #[id number], 178, cm, 04/02/19 9:47:00 [...]
--- OUTSIDE RECORDS SUMMARY | 2023-05-25 14:57 | XMS_ITS | Continuity of Care Document ---
Author Organization [facility] Address [address] [place] [address]- Care Team Providers Care Gaming Pit Boss Name Role Phone Britany Springer MD Primary Care Physician ( [phone] Encounter [facility] Date(s): 06/26/20 - 07/26/[address] [address]- Allergies, Adverse Reactions, Alerts Substance Reaction Severity [...] 3 12/06/10 Given 1Admin Note: vis given Lithuanian 2Admin Note: vis [phone] 3Admin Note: VIS given Lithuanian. Medications acetaminophen 325 mg oral tablet 650 mg, By Mouth, Every 4 hours, PRN, # 50 tablet, Refills 5, Tot. Refills 5, Maintenance, as needed for pain, 06/20/19 14:52:00 EDT, Route to Pharmacy Electronically, [facility]/pharmacy #[id number], 178, cm, 04/02/19 9:47:00 EST, Height, 94.7, [...] 11:17:00 EDT, Route to Pharmacy Electronically, [facility]/pharmacy #[id number], 183, cm, 12/27/19 13:56:00 EST, Height, 84.8, kg, 07/01/19 22:20:00 EDT, Dry Weight Start Date: 07/26/20 Stop Date: 01/22/21 Status: Ordered atorvastatin 20 mg oral tablet 1 tablet = 20 mg, By Mouth, Daily at supper, # 90 tablet, 2 Refills, Maintenance, 02/03/20 10:50:00EST, Tablet, [facility]/pharmacy #[id number], 183, cm, 12/27/19 13:56:00 EST, Height, 84.8, kg, 07/01/19 22:20:00 EDT, Dry Weight Start Date: 02/03/20 Status: Ordered Claritin 10 mg oral tablet 10 mg, 1, tablet, By Mouth, Daily, # 30 tablet, Refills 0, Tot. Refills 0, Maintenance, 07/15/20 16:23:00 EDT, Route to Pharmacy Electronically, [facility]/pharmacy #[id number], Partial fill upon patient request if [...] tablet = 2.5 mg, By Mouth, Daily, # 30 tablet, 0 Refills, Maintenance, 07/15/20 16:25:00 EDT, ER Tablet, [facility]/pharmacy #[id number], Partial fill upon patient request if the prescription is for a schedule II opioid drug., 183, cm, 07/15/20 15:52:00 EDT, Hei... Start Date: 07/15/20 Status: Ordered Gloves See Instructions, # 150 [...] EDT, Supply Start Date: 08/29/19 Status: Ordered metFORMIN 500 mg oral tablet 1 tablet = 500 mg, By Mouth, 2 times a day, # 60 tablet, 0 Refills, Maintenance, 07/15/20 16:25:00 EDT, Tablet, [facility]/pharmacy #[id number], Partial fill upon patient request if the prescription is for a schedule II opioid drug., 183, cm, 07/15/20 15:52:00 EDT... Start Date: 07/15/20 Status: Ordered Multi-Day Plus Minerals oral tablet 1 tablet, By Mouth, Daily, # 90 tablet, 1 Refills, Maintenance, 02/03/20 10:58:00 EST, Tablet, [facility]/pharmacy #[id number], 1 tablet By Mouth Daily, 183, [...] Tot. Refills 0, Maintenance, Use as needed asya. Dx: Stroke (I63.9), impaired mobility (Z74.09), 07/09/19 [...]
--- OUTSIDE RECORDS SUMMARY | 2023-05-25 14:57 | XMS_ITS | Continuity of Care Document ---
Author Organization [facility] Address [address] [place] [address]- Care Team Providers Care Ceramic Mold Designer Name Role Phone Britany Springer MD Primary Care Physician Encounter [facility] Date(s): 07/22/20 - 08/21/[address] [address]- Allergies, Adverse Reactions, Alerts Substance Reaction Severity [...] 3 12/06/10 Given 1Admin Note: vis given Hong Konger 2Admin Note: vis [phone] 3Admin Note: VIS given Hong Konger. Medications acetaminophen 325 mg oral tablet 650 mg, By Mouth, Every 4 hours, PRN, # 50 tablet, Refills 5, Tot. Refills 5, Maintenance, as needed for pain, 06/20/19 14:52:00 EDT, Route to Pharmacy Electronically, [facility]/pharmacy #[id number], 178, cm, 04/02/19 9:47:00 EST, Height, 94.7, [...] 11:17:00 EDT, Route to Pharmacy Electronically, [facility]/pharmacy #[id number], 183, cm, 12/27/19 13:56:00 EST, Height, 84.8, kg, 07/01/19 22:20:00 EDT, Dry Weight Start Date: 07/26/20 Stop Date: 01/22/21 Status: Ordered atorvastatin 20 mg oral tablet 1 tablet = 20 mg, By Mouth, Daily at supper, # 90 tablet, 2 Refills, Maintenance, 02/03/20 10:50:00EST, Tablet, [facility]/pharmacy #[id number], 183, cm, 12/27/19 13:56:00 EST, Height, 84.8, kg, 07/01/19 22:20:00 EDT, Dry Weight Start Date: 02/03/20 Status: Ordered Claritin 10 mg oral tablet 10 mg, 1, tablet, By Mouth, Daily, # 30 tablet, Refills 0, Tot. Refills 0, Maintenance, 07/15/20 16:23:00 EDT, Route to Pharmacy Electronically, [facility]/pharmacy #[id number], Partial fill upon patient request if [...] Instructions, TOME KIA TABLETA POR VIA ORAL TODOD[place] CONWAY BENDER, # 30 tablet, 0 Refills, Maintenance, [facility], 183, cm, 07/15/20 15:52:00 EDT, Height, 84.8, [...] Refills, Maintenance, 02/03/20 10:58:00 EST, Tablet, [facility]/pharmacy #[id number], 1 tablet By Mouth Daily, 183, [...] Refills, Maintenance, 05/09/20 8:53:00 EDT, ER Tablet, [facility]/pharmacy #[id number], 183, cm, 12/27/19 13:56:00 EST, Height, [...]
--- OUTSIDE RECORDS SUMMARY | 2023-05-25 14:57 | XMS_ITS | Continuity of Care Document ---
Author Organization [facility] Address [address] [place] [address]- Care Team Providers Care Television Operator Name Role Phone Britany Sprigner MD Primary Care Physician Encounter [facility] Date(s): 10/03/19 - 11/02/[address] [address]- [facility] Allergies, Adverse Reactions, [...] 3 12/06/10 Given 1Admin Note: vis given Malagasy 2Admin Note: vis [id number] 3Admin Note: VIS given Malagasy. Medications acetaminophen 325 mg oral tablet 650 mg, By Mouth, Every 4 hours, PRN, # 50 tablet, Refills 5, Tot. Refills 5, Maintenance, as needed for pain, 06/20/19 14:52:00 EDT, Route to Pharmacy Electronically, [facility]/pharmacy #[id number], 178, cm, 04/02/19 9:47:00 EST, Height, 94.7, [...] 10/21/19 11:35:00 EDT, Route to Pharmacy Electronically, [facility]/pharmacy #[id number], ins... Start Date: 10/21/19 Stop Date: 01/19/20 Status: Ordered aspirin 81 mg oral delayed release tablet 81 mg, 1, tablet, By Mouth, Daily, # 90 tablet, Refills 3, Tot. Refills 3, Maintenance, 01/09/19 16:18:54 EST, Route to Pharmacy Electronically, [id number], [facility]/pharmacy #[id number] Start Date: 01/09/19 Stop Date: 01/04/20 Status: Ordered atorvastatin 20 mg oral tablet 1 tablet = 20 mg, By Mouth, Daily at supper, # 30 tablet, 5 Refills, Maintenance, 08/22/19 14:51:00EDT, Tablet, [facility]/pharmacy #[id number], 183, cm, 07/29/19 15:02:00 EDT, Height, 84.8, kg, 07/01/19 22:20:00 EDT, Dry Weight Start Date: 08/22/19 Status: Ordered cetirizine 10 mg oral tablet 1 tablet = 10 mg, By Mouth, Daily, # 90 tablet, 1 Refills, Maintenance, 10/21/19 11:35:00 EDT, Tablet, [facility]/pharmacy #[id number], 183, cm, 07/29/19 15:02:00 EDT, [...] Gm, 5 Refills, Maintenance, 07/20/18 13:11:53 EDT, [place], 2 sprays Nares, Both Daily Start Date: [...] Refills, Maintenance, 06/20/19 15:01:00 EDT, REC Powder, [facility]/pharmacy #[id number], 17 Gm By Mouth Daily,Instr:dissolve in water beforetaking, 178, cm, 04/02/19 9:47:00 EST, Height, 94.7... Start Date: 06/20/19 Status: Ordered Multi-Day Plus Minerals oral tablet 1 tablet, By Mouth, Daily, # 30 tablet, 5 Refills, Maintenance, 07/22/19 18:27:00 EDT, Tablet, [facility]/pharmacy #[id number], 1 tablet By Mouth Daily, [...] Tot. Refills 0, Maintenance, Use as needed [facility]. Dx: Stroke (I63.9), impaired mobility (Z74.09), [...]
--- OUTSIDE RECORDS SUMMARY | 2023-05-25 14:57 | XMS_ITS | Continuity of Care Document ---
Author Organization [facility] Address [address] [place] [address]- Care Team Providers Care Legal Mediator Name Role Senior Data Warehouse Architect Declan ALVAREZ Primary Care Physician Encounter [facility] Date(s): 09/08/22 - 10/08/[address] [id number] Allergies, Adverse Reactions, Alerts No Known [...] virus vaccine, inactivated 1 12/06/10 Gi dory [id number] 12y+ bivalent booster vax 01/18/22 Given SARS-CoV-2 (COVID-19) mRNA BNT-162b2 vac 02/08/21 Given SARS-CoV-2 (COVID-19) mRNA BNT-162b2 vac 01/18/21 Given pneumococcal 23-valent vaccine 12/08/14 Given FluLaval (oldterm) 2 12/26/11 Given tetanus-diphtheria toxoids (Td) 3 12/06/10 Given 1Admin Note: vis given Greek 2Admin Note: vis [id number] 3Admin Note: VIS given Greek. Medications acetaminophen 325 mg oral tablet 650 mg, By Mouth, Every 4 hours, PRN, # 50 tablet, Refills 5, Tot. Refills 5, Maintenance, as needed for pain, 11/23/20 13:09:00 EDT, Route to Pharmacy Electronically, [facility]/pharmacy #[id number], 183, cm, 08/10/20 16:05:00 EDT, [...] tablet, 1 Refills, Maintenance, 07/06/22 13:39:00 EDT, [facility]/pharmacy #[id number], 175, cm, 01/18/22 12:03:00 EST, Height, 81.9, kg, 08/31/21 14:47:00 EDT, Dry Weight Start Date: 07/06/22 Status: Ordered Aspirin Low Dose 81 mg oral delayed release tablet See Instructions, TOME KIA TABLETA TODOS LOS BENDER, # 90 tablet, 1 Refills, Maintenance, 03/04/22 13:01:00 EST, [id number], 175, cm, 01/18/22 12:03:00 EST, Height, 81.9, kg, 08/31/21 14:47:00 EDT, Dry Weight Start Date: 03/04/22 Status: Ordered atorvastatin 20 mg oral tablet See Instructions, TOME KIA TABLETA RANDELL CONWAY BENDER AT SUPPER, # 90 tablet, 1 Refills, 06/17/22 9:43:00 EDT, [facility]/pharmacy #[id number], 175, cm, 01/18/22 12:03:00 EST, Height, 81.9, kg, 08/31/21 14:47:00 EDT,Dry Weight Start Date: 06/17/22 Status: Ordered atorvastatin 20 mg oral tablet See Instructions, MARCOS KIA TABLETA RANDELL MCKENNAS AT SUPPER, # 90 tablet, 1 Refills, Maintenance, 10/03/22 12:31:00 EDT, [id number], 175, cm, 01/18/22 12:03:00 EST, Height, 81.9, kg, 08/31/21 14:47:00 EDT, Dry Weight Start Date: 10/03/22 Status: Ordered BuPROPion (Eqv-Wellbutrin SR) 150 mg/12 hours oral tablet, extended release See Instructions, MARCOS KIA TABLETA DOS VECPERLA AL BALA, # 180 Unknown, 1 Refills, Maintenance, 03/04/22 13:01:00 EST, [facility], 175, cm, 01/18/22 12:03:00 EST, Height, 81.9, kg, 08/31/21 14:47:00EDT, Dry Weight Start Date: 03/04/22 Status: Ordered Compression Stockings See Instructions, # 2 pair, Refills 0, Tot. Refills 0, Maintenance, surgical, calf length 20-30 mm Hg R60.0, 07/10/17 16:54:50 EDT, Compound Start Date: 07/10/17 Status: Ordered Daily Yasmine oral tablet See Instructions, MARCOS KIA TABLETA POR VIA ORAL RANDELL BENDER, # 90 tablet, 1 Refills, Maintenance, 03/04/22 13:01:00 EST, [facility], 90, TOME KIA TABLETA POR VIA ORAL [...] ONCE DAILY, # 238 Gm, 5 Refills, [facility], 14, DISSOLVE 17 GRAMS IN WATER AND DRINK ONCE DAILY, 183, cm, 01/18/21 11:01:00 EST, Height, 84.8, kg, 07/01/19 22:20:00 EDT, Dry Weight Start Date: 06/29/21 Status: Ordered glipiZIDE 2.5 mg oral tablet, extended release See Instructions, MARCOS LEÓNDOS LOS BENDER, # 90 tablet, 0 Refills, Maintenance, 08/30/22 9:54:00 EDT, [facility], 175, cm, 01/18/22 12:03:00 EST, Height, 81.9, [...] Replace Required Details, Route to Pharmacy Electronically, [facility], 175, cm, 01/18/22 12:03:00 EST, Height, 81.9, kg,... Start Date: 03/04/22 Status: Ordered Multi-Day Plus Minerals oral tablet 1 tablet, By Mouth, Daily, resent to new pharmacy, # 90 tablet, 1 Refills, Maintenance, 10/18/21 16:12:00 EDT, Tablet, [facility]/pharmacy #[id number], 1 tablet By Mouth [...] Tot. Refills 0, Maintenance, Use as needed [facility]. Dx: Stroke (I63.9), impaired mobility (Z74.09), 03/04/22 [...] Team Personnel Name: Declan Louise MD Position: [facility] Physician - Primary Care Member Role: PCP Address: Address: [address] [place] [id number] Name: Simran Shannon RN Position: S RN Member Role: Primary Care Nurse Name: Torie Jo RN Position: [facility] RN Supv Member Role: Primary Care Nurse Name: Hussein Waters RN Position: S RN Member Role: Primary Care Nurse Name: Vandana Sorensen NP Position: [facility] Associate Professional Member Role: Primary Care Nurse Address: Address: [address] [place] [address]- [place] Name: Karsten Kwong MD Position: [facility] Renal MD Member Role: Lifetime Consulting Physician Address: Address: [address] [place] [address], [address] [facility] [place] [address]- Name: Rebecca Leon RN Position: [facility] RN Member Role: Primary Care Nurse Name: Elisabet Calle Position: [facility] RN Member Role: Primary Care Nurse Name: Paola Cavanaugh RN Position: [facility] ED RN W/OE and Tasks Member Role: Primary Care Nurse Name: Argentina Dixon RN Position: [facility] SN RN Member Role: Primary Care Nurse Name: Christina Alonso Position: [facility] AMB Nurse Member Role: Lifetime Consulting Physician Name: Ramiro Brody III, RN Position: [facility] RN Member Role: Primary Care Nurse Name: Simran Tariq RN Position: [facility] RN Member Role: Primary Care Nurse Name: Dana Fitzgerald RN Position: [facility] RN Member Role: Primary Care Nurse Name: Narayan Spencer RN Position: [facility] SN RN Member Role: Primary Care Nurse Name: Shell Yoder RN Position: [facility] RN Member Role: Primary Care Nurse Name: Radha Mustafa RN Position: [facility] RN Member Role: Primary Care Nurse Name: Misti Pickard RN Position: [facility] RN Member Role: Primary Care Nurse Name: William Villanueva RN Position: [facility] RN Member Role: Primary Care Nurse Name: Viky Torre RN Position: [facility] Property Claims Adjuster Member Role: Primary Care Nurse Name: Carolee Tesfaye RN Position: [facility] RN Member Role: Primary Care Nurse Name: Joey Perez MD Position: [facility] Renal MD Member Role: Lifetime Consulting Physician Address: Address: [address] [place] [address] [facility] [place] [address]- [place] Name: Brittney Ledezma RN Position: [facility] Property Claims Adjuster Member Role: Primary Care Nurse Name: Eliezer Wagner RN Position: [facility] ED RN W/OE and Tasks Member Role: Primary Care Nurse Name: Najma Causey RN Position: [facility] SN RN Member Role: Primary Care Nurse Name: Brunilda Thomas RN Position: S RN Member Role: Primary Care Nurse Care Team Related Persons Name: ROOPA XIE Address: [address] [address] Name: HOPE XIE Address: [address] [address]
--- OUTSIDE RECORDS SUMMARY | 2023-05-25 14:57 | XMS_ITS | Continuity of Care Document ---
Author Organization [facility] Address [address] [place] [address]- Care Team Providers Care Sql Server Dba Name Role In School Suspension Aide Declan ALVAREZ Primary Care Physician Encounter [facility] Date(s): 03/01/23 - 03/31/[address] [id number] Allergies, Adverse Reactions, Alerts No Known [...] virus vaccine, inactivated 1 12/06/10 Gi dory [id number] 12y+ bivalent booster vax 01/18/22 Given SARS-CoV-2 (COVID-19) mRNA BNT-162b2 vac 02/08/21 Given SARS-CoV-2 (COVID-19) mRNA BNT-162b2 vac 01/18/21 Given pneumococcal 23-valent vaccine 12/08/14 Given FluLaval (oldterm) 2 12/26/11 Given tetanus-diphtheria toxoids (Td) 3 12/06/10 Given 1Admin Note: vis given [facility] 2Admin Note: vis [id number] 3Admin Note: VIS given [facility]. Medications acetaminophen 325 mg oral tablet 650 mg, By Mouth, Every 4 hours, PRN, # 50 tablet, Refills 5, Tot. Refills 5, Maintenance, as needed for pain, 11/23/20 13:09:00 EDT, Route to Pharmacy Electronically, [facility]/pharmacy #[id number], 183, cm, 08/10/20 16:05:00 EDT, Height, 84.8, kg, 07/01/19 22:2... Start Date: 11/23/20 Status: Ordered amLODIPine 10 mg oral tablet 10 mg, By Mouth, Daily, # 90 each, Refills 3, Tot. Refills 3, Maintenance, 02/24/23 12:06:00 EST, Route to Pharmacy Electronically, [facility]/pharmacy #[id number], Partial fill upon patient request if the prescription is for a schedule II opioid drug., 175, cm, 0... Start Date: 02/24/23 Stop Date: 02/19/24 Status: Ordered Aspirin Low Dose 81 mg oral delayed release tablet See Instructions, MARCOS ADAM TABLETA TOS ZORAIDA BENDER, # 90 tablet, 1 Refills, Maintenance, 02/24/23 12:05:00 EST, [facility]/pharmacy #[id number], 175, cm, 02/24/23 11:28:00 EST, Height, 81.9, kg, 01/04/23 22:19:00 EST, Dry Weight Start Date: 02/24/23 Status: Ordered atorvastatin 20 mg oral tablet See Instructions, NANETTEE KIA TABLETA TODOS ZORAIDA BENDER AT SUPPER, # 90 tablet, 1 Refills, Maintenance, 02/24/23 12:05:00 EST, [facility]/pharmacy #[id number], 175, cm, 02/24/23 11:28:00 EST, Height, 81.9, kg, 01/04/2322:19:00 EST, Dry Weight Start Date: 02/24/23 Status: Ordered BuPROPion (Eqv-Wellbutrin SR) 150 mg/12 hours oral tablet, extended release See Instructions, TOME KIA TABLETA DOS VECES AL BALA, # 180 each, 1 Refills, Maintenance, 02/24/23 12:05:00 EST, [facility]/pharmacy #[id number], 175, cm, 02/24/23 11:28:00 EST, Height, 81.9, kg, 01/04/23 22:19:00EST, Dry Weight Start Date: 02/24/23 Status: Ordered Daily Yasmine oral tablet See Instructions, NANETTEE KIA TABLETA TODOS LOS BENDER, # 90 tablet, 1 Refills, Maintenance, 02/24/23 12:05:00 EST, [facility]/pharmacy #[id number], 90, TOME KIA TABLETA TODOS LOS BENDER, 175, cm, 02/24/23 11:28:00 EST,Height, 81.9, kg, 01/04/23 22:19:00 EST, Dry Weight Start Date: 02/24/23 Status: Ordered GaviLAX oral powder for reconstitution See Instructions, DISSOLVE 17 GRAMS IN WATER AND DRINK ONCE DAILY, # 238 Gm, 5 Refills, Maintenance, 02/24/23 12:05:00 EST, [facility]/pharmacy #[id number], 14, DISSOLVE 17 GRAMS IN WATER AND DRINK ONCE DAILY, 175, cm, 02/24/23 11:28:00 EST, Height, 81.9, kg, 12/21... Start Date: 02/24/23 Status: Ordered glipiZIDE 5 mg oral tablet, extended release 1 tablet = 5 mg, By Mouth, Daily, dose of 5 mg ER please dose., # 90 tablet, 3 Refills, Maintenance, 02/24/23 11:59:00 EST, ER Tablet, [facility]/pharmacy #[id number], Partial fill upon patient request if [...] Instructions Replace Required Details, Route to Pharmacy Electronically,[facility]/pharmacy #[id number], 175, cm, 02/24/23 11:28:00 EST,... Start Date: 02/24/23 Status: Ordered Multi-Day Plus Minerals oral tablet 1 tablet, By Mouth, Daily, resent to new pharmacy, # 90 tablet, 1 Refills, Maintenance, 10/18/21 16:12:00 EDT, Tablet, [facility]/pharmacy #[id number], 1 tablet By Mouth Daily,Instr:resent to [...] Team Personnel Name: Declan Louise MD Position: [facility] Physician - Primary Care Member Role: PCP Address: Address: [address] [place] [address]- Name: Simran Shannon RN Position: S RN Member Role: Primary Care Nurse Name: Torie Jo RN Position: S RN Supv Member Role: Primary Care Nurse Name: Hussein Waters RN Position: S RN Member Role: Primary Care Nurse Name: Vandana Sorensen NP Position: [facility] Associate Professional Member Role: Primary Care Nurse Address: Address: [address] [place] [address]- [place] Name: Karsten Kwong MD Position: [facility] Renal MD Member Role: Lifetime Consulting Physician Address: Address: [address] [place] [address] [address] [facility] [place] [address]- [place] Name: Rebecca Leon RN Position: [facility] RN Member Role: Primary Care Nurse Name: Elisabet Calle Position: [facility] RN Member Role: Primary Care Nurse Name: Paola Cavanaugh RN Position: [facility] ED RN W/OE and Tasks Member Role: Primary Care Nurse Name: Argentina Dixon RN Position: [facility] SN RN Member Role: Primary Care Nurse Name: Christina Alonso Position: [facility] AMB Nurse Member Role: Lifetime Consulting Physician Name: Ramiro Brody III, RN Position: [facility] RN Member Role: Primary Care Nurse Name: Simran Tariq RN Position: [facility] RN Member Role: Primary Care Nurse Name: Narayan Spencer RN Position: [facility] SN RN Member Role: Primary Care Nurse Name: Shell Yoder RN Position: [facility] RN Member Role: Primary Care Nurse Name: Yenni Packer RN Position: [facility] RN Member Role: Primary Care Nurse Name: Radha Mustafa RN Position: [facility] AMB Nurse Member Role: Primary Care Nurse Name: Misti Pickard RN Position: [facility] RN Member Role: Primary Care Nurse Name: William Villanueva RN Position: [facility] RN Member Role: Primary Care Nurse Name: Viky Torre RN Position: [facility] Breakdown Person Member Role: Primary Care Nurse Name: Carolee Tesfaye RN Position: [facility] RN Member Role: Primary Care Nurse Name: Joey Perez MD Position: [facility] Renal MD Member Role: Lifetime Consulting Physician Address: Address: [address] [place] [address] [facility] [place] [address]- [place] Name: Brittney Ledezma RN Position: [facility] Breakdown Person Member Role: Primary Care Nurse Name: Eliezer Wagner RN Position: [facility] RN Member Role: Primary Care Nurse Name: Najma Causey RN Position: [facility] SN RN Member Role: Primary Care Nurse Name: Brunilda Thomas RN Position: [facility] RN Member Role: Primary Care Nurse Care Team Related Persons Name: ROOPA XIE Address: [address] [address] Name: HOPE XIE Address: [address] [address]
--- OUTSIDE RECORDS SUMMARY | 2023-05-25 14:58 | XMS_ITS | Continuity of Care Document ---
Author Organization [facility] Address [address] [place] [address]- Care Team Providers Care Traffic Operator Name Role Phone Britany Springer MD Primary Care Physician Encounter [facility] Date(s): 04/08/20 - 05/08/[address] [address]- Allergies, Adverse Reactions, Alerts Substance Reaction Severity [...] 3 12/06/10 Given 1Admin Note: vis given Somali 2Admin Note: vis [id number] 3Admin Note: VIS given Somali. Medications acetaminophen 325 mg oral tablet 650 mg, By Mouth, Every 4 hours, PRN, # 50 tablet, Refills 5, Tot. Refills 5, Maintenance, as needed for pain, 06/20/19 14:52:00 EDT, Route to Pharmacy Electronically, [facility]/pharmacy #[id number], 178, cm, 04/02/19 9:47:00 EST, Height, 94.7, [...] 07/26/20 11:17:00 EDT, Route to Pharmacy Electronically, [facility]/pharmacy #[id number], 183, cm, 12/27/19 13:56:00 EST, Height, 84.8, kg, 07/01/19 22:20:00 EDT, Dry Weight Start Date: 07/26/20 Stop Date: 01/22/21 Status: Ordered aspirin 81 mg oral delayed release tablet 81 mg, 1, tablet, By Mouth, Daily, for 90 days, # 90 tablet, Refills 1, Tot. Refills 1, Hard Stop 07/26/20 11:17:00 EDT, 01/28/20 11:17:00 EST, Route to Pharmacy Electronically, [facility]/pharmacy #[id number], 183, cm, 12/27/19 13:56:00 EST, Height, 84.8, kg, ... Start Date: 01/28/20 Stop Date: 07/26/20 Status: Ordered atorvastatin 20 mg oral tablet 1 tablet = 20 mg, By Mouth, Daily at supper, # 90 tablet, 2 Refills, Maintenance, 02/03/20 10:50:00EST, Tablet, [facility]/pharmacy #[id number], 183, cm, 12/27/19 13:56:00 EST, Height, 84.8, kg, 07/01/19 22:20:00 EDT, Dry Weight Start Date: 02/03/20 Status: Ordered cetirizine 10 mg oral tablet 1 tablet = 10 mg, By Mouth, Daily, # 90 tablet, 1 Refills, Maintenance, 02/03/20 10:58:00 EST, Tablet, [facility]/pharmacy #[id number], 183, cm, 12/27/19 13:56:00 EST, [...] Refills, Maintenance, 05/09/20 8:53:00 EDT, ER Tablet, [facility]/pharmacy #[id number], 183, cm, 12/27/19 13:56:00 EST, Height, 84.8, kg, 07/01/19 22:20:00 EDT, Dry Weight Start Date: 05/09/20 Stop Date: 05/04/21 Status: Ordered Wellbutrin SR 150 mg/12 hours oral tablet, extended release 1 tablet = 150 mg, By Mouth, 2 times a day, for 90 days, # 180 tablet, 3 Refills, Hard Stop 05/09/20 8:53:00 EDT, 05/15/19 8:53:00 EDT, ER Tablet, [facility]/pharmacy #[id number], 178, cm, 04/02/19 9:47:00 EST, [...]
--- OUTSIDE RECORDS SUMMARY | 2023-05-25 14:58 | XMS_ITS | Continuity of Care Document ---
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 Medications acetaminophen 325 mg oral tablet 650 mg, By Mouth, Every 4 hours, PRN, # 50 tablet, Refills 5, Tot. Refills 5, Maintenance, as needed for pain, 06/20/19 14:52:00 EDT, Route to Pharmacy Electronically, [facility]/pharmacy #[id number], 178, cm, 04/02/19 9:47:00 EST, Height, 94.7, [...] 01/09/19 16:18:54 EST, Route to Pharmacy Electronically, [id number], [facility]/pharmacy #[id number] Start Date: 01/09/19 Stop Date: 01/04/20 Status: Ordered atorvastatin 20 mg oral tablet 1 tablet = 20 mg, By Mouth, Daily at supper, # 30 tablet, 5 Refills, Maintenance, 01/09/19 16:18:57EST, Tablet Start Date: 01/09/19 Status: Ordered cetirizine 10 mg oral tablet 1 tablet = 10 mg, By Mouth, Daily, # 90 tablet, 1 Refills, Maintenance, 06/20/19 15:01:00 EDT, Tablet, [facility]/pharmacy #[id number], 178, cm, 04/02/19 9:47:00 EST, Height, [...] Gm, 5 Refills, Maintenance, 07/20/18 13:11:53 EDT, [place], 2 sprays Nares, Both Daily Start Date: [...] Refills, Maintenance, 06/20/19 15:01:00 EDT, REC Powder, [id number], 17 Gm By Mouth Daily,Instr:dissolve in water beforetaking, 178, cm, 04/02/19 9:47:00 EST, Height, 94.7... Start Date: 06/20/19 Status: Ordered Multi-Day Plus Minerals oral tablet 1 tablet, By Mouth, Daily, # 30 tablet, 5 Refills, Maintenance, 01/09/19 16:19:07 EST, Tablet, 1 tablet By Mouth Daily Start Date: 01/09/19 Status: Ordered NIFEdipine 30 mg oral tablet, extended release 30 mg, 1, tablet, By Mouth, Daily, half pill or 15mg daily, # 30 tablet, Refills 0, Tot. Refills 0,Maintenance, 07/17/19 15:10:00 EDT, Route to Pharmacy Electronically, [facility]/pharmacy #[id number], 183, cm, 07/05/19 9:20:00 EDT, Height, 84.8, kg, 07/01/19 22:... Start Date: 07/17/19 Status: Ordered Pullups - size L Pullups - size L, See Instructions, # 150 units, Refills 11, Tot. Refills 11, Maintenance, Use as needed for incontinence 5x/day; length of need 1 year; ICD 10 N39.46, 01/30/19 7:36:02 EST, Compound Start Date: 01/30/19 Status: Ordered Shower chair Shower chair, See Instructions, # 1 each, Refills 0, Tot. Refills 0, Maintenance, Use as needed [facility]. Dx: Stroke (I63.9), impaired mobility [...] Refills, Maintenance, 05/15/19 8:53:00 EDT, ER Tablet, [facility]/pharmacy #[id number], 178, cm, 04/02/19 9:47:00 EST, Height, [...] Presence of indwelling urina ry catheter(Confirmed) Active Results Radiology Reports * Exam Date Time Procedure Performing Provider Status 07/17/19 12:29 PM Chest 2 Views Frontal and Lat Checo , Ree; Auth (Verified) Notes: (Chest 2 Views Frontal and Lat) Reason For Exam: Shortness of Breath RESULT: Chest 2 Views Frontal and Lat Chest 2 Views Frontal and Lat INDICATION/CLINICAL QUESTION: Reason: Shortness of Breath; Clinical Question(s): CHF / CHF TECHNIQUE: Frontal and lateral views of the chest. COMPARISON: 06/01/2018. FINDINGS: LINES AND TUBES: None. LUNGS AND PLEURA: RIGHT CHEST: The right lung is clear and there is no right effusion. LEFT CHEST: Calcified granulomata. Left lung otherwise clear. No left effusion. HEART, MEDIASTINUM AND JOSE: The heart is of normal size. The mediastinum and jose are normal. BONES AND SOFT TISSUES: No acute bony abnormality. IMPRESSION: 1. No active disease in chest. WSN: [id number] Ordering Physician: Juan Miguel Harry Dictated By: Kehinde Michaels MD Dictated Date/Time: 07/17/19 12:30 p Reviewed By: Kehinde Michaels MD Signed By: Kehinde Michaels MD Signed Date/Time: 07/17/19 12:30 pm Transcribed By: MARISA Transcribed Date/Time: 07/17/19 12:30 pm Vital Signs Most recent to oldest [Reference Range]: 1 2 Oxygen Saturation [94-100 %] 98 % (07/17/19 2:59 PM) 94 % (07/17/19 11:45 AM) Pulse Rate [55-90 bpm] 80 bpm (07/17/19 2:59 PM) 95 bpm *H* (07/17/19 11:45 AM) Blood Pressure [90-138/55-84 mm Hg] 149/ 83mm Hg *H* (07/17/19 2:59 PM) 123/79mm Hg (07/17/19 11:45 AM) Respiratory Rate [16-30 br/min] 98 br/mi n *H* (07/17/19 2:59 PM) 18 br/min (07/17/19 11:45 AM) Temperature [96.8-100.4 DegF] 98.4 DegF (07/17/19 2:59 PM) 97.5 DegF (07/17/19 11:45 AM) Mode of Delivery (Oxygen) Room air (07/17/19 2:59 PM) Room air (07/17/19 11:45 AM) Temperature Route Oral (07/17/19 2:59 PM) Oral (07/17/19 11:45 AM) Social History Social History Type Response Smoking Status Never smoker; Tobacc o user in household: No entered on: 01/12/15 Sex
--- OUTSIDE RECORDS SUMMARY | 2023-05-25 14:58 | XMS_ITS | Continuity of Care Document ---
Author Organization [facility] Address [address] [place] [address]- Care Team Providers Care Cabin Worker Name Role Phone Britany Springer MD Primary Care Physician Encounter [facility] Date(s): 02/18/20 - 03/19/[address] [address]- Allergies, Adverse Reactions, Alerts Substance Reaction Severity [...] 3 12/06/10 Given 1Admin Note: vis given Chinese 2Admin Note: vis [phone] 3Admin Note: VIS given Chinese. Medications acetaminophen 325 mg oral tablet 650 mg, By Mouth, Every 4 hours, PRN, # 50 tablet, Refills 5, Tot. Refills 5, Maintenance, as needed for pain, 06/20/19 14:52:00 EDT, Route to Pharmacy Electronically, [facility]/pharmacy #[id number], 178, cm, 04/02/19 9:47:00 EST, Height, 94.7, [...] 07/26/20 11:17:00 EDT, Route to Pharmacy Electronically, [facility]/pharmacy #[id number], 183, cm, 12/27/19 13:56:00 EST, Height, 84.8, kg, 07/01/19 22:20:00 EDT, Dry Weight Start Date: 07/26/20 Stop Date: 01/22/21 Status: Ordered aspirin 81 mg oral delayed release tablet 81 mg, 1, tablet, By Mouth, Daily, for 90 days, # 90 tablet, Refills 1, Tot. Refills 1, Hard Stop 07/26/20 11:17:00 EDT, 01/28/20 11:17:00 EST, Route to Pharmacy Electronically, [facility]/pharmacy #[id number], 183, cm, 12/27/19 13:56:00 EST, Height, 84.8, kg, /... Start Date: 01/28/20 Stop Date: 07/26/20 Status: Ordered atorvastatin 20 mg oral tablet 1 tablet = 20 mg, By Mouth, Daily at supper, # 90 tablet, 2 Refills, Maintenance, 02/03/20 10:50:00EST, Tablet, [facility]/pharmacy #[id number], 183, cm, 12/27/19 13:56:00 EST, Height, 84.8, kg, 07/01/19 22:20:00 EDT, Dry Weight Start Date: 02/03/20 Status: Ordered cetirizine 10 mg oral tablet 1 tablet = 10 mg, By Mouth, Daily, # 90 tablet, 1 Refills, Maintenance, 02/03/20 10:58:00 EST, Tablet, [facility]/pharmacy #[id number], 183, cm, 12/27/19 13:56:00 EST, Height, [...] 1 Refills, Maintenance, 02/03/20 10:58:00 EST, Tablet, [facility]/pharmacy #[id number], 1 tablet By Mouth Daily, 183, [...] street. Dx: Stroke (I63.9), impaired mobility (Z74.09), 07/09/19 [...] 8:53:00 EDT, 05/15/19 8:53:00 EDT, ER Tablet, [facility]/pharmacy #[id number], 178, cm, 04/02/19 9:47:00 EST, Height, [...]
--- OUTSIDE RECORDS SUMMARY | 2023-05-25 14:58 | XMS_ITS | Continuity of Care Document ---
Author Organization [facility] Address [address] [place] [address]- Care Team Providers Care Case Picker Name Role Phone Britany Springer MD Primary Care Physician Encounter [facility] Date(s): 08/22/19 - 09/21/[address] [address]- [facility] Allergies, Adverse Reactions, Alerts Substance [...] 3 12/06/10 Given 1Admin Note: vis given Tanzanian 2Admin Note: vis [id number] 3Admin Note: VIS given Tanzanian. Medications acetaminophen 325 mg oral tablet 650 mg, By Mouth, Every 4 hours, PRN, # 50 tablet, Refills 5, Tot. Refills 5, Maintenance, as needed for pain, 06/20/19 14:52:00 EDT, Route to Pharmacy Electronically, [facility]/pharmacy #[id number], 178, cm, 04/02/19 9:47:00 EST, Height, 94.7, [...] 07/22/19 11:15:00 EDT, Route to Pharmacy Electronically, [facility]/pharmacy #[id number], ins... Start Date: 07/22/19 Stop Date: 10/20/19 Status: Ordered aspirin 81 mg oral delayed release tablet 81 mg, 1, tablet, By Mouth, Daily, # 90 tablet, Refills 3, Tot. Refills 3, Maintenance, 01/09/19 16:18:54 EST, Route to Pharmacy Electronically, [id number], [facility]/pharmacy #[id number] Start Date: 01/09/19 Stop Date: 01/04/20 Status: Ordered atorvastatin 20 mg oral tablet 1 tablet = 20 mg, By Mouth, Daily at supper, # 30 tablet, 5 Refills, Maintenance, 08/22/19 14:51:00EDT, Tablet, [facility]/pharmacy #[id number], 183, cm, 07/29/19 15:02:00 EDT, Height, 84.8, kg, 07/01/19 22:20:00 EDT, Dry Weight Start Date: 08/22/19 Status: Ordered cetirizine 10 mg oral tablet 1 tablet = 10 mg, By Mouth, Daily, # 90 tablet, 1 Refills, Maintenance, 06/20/19 15:01:00 EDT, Tablet, [facility]/pharmacy #[id number], 178, cm, 04/02/19 9:47:00 EST, [...] Gm, 5 Refills, Maintenance, 07/20/18 13:11:53 EDT, [place], 2 sprays Nares, Both Daily Start Date: [...] Refills, Maintenance, 06/20/19 15:01:00 EDT, REC Powder, [facility]/pharmacy #[id number], 17 Gm By Mouth Daily,Instr:dissolve in water beforetaking, 178, cm, 04/02/19 9:47:00 EST, Height, 94.7... Start Date: 06/20/19 Status: Ordered Multi-Day Plus Minerals oral tablet 1 tablet, By Mouth, Daily, # 30 tablet, 5 Refills, Maintenance, 07/22/19 18:27:00 EDT, Tablet, [facility]/pharmacy #[id number], 1 tablet By Mouth Daily, [...] Tot. Refills 0, Maintenance, Use as needed [facility]. Dx: Stroke (I63.9), impaired mobility (Z74.09), [...]
--- OUTSIDE RECORDS SUMMARY | 2023-05-25 14:58 | XMS_ITS | Continuity of Care Document ---
Author Organization [facility] Address [address] [place] [address]- Care Team Providers Care Electronic Drafter Name Role Foot DoctorDeclan Louise MD Primary Care Physician Encounter [facility] Date(s): 09/07/21 - 11/04/[address] [address]- Attending Physician: Declan Louise MD Admitting Physician: Declan Louise MD Allergies, Adverse Reactions, Alerts No Known [...] Note: vis given Bangladeshi 2Admin Note: vis [phone] 3Admin Note: VIS given Bangladeshi. Medications acetaminophen 325 mg oral tablet 650 mg, By Mouth, Every 4 hours, PRN, # 50 tablet, Refills 5, Tot. Refills 5, Maintenance, as needed for pain, 11/23/20 13:09:00 EDT, Route to Pharmacy Electronically, [facility]/pharmacy #[id number], 183, cm, 08/10/20 16:05:00 EDT, [...] 10/21/21 15:36:00 EDT, Route to Pharmacy Electronically, [facility]/pharmacy #[id number], Partial fill upon patient request if the prescription is for a schedule II opioid drug.... Start Date: 10/21/21 Status: Ordered Aspirin Low Dose 81 mg oral delayed release tablet See Instructions, MARCOS STEWARD TODOS [place], # 90 tablet, 1 Refills, 10/18/21 16:12:00 EDT, [facility]/pharmacy #[id number], 175, cm, 10/18/21 11:40:00 EDT, Height, 81.9, kg, 08/31/21 14:47:00 EDT, Dry Weight Start Date: 10/18/21 Status: Ordered atorvastatin 20 mg oral tablet See Instructions, MARCOS CHAPMANA TODOS [place] AT SUPPER, # 90 tablet, 1 Refills, 10/18/21 16:12:00 EDT, [facility]/pharmacy #[id number], 175, cm, 10/18/21 11:40:00 EDT, [...] 15:52:00 EDT, Height, 84.8, kg, 07/01/19 22:20:00 EDTYesica Start Date: 07/22/20 Stop Date: 08/21/20 Status: [...] ONCE DAILY, # 238 Gm, 5 Refills, [facility] STORE 60942, 14, DISSOLVE 17 GRAMS IN WATER AND DRINK ONCE DAILY, 183, cm, 01/18/21 11:01:00 EST, Height, 84.8, kg, 07/01/19 22:20:00 EDT, Dry Weight Start Date: 06/29/21 Status: Ordered glipiZIDE 2.5 mg oral tablet, extended release See Instructions, [facility] STEWARD TODOS [place], # 30 tablet, 5 Refills, 10/18/21 16:12:00 EDT, [facility]/pharmacy #[id number], 175, cm, 10/18/21 11:40:00 EDT, [...] Replace Required Details, Route to Pharmacy Electronically, [facility]/pharmacy#[id number], 175, cm, 10/18/21 11:40:00 EDT, Height, 81.9... Start Date: 10/18/21 Status: Ordered Multi-Day Plus Minerals oral tablet 1 tablet, By Mouth, Daily, resent to new pharmacy, # 90 tablet, 1 Refills, Maintenance, 10/18/21 16:12:00 EDT, Tablet, [facility]/pharmacy #[id number], 1 tablet By Mouth Daily,Instr:resent [...] Tot. Refills 0, Maintenance, Use as needed [facility]. Dx: Stroke (I63.9), impaired mobility (Z74.09), 07/09/19 14:21:00 EDT, Supply Start Date: 07/09/19 Status: Ordered Wellbutrin SR 150 mg/12 hours oral tablet, extended release 1 tablet = 150 mg, By Mouth, 2 times a day, # 180 tablet, 1 Refills, Maintenance, 10/31/21 8:53:00 EDT, ER Tablet, [facility]/pharmacy #[id number], 175, cm, 10/18/21 11:40:00 EDT, [...] heart f ailure, NYHA class 1(Confirmed) Active Hypertension(Confirmed) Active Cognitive impairment, likely vascular dementia(Confirmed) Active Depression, major(Confirmed) Active Hypogonadism in male(Confirmed) Active Microalbuminuria - mildly in creased, ratio <30 mg/g(Confirmed) 11/17/14 Active Elevated PSA, BPH per urolog y, see April,(Confirmed) Active Obesity due to excess calories(Confirmed) Active DM (diabetes mellitus), type 2 with renal complications(Confirmed) Active Presence of indwelling urina ry catheter(Confirmed) Active Social History Social History Type Response Smoking Status Never smoker; Tobacc o user in household: No entered on: 01/12/15 Sex Care Team Personnel Name: Declan Louise MD Address: [address] [place] [address]
--- OUTSIDE RECORDS SUMMARY | 2023-05-25 14:58 | XMS_ITS | Continuity of Care Document ---
Author Organization [facility] Address [address] [place] [address]- Care Team Providers Care Business Objects Report Developer Name Role Phone Britany Springer MD Primary Care Physician Encounter [facility] Date(s): 06/17/21 - 07/17/[address] [address]- Allergies, Adverse Reactions, Alerts No Known Allergies [...] 3 12/06/10 Given 1Admin Note: vis given Luxembourger 2Admin Note: vis [id number] 3Admin Note: VIS given Luxembourger. Medications acetaminophen 325 mg oral tablet 650 mg, By Mouth, Every 4 hours, PRN, # 50 tablet, Refills 5, Tot. Refills 5, Maintenance, as needed for pain, 11/23/20 13:09:00 EDT, Route to Pharmacy Electronically, [facility]/pharmacy #[id number], 183, cm, 08/10/20 16:05:00 EDT, Height, [...] [place], # 90 tablet, 1 Refills, 04/23/21 8:48:00 EST, [id number], 183, cm, 01/18/21 11:01:00 EST, Height, 84.8, kg, 07/01/19 22:20:00 EDT, Dry Weight Start Date: 04/23/21 Status: Ordered atorvastatin 20 mg oral tablet See Instructions, MARCOS CHAPMANA TODOS [place] AT SUPPER, # 90 tablet, 1 Refills, [facility], 183, cm, 01/18/21 11:01:00 EST, Height, 84.8, [...] 15:52:00 EDT, Height, 84.8, kg, 07/01/19 22:20:00 EDTMarly. Start Date: 07/22/20 Stop Date: 08/21/20 Status: [...] ONCE DAILY, # 238 Gm, 5 Refills, [facility] 33583, 14, DISSOLVE 17 GRAMS IN WATER AND DRINK ONCE DAILY, 183, cm, 01/18/21 11:01:00 EST, Height, 84.8, kg, 07/01/19 22:20:00 EDT, Dry Weight Start Date: 06/29/21 Status: Ordered glipiZIDE 2.5 mg oral tablet, extended release See Instructions, [facility] STEWARD TODOS [place], # 30 tablet, 5 Refills, 04/23/21 8:48:00 EST, [facility]/pharmacy #[id number], 183, cm, 01/18/21 11:01:00 EST, Height, [...] Replace Required Details, Route to Pharmacy Electronically, [facility] 95113, 183, cm, 01/18/21 11:01:00 EST, Height, 84.8, kg, 07/01/19 22:20:00 EDT, Dry Weight Start Date: 06/03/21 Status: Ordered Multi-Day Plus Minerals oral tablet 1 tablet, By Mouth, Daily, resent to new pharmacy, # 90 tablet, 0 Refills, Maintenance, 07/13/21 9:36:00 EDT, Tablet, [facility]/pharmacy #[id number], 1 tablet By Mouth Daily,Instr:resent to new pharmacy, 183, cm, 01/18/21 11:01:00 EST, Height Start Date: 07/13/21 Status: Ordered Pullups - size L Pullups [...] institute. Dx: Stroke (I63.9), impaired mobility (Z74.09), 07/09/19 [...] Refills, Maintenance, 05/04/21 8:53:00 EDT, ER Tablet, [facility]/pharmacy #[id number], 183, cm, 01/18/21 11:01:00 EST, Height, [...]
--- OUTSIDE RECORDS SUMMARY | 2023-05-25 14:58 | XMS_ITS | Continuity of Care Document ---
Author Organization [facility] Address [address] [place] [address]- Care Team Providers Care Roll Form Operator Name Role Abalone Fisherman Declan ALVAREZ Primary Care Physician Encounter [facility] Date(s): 11/22/22 - 12/22/[address] [address] Allergies, Adverse Reactions, Alerts [...] virus vaccine, inactivated 1 12/06/10 Gi dory [id number] 12y+ bivalent booster vax 01/18/22 Given SARS-CoV-2 (COVID-19) mRNA BNT-162b2 vac 02/08/21 Given SARS-CoV-2 (COVID-19) mRNA BNT-162b2 vac 01/18/21 Given pneumococcal 23-valent vaccine 12/08/14 Given FluLaval (oldterm) 2 12/26/11 Given tetanus-diphtheria toxoids (Td) 3 12/06/10 Given 1Admin Note: vis given Citizen Of [place] 2Admin Note: vis [phone] 3Admin Note: VIS given Citizen Of [place]. Medications acetaminophen 325 mg oral tablet 650 mg, By Mouth, Every 4 hours, PRN, # 50 tablet, Refills 5, Tot. Refills 5, Maintenance, as needed for pain, 11/23/20 13:09:00 EDT, Route to Pharmacy Electronically, [facility]/pharmacy #[id number], 183, cm, 08/10/20 [...] tablet, 1 Refills, Maintenance, 10/17/22 12:07:00 EDT, [facility] STORE 97358, 175, cm, 01/18/22 12:03:00 EST, Height, 81.9, kg, 08/31/21 14:47:00 EDT, Dry Weight Start Date: 10/17/22 Status: Ordered Aspirin Low Dose 81 mg oral delayed release tablet See Instructions, MARCOS ADAM TABLETA RANDELL BENDER, # 90 tablet, 1 Refills, Maintenance, 12/13/22 10:54:00 EDT, [facility], 175, cm, 01/18/22 12:03:00 EST, Height, 81.9, kg, 08/31/21 14:47:00 EDT, Dry Weight Start Date: 12/13/22 Status: Ordered atorvastatin 20 mg oral tablet See Instructions, MARCOS ADAM TABLETA RANDELL MCKENNAS AT SUPPER, # 90 tablet, 1 Refills, 06/17/22 9:43:00 EDT, [facility]/pharmacy #[id number], 175, cm, 01/18/22 12:03:00 EST, Height, 81.9, kg, 08/31/21 14:47:00 EDT,Dry Weight Start Date: 06/17/22 Status: Ordered atorvastatin 20 mg oral tablet See Instructions, NANETTEKeyur ADAM TABLETA RANDELL BENDER AT SUPPER, # 90 tablet, 1 Refills, Maintenance, 10/03/22 12:31:00 EDT, [facility], 175, cm, 01/18/22 12:03:00 EST, Height, 81.9, kg, 08/31/21 14:47:00 EDT, Dry Weight Start Date: 10/03/22 Status: Ordered BuPROPion (Eqv-Wellbutrin SR) 150 mg/12 hours oral tablet, extended release See Instructions, MARCOS ADAM TABLETAmy HOBBS AL BALA, # 60 each, 0 Refills, Maintenance, 11/08/22 15:41:00 EDT, [facility]/pharmacy #[id number], 175, cm, 01/18/22 12:03:00 EST, [...] tablet, 1 Refills, Maintenance, 12/13/22 10:54:00 EDT, [facility] STORE 26851, 90, MARCOS MERCADOS [place] [facility], 175, cm, [...] Gm, 5 Refills, Maintenance, 11/28/22 8:45:00 EDT, [facility]/pharmacy #[id number], 14, DISSOLVE 17 GRAMS IN WATER AND DRINK ONCE DAILY, 175, cm, 01/18/22 12:03:00 EST, Height, 81.9, kg, 08/31... Start Date: 11/28/22 Status: Ordered glipiZIDE 5 mg oral tablet, extended release 1 tablet = 5 mg, By Mouth, Daily, # 90 tablet, 1 Refills, Maintenance, 11/02/22 13:07:00 EDT, ER Tablet, [facility]/pharmacy #[id number], Partial fill upon patient request [...] Replace Required Details, Route to Pharmacy Electronically, [facility] STORE 21341, 175, cm, 01/18/22 12:03:00 EST, Height, 81.9, kg,... Start Date: 12/13/22 Status: Ordered Multi-Day Plus Minerals oral tablet 1 tablet, By Mouth, Daily, resent to new pharmacy, # 90 tablet, 1 Refills, Maintenance, 10/18/21 16:12:00 EDT, Tablet, [facility]/pharmacy #4471, 1 tablet By [...] Team Personnel Name: Declan Louise MD Position: [facility] Physician - Primary Care Member Role: PCP Address: Address: [address] [place] [id number] Name: Simran Shannon RN Position: S RN Member Role: Primary Care Nurse Name: Torie Jo RN Position: S RN Supv Member Role: Primary Care Nurse Name: Hussein Waters RN Position: S RN Member Role: Primary Care Nurse Name: Vandana Sorensen NP Position: [facility] Associate Professional Member Role: Primary Care Nurse Address: Address: [address] [place] [address]- [place] Name: Karsten Kwong MD Position: [facility] Renal MD Member Role: Lifetime Consulting Physician Address: Address: [address] [place] [address] [address] [facility] [address]- [place] Name: Rebecca Leon RN Position: [facility] RN Member Role: Primary Care Nurse Name: Elisabet Calle Position: [facility] RN Member Role: Primary Care Nurse Name: Paola Cavanaugh RN Position: [facility] ED RN W/OE and Tasks Member Role: Primary Care Nurse Name: Argentina Dixon RN Position: [facility] SN RN Member Role: Primary Care Nurse Name: Christina Alonso Position: [facility] AMB Nurse Member Role: Lifetime Consulting Physician Name: Ramiro Brody III, RN Position: [facility] RN Member Role: Primary Care Nurse Name: Simran Tariq RN Position: [facility] RN Member Role: Primary Care Nurse Name: Dana Fitzgerald RN Position: [facility] RN Member Role: Primary Care Nurse Name: Narayan Spencer RN Position: [facility] SN RN Member Role: Primary Care Nurse Name: Shell Yoder RN Position: [facility] RN Member Role: Primary Care Nurse Name: Radha Mustafa RN Position: [facility] AMB Nurse Member Role: Primary Care Nurse Name: Misti Pickard RN Position: [facility] RN Member Role: Primary Care Nurse Name: William Villanueva RN Position: [facility] RN Member Role: Primary Care Nurse Name: Viky Torre RN Position: [facility] Load Haul Dump Operator Member Role: Primary Care Nurse Name: Carolee Tesfaye RN Position: [facility] RN Member Role: Primary Care Nurse Name: Joey Perez MD Position: [facility] Renal MD Member Role: Lifetime Consulting Physician Address: Address: [address] [place] [address] [facility] [place] [place] [address]- [place] Name: Brittney Ledezma RN Position: [facility] Load Haul Dump Operator Member Role: Primary Care Nurse Name: Eliezer Wagner RN Position: [facility] RN Member Role: Primary Care Nurse Name: Najma Causey RN Position: [facility] SN RN Member Role: Primary Care Nurse Name: Brunilda Thomas RN Position: S RN Member Role: Primary Care Nurse Care Team Related Persons Name: ROOPA XIE Address: [address] [address] Name: HOPE XIE Address: [address] [address]
--- OUTSIDE RECORDS SUMMARY | 2023-05-25 14:58 | XMS_ITS | Continuity of Care Document ---
Author Organization [facility] Address [address] [place] [address]- Care Team Providers Care Buffet Attendant Name Role Phone Britany Springer MD Primary Care Physician Encounter [facility] [place] Date(s): 07/09/20 - 08/08/20 [facility] [address] [place] [id number] Allergies, Adverse Reactions, Alerts Substance Reaction Severity [...] vis given Hong Konger 2Admin Note: vis [id number] 3Admin Note: VIS given Hong Konger. Medications acetaminophen 325 mg oral tablet 650 mg, By Mouth, Every 4 hours, PRN, # 50 tablet, Refills 5, Tot. Refills 5, Maintenance, as needed for pain, 06/20/19 14:52:00 EDT, Route to Pharmacy Electronically, [facility]/pharmacy #[id number], 178, cm, 04/02/19 9:47:00 EST, Height, 94.7, [...] 07/26/20 11:17:00 EDT, Route to Pharmacy Electronically, [facility]/pharmacy #[id number], 183, cm, 12/27/19 13:56:00 EST, Height, 84.8, kg, 07/01/19 22:20:00 EDT, Dry Weight Start Date: 07/26/20 Stop Date: 01/22/21 Status: Ordered atorvastatin 20 mg oral tablet 1 tablet = 20 mg, By Mouth, Daily at supper, # 90 tablet, 2 Refills, Maintenance, 02/03/20 10:50:00EST, Tablet, [facility]/pharmacy #[id number], 183, cm, 12/27/19 13:56:00 EST, Height, 84.8, kg, 07/01/19 22:20:00 EDT, Dry Weight Start Date: 02/03/20 Status: Ordered Claritin 10 mg oral tablet 10 mg, 1, tablet, By Mouth, Daily, # 30 tablet, Refills 0, Tot. Refills 0, Maintenance, 07/15/20 16:23:00 EDT, Route to Pharmacy Electronically, [facility]/pharmacy #[id number], Partial fill upon patient [...] Refills, Maintenance, 07/15/20 16:25:00 EDT, ER Tablet, [facility]/pharmacy #[id number], Partial fill upon patient [...] 0 Refills, Maintenance, 07/15/20 16:25:00 EDT, Tablet, [facility]/pharmacy #[id number], Partial fill upon patient [...]
--- OUTSIDE RECORDS SUMMARY | 2023-05-25 14:58 | XMS_ITS | Continuity of Care Document ---
Author Organization [facility] Address [address] [place] [address]- Care Team Providers Care Junior Architect Name Role Phone Damián De Jesus MD Primary Care Physician Encounter [place] Date(s): 07/02/19 - 07/05/[address] [address]- [facility] Encounter Diagnosis Acute metabolic encephalopathy(Final) - 06/30/19 Discharge Disposition: A-D/C Home Attending Physician: Nicki Easton MD Admitting Physician: Corwin Dumas MD Referring Physician: Not on Staff, Referring [...] 3 12/06/10 Given 1Admin Note: vis given Pashto 2Admin Note: vis [id number] 3Admin Note: VIS given Pashto. Medications acetaminophen 325 mg oral tablet 650 mg, By Mouth, Every 4 hours, PRN, # 50 tablet, Refills 5, Tot. Refills 5, Maintenance, as needed for pain, 06/20/19 14:52:00 EDT, Route to Pharmacy Electronically, [facility]/pharmacy #[id number], 178, cm, 04/02/19 9:47:00 EST, Height, 94.7, [...] 01/09/19 16:18:54 EST, Route to Pharmacy Electronically, [id number], [facility]/pharmacy #[id number] Start Date: 01/09/19 Stop Date: 01/04/20 Status: Ordered atenolol 100 mg oral tablet 1 tablet = 100 mg, By Mouth, Daily, # 30 tablet, 0 Refills, Maintenance, 07/05/19 14:46:00 EDT, Tablet Start Date: 07/05/19 Status: Ordered atorvastatin 20 mg oral tablet 1 tablet = 20 mg, By Mouth, Daily at supper, # 30 tablet, 5 Refills, Maintenance, 01/09/19 16:18:57EST, Tablet Start Date: 01/09/19 Status: Ordered cetirizine 10 mg oral tablet 1 tablet = 10 mg, By Mouth, Daily, # 90 tablet, 1 Refills, Maintenance, 06/20/19 15:01:00 EDT, Tablet, [facility]/pharmacy #[id number], 178, cm, 04/02/19 [...] Gm, 5 Refills, Maintenance, 07/20/18 13:11:53 EDT, [place], 2 sprays Nares, Both Daily Start Date: [...] Refills, Maintenance, 06/20/19 15:01:00 EDT, REC Powder, [facility]/pharmacy #[id number], 17 Gm By [...] tablet, Refills 3, Tot. Refills 3, Maintenance, 05/15/19 8:53:00 EDT, Route to Pharmacy Electronically, [facility]/pharmacy #[id number], 178, cm, 04/02/19 9:47:00 EST, Height, 94.7, kg, 06/01/18 13:52:00 EDT, Dry Weight Start Date: 05/15/19 Stop Date: 05/09/20 Status: Ordered Pullups - size L Pullups [...] Refills, Maintenance, 05/15/19 8:53:00 EDT, ER Tablet, [facility]/pharmacy #[id number], 178, cm, 04/02/19 [...] Presence of indwelling urina ry catheter(Confirmed) Active Vital Signs Most recent to oldest [Reference Range]: 1 2 3 Height 183 cm (07/05/19 9:20 AM) 183 cm (07/04/19 10:48 AM) 183 cm (07/04/19 9:02 AM) Weight 84.8 kg (07/01/19 10:20 PM) Oxygen Saturation [94-100 %] 99 % (07/05/19 3:13 PM) 99 % (07/05/19 10:52 AM) 98 % (07/05/19 7:45 AM) Pulse Rate [55-90 bpm] 57 bpm (07/05/19 3:13 PM) 65 bpm (07/05/19 10:52 AM) 64 bpm (07/05/19 8:46 AM) Body Mass Index [18.5-24.99] 25.32 *H* (07/01/19 10:20 PM) Blood Pressure [90-138/55-84 mm Hg] 165/93mm Hg *H* (07/05/19 3:37 PM) 165/93mm Hg *H* (07/05/19 3:13 PM) 145/95mm Hg *H* (07/05/19 10:52 AM) Respiratory Rate [16-30 br/min] 18 br/min (07/05/19 3:13 PM) 18 br/min (07/05/19 10:52 AM) 16 br/min (07/05/19 7:45 AM) Temperature [96.8-100.4 DegF] 97.9 DegF (07/05/19 3:13 PM) 97.6 DegF (07/05/19 10:52 AM) 96.7 DegF *L* (07/05/19 7:45 AM) Liters per Minute 0 L/min (07/04/19 11:57 PM) 0 L/min (07/04/19 7:15 PM) 0 L/min (07/03/19 5:00 PM) Mode of Delivery (Oxygen) Room air (07/05/19 3:13 PM) Room air (07/05/19 10:52 AM) Room air (07/05/19 7:45 AM) Blood pressure sites Arm, right (07/05/19 3:13 PM) Arm, left (07/05/19 10:52 AM) Arm, left (07/05/19 7:45 AM) Temperature Route Temporal (07/05/19 3:13 PM) Temporal (07/05/19 10:52 AM) Temporal (07/05/19 7:45 AM) Dry Weight 84.8 kg (07/01/19 10:20 PM) Social History Social History Type Response Smoking Status Never smoker; Tobacc o user in household: No entered on: 01/12/15 Sex Male
--- OUTSIDE RECORDS SUMMARY | 2023-05-25 14:58 | XMS_ITS | Continuity of Care Document ---
Author Organization [facility] Address [address] [place] [address]- Care Team Providers Care Compensation And Benefits Manager Name Role Plant Equipment Engineer Declan ALVAREZ Primary Care Physician Encounter [facility] Date(s): 07/06/22 - 08/05/[address] [id number] Allergies, Adverse Reactions, Alerts No Known [...] virus vaccine, inactivated 1 12/06/10 Gi dory [id number] 12y+ bivalent booster vax 01/18/22 Given SARS-CoV-2 (COVID-19) mRNA BNT-162b2 vac 02/08/21 Given SARS-CoV-2 (COVID-19) mRNA BNT-162b2 vac 01/18/21 Given pneumococcal 23-valent vaccine 12/08/14 Given FluLaval (oldterm) 2 12/26/11 Given tetanus-diphtheria toxoids (Td) 3 12/06/10 Given 1Admin Note: vis given French 2Admin Note: vis [id number] 3Admin Note: VIS given French. Medications acetaminophen [...] tablet, 1 Refills, Maintenance, 07/06/22 13:39:00 EDT, [facility]/pharmacy #[id number], 175, cm, 01/18/22 12:03:00 EST, Height, 81.9, kg, 08/31/21 14:47:00 EDT, Dry Weight Start Date: 07/06/22 Status: Ordered Aspirin Low Dose 81 mg oral delayed release tablet See Instructions, TOME KIA TABLETA TODOS LOS BENDER, # 90 tablet, 1 Refills, Maintenance, 03/04/22 13:01:00 EST, [id number], 175, cm, 01/18/22 12:03:00 EST, Height, 81.9, kg, 08/31/21 14:47:00 EDT, Dry Weight Start Date: 03/04/22 Status: Ordered atorvastatin 20 mg oral tablet See Instructions, TOME KIA TABLETA TODOS LOS BENDER AT SUPPER, # 90 tablet, 1 Refills, 06/17/22 9:43:00 EDT, [facility]/pharmacy #[id number], 175, cm, 01/18/22 12:03:00 EST, Height, 81.9, kg, 08/31/21 14:47:00 EDT,Dry Weight Start Date: 06/17/22 Status: Ordered BuPROPion (Eqv-Wellbutrin SR) 150 mg/12 hours oral tablet, extended release See Instructions, TOME KIA TABLETA DOS VECES AL BALA, # 180 Unknown, 1 Refills, Maintenance, 03/04/22 13:01:00 EST, [id number], 175, cm, 01/18/22 12:03:00 EST, Height, 81.9, [...] Refills, Maintenance, 03/04/22 13:01:00 EST, [id number], 90, TOME KIA TABLETA POR VIA ORAL [...] Gm, 5 Refills, [facility] 06806, 14, DISSOLVE 17 GRAMS IN WATER AND DRINK ONCE DAILY, 183, cm, 01/18/21 11:01:00 EST, Height, 84.8, kg, 07/01/19 22:20:00 EDT, Dry Weight Start Date: 06/29/21 Status: Ordered glipiZIDE 2.5 mg oral tablet, extended release 1 tablet = 2.5 mg, By Mouth, Daily, for 90 days, # 90 tablet, 0 Refills, Physician Stop 10/18/22 14:15:00 EDT, 07/20/22 14:15:00 EDT, [facility]/pharmacy #[id number], 175, cm, 01/18/22 12:03:00 EST, [...] tablet See Instructions, TOME KIA TABLETA RANDELL BENDER, # 90 tablet, Refills 1, Maintenance, 03/04/22 13:01:00 EST, Instructions Replace Required Details, Route to Pharmacy Electronically, [facility] [id number], 175, cm, 01/18/22 12:03:00 EST, Height, 81.9, [...] Tot. Refills 0, Maintenance, Use as needed [facility]. Dx: Stroke (I63.9), impaired mobility (Z74.09), 03/04/22 12:59:00 EST, Supply Start Date: 1/13/23 Status: Ordered Wheelchair Wheelchair, See Instructions, # [...] Team Personnel Name: Declan Louise MD Position: [facility] Physician - Primary Care Member Role: PCP Address: Address: [address] [place] [address]- [place] Name: Simran Shannon RN Position: [facility] RN Member Role: Primary Care Nurse Name: Torie Jo RN Position: [facility] RN Supv Member Role: Primary Care Nurse Name: Hussein Waters RN Position: [facility] RN Member Role: Primary Care Nurse Name: Vandana Sorensen NP Position: [facility] Associate Professional Member Role: Primary Care Nurse Address: Address: [address] [place] [address]- [place] Name: Karsten Kwong MD Position: [facility] Renal MD Member Role: Lifetime Consulting Physician Address: Address: [address] [place] [address], [address] [facility] [place] [address]- [place] Name: Rebecca Leon RN Position: [facility] RN Member Role: Primary Care Nurse Name: Elisabet Calle Position: [facility] RN Member Role: Primary Care Nurse Name: Paola Cavanaugh RN Position: [facility] ED RN W/OE and Tasks Member Role: Primary Care Nurse Name: Argentina Dixon RN Position: [facility] SN RN Member Role: Primary Care Nurse Name: Christina Alonso Position: [facility] AMB Nurse Member Role: Lifetime Consulting Physician Name: Ramiro Brody III, RN Position: [facility] RN Member Role: Primary Care Nurse Name: Simran Tariq RN Position: [facility] RN Member Role: Primary Care Nurse Name: Dana Fitzgerald RN Position: [facility] RN Member Role: Primary Care Nurse Name: Narayan Spencer RN Position: [facility] SN RN Member Role: Primary Care Nurse Name: Shell Yoder RN Position: [facility] RN Member Role: Primary Care Nurse Name: Radha Mustafa RN Position: [facility] AMB Nurse Member Role: Primary Care Nurse Name: Misti Pickard RN Position: [facility] RN Member Role: Primary Care Nurse Name: William Villanueva RN Position: [facility] RN Member Role: Primary Care Nurse Name: Viky Torre RN Position: [facility] Recruiter Member Role: Primary Care Nurse Name: Carolee Tesfaye RN Position: [facility] RN Member Role: Primary Care Nurse Name: Joey Perez MD Position: [facility] Renal MD Member Role: Lifetime Consulting Physician Address: Address: [address] [place] [address] [facility] [address] Name: Brittney Ledezma RN Position: [facility] Recruiter Member Role: Primary Care Nurse Name: Eliezer Wagner RN Position: [facility] ED RN W/OE and Tasks Member Role: Primary Care Nurse Name: Najma Causey RN Position: [facility] SN RN Member Role: Primary Care Nurse Name: Brunilda Thomas RN Position: [facility] RN Member Role: Primary Care Nurse Care Team Related Persons Name: ROJASROOPA Address: home [address] [place] [id number] Name: HOPE XIE Address: [address] [address]
--- OUTSIDE RECORDS SUMMARY | 2023-05-25 14:58 | XMS_ITS | Continuity of Care Document ---
Author Organization [facility] Address [address] [place] [address]- Care Team Providers Care Nursing Clerk Name Role Phone Britany Springer MD Primary Care Physician Encounter [facility] Date(s): 09/28/20 - 10/28/[address] [address]- Allergies, Adverse Reactions, Alerts Substance Reaction Severity [...] 3 12/06/10 Given 1Admin Note: vis given Croatian 2Admin Note: vis [id number] 3Admin Note: VIS given Croatian. Medications acetaminophen 325 mg oral tablet 650 mg, By Mouth, Every 4 hours, PRN, # 50 tablet, Refills 5, Tot. Refills 5, Maintenance, as needed for pain, 06/20/19 14:52:00 EDT, Route to Pharmacy Electronically, [facility]/pharmacy #[id number], 178, cm, 04/02/19 9:47:00 EST, Height, 94.7, [...] BENDER, # 90 tablet, 1 Refills, Maintenance, [facility] 335[facility], 183, cm, 08/10/20 16:05:00 EDT, Height, 84.8, kg, 07/01/19 22:20:00 EDT, Dry Weight Start Date: 10/05/20 Status: Ordered atorvastatin 20 mg oral tablet 1 tablet = 20 mg, By Mouth, Daily at supper, # 90 tablet, 2 Refills, Maintenance, 02/03/20 10:50:00EST, Tablet, [facility]/pharmacy #[id number], 183, cm, 12/27/19 13:56:00 EST, Height, 84.8, kg, 07/01/19 22:20:00 EDT, Dry Weight Start Date: 02/03/20 Status: Ordered Claritin 10 mg oral tablet 10 mg, 1, tablet, By Mouth, Daily, # 30 tablet, Refills 0, Tot. Refills 0, Maintenance, 07/15/20 16:23:00 EDT, Route to Pharmacy Electronically, [facility]/pharmacy #[id number], Partial fill upon patient request [...] RANDELL BENDER, # 30 tablet, 2 Refills, [facility], 183, cm, 08/10/20 16:05:00 EDT, Height, 84.8, [...] Tot. Refills 0, Maintenance, [facility]. Dx: Stroke (I63.9), impaired mobility (Z74.09), [...] Refills, Maintenance, 05/09/20 8:53:00 EDT, ER Tablet, [facility]/pharmacy #[id number], 183, cm, 12/27/19 13:56:00 EST, [...]
--- OUTSIDE RECORDS SUMMARY | 2023-05-25 14:58 | XMS_ITS | Continuity of Care Document ---
Author Organization [facility] Address [address] [place] [address]- Care Team Providers Care Optometrist President/Practice Owner Name Role Senior Network Security EngineerDeclan Louise MD Primary Care Physician [phone] Encounter [facility] Date(s): 09/17/21 - 11/25/[address] [address]- Attending Physician: Johnathon BERRY, Riya Boyd Admitting Physician: Johnathon BERRY, Riya Boyd Allergies, Adverse Reactions, Alerts No Known Allergies [...] 3 12/06/10 Given 1Admin Note: vis given Uzbek 2Admin Note: vis [id number] 3Admin Note: VIS given Uzbek. Medications acetaminophen 325 mg oral tablet 650 [...] 10/21/21 15:36:00 EDT, Route to Pharmacy Electronically, [facility]/pharmacy #[id number], Partial fill upon patient request if the prescription is for a schedule II opioid drug.... Start Date: 10/21/21 Status: Ordered Aspirin Low Dose 81 mg oral delayed release tablet See Instructions, MARCOS CONWAY BENDER, # 90 tablet, 1 Refills, 10/18/21 16:12:00 EDT, [facility]/pharmacy #[id number], 175, cm, 10/18/21 11:40:00 EDT, Height, 81.9, kg, 08/31/21 14:47:00 EDT, Dry Weight Start Date: 10/18/21 Status: Ordered atorvastatin 20 mg oral tablet See Instructions, MARCOS ADAM TABLETA TODOS LOS BENDER AT SUPPER, # 90 tablet, 1 Refills, 10/18/21 16:12:00 EDT, [facility]/pharmacy #[id number], 175, cm, 10/18/21 11:40:00 EDT, [...] 5 Refills, [facility] 91442, 14, DISSOLVE 17 GRAMS IN WATER AND DRINK ONCE DAILY, 183, cm, 01/18/21 11:01:00 EST, Height, 84.8, kg, 07/01/19 22:20:00 EDT, Dry Weight Start Date: 06/29/21 Status: Ordered glipiZIDE 2.5 mg oral tablet, extended release See Instructions, MARCOS STEWARD TODOS LOS BENDER, # 30 tablet, 5 Refills, 10/18/21 16:12:00 EDT, [facility]/pharmacy #[id number], 175, cm, 10/18/21 11:40:00 EDT, [...] Route to Pharmacy Electronically, [facility]/pharmacy#[id number], 175, cm, 10/18/21 11:40:00 EDT, Height, [...] Tot. Refills 0, Maintenance, [facility] Dx: Stroke (I63.9), impaired mobility (Z74.09), 07/09/19 14:21:00 EDT, Supply Start Date: 07/09/19 Status: Ordered Wellbutrin SR 150 mg/12 hours oral tablet, extended release 1 tablet = 150 mg, By Mouth, 2 times a day, # 180 tablet, 1 Refills, Maintenance, 10/31/21 8:53:00 EDT, ER Tablet, [facility]/pharmacy #[id number], 175, cm, 10/18/21 11:40:00 EDT, [...] Name: Banker ALVAREZ, Declan Lanier Address: Address: [address] [place] [id number]
--- OUTSIDE RECORDS SUMMARY | 2023-05-25 14:58 | XMS_ITS | Continuity of Care Document ---
Author Organization [facility] Address [address] [place] [address]- Care Team Providers Care Epitaxial Reactor Operator Name Role Leaf BlenderDeclan Louise MD Primary Care Physician [phone] Encounter [facility]CT [facility] [id number] Date(s): 01/18/22 - 02/17/[address] [address] Attending Physician: Norbert Malhotra Admitting Physician: AdmNorbert reddy Referring Physician: Admtr, Ar8 Allergies, Adverse Reactions, [...] virus vaccine, inactivated 1 12/06/10 Gi dory [id number] 12y+ bivalent booster vax 01/18/22 Given SARS-CoV-2 (COVID-19) mRNA BNT-162b2 vac 02/08/21 Given SARS-CoV-2 (COVID-19) mRNA BNT-162b2 vac 01/18/21 Given pneumococcal 23-valent vaccine 12/08/14 Given FluLaval (oldterm) 2 12/26/11 Given tetanus-diphtheria toxoids (Td) 3 12/06/10 Given 1Admin Note: vis given Belgian 2Admin Note: vis [id number] 3Admin Note: VIS given Belgian. Medications acetaminophen 325 mg oral tablet 650 mg, By Mouth, Every 4 hours, PRN, # 50 tablet, Refills 5, Tot. Refills 5, Maintenance, as needed for pain, 11/23/20 13:09:00 EDT, Route to Pharmacy Electronically, [facility]/pharmacy #[id number], 183, cm, 08/10/20 16:05:00 EDT, [...] 10/21/21 15:36:00 EDT, Route to Pharmacy Electronically, [facility]/pharmacy #[id number], Partial fill upon patient request if the prescription is for a schedule II opioid drug.... Start Date: 10/21/21 Status: Ordered Aspirin Low Dose 81 mg oral delayed release tablet See Instructions, MARCOS BENDER, # 90 tablet, 1 Refills, 10/18/21 16:12:00 EDT, [facility]/pharmacy #[id number], 175, cm, 10/18/21 11:40:00 EDT, Height, 81.9, kg, 08/31/21 14:47:00 EDT, Dry Weight Start Date: 10/18/21 Status: Ordered atorvastatin 20 mg oral tablet See Instructions, MARCOS BENDER AT SUPPER, # 90 tablet, 1 Refills, 10/18/21 16:12:00 EDT, [facility]/pharmacy #[id number], 175, cm, 10/18/21 11:40:00 EDT, [...] ONCE DAILY, # 238 Gm, 5 Refills, [facility] STORE 23082, 14, DISSOLVE 17 GRAMS IN WATER AND DRINK ONCE DAILY, 183, cm, 01/18/21 11:01:00 EST, Height, 84.8, kg, 07/01/19 22:20:00 EDT, Dry Weight Start Date: 06/29/21 Status: Ordered glipiZIDE 2.5 mg oral tablet, extended release See Instructions, MARCOS STEWARD TODOS LOS BENDER, # 30 tablet, 5 Refills, 10/18/21 16:12:00 EDT, [facility]/pharmacy #[id number], 175, cm, 10/18/21 11:40:00 EDT, [...] Replace Required Details, Route to Pharmacy Electronically, [facility]/pharmacy#[id number], 175, cm, 10/18/21 11:40:00 EDT, Height, 81.9... Start Date: 10/18/21 Status: Ordered Multi-Day Plus Minerals oral tablet 1 tablet, By Mouth, Daily, resent to new pharmacy, # 90 tablet, 1 Refills, Maintenance, 10/18/21 16:12:00 EDT, Tablet, [facility]/pharmacy #[id number], 1 tablet By Mouth Daily,Instr:resent [...] Tot. Refills 0, Maintenance, Use as needed [facility]. Dx: Stroke (I63.9), impaired mobility (Z74.09), 07/09/19 14:21:00 EDT, Supply Start Date: 07/09/19 Status: Ordered Wellbutrin SR 150 mg/12 hours oral tablet, extended release 1 tablet = 150 mg, By Mouth, 2 times a day, # 180 tablet, 1 Refills, Maintenance, 10/31/21 8:53:00 EDT, ER Tablet, [facility]/pharmacy #[id number], 175, cm, 10/18/21 11:40:00 EDT, Height, 81.9, kg, 08/31/21 14:47:00 EDT, Dry Weight Start Date: 10/31/21 Stop Date: 04/29/22 Status: Ordered Wheelchair Wheelchair, See Instructions, # [...] in household: No entered on: 01/12/15 Sex Note * Event Display: Laboratory Result Scanned Authored Date: * Event Display: Laboratory Result Scanned Authored Date: * Event Display: Non BH Lab Results Authored Date: * Event Display: IR Special Procedures, Non-BH Authored Date: Patient Care team information Care Team Personnel Name: Declan Louise MD Position: [facility] Primary Care Physician Member Role: PCP Address: Address: [address] [place] [address]- Name: Simran Shannon RN Position: [facility] RN Member Role: Primary Care Nurse Name: Torie Jo RN Position: [facility] RN Member Role: Primary Care Nurse Name: Hussein Waters RN Position: [facility] RN Member Role: Primary Care Nurse Name: Vandana Sorensen NP Position: [facility] Associate Professional Member Role: Primary Care Nurse Address: Address: [address] [place] [address]- [place] Name: Karsten Kwong MD Position: [facility] Renal MD Member Role: Lifetime Consulting Physician Address: Address: [address] [place] [address], [address] [facility] [place] [address]- Name: Rebecca Leon RN Position: [facility] RN Member Role: Primary Care Nurse Name: Elisabet Calle Position: [facility] RN Member Role: Primary Care Nurse Name: Paola Cavanaugh RN Position: [facility] ED RN W/OE and Tasks Member Role: Primary Care Nurse Name: Argentina Dixon RN Position: [facility] SN RN Member Role: Primary Care Nurse Name: Christina Alonso Position: [facility] PCO RN Member Role: Lifetime Consulting Physician Name: Ramiro Brody III, RN Position: [facility] RN Member Role: Primary Care Nurse Name: Simran Tariq RN Position: [facility] RN Member Role: Primary Care Nurse Name: Dana Fitzgerald RN Position: [facility] RN Member Role: Primary Care Nurse Name: Narayan Spencer RN Position: [facility] SN RN Member Role: Primary Care Nurse Name: Shell Yoder RN Position: [facility] RN Member Role: Primary Care Nurse Name: Radha Mustafa RN Position: [facility] PCO RN Member Role: Primary Care Nurse Name: Misti Pickard RN Position: [facility] RN Member Role: Primary Care Nurse Name: William Villanueva RN Position: [facility] RN Member Role: Primary Care Nurse Name: Viky Torre RN Position: [facility] Freight Sorter Member Role: Primary Care Nurse Name: Carolee Tesfaye RN Position: [facility] RN Member Role: Primary Care Nurse Name: Joey Perez MD Position: [facility] Renal MD Member Role: Lifetime Consulting Physician Address: Address: [address] [place] [address] [facility] [address] Name: Brittney Ledezma RN Position: [facility] Freight Sorter Member Role: Primary Care Nurse Name: Eliezer Wagner RN Position: [facility] ED RN W/OE and Tasks Member Role: Primary Care Nurse Name: Najma Causey RN Position: [facility] SN RN Member Role: Primary Care Nurse Name: Brunilda Thomas RN Position: [facility] RN Member Role: Primary Care Nurse Care Team Related Persons Name: ROJASTANIAPAULETTE Address: [address] [address] Name: HOPE XIE Address: [address] [address]
--- OUTSIDE RECORDS SUMMARY | 2023-05-25 14:58 | XMS_ITS | Continuity of Care Document ---
Author Organization [facility] Address [address] [place] [address]- Care Team Providers Care Stamp Maker Name Role Phone Britany Springer MD Primary Care Physician Encounter [facility] Date(s): 08/22/19 - 09/21/[address] [address] Allergies, Adverse Reactions, Alerts Substance Reaction Severity [...] Note: vis given Armenian 2Admin Note: vis [id number] 3Admin Note: VIS given Armenian. Medications acetaminophen 325 mg oral tablet 650 mg, By Mouth, Every 4 hours, PRN, # 50 tablet, Refills 5, Tot. Refills 5, Maintenance, as needed for pain, 06/20/19 14:52:00 EDT, Route to Pharmacy Electronically, [facility]/pharmacy #[id number], 178, cm, 04/02/19 9:47:00 EST, Height, 94.7, [...] 07/22/19 11:15:00 EDT, Route to Pharmacy Electronically, [facility]/pharmacy #[id number], ins... Start Date: 07/22/19 Stop Date: 10/20/19 Status: Ordered aspirin 81 mg oral delayed release tablet 81 mg, 1, tablet, By Mouth, Daily, # 90 tablet, Refills 3, Tot. Refills 3, Maintenance, 01/09/19 16:18:54 EST, Route to Pharmacy Electronically, [id number], [facility]/pharmacy #[id number] Start Date: 01/09/19 Stop Date: 01/04/20 Status: Ordered atorvastatin 20 mg oral tablet 1 tablet = 20 mg, By Mouth, Daily at supper, # 30 tablet, 5 Refills, Maintenance, 08/22/19 14:51:00EDT, Tablet, [facility]/pharmacy #[id number], 183, cm, 07/29/19 15:02:00 [...] Gm, 5 Refills, Maintenance, 07/20/18 13:11:53 EDT, [place], 2 sprays Nares, Both Daily Start Date: [...] 5 Refills, Maintenance, 07/22/19 18:27:00 EDT, Tablet, [facility]/pharmacy #[id number], 1 tablet By [...] Tot. Refills 0, Maintenance, Use as needed [facility]. Dx: Stroke (I63.9), impaired mobility [...]
--- OUTSIDE RECORDS SUMMARY | 2023-05-25 14:58 | XMS_ITS | Continuity of Care Document ---
Author Organization [facility] Address [address] [place] [address]- Care Team Providers Care Fence Making Machine Operator Name Role Abrasives Sales Representative Declan ALVAREZ Primary Care Physician [phone] Encounter [facility] Date(s): 02/08/23 - 03/10/[address] [address] Allergies, Adverse Reactions, Alerts No [...] virus vaccine, inactivated 1 12/06/10 Gi dory [id number] 12y+ bivalent booster vax 01/18/22 Given SARS-CoV-2 (COVID-19) mRNA BNT-162b2 vac 02/08/21 Given SARS-CoV-2 (COVID-19) mRNA BNT-162b2 vac 01/18/21 Given pneumococcal 23-valent vaccine 12/08/14 Given FluLaval (oldterm) 2 12/26/11 Given tetanus-diphtheria toxoids (Td) 3 12/06/10 Given 1Admin Note: vis given Cameroonian 2Admin Note: vis [id number] 3Admin Note: VIS given Cameroonian. Medications acetaminophen 325 mg oral tablet 650 mg, By Mouth, Every 4 hours, PRN, # 50 tablet, Refills 5, Tot. Refills 5, Maintenance, as needed for pain, 11/23/20 13:09:00 EDT, Route to Pharmacy Electronically, [facility]/pharmacy #[id number], 183, cm, 08/10/20 16:05:00 EDT, Height, 84.8, kg, 07/01/19 22:2... Start Date: 11/23/20 Status: Ordered amLODIPine 10 mg oral tablet 10 mg, By Mouth, Daily, # 90 each, Refills 3, Tot. Refills 3, Maintenance, 02/24/23 12:06:00 EST, Route to Pharmacy Electronically, [facility]/pharmacy #[id number], Partial fill upon patient request if the prescription is for a schedule II opioid drug., 175, cm, 0... Start Date: 02/24/23 Stop Date: 02/19/24 Status: Ordered Aspirin Low Dose 81 mg oral delayed release tablet See Instructions, MARCOS ADAM TABLETA TOS ZORAIDA BENDER, # 90 tablet, 1 Refills, Maintenance, 02/24/23 12:05:00 EST, [facility]/pharmacy #[id number], 175, cm, 02/24/23 11:28:00 EST, Height, 81.9, kg, 01/04/23 22:19:00 EST, Dry Weight Start Date: 02/24/23 Status: Ordered atorvastatin 20 mg oral tablet See Instructions, NANETTEE KIA TABLETA TODOS ZORAIDA BENDER AT SUPPER, # 90 tablet, 1 Refills, Maintenance, 02/24/23 12:05:00 EST, [facility]/pharmacy #[id number], 175, cm, 02/24/23 11:28:00 EST, Height, 81.9, kg, 01/04/2322:19:00 EST, Dry Weight Start Date: 02/24/23 Status: Ordered BuPROPion (Eqv-Wellbutrin SR) 150 mg/12 hours oral tablet, extended release See Instructions, TOME KIA TABLETA DOS VECES AL BALA, # 180 each, 1 Refills, Maintenance, 02/24/23 12:05:00 EST, [facility]/pharmacy #[id number], 175, cm, 02/24/23 11:28:00 EST, Height, 81.9, kg, 01/04/23 22:19:00EST, Dry Weight Start Date: 02/24/23 Status: Ordered Daily Yasmine oral tablet See Instructions, NANETTEE KIA TABLETA TODOS LOS BENDER, # 90 tablet, 1 Refills, Maintenance, 02/24/23 12:05:00 EST, [facility]/pharmacy #[id number], 90, TOME KIA TABLETA TODOS LOS BENDER, 175, cm, 02/24/23 11:28:00 EST,Height, 81.9, kg, 01/04/23 22:19:00 EST, Dry Weight Start Date: 02/24/23 Status: Ordered GaviLAX oral powder for reconstitution See Instructions, DISSOLVE 17 GRAMS IN WATER AND DRINK ONCE DAILY, # 238 Gm, 5 Refills, Maintenance, 02/24/23 12:05:00 EST, [facility]/pharmacy #[id number], 14, DISSOLVE 17 GRAMS IN WATER AND DRINK ONCE DAILY, 175, cm, 02/24/23 11:28:00 EST, Height, 81.9, kg, 12/21... Start Date: 02/24/23 Status: Ordered glipiZIDE 5 mg oral tablet, extended release 1 tablet = 5 mg, By Mouth, Daily, dose of 5 mg ER please dose., # 90 tablet, 3 Refills, Maintenance, 02/24/23 11:59:00 EST, ER Tablet, [facility]/pharmacy #[id number], Partial fill upon [...] Instructions Replace Required Details, Route to Pharmacy Electronically,[facility]/pharmacy #[id number], 175, cm, 02/24/23 11:28:00 EST,... Start Date: 02/24/23 Status: Ordered Multi-Day Plus Minerals oral tablet 1 tablet, By Mouth, Daily, resent to new pharmacy, # 90 tablet, 1 Refills, Maintenance, 10/18/21 16:12:00 EDT, Tablet, [facility]/pharmacy #[id number], 1 tablet By Mouth Daily,Instr:resent to [...] Personnel Name: Declan Louise MD Position: [facility] Physician - Primary Care Member Role: PCP Address: Address: [address] [place] [address]- Name: Simran Shannon RN Position: S RN Member Role: Primary Care Nurse Name: Torie Jo RN Position: S RN Supv Member Role: Primary Care Nurse Name: Hussein Waters RN Position: S RN Member Role: Primary Care Nurse Name: Vandana Sorensen NP Position: [facility] Associate Professional Member Role: Primary Care Nurse Address: Address: [address] [place] [address]- [place] Name: Karsten Kowng MD Position: [facility] Renal MD Member Role: Lifetime Consulting Physician Address: Address: [address] [place] [address] [address] [facility] [address]- [place] Name: Rebecac Leon RN Position: [facility] RN Member Role: Primary Care Nurse Name: Elisabet Calle Position: [facility] RN Member Role: Primary Care Nurse Name: Paola Cavanaugh RN Position: [facility] ED RN W/OE and Tasks Member Role: Primary Care Nurse Name: Argentina Dixon RN Position: [facility] ED RN W/OE and Tasks Member Role: Primary Care Nurse Name: Christina Alonso Position: [facility] AMB Nurse Member Role: Lifetime Consulting Physician Name: Ramiro Brody III, RN Position: [facility] RN Member Role: Primary Care Nurse Name: Simran Tariq RN Position: [facility] RN Member Role: Primary Care Nurse Name: Narayan Spencer RN Position: [facility] SN RN Member Role: Primary Care Nurse Name: Shell Yoder RN Position: [facility] RN Member Role: Primary Care Nurse Name: Yenni Packer RN Position: [facility] RN Member Role: Primary Care Nurse Name: Radha Mustafa RN Position: [facility] AMB Nurse Member Role: Primary Care Nurse Name: Misti Pickard RN Position: [facility] RN Member Role: Primary Care Nurse Name: William Villanueva RN Position: [facility] RN Member Role: Primary Care Nurse Name: Viky Torre RN Position: [facility] Beauty Sales Consultant Member Role: Primary Care Nurse Name: Carolee Tesfaye RN Position: [facility] RN Member Role: Primary Care Nurse Name: Joey Perez MD Position: [facility] Renal MD Member Role: Lifetime Consulting Physician Address: Address: [address] [place] [address] [facility] [place] [address]- [place] Name: Brittney Ledezma RN Position: [facility] Beauty Sales Consultant Member Role: Primary Care Nurse Name: Eliezer Wagner RN Position: [facility] RN Member Role: Primary Care Nurse Name: Najma Causey RN Position: [facility] SN RN Member Role: Primary Care Nurse Name: Martha AMBRIZ, Brunilda Position: [facility] RN Member Role: Primary Care Nurse Care Team Related Persons Name: ROOPA XIE Address: [address] [address] Name: HOPE XIE Address: [address] [address]
--- OUTSIDE RECORDS SUMMARY | 2023-05-25 14:58 | XMS_ITS | Continuity of Care Document ---
Author Organization [facility] Address [address] [place] [address]- Care Team Providers Care Online Affiliate Marketing Manager Name Role Barrel Roller Operator Declan ALVAREZ Primary Care Physician Encounter [facility] Date(s): 09/01/22 - 10/01/[address] [address] Allergies, Adverse Reactions, Alerts [...] virus vaccine, inactivated 1 12/06/10 Gi dory [id number] 12y+ bivalent booster vax 01/18/22 Given SARS-CoV-2 (COVID-19) mRNA BNT-162b2 vac 02/08/21 Given SARS-CoV-2 (COVID-19) mRNA BNT-162b2 vac 01/18/21 Given pneumococcal 23-valent vaccine 12/08/14 Given FluLaval (oldterm) 2 12/26/11 Given tetanus-diphtheria toxoids (Td) 3 12/06/10 Given 1Admin Note: vis given Wolof 2Admin Note: vis [id number] 3Admin Note: VIS given Wolof. Medications acetaminophen 325 mg oral tablet 650 mg, By Mouth, Every 4 hours, PRN, # 50 tablet, Refills 5, Tot. Refills 5, Maintenance, as needed for pain, 11/23/20 13:09:00 EDT, Route to Pharmacy Electronically, [facility]/pharmacy #[id number], 183, cm, 08/10/20 [...] tablet, 1 Refills, Maintenance, 07/06/22 13:39:00 EDT, [facility]/pharmacy #[id number], 175, cm, 01/18/22 12:03:00 EST, Height, 81.9, kg, 08/31/21 14:47:00 EDT, Dry Weight Start Date: 07/06/22 Status: Ordered Aspirin Low Dose 81 mg oral delayed release tablet See Instructions, TOME KIA TABLETA TODOS LOS BENDER, # 90 tablet, 1 Refills, Maintenance, 03/04/22 13:01:00 EST, [facility], 175, cm, 01/18/22 12:03:00 EST, Height, 81.9, kg, 08/31/21 14:47:00 EDT, Dry Weight Start Date: 03/04/22 Status: Ordered atorvastatin 20 mg oral tablet See Instructions, TOME KIA TABLETA TODOS LOS BENDER AT SUPPER, # 90 tablet, 1 Refills, 06/17/22 9:43:00 EDT, [facility]/pharmacy #[id number], 175, cm, 01/18/22 12:03:00 EST, Height, 81.9, kg, 08/31/21 14:47:00 EDT,Dry Weight Start Date: 06/17/22 Status: Ordered BuPROPion (Eqv-Wellbutrin SR) 150 mg/12 hours oral tablet, extended release See Instructions, TOME KIA TABLETA DOS VECES AL BALA, # 180 Unknown, 1 Refills, Maintenance, 03/04/22 13:01:00 EST, [facility], 175, cm, 01/18/22 12:03:00 EST, Height, 81.9, [...] Refills, Maintenance, 03/04/22 13:01:00 EST, [facility], 90, TOME KIA TABLETA POR VIA ORAL [...] ONCE DAILY, # 238 Gm, 5 Refills, [facility]60, 14, DISSOLVE 17 GRAMS IN WATER AND DRINK ONCE DAILY, 183, cm, 01/18/21 11:01:00 EST, Height, 84.8, kg, 07/01/19 22:20:00 EDT, Dry Weight Start Date: 06/29/21 Status: Ordered glipiZIDE 2.5 mg oral tablet, extended release See Instructions, MARCOS ADAM TABLETA TOS LOS BENDER, # 90 tablet, 0 Refills, Maintenance, 08/30/22 9:54:00 EDT, [facility], 175, cm, 01/18/22 12:03:00 EST, Height, 81.9, [...] oral tablet See Instructions, TOME KIA TABLETA TOUrGiftS LOS BENDER, # 90 tablet, Refills 1, Maintenance, 03/04/22 13:01:00 EST, Instructions Replace Required Details, Route to Pharmacy Electronically, [facility] STORE 88778, 175, cm, 01/18/22 12:03:00 EST, Height, 81.9, kg,... Start Date: 03/04/22 Status: Ordered Multi-Day Plus Minerals oral tablet 1 tablet, By Mouth, Daily, resent to new pharmacy, # 90 tablet, 1 Refills, Maintenance, 10/18/21 16:12:00 EDT, Tablet, [facility]/pharmacy #[id number], 1 tablet By [...] Refills 0, Maintenance, Use as needed [facility]. Dx: Stroke (I63.9), impaired mobility (Z74.09), 03/04/22 [...] Team Personnel Name: Declan Louise MD Position: [facility] Physician - Primary Care Member Role: PCP Address: Address: [address] [place] [address]- Name: Simrna Shannon RN Position: [facility] RN Member Role: Primary Care Nurse Name: Torie Jo RN Position: [facility] RN Supv Member Role: Primary Care Nurse Name: Hussein Waters RN Position: [facility] RN Member Role: Primary Care Nurse Name: Vandana Sorensen NP Position: [facility] Associate Professional Member Role: Primary Care Nurse Address: Address: [address] [place] [address]- [place] Name: Karsten Kwong MD Position: [facility] Renal MD Member Role: Lifetime Consulting Physician Address: Address: [address] [place] [address], [address] [facility] [place] [address]- Name: Rebecca Leon RN Position: [facility] RN Member Role: Primary Care Nurse Name: Elisabet Calle Position: [facility] RN Member Role: Primary Care Nurse Name: Paola Cavanaugh RN Position: [facility] ED RN W/OE and Tasks Member Role: Primary Care Nurse Name: Argentina Dixon RN Position: [facility] SN RN Member Role: Primary Care Nurse Name: Christina Alonso Position: [facility] AMB Nurse Member Role: Lifetime Consulting Physician Name: Ramiro Brody III, RN Position: [facility] RN Member Role: Primary Care Nurse Name: Simran Tariq RN Position: [facility] RN Member Role: Primary Care Nurse Name: Dana Fitzgerald RN Position: [facility] RN Member Role: Primary Care Nurse Name: Narayan Spencer RN Position: [facility] SN RN Member Role: Primary Care Nurse Name: Shell Yoder RN Position: [facility] RN Member Role: Primary Care Nurse Name: Radha Mustafa RN Position: [facility] AMB Nurse Member Role: Primary Care Nurse Name: Misti Pickard RN Position: [facility] RN Member Role: Primary Care Nurse Name: William Villanueva RN Position: [facility] RN Member Role: Primary Care Nurse Name: Viky Torre RN Position: [facility] [employer] Integrator Member Role: Primary Care Nurse Name: Carolee Tesfaye RN Position: [facility] RN Member Role: Primary Care Nurse Name: Joey Perez MD Position: [facility] Renal MD Member Role: Lifetime Consulting Physician Address: Address: [address] [place] [address] [facility] [address] Name: Brittney Ledezma RN Position: [facility] [employer] Integrator Member Role: Primary Care Nurse Name: Eliezer Wagner RN Position: [facility] ED RN W/OE and Tasks Member Role: Primary Care Nurse Name: Najma Causey RN Position: [facility] SN RN Member Role: Primary Care Nurse Name: Brunilda Thomas RN Position: [facility] RN Member Role: Primary Care Nurse Care Team Related Persons Name: ROJAS ROOPA Address: [address] [address] Name: HOPE XIE Address: [address] [address]
--- OUTSIDE RECORDS SUMMARY | 2023-05-25 14:58 | XMS_ITS | Continuity of Care Document ---
Author Organization [facility] Address [address] [place] [address]- Care Team Providers Care Galvanometer Assembler Name Role Phone Britany Springer MD Primary Care Physician ( [phone] [place] [facility] [place] 09/09/20 [facility] [address] [place] [id number] Attending Physician: Norbert Malhotra Admitting Physician: AdmtrNorbert Referring Physician: Admtr, Ar8 [...] 3 12/06/10 Given 1Admin Note: vis given Kinyarwanda 2Admin Note: vis [id number] 3Admin Note: VIS given Kinyarwanda. Medications acetaminophen 325 mg oral tablet 650 mg, By Mouth, Every 4 hours, PRN, # 50 tablet, Refills 5, Tot. Refills 5, Maintenance, as needed for pain, 06/20/19 14:52:00 EDT, Route to Pharmacy Electronically, [facility]/pharmacy #[id number], 178, cm, 04/02/19 9:47:00 EST, [...] 07/26/20 11:17:00 EDT, Route to Pharmacy Electronically, [facility]/pharmacy #[id number], 183, cm, 12/27/19 13:56:00 EST, Height, 84.8, kg, 07/01/19 22:20:00 EDT, Dry Weight Start Date: 07/26/20 Stop Date: 01/22/21 Status: Ordered atorvastatin 20 mg oral tablet 1 tablet = 20 mg, By Mouth, Daily at supper, # 90 tablet, 2 Refills, Maintenance, 02/03/20 10:50:00EST, Tablet, [facility]/pharmacy #[id number], 183, cm, 12/27/19 13:56:00 EST, Height, 84.8, kg, 07/01/19 22:20:00 EDT, Dry Weight Start Date: 02/03/20 Status: Ordered Claritin 10 mg oral tablet 10 mg, 1, tablet, By Mouth, Daily, # 30 tablet, Refills 0, Tot. Refills 0, Maintenance, 07/15/20 16:23:00 EDT, Route to Pharmacy Electronically, [facility]/pharmacy #[id number], Partial fill upon patient request [...] 30 tablet, 0 Refills, Maintenance, [id number], 183, cm, 07/15/20 15:52:00 EDT, Height, 84.8, [...] Tot. Refills 0, Maintenance, Use as needed [facility]. Dx: Stroke (I63.9), impaired mobility (Z74.09), 07/09/19 [...] Refills, Maintenance, 05/09/20 8:53:00 EDT, ER Tablet, [facility]/pharmacy #[id number], 183, cm, 12/27/19 13:56:00 EST, [...]
--- OUTSIDE RECORDS SUMMARY | 2023-05-25 14:58 | XMS_ITS | Continuity of Care Document ---
Author Organization [facility] Address [address] [place] [address]- Care Team Providers Care Director Software Name Role Insurance Verification Clerk Declan ALVAREZ Primary Care Physician Encounter [facility] Date(s): 02/15/23 - 03/17/[address] [id number] Allergies, Adverse Reactions, Alerts No Known [...] virus vaccine, inactivated 1 12/06/10 Gi dory [id number] 12y+ bivalent booster vax 01/18/22 Given SARS-CoV-2 (COVID-19) mRNA BNT-162b2 vac 02/08/21 Given SARS-CoV-2 (COVID-19) mRNA BNT-162b2 vac 01/18/21 Given pneumococcal 23-valent vaccine 12/08/14 Given FluLaval (oldterm) 2 12/26/11 Given tetanus-diphtheria toxoids (Td) 3 12/06/10 Given 1Admin Note: vis given Macanese 2Admin Note: vis [id number] 3Admin Note: VIS given Macanese. Medications acetaminophen 325 mg oral tablet 650 mg, By Mouth, Every 4 hours, PRN, # 50 tablet, Refills 5, Tot. Refills 5, Maintenance, as needed for pain, 11/23/20 13:09:00 EDT, Route to Pharmacy Electronically, [facility]/pharmacy #[id number], 183, cm, 08/10/20 16:05:00 EDT, Height, 84.8, kg, 07/01/19 22:2... Start Date: 11/23/20 Status: Ordered amLODIPine 10 mg oral tablet 10 mg, By Mouth, Daily, # 90 each, Refills 3, Tot. Refills 3, Maintenance, 02/24/23 12:06:00 EST, Route to Pharmacy Electronically, [facility]/pharmacy #[id number], Partial fill upon patient request if the prescription is for a schedule II opioid drug., 175, cm, 0... Start Date: 02/24/23 Stop Date: 02/19/24 Status: Ordered Aspirin Low Dose 81 mg oral delayed release tablet See Instructions, MARCOS ADAM TABLETA TOS ZORAIDA BENDER, # 90 tablet, 1 Refills, Maintenance, 02/24/23 12:05:00 EST, [facility]/pharmacy #[id number], 175, cm, 02/24/23 11:28:00 EST, Height, 81.9, kg, 01/04/23 22:19:00 EST, Dry Weight Start Date: 02/24/23 Status: Ordered atorvastatin 20 mg oral tablet See Instructions, TOME KIA TABLETA TOS ZORAIDA BENDER AT SUPPER, # 90 tablet, 1 Refills, Maintenance, 02/24/23 12:05:00 EST, [facility]/pharmacy #[id number], 175, cm, 02/24/23 11:28:00 EST, Height, 81.9, kg, 01/04/2322:19:00 EST, Dry Weight Start Date: 02/24/23 Status: Ordered BuPROPion (Eqv-Wellbutrin SR) 150 mg/12 hours oral tablet, extended release See Instructions, TOME KIA TABLETA DOS VECES AL BALA, # 180 each, 1 Refills, Maintenance, 02/24/23 12:05:00 EST, [facility]/pharmacy #[id number], 175, cm, 02/24/23 11:28:00 EST, Height, 81.9, kg, 01/04/23 22:19:00EST, Dry Weight Start Date: 02/24/23 Status: Ordered Daily Yasmine oral tablet See Instructions, NANETTEE KIA TABLETA TODOS LOS BENDER, # 90 tablet, 1 Refills, Maintenance, 02/24/23 12:05:00 EST, [facility]/pharmacy #[id number], 90, TOME KIA TABLETA TODOS ZORAIDA BENDER, 175, cm, 02/24/23 11:28:00 EST,Height, 81.9, kg, 01/04/23 22:19:00 EST, Dry Weight Start Date: 02/24/23 Status: Ordered GaviLAX oral powder for reconstitution See Instructions, DISSOLVE 17 GRAMS IN WATER AND DRINK ONCE DAILY, # 238 Gm, 5 Refills, Maintenance, 02/24/23 12:05:00 EST, [id number] 14, DISSOLVE 17 GRAMS IN WATER AND DRINK ONCE DAILY, 175, cm, 02/24/23 11:28:00 EST, Height, 81.9, kg, 12/21... Start Date: 02/24/23 Status: Ordered glipiZIDE 5 mg oral tablet, extended release 1 tablet = 5 mg, By Mouth, Daily, dose of 5 mg ER please dose., # 90 tablet, 3 Refills, Maintenance, 02/24/23 11:59:00 EST, ER Tablet, [facility]/pharmacy #[id number], Partial fill upon [...] Instructions Replace Required Details, Route to Pharmacy Electronically,[facility]/pharmacy #[id number], 175, cm, 02/24/23 11:28:00 EST,... Start Date: 02/24/23 Status: Ordered Multi-Day Plus Minerals oral tablet 1 tablet, By Mouth, Daily, resent to new pharmacy, # 90 tablet, 1 Refills, Maintenance, 10/18/21 16:12:00 EDT, Tablet, [facility]/pharmacy #[id number], 1 [...] Primary Care Member Role: PCP Address: Address: [address] [place] [address]- Name: Simran Shannon RN Position: S RN Member Role: Primary Care Nurse Name: Torie Jo RN Position: S RN Supv Member Role: Primary Care Nurse Name: Hussein Waters RN Position: S RN Member Role: Primary Care Nurse Name: Franchesca BERRYVandana Position: [facility] Associate Professional Member Role: Primary Care Nurse Address: Address: [address] [place] [address]- [place] Name: Karsten Kwong MD Position: [facility] Renal MD Member Role: Lifetime Consulting Physician Address: Address: [address] [place] [address] [address] [facility] [address]- [place] Name: Rebecca Leon RN Position: [facility] RN Member [...] Torre RN Position: [facility] English Teacher Member Role: Primary Care Nurse Name: Carolee Tesfaye RN Position: [facility] RN Member Role: Primary Care Nurse Name: Joey Perez MD Position: [facility] Renal MD Member Role: Lifetime Consulting Physician Address: Address: [address] [place] [address] [facility] [place] [address]- [place] Name: Brittney Ledezma RN Position: [facility] English Teacher Member Role: Primary Care Nurse Name: Eliezer Wagner RN Position: [facility] RN Member Role: Primary Care Nurse Name: Najma Causey RN Position: [facility] SN RN Member Role: Primary Care Nurse Name: Brunilda Thomas RN Position: [facility] RN Member Role: Primary Care Nurse Care Team Related Persons Name: ROOPA XIE Address: [address] [address] Name: HOPE XIE Address: [address] [address]
--- OUTSIDE RECORDS SUMMARY | 2023-05-25 14:58 | XMS_ITS | Continuity of Care Document ---
Author Organization [facility] Address [address] [place] [address]- Care Team Providers Care Document Examiner Name Role Supervisor QuiltingDeclan Louise MD Primary Care Physician [phone] Encounter [facility] [place] Date(s): 01/07/22 - 02/06/22 [facility] [address] [place] [id number] Attending Physician: Norbert Malhotra Admitting Physician: AdmtrNorbert [...] virus vaccine, inactivated 1 12/06/10 Gi dory [id number] 12y+ bivalent booster vax 01/18/22 Given SARS-CoV-2 (COVID-19) mRNA BNT-162b2 vac 02/08/21 Given SARS-CoV-2 (COVID-19) mRNA BNT-162b2 vac 01/18/21 Given pneumococcal 23-valent vaccine 12/08/14 Given FluLaval (oldterm) 2 12/26/11 Given tetanus-diphtheria toxoids (Td) 3 12/06/10 Given 1Admin Note: vis given Jordanian 2Admin Note: vis [id number] 3Admin Note: VIS given Jordanian. Medications acetaminophen 325 mg oral tablet 650 mg, By Mouth, Every 4 hours, PRN, # 50 tablet, Refills 5, Tot. Refills 5, Maintenance, as needed for pain, 11/23/20 13:09:00 EDT, Route to Pharmacy Electronically, [facility]/pharmacy #[id number], 183, cm, 08/10/20 16:05:00 [...] 10/21/21 15:36:00 EDT, Route to Pharmacy Electronically, [facility]/pharmacy #[id number], Partial fill upon patient request if the prescription is for a schedule II opioid drug.... Start Date: 10/21/21 Status: Ordered Aspirin Low Dose 81 mg oral delayed release tablet See Instructions, MARCOS BENDER, # 90 tablet, 1 Refills, 10/18/21 16:12:00 EDT, [facility]/pharmacy #[id number], 175, cm, 10/18/21 11:40:00 EDT, Height, 81.9, kg, 08/31/21 14:47:00 EDT, Dry Weight Start Date: 10/18/21 Status: Ordered atorvastatin 20 mg oral tablet See Instructions, MARCOS BENDER AT SUPPER, # 90 tablet, 1 Refills, 10/18/21 16:12:00 EDT, [facility]/pharmacy #[id number], 175, cm, 10/18/21 11:40:00 EDT, [...] ONCE DAILY, # 238 Gm, 5 Refills, [id number], 14, DISSOLVE 17 GRAMS IN WATER AND DRINK ONCE DAILY, 183, cm, 01/18/21 11:01:00 EST, Height, 84.8, kg, 07/01/19 22:20:00 EDT, Dry Weight Start Date: 06/29/21 Status: Ordered glipiZIDE 2.5 mg oral tablet, extended release See Instructions, MARCOS STEWARD TOSAWYER LOS BENDER, # 30 tablet, 5 Refills, 10/18/21 16:12:00 EDT, [facility]/pharmacy #[id number], 175, cm, 10/18/21 11:40:00 EDT, Height, 81.9, [...] Replace Required Details, Route to Pharmacy Electronically, [facility]/pharmacy#[id number], 175, cm, 10/18/21 11:40:00 EDT, Height, 81.9... Start Date: 10/18/21 Status: Ordered Multi-Day Plus Minerals oral tablet 1 tablet, By Mouth, Daily, resent to new pharmacy, # 90 tablet, 1 Refills, Maintenance, 10/18/21 16:12:00 EDT, Tablet, [facility]/pharmacy #[id number], 1 tablet By Mouth [...] Tot. Refills 0, Maintenance, [facility]. Dx: Stroke (I63.9), impaired mobility (Z74.09), [...] Team Personnel Name: Declan Louise MD Position: [facility] Primary Care Physician Member Role: PCP Address: Address: [address] [place] [address]- Name: Simran Shannon RN Position: [facility] RN Member Role: Primary Care Nurse Name: Torie Jo RN Position: [facility] RN Member Role: Primary Care Nurse Name: Hussein Waters RN Position: [facility] RN Member Role: Primary Care Nurse Name: Vandana Sorensen NP Position: [facility] Associate Professional Member Role: Primary Care Nurse Address: Address: [address] [place] [address]- Name: Karsten Kwong MD Position: [facility] Renal MD Member Role: Lifetime Consulting Physician Address: Address: [address] [place] [address], [address] [facility] [place] [address]- Name: Rebecca Leon RN Position: [facility] RN Member Role: Primary Care Nurse Name: Elisabet Calle Position: [facility] RN Member Role: Primary Care Nurse Name: Paola Cavanaugh RN Position: [facility] ED RN W/OE and Tasks Member Role: Primary Care Nurse Name: Argentina Dixon RN Position: [facility] SN RN Member Role: Primary Care Nurse Name: Christina Alonso Position: [facility] PCO RN Member Role: Lifetime Consulting Physician Name: Ramiro Brody III, RN Position: [facility] RN Member Role: Primary Care Nurse Name: Simran Tariq RN Position: [facility] RN Member Role: Primary Care Nurse Name: Dana Fitzgerald RN Position: [facility] RN Member Role: Primary Care Nurse Name: Narayan Spencer RN Position: [facility] ED RN W/OE and Tasks Member Role: Primary Care Nurse Name: Shell Yoder RN Position: [facility] RN Member Role: Primary Care Nurse Name: Radha Mustafa RN Position: [facility] PCO RN Member Role: Primary Care Nurse Name: Misti Pickard RN Position: [facility] RN Member Role: Primary Care Nurse Name: William Villanueva RN Position: [facility] RN Member Role: Primary Care Nurse Name: Viky Torre RN Position: [facility] Certified Medical Coding Specialist Member Role: Primary Care Nurse Name: Carolee Tesfaye RN Position: [facility] RN Member Role: Primary Care Nurse Name: Joey Perez MD Position: [facility] Renal MD Member Role: Lifetime Consulting Physician Address: Address: [address] [place] [address] [facility] [address] Name: Brittney Ledezma RN Position: [facility] Certified Medical Coding Specialist Member Role: Primary Care Nurse Name: Eliezer Wagner RN Position: [facility] ED RN W/OE and Tasks Member Role: Primary Care Nurse Name: Najma Causey RN Position: [facility] SN RN Member Role: Primary Care Nurse Name: Brunilda Thomas RN Position: [facility] RN Member Role: Primary Care Nurse Care Team Related Persons Name: ROOPA XIE Address: [address] [address] Name: HOPE XIE Address: [address] [address]
--- OUTSIDE RECORDS SUMMARY | 2023-05-25 14:58 | XMS_ITS | Continuity of Care Document ---
Author Organization [facility] Address [address] [place] [address]- Care Team Providers Care Clock Repair Technician Name Role Phone Britany Springer MD Primary Care Physician En[place] [facility] [place] Date(s): 08/04/20 - 09/03/[address] [address]- Allergies, Adverse Reactions, Alerts Substance Reaction Severity [...] 3 12/06/10 Given 1Admin Note: vis given Swazi 2Admin Note: vis [id number] 3Admin Note: VIS given Swazi. Medications acetaminophen 325 mg oral tablet 650 mg, By Mouth, Every 4 hours, PRN, # 50 tablet, Refills 5, Tot. Refills 5, Maintenance, as needed for pain, 06/20/19 14:52:00 EDT, Route to Pharmacy Electronically, [facility]/pharmacy #[id number], 178, cm, 04/02/19 9:47:00 EST, Height, 94.7, [...] 07/26/20 11:17:00 EDT, [place] [facility] 30 tablet, 0 Refills, Maintenance, [facility], 183, cm, 07/15/20 15:52:00 EDT, Height, 84.8, [...] 1 Refills, Maintenance, 02/03/20 10:58:00 EST, Tablet, [facility]/pharmacy #[id number], 1 tablet By Mouth Daily, [...] health. Dx: Stroke (I63.9), impaired mobility (Z74.09), 07/09/19 [...]
--- OUTSIDE RECORDS SUMMARY | 2023-05-25 14:58 | XMS_ITS | Continuity of Care Document ---
Author Organization [facility] Address [address] [place] [address]- Care Team Providers Care Applications System Analyst Name Role Phone Britany Springer MD Primary Care Physician Encounter [facility] Date(s): 03/26/20 - 04/25/20 [facility] [address] [place] [id number] Allergies, Adverse Reactions, Alerts Substance [...] 3 12/06/10 Given 1Admin Note: vis given Syriac 2Admin Note: vis [id number] 3Admin Note: VIS given Syriac. Medications acetaminophen 325 mg oral tablet 650 mg, By Mouth, Every 4 hours, PRN, # 50 tablet, Refills 5, Tot. Refills 5, Maintenance, as needed for pain, 06/20/19 14:52:00 EDT, Route to Pharmacy Electronically, [facility]/pharmacy #[id number], 178, cm, 04/02/19 9:47:00 EST, Height, 94.7, [...] 07/26/20 11:17:00 EDT, Route to Pharmacy Electronically, [facility]/pharmacy #[id number], 183, cm, 12/27/19 13:56:00 EST, Height, 84.8, kg, 07/01/19 22:20:00 EDT, Dry Weight Start Date: 07/26/20 Stop Date: 01/22/21 Status: Ordered aspirin 81 mg oral delayed release tablet 81 mg, 1, tablet, By Mouth, Daily, for 90 days, # 90 tablet, Refills 1, Tot. Refills 1, Hard Stop 07/26/20 11:17:00 EDT, 01/28/20 11:17:00 EST, Route to Pharmacy Electronically, [facility]/pharmacy #[id number], 183, cm, 12/27/19 13:56:00 EST, Height, 84.8, kg, .. Start Date: 01/28/20 Stop Date: 07/26/20 Status: Ordered atorvastatin 20 mg oral tablet 1 tablet = 20 mg, By Mouth, Daily at supper, # 90 tablet, 2 Refills, Maintenance, 02/03/20 10:50:00EST, Tablet, [facility]/pharmacy #[id number], 183, cm, 12/27/19 13:56:00 EST, Height, 84.8, kg, 07/01/19 22:20:00 EDT, Dry Weight Start Date: 02/03/20 Status: Ordered cetirizine 10 mg oral tablet 1 tablet = 10 mg, By Mouth, Daily, # 90 tablet, 1 Refills, Maintenance, 02/03/20 10:58:00 EST, Tablet, [facility]/pharmacy #[id number], 183, cm, 12/27/19 13:56:00 EST, Height, [...] 1 Refills, Maintenance, 02/03/20 10:58:00 EST, Tablet, [facility]/pharmacy #[id number], 1 tablet By Mouth Daily, 183, [...] per day, 30 day supply; R39. 81, 04/21/20 12:54:00 EST, Supply Start Date: 04/21/20 Status: Ordered Shower chair Shower chair, See Instructions, # 1 each, Refills 0, Tot. Refills 0, Maintenance, Use as needed [facility]. Dx: Stroke (I63.9), impaired mobility (Z74.09), [...] Refills, Maintenance, 05/09/20 8:53:00 EDT, ER Tablet, [facility]/pharmacy #[id number], 183, cm, 12/27/19 13:56:00 EST, Height, 84.8, kg, 07/01/19 22:20:00 EDT, Dry Weight Start Date: 05/09/20 Stop Date: 05/04/21 Status: Ordered Wellbutrin SR 150 mg/12 hours oral tablet, extended release 1 tablet = 150 mg, By Mouth, 2 times a day, for 90 days, # 180 tablet, 3 Refills, Hard Stop 05/09/20 8:53:00 EDT, 05/15/19 8:53:00 EDT, ER Tablet, [facility]/pharmacy #[id number], 178, cm, 04/02/19 9:47:00 EST, Height, [...]
--- OUTSIDE RECORDS SUMMARY | 2023-05-25 14:58 | XMS_ITS | Continuity of Care Document ---
Author Organization [facility] Address [address] [place] [address]- Care Team Providers Care Shirt Presser Name Role Phone Britany Springer MD Primary Care Physician [place] [facility] Date(s): 04/23/21 - 05/23/[address] [address]- Allergies, Adverse Reactions, Alerts No Known Allergies [...] 3 12/06/10 Given 1Admin Note: vis given Japanese 2Admin Note: vis [id number] 3Admin Note: VIS given Japanese. Medications acetaminophen 325 mg oral tablet 650 mg, By Mouth, Every 4 hours, PRN, # 50 tablet, Refills 5, Tot. Refills 5, Maintenance, as needed for pain, 11/23/20 13:09:00 EDT, Route to Pharmacy Electronically, [facility]/pharmacy #[id number], 183, cm, 06/21/21 16:05:00 EDT, Height, 84.8, [...] release tablet See Instructions, MARCOS ADAM TABLETA TOLOUIE BENDER, # 90 tablet, 1 Refills, 04/23/21 8:48:00 EST, [facility]/pharmacy #[id number], 183, cm, 01/18/21 11:01:00 EST, Height, 84.8, kg, 07/01/19 22:20:00 EDT, Dry Weight Start Date: 04/23/21 Status: Ordered atorvastatin 20 mg oral tablet See Instructions, MARCOS ADAM TABLETAmy CONWAY BENDER AT SUPPER, # 90 tablet, 1 Refills, [facility], 183, cm, 01/18/21 11:01:00 EST, Height, 84.8, kg, 07/01/19 22:20:00 EDT, Dry Weight Start Date: 03/12/21 Status: Ordered Claritin 10 mg oral tablet 10 mg, 1, tablet, By Mouth, Daily, # 30 tablet, Refills 5, Tot. Refills 5, Maintenance, 11/23/20 13:09:00 EDT, Route to Pharmacy Electronically, [facility]/pharmacy #[id number], Partial fill upon patient request [...] oral tablet, extended release See Instructions, MARCOS BENDER, # 30 tablet, 5 Refills, 04/23/21 8:48:00 EST, [facility]/pharmacy #[id number], 183, cm, 01/18/21 11:01:00 EST, Height, [...] EDT, Supply Start Date: 05/13/21 Status: Ordered Multi-Day Plus Minerals oral tablet 1 tablet, By Mouth, Daily, resent to new pharmacy, # 90 tablet, 1 Refills, Maintenance, 11/23/20 13:08:00 EDT, Tablet, [facility]/pharmacy #[id number], 1 tablet By Mouth Daily,Instr:resent [...] Tot. Refills 0, Maintenance, [facility]. Dx: Stroke (I63.9), impaired mobility (Z74.09), [...] Refills, Maintenance, 05/04/21 8:53:00 EDT, ER Tablet, [facility]/pharmacy #[id number], 183, cm, 01/18/21 11:01:00 EST, Height, [...]
--- OUTSIDE RECORDS SUMMARY | 2023-05-25 14:58 | XMS_ITS | Continuity of Care Document ---
Author Organization [facility] Address [address] [place] [address]- Care Team Providers Care Supervisor [place] Name Role Phone Britany Springer MD Primary Care Physician Encounter [facility] Date(s): 02/07/20 - 03/08/[address] [address]- Allergies, Adverse Reactions, Alerts Substance Reaction Severity [...] Note: vis given Jordanian 2Admin Note: vis [id number] 3Admin Note: VIS given Jordanian. Medications acetaminophen 325 mg oral tablet 650 mg, By Mouth, Every 4 hours, PRN, # 50 tablet, Refills 5, Tot. Refills 5, Maintenance, as needed for pain, 06/20/19 14:52:00 EDT, Route to Pharmacy Electronically, [facility]/pharmacy #[id number], 178, cm, 04/02/19 9:47:00 EST, Height, [...] 07/26/20 11:17:00 EDT, Route to Pharmacy Electronically, [facility]/pharmacy #[id number], 183, cm, 12/27/19 13:56:00 EST, Height, 84.8, kg, 07/01/19 22:20:00 EDT, Dry Weight Start Date: 07/26/20 Stop Date: 01/22/21 Status: Ordered aspirin 81 mg oral delayed release tablet 81 mg, 1, tablet, By Mouth, Daily, for 90 days, # 90 tablet, Refills 1, Tot. Refills 1, Hard Stop 07/26/20 11:17:00 EDT, 01/28/20 11:17:00 EST, Route to Pharmacy Electronically, [facility]/pharmacy #[id number], 183, cm, 12/27/19 13:56:00 EST, Height, 84.8, kg, ... Start Date: 01/28/20 Stop Date: 07/26/20 Status: Ordered atorvastatin 20 mg oral tablet 1 tablet = 20 mg, By Mouth, Daily at supper, # 90 tablet, 2 Refills, Maintenance, 02/03/20 10:50:00EST, Tablet, [facility]/pharmacy #[id number], 183, cm, 12/27/19 13:56:00 EST, Height, 84.8, kg, 07/01/19 22:20:00 EDT, Dry Weight Start Date: 02/03/20 Status: Ordered cetirizine 10 mg oral tablet 1 tablet = 10 mg, By Mouth, Daily, # 90 tablet, 1 Refills, Maintenance, 02/03/20 10:58:00 EST, Tablet, [facility]/pharmacy #[id number], 183, cm, 12/27/19 13:56:00 EST, Height, [...] 1 Refills, Maintenance, 02/03/20 10:58:00 EST, Tablet, [facility]/pharmacy #[id number], 1 tablet By Mouth Daily, 183, [...] Tot. Refills 0, Maintenance, Use as needed [facility]. Dx: Stroke (I63.9), impaired mobility (Z74.09), [...] 8:53:00 EDT, 05/15/19 8:53:00 EDT, ER Tablet, [facility]/pharmacy #[id number], 178, cm, 04/02/19 9:47:00 EST, Height, [...]
--- OUTSIDE RECORDS SUMMARY | 2023-05-25 14:58 | XMS_ITS | Continuity of Care Document ---
Author Organization [facility] Address [address] [place] [address]- Care Team Providers Care Cambering Machine Operator Name Role Phone Britany Springer MD Primary Care Physician Encounter [facility] Date(s): 09/27/19 - 10/27/[address] [address]- [facility] Allergies, Adverse Reactions, Alerts Substance Reaction Severity [...] Given 1Admin Note: vis given Citizen Of [place] 2Admin Note: vis [phone] 3Admin Note: VIS given Citizen Of [place]. Medications acetaminophen 325 mg oral tablet 650 mg, By Mouth, Every 4 hours, PRN, # 50 tablet, Refills 5, Tot. Refills 5, Maintenance, as needed for pain, 06/20/19 14:52:00 EDT, Route to Pharmacy Electronically, [facility]/pharmacy #[id number], 178, cm, 04/02/19 9:47:00 EST, Height, 94.7, [...] 10/21/19 11:35:00 EDT, Route to Pharmacy Electronically, [facility]/pharmacy #[id number], ins... Start Date: 10/21/19 Stop Date: 01/19/20 Status: Ordered aspirin 81 mg oral delayed release tablet 81 mg, 1, tablet, By Mouth, Daily, # 90 tablet, Refills 3, Tot. Refills 3, Maintenance, 01/09/19 16:18:54 EST, Route to Pharmacy Electronically, [id number], [facility]/pharmacy #[id number] Start Date: 01/09/19 Stop Date: 01/04/20 Status: Ordered atorvastatin 20 mg oral tablet 1 tablet = 20 mg, By Mouth, Daily at supper, # 30 tablet, 5 Refills, Maintenance, 08/22/19 14:51:00EDT, Tablet, [facility]/pharmacy #[id number], 183, cm, 07/29/19 15:02:00 EDT, Height, 84.8, kg, 07/01/19 22:20:00 EDT, Dry Weight Start Date: 08/22/19 Status: Ordered cetirizine 10 mg oral tablet 1 tablet = 10 mg, By Mouth, Daily, # 90 tablet, 1 Refills, Maintenance, 10/21/19 11:35:00 EDT, Tablet, [facility]/pharmacy #[id number], 183, cm, 07/29/19 15:02:00 EDT, [...] Gm, 5 Refills, Maintenance, 07/20/18 13:11:53 EDT, [place], 2 sprays Nares, Both Daily Start Date: [...] Refills, Maintenance, 06/20/19 15:01:00 EDT, REC Powder, [facility]/pharmacy #[id number], 17 Gm By Mouth Daily,Instr:dissolve in water beforetaking, 178, cm, 04/02/19 9:47:00 EST, Height, 94.7... Start Date: 06/20/19 Status: Ordered Multi-Day Plus Minerals oral tablet 1 tablet, By Mouth, Daily, # 30 tablet, 5 Refills, Maintenance, 07/22/19 18:27:00 EDT, Tablet, [facility]/pharmacy #[id number], 1 tablet By Mouth Daily, [...] Refills 0, Maintenance, Use as needed [facility]. Dx: Stroke (I63.9), impaired mobility (Z74.09), [...]
--- OUTSIDE RECORDS SUMMARY | 2023-05-25 14:58 | XMS_ITS | Continuity of Care Document ---
Author Organization [facility] Address [address] [place] [address]- Care Team Providers Care Global Compensation Director Name Role Janitor Cleaner Declan ALVAREZ Primary Care Physician Encounter [facility] Date(s): 08/15/22 - 09/14/[address] [address] Allergies, Adverse Reactions, Alerts No Known [...] virus vaccine, inactivated 1 12/06/10 Gi dory [id number] 12y+ bivalent booster vax 01/18/22 Given SARS-CoV-2 (COVID-19) mRNA BNT-162b2 vac 02/08/21 Given SARS-CoV-2 (COVID-19) mRNA BNT-162b2 vac 01/18/21 Given pneumococcal 23-valent vaccine 12/08/14 Given FluLaval (oldterm) 2 12/26/11 Given tetanus-diphtheria toxoids (Td) 3 12/06/10 Given 1Admin Note: vis given [place] Citizen 2Admin Note: vis [phone] 3Admin Note: VIS given [place] Citizen. Medications acetaminophen 325 mg oral tablet 650 mg, By Mouth, Every 4 hours, PRN, # 50 tablet, Refills 5, Tot. Refills 5, Maintenance, as needed for pain, 11/23/20 13:09:00 EDT, Route to Pharmacy Electronically, [facility]/pharmacy #[id number], 183, cm, 08/10/20 16:05:00 [...] tablet, 1 Refills, Maintenance, 07/06/22 13:39:00 EDT, [facility]/pharmacy #[id number], 175, cm, 01/18/22 12:03:00 EST, Height, 81.9, kg, 08/31/21 14:47:00 EDT, Dry Weight Start Date: 07/06/22 Status: Ordered Aspirin Low Dose 81 mg oral delayed release tablet See Instructions, TOME KIA TABLETA TODOS LOS BENDER, # 90 tablet, 1 Refills, Maintenance, 03/04/22 13:01:00 EST, [id number], 175, cm, 01/18/22 12:03:00 EST, Height, 81.9, kg, 08/31/21 14:47:00 EDT, Dry Weight Start Date: 03/04/22 Status: Ordered atorvastatin 20 mg oral tablet See Instructions, TOME KIA TABLETA TODOS LOS BENDER AT SUPPER, # 90 tablet, 1 Refills, 06/17/22 9:43:00 EDT, [facility]/pharmacy #[id number], 175, cm, 01/18/22 12:03:00 EST, Height, 81.9, kg, 08/31/21 14:47:00 EDT,Dry Weight Start Date: 06/17/22 Status: Ordered BuPROPion (Eqv-Wellbutrin SR) 150 mg/12 hours oral tablet, extended release See Instructions, TOME KIA TABLETA DOS VECES AL BALA, # 180 Unknown, 1 Refills, Maintenance, 03/04/22 13:01:00 EST, [facility], 175, cm, 01/18/22 12:03:00 EST, Height, 81.9, [...] Refills, Maintenance, 03/04/22 13:01:00 EST, [facility], 90, TOME KIA TABLETA POR VIA ORAL [...] ONCE DAILY, # 238 Gm, 5 Refills, [facility], 14, DISSOLVE 17 GRAMS IN WATER AND DRINK ONCE DAILY, 183, cm, 01/18/21 11:01:00 EST, Height, 84.8, kg, 07/01/19 22:20:00 EDT, Dry Weight Start Date: 06/29/21 Status: Ordered glipiZIDE 2.5 mg oral tablet, extended release See Instructions, MARCOS ADAM TABLETA TOS LOS BENDER, # 90 tablet, 0 Refills, Maintenance, 08/30/22 9:54:00 EDT, [facility], 175, cm, 01/18/22 12:03:00 EST, Height, 81.9, [...] oral tablet See Instructions, TOME KIA TABLETA TOVidientS LOS BENDER, # 90 tablet, Refills 1, Maintenance, 03/04/22 13:01:00 EST, Instructions Replace Required Details, Route to Pharmacy Electronically, [facility]42, 175, cm, 01/18/22 12:03:00 EST, Height, 81.9, kg,... Start Date: 03/04/22 Status: Ordered Multi-Day Plus Minerals oral tablet 1 tablet, By Mouth, Daily, resent to new pharmacy, # 90 tablet, 1 Refills, Maintenance, 10/18/21 16:12:00 EDT, Tablet, [facility]/pharmacy #[id number], 1 tablet By Mouth [...] Tot. Refills 0, Maintenance, Use as needed [facility]. Dx: Stroke (I63.9), impaired mobility [...] Team Personnel Name: Declan Louise MD Position: [facility] Physician - Primary Care Member Role: PCP Address: Address: [address] [place] [address]- Name: Simran Shannon RN Position: [facility] RN Member Role: Primary Care Nurse Name: Torie Jo RN Position: [facility] RN Supv Member Role: Primary Care Nurse Name: Hussein Waters RN Position: [facility] RN Member Role: Primary Care Nurse Name: Vandana Sorensen NP Position: [facility] Associate Professional Member Role: Primary Care Nurse Address: Address: [address] [place] [address]- [place] Name: Karsten Kwong MD Position: [facility] Renal MD Member Role: Lifetime Consulting Physician Address: Address: [address] [place] [address], [address] [facility] [place] [address]- Name: Rebecca Leon RN Position: [facility] RN Member Role: Primary Care Nurse Name: Elisabet Calle Position: [facility] RN Member Role: Primary Care Nurse Name: Paola Cavanaugh RN Position: [facility] ED RN W/OE and Tasks Member Role: Primary Care Nurse Name: Argentina Dixon RN Position: [facility] SN RN Member Role: Primary Care Nurse Name: Christina Alonso Position: [facility] AMB Nurse Member Role: Lifetime Consulting Physician Name: Ramiro Brody III, RN Position: [facility] RN Member Role: Primary Care Nurse Name: Simran Tariq RN Position: [facility] RN Member Role: Primary Care Nurse Name: Dana Fitzgerald RN Position: [facility] RN Member Role: Primary Care Nurse Name: Narayan Spencer RN Position: [facility] SN RN Member Role: Primary Care Nurse Name: Shell Yoder RN Position: [facility] RN Member Role: Primary Care Nurse Name: Radha Mustafa RN Position: [facility] AMB Nurse Member Role: Primary Care Nurse Name: Misti Pickard RN Position: [facility] RN Member Role: Primary Care Nurse Name: William Villanueva RN Position: [facility] RN Member Role: Primary Care Nurse Name: Viky Torre RN Position: [facility] Air Defense Specialist Member Role: Primary Care Nurse Name: Carolee Tesfaye RN Position: [facility] RN Member Role: Primary Care Nurse Name: Joey Perez MD Position: [facility] Renal MD Member Role: Lifetime Consulting Physician Address: Address: [address] [place] [address] [facility] [address] Name: Brittney Ledezma RN Position: [facility] Air Defense Specialist Member Role: Primary Care Nurse Name: Eliezer Wagner RN Position: [facility] ED RN W/OE and Tasks Member Role: Primary Care Nurse Name: Najma Causey RN Position: [facility] SN RN Member Role: Primary Care Nurse Name: Brunilda Thomas RN Position: [facility] RN Member Role: Primary Care Nurse Care Team Related Persons Name: ROJAS ROOPA Address: [address] [address] Name: HOPE IXE Address: [address] [address]
--- OUTSIDE RECORDS SUMMARY | 2023-05-25 14:59 | XMS_ITS | Continuity of Care Document ---
Author Organization [facility] Address [address] [place] [address]- Care Team Providers Care Accounting Clerk Name Role Coating Machine Operator HelperDeclan Louise MD Primary Care Physician [phone] Encounter [facility] Date(s): 08/30/21 - 09/01/[address] [address]- Encounter Diagnosis Right hand pain(Final) - 08/30/21 Discharge Disposition: A-D/C Home Attending Physician: Hawa Ham MD Admitting Physician: Janki Miller MD Referring Physician: Not on Staff, Referring [...] 3 12/06/10 Given 1Admin Note: vis given [place] 2Admin Note: vis [id number] 3Admin Note: VIS given Trin[place]. Medications acetaminophen 325 mg oral tablet 650 [...] 90 tablet, 1 Refills, 04/23/21 8:48:00 EST, [facility]/pharmacy #[id number], 183, cm, 01/18/21 11:01:00 EST, Height, 84.8, kg, 07/01/19 22:20:00 EDT, Dry Weight Start Date: 04/23/21 Status: Ordered atorvastatin 20 mg oral tablet See Instructions, MARCOS ADAM TABLETAmy BENDER AT SUPPER, # 90 tablet, 1 Refills, [facility], 183, cm, 01/18/21 11:01:00 EST, Height, 84.8, kg, 07/01/19 22:20:00 EDT, Dry Weight Start Date: 03/12/21 Status: Ordered Compression Stockings See Instructions, # 2 pair, Refills 0, Tot. Refills 0, Maintenance, surgical, calf length 20-30 mm Hg R60.0, 07/10/17 16:54:50 EDT, Compound Start Date: 07/10/17 Status: Ordered doxycycline hyclate 100 mg oral capsule 1 capsule = 100 mg, By Mouth, 2 times a day, for 5 days, with fluids may take with food to minimizeabdominal discomfort, # 10 capsule, 0 Refills, Acute 09/06/21 11:21:00 EDT, 09/01/21 11:21:00 EDT, Capsule, [facility]/pharmacy #[id number], Partial fill upon ese... Start Date: 09/01/21 Stop Date: 09/06/21 Status: Ordered empty cather once a day [...] 5 Refills, [facility] 80[facility], 14, DISSOLVE 17 GRAMS IN WATER AND DRINK ONCE DAILY, 183, cm, 01/18/21 11:01:00 EST, Height, 84.8, kg, 07/01/19 22:20:00 EDT, Dry Weight Start Date: 06/29/21 Status: Ordered glipiZIDE 2.5 mg oral tablet, extended release See Instructions, MARCOS STEWARD TODOS LOS BENDER, # 30 tablet, 5 Refills, 04/23/21 8:48:00 EST, [facility]/pharmacy #[id number], 183, cm, 01/18/21 11:01:00 EST, [...] Ordered loratadine 10 mg oral tablet See InstructionsMARCOS RANDELL BENDER, # 30 tablet, Refills 5, Instructions Replace Required Details, Route to Pharmacy Electronically, [facility] 177[facility], 183, cm, 01/18/21 11:01:00 EST, Height, 84.8, kg, 07/01/19 22:20:00 EDT, Dry Weight Start Date: 06/03/21 Status: Ordered Multi-Day Plus Minerals oral tablet 1 tablet, By Mouth, Daily, resent to new pharmacy, # 90 tablet, 0 Refills, Maintenance, 07/13/21 9:36:00 EDT, Tablet, [facility]/pharmacy #[id number], [...] Tot. Refills 0, Maintenance, Use as needed [facility]. Dx: Stroke (I63.9), impaired mobility [...] Refills, Maintenance, 05/04/21 8:53:00 EDT, ER Tablet, [facility]/pharmacy #[id number], 183, cm, 01/18/21 11:01:00 EST, [...] of indwelling urina ry catheter(Confirmed) Active Results Orders for Microbiology Reports Name Date Blood Culture 08/30/21 Blood Culture #2 08/30/21 Microbiology Reports TEST:Blood Culture STATUS:Unauthenticated BODY SITE: SOURCE:Blood COLLECTED DATE/TIME:08/30/21 12:15 PM Blood Culture SPECIMEN DESCRIPTION : BLOOD RAC SPECIAL REQUESTS : NONE CULTURE : NO GROWTH AFTER 48 HOURS REPORT STATUS : PRELIMINARY REPORT TEST:Blood Culture, Second Order STATUS:Unauthenticated BODY SITE: SOURCE:Blood COLLECTED DATE/TIME:08/30/21 11:26 AM Blood Culture, Second Order SPECIMEN DESCRIPTION : BLOOD LHAND SPECIAL REQUESTS : NONE CULTURE : NO GROWTH AFTER 48 HOURS REPORT STATUS : PRELIMINARY REPORT Radiology Reports * Exam Date Time Procedure Performing Provider Status 08/30/21 12:04 PM Hand Min 3 Views Right Flaca Joiner ica; Auth (Verified) Notes: (Hand Min 3 Views Right) Reason For Exam: Pain RESULT: Hand Min 3 Views Right Examination: Right hand performed on 08/30/2021. History: Hx of Present Illness: pt coming from home reports right hand pain denies falling on hand,family also states when they went to get pt up he was pale and diaphoretic; Reason: Pain; Clinical Question(s): Osteomyelitis Findings: Frontal, oblique, and lateral views of the right hand are submitted. No fractures or dislocations are demonstrated. The soft tissues are unremarkable. Vascular calcification is identified. Impression: There is no acute osseous abnormality. WSN: [id number] Ordering Physician: Nancy Pitt Dictated By: Laura Mcghee MD Dictated Date/Time: 08/30/21 1:07 pm Reviewed By: Laura Mcghee MD Signed By: Laura Mcghee MD Signed Date/Time: 08/30/21 1:07 pm Transcribed By: MARISA Transcribed Date/Time: 08/30/21 1:07 pm * Exam Date Time Procedure Performing Provider Status 08/30/21 12:04 PM Chest 2 Views Frontal and Lat Janine Mota; Beatriz (Verified) Notes: (Chest 2 Views Frontal and Lat) Reason For Exam: Shortness of Breath, Fever;Other: RESULT: Chest 2 Views Frontal and Lat Examination: Chest performed on 08/30/2021. History: Hand pain. Fall. Shortness of breath. Findings: Frontal and lateral views of the chest are compared to a prior study dated 07/17/2019. The cardiac and mediastinal silhouettes are within normal limits. The lungs are clear. Calcified granulomas in the left lung are seen. The osseous and soft tissue structures are unremarkable. Impression: There is no acute cardiopulmonary disease. WSN: [id number] Ordering Physician: Nancy Pitt Dictated By: Laura Mcghee MD Dictated Date/Time: 08/30/21 12:06 p Reviewed By: Laura Mcghee MD Signed By: Laura Mcghee MD Signed Date/Time: 08/30/21 12:06 pm Transcribed By: MARISA Transcribed Date/Time: 08/30/21 12:06 pm Vital Signs Most recent to oldest [Reference Range]: 1 2 3 Height 175 cm (09/01/21 2:01 PM) 175 cm (09/01/21 11:46 AM) 175 cm (09/01/21 9:33 AM) Weight 81.9 kg (08/31/21 2:32 PM) Oxygen Saturation [94-100 %] 98 % (09/01/21 2:01 PM) 97 % (09/01/21 9:33 AM) 98 % (09/01/21 8:04 AM) Pulse Rate [55-90 bpm] 111 bpm *H* (09/01/21 2:01 PM) 100 bpm *H* (09/01/21 11:46 AM) 110 bpm *H* (09/01/21 9:33 AM) Body Mass Index [18.5-24.99] 26.74 *H* (08/31/21 2:32 PM) Blood Pressure [90-138/55-84 mm Hg] 160/111mm Hg *H* (09/01/21 2:01 PM) 124/96mm Hg (09/01/21 11:46 AM) 136/89mm Hg (09/01/21 9:33 AM) Respiratory Rate [16-30 br/min] 20 br/min (09/01/21 2:01 PM) 18 br/min (09/01/21 9:33 AM) 18 br/min (09/01/21 8:04 AM) Temperature [96.8-100.4 DegF] 98.3 DegF (09/01/21 2:01 PM) 97.1 DegF (09/01/21 11:46 AM) 98.4 DegF (09/01/21 9:33 AM) Liters per Minute 0 L/min (08/31/21 5:12 PM) 0 L/min (08/31/21 2:23 PM) Mode of Delivery (Oxygen) Room air (09/01/21 2:01 PM) Room air (09/01/21 9:33 AM) Room air (09/01/21 4:00 AM) Blood pressure sites Arm, right (09/01/21 2:01 PM) Arm, right (09/01/21 11:46 AM) Arm, right (09/01/21 9:33 AM) Temperature Route Oral (09/01/21 2:01 PM) Temporal (09/01/21 11:46 AM) Oral (09/01/21 9:33 AM) Dry Weight 81.9 kg (08/31/21 2:32 PM) Social History Social History Type Response Smoking Status Never smoker; Tobacc o user in household: No entered on: 01/12/15 Sex
--- OUTSIDE RECORDS SUMMARY | 2023-05-25 14:59 | XMS_ITS | Continuity of Care Document ---
Author Organization [facility] Address [address] [place] [address]- Care Team Providers Care Flight Dispatcher Name Role Phone Britany Springer MD Primary Care Physician [place] [facility] [id number] Date(s): 08/07/20 - 09/06/[address] [address]- Attending Physician: Norbert Malhotra Admitting Physician: AdmtrNorbert [...] 3 12/06/10 Given 1Admin Note: vis given Telugu 2Admin Note: vis [id number] 3Admin Note: VIS given Telugu. Medications acetaminophen 325 mg oral tablet 650 mg, By Mouth, Every 4 hours, PRN, # 50 tablet, Refills 5, Tot. Refills 5, Maintenance, as needed for pain, 06/20/19 14:52:00 EDT, Route to Pharmacy Electronically, [facility]/pharmacy #[id number], 178, cm, 04/02/19 9:47:00 EST, Height, 94.7, [...] 07/26/20 11:17:00 EDT, Route to Pharmacy Electronically, [facility]/pharmacy #[id number], 183, cm, 12/27/19 13:56:00 EST, Height, 84.8, kg, 07/01/19 22:20:00 EDT, Dry Weight Start Date: 07/26/20 Stop Date: 01/22/21 Status: Ordered atorvastatin 20 mg oral tablet 1 tablet = 20 mg, By Mouth, Daily at supper, # 90 tablet, 2 Refills, Maintenance, 02/03/20 10:50:00EST, Tablet, [facility]/pharmacy #[id number], 183, cm, 12/27/19 13:56:00 EST, Height, 84.8, kg, 07/01/19 22:20:00 EDT, Dry Weight Start Date: 02/03/20 Status: Ordered Claritin 10 mg oral tablet 10 mg, 1, tablet, By Mouth, Daily, # 30 tablet, Refills 0, Tot. Refills 0, Maintenance, 07/15/20 16:23:00 EDT, Route to Pharmacy Electronically, [facility]/pharmacy #[id number], Partial fill upon patient request [...] 30 tablet, 0 Refills, Maintenance, [facility], 183, cm, 07/15/20 15:52:00 EDT, Height, 84.8, [...] [place]. Dx: Stroke (I63.9), impaired mobility (Z74.09), 07/09/19 [...]
--- OUTSIDE RECORDS SUMMARY | 2023-05-25 14:59 | XMS_ITS | Continuity of Care Document ---
Author Organization [facility] Address [address] [place] [address]- Care Team Providers Care Pin Maker Name Role Finishing Machine Operator Declan ALVAREZ Primary Care Physician [facility] Date[facility]s): 11/25/22 - 12/25/[address] [id number] Allergies, Adverse Reactions, Alerts No [...] virus vaccine, inactivated 1 12/06/10 Gi dory [id number] 12y+ bivalent booster vax 01/18/22 Given SARS-CoV-2 (COVID-19) mRNA BNT-162b2 vac 02/08/21 Given SARS-CoV-2 (COVID-19) mRNA BNT-162b2 vac 01/18/21 Given pneumococcal 23-valent vaccine 12/08/14 Given FluLaval (oldterm) 2 12/26/11 Given tetanus-diphtheria toxoids (Td) 3 12/06/10 Given 1Admin Note: vis given Dutch 2Admin Note: vis [id number] 3Admin Note: VIS given Dutch. Medications acetaminophen 325 mg oral tablet 650 mg, By Mouth, Every 4 hours, PRN, # 50 tablet, Refills 5, Tot. Refills 5, Maintenance, as needed for pain, 11/23/20 13:09:00 EDT, Route to Pharmacy Electronically, [facility]/pharmacy #[id number], 183, cm, 08/10/20 16:05:00 EDT, [...] 5 mg oral tablet See Instructions, MARCOS MEJIAS LOS BENDER, # 90 tablet, 1 Refills, Maintenance, 10/17/22 12:07:00 EDT, [id number], 175, cm, 01/18/22 12:03:00 EST, Height, 81.9, kg, 08/31/21 14:47:00 EDT, Dry Weight Start Date: 10/17/22 Status: Ordered Aspirin Low Dose 81 mg oral delayed release tablet See Instructions, MARCOS ADAM TABLETA RANDELL MCKENNAS, # 90 tablet, 1 Refills, Maintenance, 12/13/22 10:54:00 EDT, [id number], 175, cm, 01/18/22 12:03:00 EST, Height, 81.9, kg, 08/31/21 14:47:00 EDT, Dry Weight Start Date: 12/13/22 Status: Ordered atorvastatin 20 mg oral tablet See Instructions, MARCOS ADAM TABLETA RANDELL MCKENNAS AT SUPPER, # 90 tablet, 1 Refills, Maintenance, 10/03/22 12:31:00 EDT, [id number], 175, cm, 01/18/22 12:03:00 EST, Height, 81.9, kg, 08/31/21 14:47:00 EDT, Dry Weight Start Date: 10/03/22 Status: Ordered BuPROPion (Eqv-Wellbutrin SR) 150 mg/12 hours oral tablet, extended release See Instructions, MARCOS ADAM TABLETA DOS VECES AL BALA, # 180 each, 1 Refills, Maintenance, 12/23/22 11:44:00 EDT, [facility]/pharmacy #[id number], 175, cm, 12/23/22 11:32:00 EDT, Height, 81.9, kg, 08/31/21 14:47:00EDT, Dry Weight Start Date: 12/23/22 Status: Ordered Compression Stockings See Instructions, # 2 pair, Refills 0, Tot. Refills 0, Maintenance, surgical, calf length 20-30 mm Hg R60.0, 07/10/17 16:54:50 EDT, Compound Start Date: 07/10/17 Status: Ordered Daily Yasmine oral tablet See Instructions, MARCOS ADAM TABLETA RANDELL CONWAY BENDER, # 90 tablet, 1 Refills, Maintenance, 12/13/22 10:54:00 EDT, [facility], 90, NANETTEE KIA TABLETA RANDELL CONWAY BENDER, 175, cm, 01/18/22 12:03:00 EST, Height, [...] Gm, 5 Refills, Maintenance, 11/28/22 8:45:00 EDT, [facility]/pharmacy #[id number], 14, DISSOLVE 17 GRAMS IN WATER AND DRINK ONCE DAILY, 175, cm, 01/18/22 12:03:00 EST, Height, 81.9, kg, 08/31... Start Date: 11/28/22 Status: Ordered glipiZIDE 5 mg oral tablet, extended release 1 tablet = 5 mg, By Mouth, Daily, # 90 tablet, 1 Refills, Maintenance, 11/02/22 13:07:00 EDT, ER Tablet, [facility]/pharmacy #[id number], Partial fill upon patient request [...] Replace Required Details, Route to Pharmacy Electronically, [id number], 175, cm, 01/18/22 12:03:00 EST, Height, 81.9, kg,... Start Date: 12/13/22 Status: Ordered Multi-Day Plus Minerals oral tablet 1 tablet, By Mouth, Daily, resent to new pharmacy, # 90 tablet, 1 Refills, Maintenance, 10/18/21 16:12:00 EDT, Tablet, [facility]/pharmacy #[id number], 1 tablet By Mouth Daily,Instr:resent [...] EST, Supply Start Date: 03/04/22 Status: Ordered Transport chair Transport chair, See Instructions, # 1 each, Refills 0, Tot. Refills 0, Maintenance, Dx: h/o CVA, generalized weakness, 12/23/22 12:17:00 EDT, Supply Start Date: 12/23/22 Status: Ordered Wheelchair Wheelchair, See Instructions, # [...] Team Personnel Name: Declan Louise MD Position: [facility] Physician - Primary Care Member Role: PCP Address: Address: [address] [place] [id number] Name: Simran Shannon RN Position: S RN Member Role: Primary Care Nurse Name: Torie Jo RN Position: S RN Supv Member Role: Primary Care Nurse Name: Hussein Waters RN Position: S RN Member Role: Primary Care Nurse Name: Vandana Sorensen NP Position: [facility] Associate Professional Member Role: Primary Care Nurse Address: Address: [address] [place] [address]- [place] Name: Karsten Kwong MD Position: [facility] Renal MD Member Role: Lifetime Consulting Physician Address: Address: [address] [place] [address] [address] [facility] [place] [address]- [place] Name: Rebecca Leon RN Position: [facility] RN Member Role: Primary Care Nurse Name: Elisabet Calle Position: [facility] RN Member Role: Primary Care Nurse Name: Paola Cavanaugh RN Position: [facility] ED RN W/OE and Tasks Member Role: Primary Care Nurse Name: Argentina Dixon RN Position: [facility] SN RN Member Role: Primary Care Nurse Name: Christina Alonso Position: [facility] AMB Nurse Member Role: Lifetime Consulting Physician Name: Ramiro Brody III, RN Position: [facility] RN Member Role: Primary Care Nurse Name: Simran Tariq RN Position: [facility] RN Member Role: Primary Care Nurse Name: Dana Fitzgerald RN Position: [facility] RN Member Role: Primary Care Nurse Name: Narayan Spencer RN Position: [facility] SN RN Member Role: Primary Care Nurse Name: Shell Yoder RN Position: [facility] RN Member Role: Primary Care Nurse Name: Radha Mustafa RN Position: [facility] AMB Nurse Member Role: Primary Care Nurse Name: Misti Pickard RN Position: [facility] RN Member Role: Primary Care Nurse Name: William Villanueva RN Position: [facility] RN Member Role: Primary Care Nurse Name: Viky Torre RN Position: [facility] Grid Trimmer Member Role: Primary Care Nurse Name: Carolee Tesfaye RN Position: [facility] RN Member Role: Primary Care Nurse Name: Joey Perez MD Position: [facility] Renal MD Member Role: Lifetime Consulting Physician Address: Address: [address] [place] [address] [facility] [place] [address]- [place] Name: Brittney Ledzema RN Position: [facility] Grid Trimmer Member Role: Primary Care Nurse Name: Eliezer Wagner RN Position: [facility] RN Member Role: Primary Care Nurse Name: Najma Causey RN Position: [facility] SN RN Member Role: Primary Care Nurse Name: Brunilda Thomas RN Position: [facility] RN Member Role: Primary Care Nurse Care Team Related Persons Name: ROOPA XIE Address: [address] [address] Name: HOPE XIE Address: [address] [address]
--- OUTSIDE RECORDS SUMMARY | 2023-05-25 14:59 | XMS_ITS | Continuity of Care Document ---
Author Organization [facility] Address [address] [place] [address]- Care Team Providers Care Manager Of Financial Planning Name Role Phone Britany Springer MD Primary Care Physician Encounter [facility] Date(s): 07/03/20 - 08/02/[address] [address]- Allergies, Adverse Reactions, Alerts Substance Reaction Severity [...] 3 12/06/10 Given 1Admin Note: vis given Turkmen 2Admin Note: vis [id number] 3Admin Note: VIS given Turkmen. Medications acetaminophen 325 mg oral tablet 650 mg, By Mouth, Every 4 hours, PRN, # 50 tablet, Refills 5, Tot. Refills 5, Maintenance, as needed for pain, 06/20/19 14:52:00 EDT, Route to Pharmacy Electronically, [facility]/pharmacy #[id number], 178, cm, 04/02/19 9:47:00 EST, Height, 94.7, [...] 07/26/20 11:17:00 EDT, Route to Pharmacy Electronically, [facility]/pharmacy #[id number], 183, cm, 12/27/19 13:56:00 EST, Height, 84.8, kg, 07/01/19 22:20:00 EDT, Dry Weight Start Date: 07/26/20 Stop Date: 01/22/21 Status: Ordered atorvastatin 20 mg oral tablet 1 tablet = 20 mg, By Mouth, Daily at supper, # 90 tablet, 2 Refills, Maintenance, 02/03/20 10:50:00EST, Tablet, [facility]/pharmacy #[id number], 183, cm, 12/27/19 13:56:00 EST, Height, 84.8, kg, 07/01/19 22:20:00 EDT, Dry Weight Start Date: 02/03/20 Status: Ordered Claritin 10 mg oral tablet 10 mg, 1, tablet, By Mouth, Daily, # 30 tablet, Refills 0, Tot. Refills 0, Maintenance, 07/15/20 16:23:00 EDT, Route to Pharmacy Electronically, [facility]/pharmacy #[id number], Partial fill upon patient request [...] Refills, Maintenance, 07/15/20 16:25:00 EDT, ER Tablet, [facility]/pharmacy #[id number], Partial fill upon patient request [...] 0 Refills, Maintenance, 07/15/20 16:25:00 EDT, Tablet, [facility]/pharmacy #[id number], Partial fill upon patient request if the prescription is for a schedule II opioid drug., 183, cm, 07/15/20 15:52:00 EDT... Start Date: 07/15/20 Status: Ordered Multi-Day Plus Minerals oral tablet 1 tablet, By Mouth, Daily, # 90 tablet, 1 Refills, Maintenance, 02/03/20 10:58:00 EST, Tablet, [facility]/pharmacy #[id number], 1 tablet By Mouth Daily, [...]
--- OUTSIDE RECORDS SUMMARY | 2023-05-25 14:59 | XMS_ITS | Continuity of Care Document ---
Author Organization [facility] Address [address] [place] [address]- Care Team Providers Care Dispatcher Maintenance Name Role Bottom Saw OperatorDeclan Louise MD Primary Care Physician [phone] [facility] Date[facility]s): 10/21/21 - 11/20/[address] [address] Allergies, Adverse Reactions, Alerts No Known [...] 3 12/06/10 Given 1Admin Note: vis given Greenlandic 2Admin Note: vis [id number] 3Admin Note: VIS given Greenlandic. Medications acetaminophen 325 mg oral tablet 650 mg, By Mouth, Every 4 hours, PRN, # 50 tablet, Refills 5, Tot. Refills 5, Maintenance, as needed for pain, 11/23/20 13:09:00 EDT, Route to Pharmacy Electronically, [facility]/pharmacy #[id number], 183, cm, 08/10/20 16:05:00 EDT, [...] 10/21/21 15:36:00 EDT, Route to Pharmacy Electronically, [facility]/pharmacy #[id number], Partial fill upon patient request if the prescription is for a schedule II opioid drug.... Start Date: 10/21/21 Status: Ordered Aspirin Low Dose 81 mg oral delayed release tablet See Instructions, MARCOS STEWARD TODOS LOS BENDER, # 90 tablet, 1 Refills, 10/18/21 16:12:00 EDT, [facility]/pharmacy #[id number], 175, cm, 10/18/21 11:40:00 EDT, Height, 81.9, kg, 08/31/21 14:47:00 EDT, Dry Weight Start Date: 10/18/21 Status: Ordered atorvastatin 20 mg oral tablet See Instructions, MARCOS CHAPMANAmy MERCADOS LOS BENDER AT SUPPER, # 90 tablet, 1 Refills, 10/18/21 16:12:00 EDT, [facility]/pharmacy #[id number], 175, cm, 10/18/21 11:40:00 EDT, [...] ONCE DAILY, # 238 Gm, 5 Refills, [facility] ST[facility], 14, DISSOLVE 17 GRAMS IN WATER AND DRINK ONCE DAILY, 183, cm, 01/18/21 11:01:00 EST, Height, 84.8, kg, 07/01/19 22:20:00 EDT, Dry Weight Start Date: 06/29/21 Status: Ordered glipiZIDE 2.5 mg oral tablet, extended release See Instructions, MARCOS STEWARD TODOS LOS BENDER, # 30 tablet, 5 Refills, 10/18/21 16:12:00 EDT, [facility]/pharmacy #[id number], 175, cm, 10/18/21 11:40:00 EDT, [...] Replace Required Details, Route to Pharmacy Electronically, [facility]/pharmacy#[id number], 175, cm, 10/18/21 11:40:00 EDT, Height, 81.9... Start Date: 10/18/21 Status: Ordered Multi-Day Plus Minerals oral tablet 1 tablet, By Mouth, Daily, resent to new pharmacy, # 90 tablet, 1 Refills, Maintenance, 10/18/21 16:12:00 EDT, Tablet, [facility]/pharmacy #[id number], 1 tablet By Mouth Daily,Instr:resent [...] 0, Maintenance, [facility] Dx: Stroke (I63.9), impaired mobility [...] Name: Banker ALVAREZ, Declan Lanier Address: Address: [address] [place] [address]
--- OUTSIDE RECORDS SUMMARY | 2023-05-25 14:59 | XMS_ITS | Continuity of Care Document ---
Author Organization [facility] Address [address] [place] [address]- Care Team Providers Care Batcher Operator Name Role Phone Gian ALVAREZ, Britany Lazaro Primary Care Physician [facility] Date(s): 07/22/19 - 08/25/[address] [address]- [facility] Attending Physician: Brittnee Solorio MD Admitting Physician: Brittnee Solorio MD Allergies, Adverse Reactions, Alerts Substance Reaction [...] 3 12/06/10 Given 1Admin Note: vis given Congolese 2Admin Note: vis [id number] 3Admin Note: VIS given Congolese. Medications acetaminophen 325 mg oral tablet 650 mg, By Mouth, Every 4 hours, PRN, # 50 tablet, Refills 5, Tot. Refills 5, Maintenance, as needed for pain, 06/20/19 14:52:00 EDT, Route to Pharmacy Electronically, [facility]/pharmacy #[id number], 178, cm, 04/02/19 9:47:00 EST, Height, [...] 07/22/19 11:15:00 EDT, Route to Pharmacy Electronically, [facility]/pharmacy #[id number], ins... Start Date: 07/22/19 Stop Date: 10/20/19 Status: Ordered aspirin 81 mg oral delayed release tablet 81 mg, 1, tablet, By Mouth, Daily, # 90 tablet, Refills 3, Tot. Refills 3, Maintenance, 01/09/19 16:18:54 EST, Route to Pharmacy Electronically, [id number], [id number] Start Date: 01/09/19 Stop Date: 01/04/20 Status: Ordered atorvastatin 20 mg oral tablet 1 tablet = 20 mg, By Mouth, Daily at supper, # 30 tablet, 5 Refills, Maintenance, 08/22/19 14:51:00EDT, Tablet, [facility]/pharmacy #[id number], 183, cm, 07/29/19 15:02:00 EDT, Height, 84.8, kg, 07/01/19 22:20:00 EDT, Dry Weight Start Date: 08/22/19 Status: Ordered cetirizine 10 mg oral tablet 1 tablet = 10 mg, By Mouth, Daily, # 90 tablet, 1 Refills, Maintenance, 06/20/19 15:01:00 EDT, Tablet, [facility]/pharmacy #[id number], 178, cm, 04/02/19 9:47:00 EST, Height, [...] Gm, 5 Refills, Maintenance, 07/20/18 13:11:53 EDT, [facility] [place], 2 sprays Nares, Both Daily Start Date: [...] Refills, Maintenance, 06/20/19 15:01:00 EDT, REC Powder, [facility]/pharmacy #[id number], 17 Gm By Mouth Daily,Instr:dissolve in water beforetaking, 178, cm, 04/02/19 9:47:00 EST, Height, 94.7... Start Date: 06/20/19 Status: Ordered Multi-Day Plus Minerals oral tablet 1 tablet, By Mouth, Daily, # 30 tablet, 5 Refills, Maintenance, 07/22/19 18:27:00 EDT, Tablet, [facility]/pharmacy #[id number], 1 tablet By Mouth Daily, 183, [...]
--- OUTSIDE RECORDS SUMMARY | 2023-05-25 14:59 | XMS_ITS | Continuity of Care Document ---
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 Operator Helper Name Role Elder AssistantDeclan Louise MD Primary Care Physician [phone] [facility] Date(s): 04/18/22 - 05/18/[address] [address] Allergies, Adverse Reactions, Alerts No [...] virus vaccine, inactivated 1 12/06/10 Gi dory [id number] 12y+ bivalent booster vax 01/18/22 Given SARS-CoV-2 (COVID-19) mRNA BNT-162b2 vac 02/08/21 Given SARS-CoV-2 (COVID-19) mRNA BNT-162b2 vac 01/18/21 Given pneumococcal 23-valent vaccine 12/08/14 Given FluLaval (oldterm) 2 12/26/11 Given tetanus-diphtheria toxoids (Td) 3 12/06/10 Given 1Admin Note: vis given Belgian 2Admin Note: vis [id number] 3Admin Note: VIS given Belgian. Medications acetaminophen 325 mg oral tablet 650 mg, By Mouth, Every 4 hours, PRN, # 50 tablet, Refills 5, Tot. Refills 5, Maintenance, as needed for pain, 11/23/20 13:09:00 EDT, Route to Pharmacy Electronically, [facility]/pharmacy #[id number], 183, cm, 08/10/20 16:05:00 EDT, Height, [...] 10/21/21 15:36:00 EDT, Route to Pharmacy Electronically, [facility]/pharmacy #[id number], Partial fill upon patient request if the prescription is for a schedule II opioid drug.... Start Date: 10/21/21 Status: Ordered Aspirin Low Dose 81 mg oral delayed release tablet See Instructions, MARCOS MEJIAS LOS BENDER, # 90 tablet, 1 Refills, Maintenance, 03/04/22 13:01:00 EST, [facility], 175, cm, 01/18/22 12:03:00 EST, Height, 81.9, [...] Unknown, 1 Refills, Maintenance, 03/04/22 13:01:00 EST, [facility], 175, cm, 01/18/22 12:03:00 EST, Height, 81.9, [...] tablet, 1 Refills, Maintenance, 03/04/22 13:01:00 EST, [facility], 90, TOME KIA TABLETA POR VIA ORAL [...] ONCE DAILY, # 238 Gm, 5 Refills, [facility]ORE 44353, 14, DISSOLVE 17 GRAMS IN WATER AND DRINK ONCE DAILY, 183, cm, 01/18/21 11:01:00 EST, Height, 84.8, kg, 07/01/19 22:20:00 EDT, Dry Weight Start Date: 06/29/21 Status: Ordered glipiZIDE 2.5 mg oral tablet, extended release See Instructions, TOME KIA TABLETA TODOS LOS BENDER, # 30 tablet, 5 Refills, 10/18/21 16:12:00 EDT, [facility]/pharmacy #[id number], 175, cm, 10/18/21 11:40:00 EDT, Height, [...] Replace Required Details, Route to Pharmacy Electronically, [facility] STORE 90424, 175, cm, 01/18/22 12:03:00 EST, Height, 81.9, kg,... Start Date: 03/04/22 Status: Ordered Multi-Day Plus Minerals oral tablet 1 tablet, By Mouth, Daily, resent to new pharmacy, # 90 tablet, 1 Refills, Maintenance, 10/18/21 16:12:00 EDT, Tablet, [facility]/pharmacy #[id number], 1 tablet By Mouth Daily,Instr:resent to [...] Tot. Refills 0, Maintenance, Use as needed [facility]. Dx: Stroke (I63.9), impaired mobility [...] Team Personnel Name: Declan Louise MD Position: [facility] Primary Care Physician Member Role: PCP Address: Address: [address] [place] [address]- Name: Simran Shannon RN Position: [facility] RN Member Role: Primary Care Nurse Name: Torie Jo RN Position: [facility] RN Supv Member Role: Primary Care Nurse Name: Hussein Waters RN Position: [facility] RN Member Role: Primary Care Nurse Name: Vandana Sorensen NP Position: [facility] Associate Professional Member Role: Primary Care Nurse Address: Address: [address] [place] [address]- [place] Name: Karsten Kwong MD Position: [facility] Renal MD Member Role: Lifetime Consulting Physician Address: Address: [address] [place] [address], [address] [facility] [place] [address]- Name: Rebecca Leon RN Position: S RN Member Role: Primary Care Nurse Name: Elisabet Calle Position: [facility] RN Member Role: Primary Care Nurse Name: Paola Cavanaugh RN Position: [facility] ED RN W/OE and Tasks Member Role: Primary Care Nurse Name: Argentina Dixon RN Position: [facility] SN RN Member Role: Primary Care Nurse Name: Christina Alonso Position: [facility] PCO RN Member Role: Lifetime Consulting Physician Name: Ramiro Brody III, RN Position: [facility] RN Member Role: Primary Care Nurse Name: Simran Tariq RN Position: [facility] RN Member Role: Primary Care Nurse Name: Dana Fitzgerald RN Position: [facility] RN Member Role: Primary Care Nurse Name: Narayan Spencer RN Position: [facility] SN RN Member Role: Primary Care Nurse Name: Shell Yoder RN Position: [facility] RN Member Role: Primary Care Nurse Name: Radha Mustafa RN Position: [facility] PCO RN Member Role: Primary Care Nurse Name: Misti Pickard RN Position: [facility] RN Member Role: Primary Care Nurse Name: William Villanueva RN Position: [facility] RN Member Role: Primary Care Nurse Name: Viky Torre RN Position: [facility] Hand Slitter Member Role: Primary Care Nurse Name: Carolee Tesfaye RN Position: [facility] RN Member Role: Primary Care Nurse Name: Joey Perez MD Position: [facility] Renal MD Member Role: Lifetime Consulting Physician Address: Address: [address] [place] [address] [facility] [address] Name: Brittney Ledezma RN Position: [facility] Hand Slitter Member Role: Primary Care Nurse Name: Eliezer Wagner RN Position: [facility] ED RN W/OE and Tasks Member Role: Primary Care Nurse Name: Najma Causey RN Position: [facility] SN RN Member Role: Primary Care Nurse Name: Brunilda Thomas RN Position: [facility] RN Member Role: Primary Care Nurse Care Team Related Persons Name: ROOPA XIE Address: [address] [address] Name: HOPE XIE Address: [address] [address]
== END 2023-05-25 15:10 | disposition home or self-care (01) ==
LOC: HO.HUSH 14:54
PROVIDERS: PCP Internal Medicine; Visit Provider Nurse Practitioner Family
DX: E29.1 Testicular hypofunction (principal); C61 Malignant neoplasm of prostate
CPT/HCPCS: 99442

== ENCOUNTER → 2023-05-25 14:54 | Outpatient (BNVA) | payer MEDICARE, MEDICAID, SELFPAY | PROVIDERS: PCP Internal Medicine; Visit Provider Nurse Practitioner Family ==

== ENCOUNTER 2023-06-27 11:05 | Outpatient (REF) | payer MEDICARE, MEDICAID, SELFPAY ==
[2023-06-27 19:11] LABS: Anion Gap 19 (12-20); Blood Urea Nitrogen 23 mg/dL (9-16); Calcium 10.1 mg/dL (8.4-10.2); Carbon Dioxide 21 mmol/L (22-29); Chloride 107 mmol/L (96-108); Estimated Glomerular Filt Rate 40; Sodium 143 mmol/L (135-145)
[2023-06-27 19:29] LABS: Prostate Specific Antigen < 0.10 ng/mL (<0.05-4.0)
[2023-06-27 20:12] LABS: Creatinine Urine 90.23 mg/dL; Protein/Creatinine Ratio, Ur 0.19 (<0.2); Total Protein Urine Random 17 mg/dL (<12)
[2023-07-03 20:53] LABS: Testosterone, Free 64.7 pg/mL (35.0-155.0); Testosterone, Total 280 ng/dL (250-1100)
== END 2023-06-27 11:06 | disposition home or self-care (01) ==
LOC: HO.HKASLDS 11:05
PROVIDERS: Nurse Practitioner Family; Visit Provider Internal Medicine Nephrology
DX: Z12.5 Encounter for screening for malignant neoplasm of prostate (principal); N18.30 Chronic kidney disease, stage 3 unspecified; R80.9 Proteinuria, unspecified; E29.1 Testicular hypofunction; C61 Malignant neoplasm of prostate
CPT/HCPCS: 36415; 80051; 82310; 82565; 82570; 84153; 84156; 84402; 84403; 84520

== ENCOUNTER 2023-07-04 10:56 | Outpatient (AMB) | payer MEDICARE, MEDICAID, SELFPAY ==
[2023-07-04 11:06] VITALS: BP 110/60; PULSE 110; O2SAT 99; BMI 26.9
--- NOTE | 2023-07-04 11:06 | HO.NEPHOV_ITS ---
Vital Signs 07/04/23 11:06 Height 5 ft 9 in Weight 182 lb 8 oz BMI 26.9 BP 110/60 Blood Pressure Location Rt brachial Position Sitting Pulse 110 H Pulse Source Pulse Oximeter Pulse Oximetry (%) 99 Oxygen Delivery Method Room Air Intake Visit Reasons: 6M follow/ Confirmed Software Build Engineer Required: Yes Software Build Engineer Name: Radha Saldivar-Spouse Accompanied by: Spouse Allergies No Known Allergies [No Known Allergies*] Allergy (Verified 07/04/23 11:09) HPI Comments Details: Henry was seen in the office accompanied by his . He has been having sleep issues. His is providing at most attention to his medical care. He denies any chest pain, shortness of breath, nausea vomiting or diarrhea. He has no pedal edema or urinary symptoms. He had been followed up by Dr. Lopez for his prostate cancer. His blood sugar control is better. His renal functions have been stable. FOR[facility]LY [facility], [facility] Medical History Dementia Diabetes HTN (hypertension) Surgical History History of prostate surgery Social History Alcohol intake: never Patient Tobacco Use Status: Never used Tobacco Physical Exam Const General: comfortable and no acute distress HEENT Head: Yes normocephalic Mouth: Normal oral and palatal mucosa present Eyes EOM: EOMs intact bilaterally Neck Neck: Yes supple Resp Auscultation: clear to auscultation bilaterally Cardio Jugular venous distension: no JVD Rate: regular rate GI Palpation (GI): Soft to palpation Auscultation: normal bowel sounds General: Yes no CVA tenderness Back/Spine/Pelvis Back: no CVA tenderness Skin General skin exam: no rashes or lesions noted Neuro General: moves all extremities Extrem General: Yes no pedal edema Results Reviewed Nephrology Results: Sodium 143 mmol/L (135-145) 06/27/23 Potassium 4.0 mmol/L (3.3-5.1) 06/27/23 Chloride 107 mmol/L (96-108) 06/27/23 Carbon Dioxide 21 mmol/L (22-29) L 06/27/23 BUN 23 mg/dL (9-16) H 06/27/23 Creatinine 1.70 mg/dL (0.5-1.4) H 06/27/23 Calcium 10.1 mg/dL (8.4-10.2) 06/27/23 Urine Creatinine 90.23 mg/dL 06/27/23 Protein/Creatinin Ratio 0.19 (<0.2) 06/27/23 Assessment & Plan Assessment & Plan (1) CKD (chronic kidney disease) stage 3, GFR 30-59 ml/min: Code(s): N18.30 - Chronic kidney disease, stage 3 unspecified Category: Medical Qualifiers: Chronic kidney disease stage 3 subtype: stage 3a (GFR 45-59) Qualified Code(s): N18.31 - Chronic kidney disease, stage 3a (2) HTN (hypertension): Code(s): I10 - Essential (primary) hypertension Category: Medical Qualifiers: Hypertension type: primary hypertension Qualified Code(s): I10 - Essential (primary) hypertension Cathy Figueroa is known to have chronic kidney disease stage 3 at baseline. He is diabetic. His history of prostate cancer. He is currently clinically stable. His blood pressure is at goal. He is on amlodipine and atenolol. He is not on any CHINTAN inhibitor or ARB. His blood sugar control is better. I have ordered follow-up blood work . I did not make any other medication changes today. All his 's questions were answered. Orders: Orders Creatinine Today I10 - Essential (primary) hypertension, N18.31 - Chronic kidney disease, stage 3a Blood Urea Nitrogen Today I10 - Essential (primary) hypertension, N18.31 - Ch ronic kidney disease, stage 3a Electrolytes Today I10 - Essential (primary) hypertension, N18.31 - Chronic kidney disease, stage 3a Coding Level of Care Code Est Pt Level 4 (48782) Diagnoses Stage 3a chronic kidney disease N18.31 Chronic kidney disease stage 3 subtype: stage 3a (GFR 45-59) Primary hypertension I10 Hypertension type: primary hypertension
== END 2023-07-04 11:25 | disposition home or self-care (01) ==
PROVIDERS: PCP Internal Medicine; Visit Provider Internal Medicine Nephrology
DX: N18.31 Chronic kidney disease, stage 3a (principal); I10 Essential (primary) hypertension
CPT/HCPCS: 99214

== ENCOUNTER → 2023-07-04 10:56 | Outpatient (BNVA) | payer MEDICARE, MEDICAID, SELFPAY | PROVIDERS: PCP Internal Medicine; Visit Provider Internal Medicine Nephrology | DX: I12.9 Hypertensive chronic kidney disease with stage 1 through stage 4 chronic kidney disease, or unspecified chronic kidney disease (principal); E11.22 Type 2 diabetes mellitus with diabetic chronic kidney disease; N18.31 Chronic kidney disease, stage 3a; Z79.899 Other long term (current) drug therapy | CPT/HCPCS: 99212 ==

== ENCOUNTER 2023-12-13 12:17 | Outpatient (AMB) | payer MEDICARE, MEDICAID, SELFPAY ==
--- NOTE | 2023-12-13 12:18 | A.OFFVIS_ITS ---
Intake Visit Reasons: 6m/follow up Intake Note: Patient presents today for tele visit follow up on: hypogonadism and prostate cancer Meds- None Allergies to Antibiotic- No Known Allergies Blood Thinner- Aspirin Manager Ui Required: No Allergies No Known Allergies [No Known Allergies*] Allergy (Verified 12/13/23 12:49) Medication List - Last Reconciled 12/13/23 by JOSE Murphy-SUZAN acetaminophen 650 mg PO Q4H PRN alcohol swabs 0 pad topical amlodipine 10 mg PO DAILY aspirin 81 mg PO DAILY atorvastatin 20 mg PO BEDTIME blood sugar diagnostic (FreeStyle Lite Strips) As directed bupropion HCl SR 150 mg PO BID cetirizine 10 mg PO DAILY fluticasone propionate 50 mcg/actuation sprays intranasal glipizide ER 5 mg PO DAILY lancets (FreeStyle Lancets) As directed loratadine 10 mg PO DAILY ccofoqgq-oqg-ifgqoby fumarate 15 mg iron 1 tab PO DAILY tbfzhtoz-uwa-qxhm fum-folic ac 7.5 mg iron-400 mcg 1 tab PO DAILY multivitamin with folic acid 400 mcg (Daily-Yasmine (with folic acid)) 1 tab PO DAILY multivitamin with minerals 1 tab PO DAILY polyethylene glycol 3350 17 grams PO DAILY HPI Comments Details: Henry is a very pleasant 68 year old [place] speaking male patient of Dr. Cota who is accompanied by his during today's telehealth visit. He has a PMH of dementia, hypertension, hyperlipidemia, diabetes, hypogonadism, and prostate cancer. He is being followed up on today for his hypogonadism and history of prostate cancer. In discussion with the who provides most of the patient's history given patient's progressive dementia she discusses patient has been doing extremely well. She discusses since her last visit approximately 6 months ago he has had no bothersome urinary issues or concerns. She denies him to have had any recent hospitalizations. He continues to follow-up with PCP and Nephrology. Previous PSA and testosterone results reviewed with the patient and his today as noted and trended below.... PSAs: 08/10 <0.05, 02/09 <0.05 08/11 <0.05, 09/11 <0.10, 05/13 <0.10, 07/13 <0.10 Total Testosterone: 247, 02/09 233, 08/11 302, 05/13 286, 07/13 280 He is able to answer basic yes and no questions however is slow to respond and hard to understand via telehealth however patients help with todays visit. reports as patients dementia progresses she does no increased episodes of urinary incontinence. We discussed at length timed voiding/scheduled toileting to assist with decreasing incontinent episodes. She otherwise denies any issues or concerns at this time. She otherwise denies any issues or concerns at this time. PREVIOUS HISTORY Prostate cancer was diagnosed 08/2014. Diagnosis was reached by needle biopsy, for elevated PSA, PSA at diagnosis 7.1. The [place] grade is At biopsy, 3+4 = 7, right apex, right mid gland, left apex, left mid gland , at surgery, 3+4 = 7. TNM Classification of Malignant Tumours (TNM) T1c. The D'Humberto (NCCN) risk category is Intermediate Risk (PSA 10-20, Gl 7, T2). Initial therapy included Primary treatment, Prostatectomy (RRP/Robotic). Recent labs included a PSA (prostate-specific antigen) November 2015 , < 0.1, March 2016, < 0.1, a testosterone March 2016 139 10/07 PSA < 0.1, 02/09 <0.1, 08/11 <0.1 T 300, 09/11 <0.10 Associated conditions erectile dysfunction Yes hematuria No hot flashes No incontinence Yes Bladder neck contracture. Incision 09/05 Stress incontinence occasional, with cough, laugh, sneeze, does not require pad protection Urge incontinence Yes Worsening urge incontinence with use of protection osteopenia No pathologic fracture No radiation cystitis No rectal urgency No Therapeutic plan: Continue with surveillance Hypogonadism: Hematocrit persistent at 58. Needs phlebotomy. This is starting next week. Planning for therapeutic blood removal. Laboratories of planned. To happen at [facility]. He presents today for further evaluation and followup of his hypogonadism - T shot. Initial symptoms include erectile dysfunction Yes decreased libido Yes change in mood/depression Yes in muscle size/strength Yes increased fatigue/malaise Yes increased abdominal fat No tender breasts/gynecomastia No hair loss No osteopenia No The onset of symptoms has been gradual. Associate conditions include chronic pain with opioid use Yes obstructive sleep apnea No CAD No diabetes Yes dyslipidemia Yes obesity No stress - financial, family, employment No heavy alcohol or illicit drug use No He has been taking narcotics. Laboratory results baseline 03/08 139 8/18 T 800 HCT 53 PSA < 0.1 2 T 650 PSA < 0.1, HCT borderline 55 9 T 815 PSA < 0.1 HCt 58 - reduce T to 75units. 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 [facility] Medical History Dementia Diabetes HTN (hypertension) Surgical History History of prostate surgery Social History Alcohol intake: never Patient Tobacco Use Status: Never used Tobacco Review of Systems Const Unobtainable due to mental status Reports as per HPI Physical Exam Const General: cooperative Orientation/consciousness: oriented to person Resp Effort & Inspection: able to speak in complete sentences Neuro General: oriented to person Psych Speech and movement: Clear speech present Insight: Limited insight present (Psych) Judgement: Limited judgement present (Psych) Telehealth Telehealth Telehealth Platform: Telephone Location of provider rendering services: practice address Location of patient: address on file Patient Identification confirmed using: Name, : Yes Telehealth method: voice only Patient verbally consented to treatment: Yes Patient verbally consented to billing insurance company: Yes Patient informed of any privacy concerns related to visit: Yes Minutes spent on Phone/Video with Pt.: 20 Assessment & Plan Assessment & Plan (1) Prostate cancer: Code(s): C61 - Malignant neoplasm of prostate Category: Medical (2) Hypogonadism in male: Code(s): E29.1 - Testicular hypofunction Category: Medical Plan Recent PSA and testosterone results reviewed with the patient his today; as noted above. We discussed near future PSA annually given patient at 10 year surveillance monitoring. Discussed timed voiding/scheduled toileting. PSA and testosterone in 6 months. Follow-up in 6 months with labs to be completed prior; or sooner with any issues, concerns, and or questions. Orders: Orders Prostate Specific Antigen 6 Months C61 - Malignant neoplasm of prostate, E29.1 - Testicular hypofunction Testosterone, Free/Total 6 Months E11.69 - Type 2 diabetes mellitus with other specified complication, N52.1 - Erectile dysfunction due to diseases classified elsewhere Patient Instructions: The patient had an opportunity to ask questions regarding the treatment plan. All questions were answered. Physical exam, labs, and imaging were discussed and reviewed in detail. As well as risks, benefits, and discussion of treatment choices. No major barriers to understanding were identified. The patient expressed understanding and agreement with the above treatment plan. The patient was made aware they should contact our office by phone for worsening of their current condition, the appearance of new symptoms, or with any questions or concerns. Compliance is encouraged with any medications and follow up testing that is ordered. It is a privilege to be allowed the opportunity to participate in? your urological care.? Again, if you have any questions or concerns If you have any questions or concerns please do not hesitate to contact me. The office is [phone]. This note is constructed using voice recognition software. While every effort has been made to ensure accuracy estate administrator errors may have been included. Yours sincerely, DONNA Murphy Coding Level of Care Code Tele Est Pt Level 3 (33503) Complex EM visit Add On G2211 Diagnoses Prostate cancer C61 Hypogonadism in male E29.1
--- OUTSIDE RECORDS SUMMARY | 2023-12-13 12:20 | XMS_ITS | Continuity of Care Document ---
Author Organization [facility] Address [address] [place] [address]- Care Team Providers Care Data Miner Name Role Addiction Counselor Declan ALVAREZ Primary Care Physician Encounter [facility] [place] Date(s): 06/13/23 - 07/13/[address] [address]- Attending Physician: Norbert Malhotra Admitting Physician: AdmNorbert reddy Referring Physician: Admtr ArMatt Allergies, Adverse Reactions, Alerts No Known [...] virus vaccine, inactivated 1 12/06/10 Gi dory [id number] 12y+ bivalent booster vax 01/18/22 Given SARS-CoV-2 (COVID-19) mRNA BNT-162b2 vac 02/08/21 Given SARS-CoV-2 (COVID-19) mRNA BNT-162b2 vac 01/18/21 Given pneumococcal 23-valent vaccine 12/08/14 Given FluLaval (oldterm) 2 12/26/11 Given tetanus-diphtheria toxoids (Td) 3 12/06/10 Given 1Admin Note: vis given Ukrainian 2Admin Note: vis [id number] 3Admin Note: VIS given Ukrainian. Medications acetaminophen 325 mg oral tablet 650 mg, By Mouth, Every 4 hours, PRN, # 50 tablet, Refills 5, Tot. Refills 5, Maintenance, as needed for pain, 06/13/23 10:58:00 EDT, Route to Pharmacy Electronically, [facility]/pharmacy #[id number], 175, cm, 06/13/23 10:36:00 EDT, Height, 81.9, kg, 01/04/23 22:1... Start Date: 06/13/23 Status: Ordered amLODIPine 10 mg oral tablet 10 mg, By Mouth, Daily, # 90 each, Refills 3, Tot. Refills 3, Maintenance, 02/24/23 12:06:00 EST, [id number] Partial fill upon patient request if the prescription is for a schedule II opioid drug., 175, cm, 0... Start Date: 02/24/23 Stop Date: 02/19/24 Status: Ordered Aspirin Low Dose 81 mg oral delayed release tablet See Instructions, MARCOS ADAM TABLETAmy CONWAY BENDER, # 90 tablet, 1 Refills, Maintenance, 06/13/23 10:59:00 EDT, [facility]/pharmacy #[id number], 175, cm, 06/13/23 10:36:00 EDT, Height, 81.9, kg, 01/04/23 22:19:00 EST, Dry Weight Start Date: 06/13/23 Status: Ordered atorvastatin 20 mg oral tablet See Instructions, MARCOS ADAM TABLETA RANDELL CONWAY BENDER AT SUPPER, # 90 tablet, 1 Refills, Maintenance, 06/13/23 10:59:00 EDT, [facility]/pharmacy #[id number], 175, cm, 06/13/23 10:36:00 EDT, Height, 81.9, kg, 01/04/2322:19:00 EST, Dry Weight Start Date: 06/13/23 Status: Ordered BuPROPion (Eqv-Wellbutrin SR) 150 mg/12 hours oral tablet, extended release See Instructions, MARCOS STEWARD DOS VECES AL BALA, # 180 each, 1 Refills, Maintenance, 06/13/23 10:59:00 EDT, [id number], 175, cm, 06/13/23 10:36:00 EDT, Height, 81.9, kg, 01/04/23 22:19:00EST, Dry Weight Start Date: 06/13/23 Status: Ordered Daily Yasmine oral tablet See Instructions, TOME KIA TABLETA TOSAWYER LOS BENDER, # 90 tablet, 1 Refills, Maintenance, 02/24/23 12:05:00 EST, [id number], 90, TOME KIA TABLETA TOSAWYER LOS BENDER, 175, cm, 02/24/23 11:28:00 EST,Height, 81.9, kg, 01/04/23 22:19:00 EST, Dry Weight Start Date: 02/24/23 Status: Ordered Freestyle Lite Lancets See Instructions, # 200 each, Refills 5, Tot. Refills 5, Maintenance, Check 1-2x per day; use as directed for Type 2 Diabetes Mellitus, 06/13/23 11:00:00 EDT, Supply, 175, cm, 06/13/23 10:36:00 EDT, Height, 81.9, kg, 01/04/23 22:19:00 EST, Dry Weight Start Date: 06/13/23 Stop Date: 12/10/23 Status: Ordered Freestyle Lite Test Strips See Instructions, # 200 each, Tot. Refills 5, Maintenance, Check 1-2x per day; use as directed for Type 2 Diabetes Mellitus, 06/13/23 11:00:00 EDT, Supply, 175, cm, 06/13/23 10:36:00 EDT, Height, 81.9, kg, 01/04/23 22:19:00 EST, Dry Weight Start Date: 06/13/23 Stop Date: 07/13/23 Status: Ordered GaviLAX oral powder for reconstitution See Instructions, DISSOLVE 17 GRAMS IN WATER AND DRINK ONCE DAILY, # 238 Gm, 5 Refills, Maintenance, 02/24/23 12:05:00 EST, [id number], 14, DISSOLVE 17 GRAMS IN WATER AND DRINK ONCE DAILY, 175, cm, 02/24/23 11:28:00 EST, Height, 81.9, kg, 12/21... Start Date: 02/24/23 Status: Ordered glipiZIDE 5 mg oral tablet, extended release 1 tablet = 5 mg, By Mouth, Daily, dose of 5 mg ER please dose., # 90 tablet, 3 Refills, Maintenance, 02/24/23 11:59:00 EST, ER Tablet, [facility]/pharmacy #[id number], Partial fill upon patient request [...] STEWARD TODOS LOS BENDER, # 90 tablet, Refills 1, Tot. Refills 1, Maintenance, 06/13/23 10:59:00 EDT, Instructions Replace Required Details, Route to Pharmacy Electronically,[facility]/pharm[facility] #[id number], 175, cm, 06/13/23 10:36:00 EDT,... Start Date: 06/13/23 Status: Ordered Multi-Day Plus Minerals oral tablet 1 tablet, By Mouth, Daily, resent to new pharmacy, # 90 tablet, 1 Refills, Maintenance, 10/18/21 16:12:00 EDT, Tablet, [facility]/pharmacy #[id number], 1 tablet By Mouth Daily,Instr:resent to new pharmacy, 175, cm, 10/18/21 11:40:00 EDT, Height, 81.9, kg, 08/31/21... Start Date: 10/18/21 Status: Ordered Transport wheelchair Transport wheelchair, See Instructions, # 1 each, Refills 0, Tot. Refills 0, Maintenance, Dx: CVA, 06/13/23 11:02:00 EDT, Supply Start Date: 06/13/23 Status: Ordered Wipes Wipes, See Instructions, # 150 each, Refills 11, Tot. Refills 11, Maintenance, R15.9, use everyday 5 per day, 04/23/24 11:01:00 EDT, Supply Start Date: 06/13/23 Status: Ordered Problem List Condition Confirmation Course Effective Dates Status Health Status Informant Allergic rhinitis Confirmed Active Weakness Confirmed Active CKD (chronic kidney disease) stage 3, GFR 30-59 ml/min Confirmed Active Diastolic congestive heart failure, NYHA class 1 Confirmed Active History of CVA with residual deficit Confirmed Active History of prostate cancer Confirmed Active Hypertension Confirmed Active Cognitive impairment, likely vascular dementia Confirmed Active Depression, major Confirmed Active Hypogonadism in male Confirmed Active Microalbuminuria - mildly increased, ratio <30 mg/g Confirmed 11/17/14 Active Elevated PSA, BPH per urology, see April, Confirmed Active Falls frequently Confirmed Active Secondary hyperparathyroidism Confirmed Active Obesity due to excess calories Confirmed Active DM (diabetes mellitus), 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 Presence of indwelling urinary catheter Confirmed Active Urine incontinence Confirmed Active Social History Social History Type Response Smoking Status Never smoker; Tobacc o user in household: No entered on: 01/12/15 Sex Laboratory * Event Display: Laboratory Result Scanned Authored Date: * Event Display: Laboratory Result Scanned Authored Date: * Event Display: Non BH Lab Results Authored Date: Consult note * Laurence Cortes MD: MODIFY, PERFORM, SIGN, VERIFY Event Display: Consultation Note Authored Date: [id number] Patient: AMILCAR TURNER Age: 60 years Sex: Male : 1955 Associated Diagnoses: None Author: Laurence Cortes MD Consulted by: Eliceo Welch MD Reason for consultation: Pulmonary nodules and effusion for possible bronch and thoracentesis Past Medical History This is a 60 year old Ukrainian speaking male with history of HTN, prostate CA s/p prostatectomy, depression, CVA, and recent hospitalized for altered mental status due to sepsis likely intra-abdominaland was started on IV vanco/zosyn which resulted in some improvement and later switched to levofloxacin and d/c home. A week later (10/18/15) he presented to ED with 5 day history of nonproductive cough with chest pain and cxr finding consistent with pericardial effusion. He underwent CT guided catheter of pericardial space with drainage of 700cc sanguinous effusion. He denies fever, chills, nausea and vomiting, syncope, dizziness. In the emergency department, patient vital signs consistent with tachycardia in the 120s, blood pressure 90/76 in patient was afebrile with 98.8, and saturations 96% on room air. His initial labs were concerning for leukocytosis of 14.1 with neutrophilic predominance and immature granulocytes of 1.1. His H&H was 13 and 41 respectively and had thrombocytosis of 546. Lactate 2.5 associated withanion gap off 19 and a creatinine of 1.8. In the ED patient was treated with vanco/zosyn for possible penumonia. EKG noted sinus tachycardia, no ST changes however compared to prior EKG voltage was decreased. patient had a chest x-ray which was consistent with an enlarged cardiac silhouette concerning for a pericardial effusion. This morning pulmonary was consulted for possible thoracentesis or bronch conerning CT finding of pulmonary nodule and effusion. Both options were discussed with patient and the procedure will be performed by Dr. Cortes, the pulmonogist and her team. Problem list All Problems Adenocarcinoma of prostate / SNOMED CT 3269386967 / Confirmed Cerebrovascular accident (stroke) / SNOMED CT 530501956 / Confirmed Diabetes / SNOMED CT 594802230 / Confirmed Hypertension / SNOMED CT 48008633 / Confirmed Depression, major / SNOMED CT 9363509417 / Confirmed Microalbuminuria / SNOMED CT 716228506 / Confirmed Elevated PSA, BPH per urology, see April, / SNOMED CT 9573444492 / Confirmed Encounter for screening colonoscopy / SNOMED CT 589209428 / Confirmed Obesity due to excess calories / SNOMED CT 3200885790 / Confirmed Allergies Allergic Reactions (Selected) NKA Social History Lives with his of 3 years Denies alcohol, ilicit drugs. Used to smoke cannabis 0.5 ounce daily but he quit in 1981. Have 2 daugthers and one brother He is not employed now Family History Mother Hypertension Father Diabetes mellitus type II Current medications (Selected) Documented Medications Documented glipiZIDE 5 mg oral tablet: 2.5 mg, By Mouth, Daily in AM, Refills 0, Maintenance, 06/09/15 13:01:54 Review of Systems Constitutional: no chills, subjective fever Skin: no lesions HEENT: No lesions, ulcers or pain Respiratory: nonproductive cough. Cardiovascular: chest pain, shortness of breath, no chest pressure, no palpitations. Gastrointestinal: no nausea, no vomiting, no diarrhea, no constipation. Neurologic: CN 3-12 intact Extremities: No edema or cyanosis Physical Examination Vital Signs Vitals : VITAL SIGNS SECTION 11/05/2015 15:41 Temperature 97.9 DegF Pulse Rate 96 bpm H Respiratory Rate 19 br/min Systolic Blood Pressure 109 mm Hg Diastolic Blood Pressure 76 mm Hg Oxygen Saturation 97 % Mode of Delivery (Oxygen) Room air . General: NAD, alert, awake and laying in bed Respiratory: Decreased bilateral breath sounds and residual inspiratory crackles at bases Cardiac: Normal S1/S2, no murmurs, rubs or gallops Abdomen: Abdomen is soft, non distended, non tender to light or deep palpation Extremities: no cyanosis, edema or clubing Skin: Intact Results Review IMAGING CT chest 11/02/15 IMPRESSION: Small left and trace right pleural effusion, with left lower lobe airspace consolidation that may represent either atelectasis or pneumonia. Mild airspace consolidation at the right lung base most likely represents atelectasis. Small to moderate pericardial effusion is decreased in size from 10/18/2015. It is higher in attenuation than simple fluid, which correlates with the finding of bloody content documented on the dictation from the CT-guided drainage procedure. Evidence of previous granulomatous disease with left lower lobe calcified granuloma and calcified left hilar lymph nodes. There is also a mildly enlarged noncalcified right lower paratracheal lymph node. Small pulmonary nodules measuring up to 3 mm. If low risk for malignancy, no followup needed. If high risk, followup CT at 12 months. If unchanged no further followup needed per Fleischner society recommendations (Radiology, 2005 Dec;237(2):395-400). 1.6 cm left thyroid lobe nodule. Consider correlation with thyroid ultrasound. CXR 11/01/15 Impression: Left basilar airspace opacity and left pleural effusion. There is a small right pleural effusion. LABS 11/04/15-WBC 16.1, Hgb 11.0, Hct 35.6, Plt 711, CRP 16.9 11/03/15- Sed rate 129 Assessment This is a 60 year old Ukrainian speaking male with history of HTN, prostate CA s/p prostatectomy, depression, CVA, and recent hospitalized for altered mental status due to sepsis likely intra-abdominaland was started on IV vanco/zosyn which resulted in some improvement and later switched to levofloxacin and d/c home. A week later (10/18/15) he presented to ED with 5 day history of nonproductive cough with chest pain and cxr finding consistent with pericardial effusion. He underwent CT guided catheter of pericardial space with drainage of 700cc sanguinous effusion. This morning pulmonary was consulted for possible (1) thoracentesis or (2) bronchoscopy concerning CT finding of pulmonary nodule and effusion. Both options were discussed with patient and the procedure will be performed Dr. Cortes, the pulmonogist and her team. Plan 1. Check coags 2. Repeat chest x-ray to re-evaluate size of pleural effusions 3. Will follow and assess for bedside US thoro Above note was prepared in conjunction with Tomeka Carlton, medical student on pulmonary elective. DATE OF SERVICE 11-05-2015 Radiology * Event Display: IR Special Procedures, Non- Authored Date: Patient Care team information Care Team Personnel Name: Banker ALVAREZ, Declan Lanier Position: [facility] Physician - Primary Care Member Role: PCP Address: Address: [address] [place] [address]- [place] Name: Simran Shannon RN Position: [facility] RN Member Role: Primary Care Nurse Name: Torie Jo RN Position: [facility] RN Supv Member Role: Primary Care Nurse Name: Hussein Waters RN Position: [facility] RN Member Role: Primary Care Nurse Name: Vandana Sorensen NP Position: [facility] Associate Professional Member Role: Primary Care Nurse Name: Karsten Kwong MD Position: [facility] Renal MD Member Role: Lifetime Consulting Physician Address: Address: [address] [place] [address] [address] [place] [address]- [place] Name: Rebecca Leon RN Position: [facility] ED RN W/OE and Tasks Member Role: Primary Care Nurse Name: Elisabet Calle Position: [facility] RN Member Role: Primary Care Nurse Name: Paola Cavanaugh RN Position: [facility] ED RN W/OE and Tasks Member Role: Primary Care Nurse Name: Argentina Dixon RN Position: [facility] ED RN W/OE and Tasks Member Role: Primary Care Nurse Name: Christina Alonso Position: [facility] AMB Nurse Member Role: Lifetime Consulting Physician Name: Ramiro Brody III, RN Position: [facility] RN Member Role: Primary Care Nurse Name: Simran Tariq RN Position: [facility] RN Member Role: Primary Care Nurse Name: Narayan Spencer RN Position: [facility] SN RN Member Role: Primary Care Nurse Name: Shell Yoder RN Position: [facility] RN Member Role: Primary Care Nurse Name: Yenni Packer RN Position: [facility] RN Member Role: Primary Care Nurse Name: Moon RNRadha Position: [facility] AMB Nurse Member Role: Primary Care Nurse Name: Misti Pickard RN Position: [facility] RN Member Role: Primary Care Nurse Name: William Villanueva RN Position: [facility] RN Member Role: Primary Care Nurse Name: Viky Torre RN Position: [facility] [employer] Member Role: Primary Care Nurse Name: Carolee Tesfaye RN Position: [facility] RN Member Role: Primary Care Nurse Name: Joey Perez MD Position: [facility] Renal MD Member Role: Lifetime Consulting Physician Address: Address: [address] [place] [address] [facility] [address] Name: Brittney Ledezma RN Position: [facility] [employer] Member Role: Primary Care Nurse Name: Eliezer Wagner RN Position: [facility] RN Member Role: Primary Care Nurse Name: Najma Causey RN Position: [facility] SN RN Member Role: Primary Care Nurse Name: Brunilda Thomas RN Position: [facility] RN Member Role: Primary Care Nurse Care Team Related Persons Name: ROOPA XIE Address: home [address] [place] [id number] Name: HOPE XIE Address: [address] [address]
--- OUTSIDE RECORDS SUMMARY | 2023-12-13 12:20 | XMS_ITS | Continuity of Care Document ---
Author Organization [facility] Address [address] [place] [address]- Care Team Providers Care Lavender Farm Worker Name Role Bat Lathe Operator Declan ALVAREZ Primary Care Physician Encounter [facility] Date(s): 10/24/23 - 11/23/[address] [id number] Allergies, Adverse Reactions, Alerts No Known [...] virus vaccine, inactivated 1 12/06/10 Gi dory [id number] 12y+ bivalent booster vax 01/18/22 Given SARS-CoV-2 (COVID-19) mRNA BNT-162b2 vac 02/08/21 Given SARS-CoV-2 (COVID-19) mRNA BNT-162b2 vac 01/18/21 Given pneumococcal 23-valent vaccine 12/08/14 Given FluLaval (oldterm) 2 12/26/11 Given tetanus-diphtheria toxoids (Td) 3 12/06/10 Given 1Admin Note: vis given French 2Admin Note: vis [id number] 3Admin Note: VIS given French. Medications acetaminophen 325 mg oral tablet 650 mg, By Mouth, Every 4 hours, PRN, # 50 tablet, Refills 5, Tot. Refills 5, Maintenance, as needed for pain, 06/13/23 10:58:00 EDT, Route to Pharmacy Electronically, [facility]/pharmacy #[id number], 175, cm, 06/13/23 10:36:00 EDT, Height, 81.9, kg, 01/04/23 22:1... Start Date: 06/13/23 Status: Ordered amLODIPine 10 mg oral tablet 10 mg, By Mouth, Daily, # 90 each, Refills 3, Tot. Refills 3, Maintenance, 02/24/23 12:06:00 EST, [id number] Partial fill upon patient request if the prescription is for a schedule II opioid drug., 175, cm, 0... Start Date: 02/24/23 Stop Date: 02/19/24 Status: Ordered Aspirin Low Dose 81 mg oral delayed release tablet See Instructions, MARCOS KIA TABLETA TODOS LOS BENDER, # 90 tablet, 1 Refills, Maintenance, 06/13/23 10:59:00 EDT, [facility]/pharmacy #[id number], 175, cm, 06/13/23 10:36:00 EDT, Height, 81.9, kg, 01/04/23 22:19:00 EST, Dry Weight Start Date: 06/13/23 Status: Ordered atorvastatin 20 mg oral tablet See Instructions, MARCOS KIA TABLETA TODOS LOS BENDER AT SUPPER, # 90 tablet, 1 Refills, Maintenance, 06/13/23 10:59:00 EDT, [facility]/pharmacy #[id number], 175, cm, 06/13/23 10:36:00 EDT, Height, 81.9, kg, 01/04/2322:19:00 EST, Dry Weight Start Date: 06/13/23 Status: Ordered BuPROPion (Eqv-Wellbutrin SR) 150 mg/12 hours oral tablet, extended release See Instructions, TOME 1 TABLETA POR VIA ORAL DOS VECES AL BALA, # 180 Unknown, 1 Refills, Maintenance, 10/24/23 8:26:00 EDT, [id number], 175, cm, 06/13/23 10:36:00 EDT, Height, 81.9, kg, 01/04/23 22:19:00 EST, Dry Weight Start Date: 10/24/23 Status: Ordered Daily Yasmine oral tablet See Instructions, MARCOS KIA TABLETA RANDELL CONWAY BENDER, # 90 tablet, 1 Refills, Maintenance, 10/25/23 12:53:00 EDT, [facility] [id number], 90, TOME KIA TABLETA RANDELL [place] BENDER, 175, cm, 06/13/23 10:36:00 EDT, Height, 81.9, kg, 01/04/23 22:19:00 EST, Dry Weight Start Date: 10/25/23 Status: Ordered Freestyle Lite Lancets See Instructions, # 200 each, Refills 5, Tot. Refills 5, Maintenance, Check 1x per day; use as directed for Type 2 Diabetes Mellitus, 10/13/23 7:44:00 EDT, Supply, 175, cm, 06/13/23 10:36:00 EDT, Height, 81.9, kg, 01/04/23 22:19:00 EST, Dry Weight Start Date: 10/13/23 Stop Date: 04/10/24 Status: Ordered Freestyle Lite Test Strips See Instructions, # 200 each, Maintenance, Check 1x per day; use as directed for Type 2 Diabetes Mellitus, 10/13/23 7:44:00 EDT, Supply, 175, cm, 06/13/23 10:36:00 EDT, Height, 81.9, kg, 01/04/23 22:19:00 EST, Dry Weight Start Date: 10/13/23 Stop Date: 11/12/23 Status: Ordered GaviLAX oral powder for reconstitution See Instructions, DISSOLVE 17 GRAMS IN WATER AND DRINK ONCE DAILY, # 238 Gm, 5 Refills, Maintenance, 02/24/23 12:05:00 EST, [facility]/pharmacy #[id number], 14, DISSOLVE 17 GRAMS IN WATER AND DRINK ONCE DAILY, 175, cm, 02/24/23 11:28:00 EST, Height, 81.9, kg, 12/21... Start Date: 02/24/23 Status: Ordered glipiZIDE 5 mg oral tablet, extended release 1 tablet = 5 mg, By Mouth, Daily, dose of 5 mg ER please dose., # 90 tablet, 3 Refills, Maintenance, 02/24/23 11:59:00 EST, ER Tablet, [facility]/pharmacy #[id number], Partial fill upon [...] mg oral tablet See Instructions, MARCOS STEWARD TOSAWYER LOS BENDER, # 90 tablet, Refills 1, Tot. Refills 1, Maintenance, 06/13/23 10:59:00 EDT, Instructions Replace Required Details, [id number] 175, cm, 06/13/23 10:36:00 EDT,... Start Date: 06/13/23 Status: Ordered Multi-Day Plus Minerals oral tablet 1 tablet, By Mouth, Daily, resent to new pharmacy, # 90 tablet, 1 Refills, Maintenance, 10/18/21 16:12:00 EDT, Tablet, [facility]/pharmacy #[id number], 1 tablet By [...] Maintenance, R15.9, use everyday 5 per day, 06/13/23 11:01:00 EDT, Supply Start Date: 06/13/23 Status: [...] Team Personnel Name: Declan Louise MD Position: [facility] Physician - Primary Care Member Role: PCP Address: Address: [address] [place] [address]- Name: Simran Shannon RN Position: [facility] RN Member Role: Primary Care Nurse Name: Torie Jo RN Position: [facility] RN Supv Member Role: Primary Care Nurse Name: Hussein Waters RN Position: [facility] RN Member Role: Primary Care Nurse Name: Vandana Sorensen NP Position: [facility] Associate Professional Member Role: Primary Care Nurse Name: Karsten Kwong MD Position: [facility] Renal MD Member Role: Lifetime Consulting Physician Address: Address: [address] [place] [address] [address] [place] [address]- Name: Rebecca Leon RN Position: [facility] ED RN W/OE and Tasks Member Role: Primary Care Nurse Name: Elisabet Calle Position: [facility] RN Member Role: Primary Care Nurse Name: Paola Cavanaugh RN Position: [facility] ED RN W/OE and Tasks Member Role: Primary Care Nurse Name: Argentina Dixon RN Position: [facility] ED RN W/OE and Tasks Member Role: Primary Care Nurse Name: Simran Huber RN Position: [facility] RN Member Role: Primary Care Nurse Name: Christina Alonso Position: [facility] AMB Nurse Member Role: Lifetime Consulting Physician Name: Ramiro Brody III, RN Position: [facility] RN Member Role: Primary Care Nurse Name: Sherry Moyer RN Position: [facility] SN Expressive Art Therapist Member Role: Primary Care Nurse Name: Narayan Spencer RN Position: [facility] SN RN Member Role: Primary Care Nurse Name: Shell Yoder RN Position: [facility] RN Member Role: Primary Care Nurse Name: Yenni Packer RN Position: [facility] RN Member Role: Primary Care Nurse Name: Moon RNRadha Position: [facility] AMB Nurse Member Role: Primary Care Nurse Name: Misti Pickard RN Position: [facility] RN Member Role: Primary Care Nurse Name: Kay RN, mckay Position: [facility] RN Member Role: Primary Care Nurse Name: Viyk Torre RN Position: [facility] [employer] Flatbed Driver Member Role: Primary Care Nurse Name: Carolee Tesfaye RN Position: [facility] RN Member Role: Primary Care Nurse Name: Joey Perez MD Position: [facility] Renal MD Member Role: Lifetime Consulting Physician Address: Address: [address] [place] [address] [address] [facility] [address] Name: Brittney Ledezma RN Position: [facility] [employer] Flatbed Driver Member Role: Primary Care Nurse Name: Eliezer Wagner RN Position: [facility] RN Member Role: Primary Care Nurse Name: Najma Causey RN Position: [facility] SN RN Member Role: Primary Care Nurse Name: Brunilda Thomas RN Position: [facility] RN Member Role: Primary Care Nurse Care Team Related Persons Name: ROOPA XIE Address: [address] Name: HOPE XIE Address: [address]
--- OUTSIDE RECORDS SUMMARY | 2023-12-13 12:21 | XMS_ITS | Continuity of Care Document ---
Author Organization [facility] Address [address] [place] [address]- Care Team Providers Care Color Strainer Name Role Irrigation Foreman Declan ALVAREZ Primary Care Physician [facility]23 - 09/22/[address] [address] Allergies, Adverse Reactions, Alerts No [...] virus vaccine, inactivated 1 12/06/10 Gi dory [id number] 12y+ bivalent booster vax 01/18/22 Given SARS-CoV-2 (COVID-19) mRNA BNT-162b2 vac 02/08/21 Given SARS-CoV-2 (COVID-19) mRNA BNT-162b2 vac 01/18/21 Given pneumococcal 23-valent vaccine 12/08/14 Given FluLaval (oldterm) 2 12/26/11 Given tetanus-diphtheria toxoids (Td) 3 12/06/10 Given 1Admin Note: vis given Armenian 2Admin Note: vis [id number] 3Admin Note: VIS given Armenian. Medications acetaminophen 325 mg oral tablet 650 mg, By Mouth, Every 4 hours, PRN, # 50 tablet, Refills 5, Tot. Refills 5, Maintenance, as needed for pain, 06/13/23 10:58:00 EDT, Route to Pharmacy Electronically, [facility]/pharmacy #[id number], 175, cm, 06/13/23 10:36:00 EDT, Height, 81.9, kg, 01/04/23 22:1... Start Date: 06/13/23 Status: Ordered amLODIPine 10 mg oral tablet 10 mg, By Mouth, Daily, # 90 each, Refills 3, Tot. Refills 3, Maintenance, 02/24/23 12:06:00 EST, [id number] Partial fill upon patient request if the prescription is for a schedule II opioid drug., 175, cm, 0... Start Date: 02/24/23 Stop Date: 02/19/24 Status: Ordered Aspirin Low Dose 81 mg oral delayed release tablet See Instructions, MARCOS ADAM TABLETA TOS LOS BENDER, # 90 tablet, 1 Refills, Maintenance, 06/13/23 10:59:00 EDT, [facility]/pharmacy #[id number], 175, cm, 06/13/23 10:36:00 EDT, Height, 81.9, kg, 01/04/23 22:19:00 EST, Dry Weight Start Date: 06/13/23 Status: Ordered atorvastatin 20 mg oral tablet See Instructions, MARCOS KIA TABLETA TOS ZORAIDA BENDER AT SUPPER, # 90 tablet, 1 Refills, Maintenance, 06/13/23 10:59:00 EDT, [facility]/pharmacy #[id number], 175, cm, 06/13/23 10:36:00 EDT, Height, 81.9, kg, 01/04/2322:19:00 EST, Dry Weight Start Date: 06/13/23 Status: Ordered BuPROPion (Eqv-Wellbutrin SR) 150 mg/12 hours oral tablet, extended release See Instructions, NAENTTEE KIA TABLETA DOS VECES AL BALA, # 180 each, 1 Refills, Maintenance, 06/13/23 10:59:00 EDT, [id number], 175, cm, 06/13/23 10:36:00 EDT, Height, 81.9, kg, 01/04/23 22:19:00EST, Dry Weight Start Date: 06/13/23 Status: Ordered Daily Yasmine oral tablet See Instructions, TOME KIA TABLETA TODOS LOS BENDER, # 90 tablet, 1 Refills, Maintenance, 02/24/23 12:05:00 EST, [id number], 90, TOME KIA TABLETA TODOS LOS BENDER, 175, cm, 02/24/23 11:28:00 EST,Height, 81.9, kg, 01/04/23 22:19:00 EST, Dry Weight Start Date: 02/24/23 Status: Ordered Freestyle Lite Lancets See Instructions, # 200 each, Refills 5, Tot. Refills 5, Maintenance, Check 1-2x per day; use as directed for Type 2 Diabetes Mellitus, 08/23/23 12:08:00 EDT, Supply, 175, cm, 06/13/23 10:36:00 EDT, Height, 81.9, kg, 01/04/23 22:19:00 EST, Dry Weight Start Date: 08/23/23 Stop Date: 02/19/24 Status: Ordered Freestyle Lite Test Strips See Instructions, # 200 each, Maintenance, Check 1-2x per day; use as directed for Type 2 Diabetes Mellitus, 08/23/23 12:08:00 EDT, Supply, 175, cm, 06/13/23 10:36:00 EDT, Height, 81.9, kg, 01/04/23 22:19:00 EST, Dry Weight Start Date: 08/23/23 Stop Date: 09/22/23 Status: Ordered GaviLAX oral powder for reconstitution See Instructions, DISSOLVE 17 GRAMS IN WATER AND DRINK ONCE DAILY, # 238 Gm, 5 Refills, Maintenance, 02/24/23 12:05:00 EST, [facility]/pharmacy #[id number], 14, DISSOLVE 17 GRAMS IN WATER AND DRINK ONCE DAILY, 175, cm, 02/24/23 11:28:00 EST, Height, 81.9, kg, 12/21... Start Date: 02/24/23 Status: Ordered glipiZIDE 5 mg oral tablet, extended release 1 tablet = 5 mg, By Mouth, Daily, dose of 5 mg ER please dose., # 90 tablet, 3 Refills, Maintenance, 02/24/23 11:59:00 EST, ER Tablet, [id number] Partial fill upon patient request [...] oral tablet See Instructions, MARCOS STEWARD TOSAWYER ZORAIDA BENDER, # 90 tablet, Refills 1, Tot. Refills 1, Maintenance, 06/13/23 10:59:00 EDT, Instructions Replace Required Details, [id number] 175, cm, 06/13/23 10:36:00 EDT,... Start [...] Team Personnel Name: Declan Louise MD Position: [facility] Physician - Primary Care Member Role: PCP Address: Address: [address] [place] [address]- Name: Simran Shannon RN Position: [facility] RN Member Role: Primary Care Nurse Name: Torie Jo RN Position: [facility] RN Supv Member Role: Primary Care Nurse Name: Hussein Waters RN Position: [facility] RN Member Role: Primary Care Nurse Name: Vandana Sorensen NP Position: [facility] Associate Professional Member Role: Primary Care Nurse Name: Karsten Kwong MD Position: [facility] Renal MD Member Role: Lifetime Consulting Physician Address: Address: [address] [place] [address] [address] [facility] [address]- Name: Rebecca Leon RN Position: [facility] ED RN W/OE and Tasks Member Role: Primary Care Nurse Name: Elisabet Calle Position: [facility] RN Member Role: Primary Care Nurse Name: Paola Cavanaugh RN Position: [facility] ED RN W/OE and Tasks Member Role: Primary Care Nurse Name: Argentina Dixon RN Position: [facility] ED RN W/OE and Tasks Member Role: Primary Care Nurse Name: Christina Alonso Position: [facility] AMB Nurse Member Role: Lifetime Consulting Physician Name: Ramiro Brody III, RN Position: [facility] RN Member Role: Primary Care Nurse Name: Simran Tariq RN Position: [facility] RN Member Role: Primary Care Nurse Name: Sherry Moyer RN Position: [facility] SN Strategic Marketing Manager Member Role: Primary Care Nurse Name: Narayan Spencer RN Position: [facility] SN RN Member Role: Primary Care Nurse Name: Shell Yoder RN Position: [facility] RN Member Role: Primary Care Nurse Name: Yenni Packer RN Position: [facility] RN Member Role: Primary Care Nurse Name: Moon RNRadha Position: [facility] AMB Nurse Member Role: Primary Care Nurse Name: Melly RNMisti Position: [facility] RN Member Role: Primary Care Nurse Name: Kay RN mckay Position: [facility] RN Member Role: Primary Care Nurse Name: Viky Torre RN Position: [facility] Textile Scrap Salvager Member Role: Primary Care Nurse Name: Carolee Tesfaye RN Position: [facility] RN Member Role: Primary Care Nurse Name: Joey Perez MD Position: [facility] Renal MD Member Role: Lifetime Consulting Physician Address: Address: [address] [place] [address] [facility] [address] Name: Brittney Ledezma RN Position: [facility] Textile Scrap Salvager Member Role: Primary Care Nurse Name: Eliezer Wagner RN Position: [facility] RN Member Role: Primary Care Nurse Name: Najma Causey RN Position: [facility] SN RN Member Role: Primary Care Nurse Name: Brunilda Thomas RN Position: [facility] RN Member Role: Primary Care Nurse Care Team Related Persons Name: ROOPA XIE Address: [address] Name: HOPE XIE Address: [address] [address]
--- OUTSIDE RECORDS SUMMARY | 2023-12-13 12:21 | XMS_ITS | Continuity of Care Document ---
Author Organization [facility] Address [address] [place] [id number]- Care Team Providers Care Emergency Management System Director Name Role Patient Intake Representative Declan ALVAREZ Primary Care Physician [facility]23 - 11/04/[address] [address] Allergies, Adverse Reactions, Alerts No [...] virus vaccine, inactivated 1 12/06/10 Gi dory [id number] 12y+ bivalent booster vax 01/18/22 Given SARS-CoV-2 (COVID-19) mRNA BNT-162b2 vac 02/08/21 Given SARS-CoV-2 (COVID-19) mRNA BNT-162b2 vac 01/18/21 Given pneumococcal 23-valent vaccine 12/08/14 Given FluLaval (oldterm) 2 12/26/11 Given tetanus-diphtheria toxoids (Td) 3 12/06/10 Given 1Admin Note: vis given Vietnamese 2Admin Note: vis [id number] 3Admin Note: VIS given Vietnamese. Medications acetaminophen 325 mg oral tablet 650 mg, By Mouth, Every 4 hours, PRN, # 50 tablet, Refills 5, Tot. Refills 5, Maintenance, as needed for pain, 06/13/23 10:58:00 EDT, Route to Pharmacy Electronically, [facility]/pharmacy #[id number], 175, cm, 06/13/23 10:36:00 EDT, Height, 81.9, kg, 01/04/23 22:1... Start Date: 06/13/23 Status: Ordered amLODIPine 10 mg oral tablet 10 mg, By Mouth, Daily, # 90 each, Refills 3, Tot. Refills 3, Maintenance, 02/24/23 12:06:00 EST, [id number] Partial fill upon patient request if the prescription is for a schedule II opioid drug., 175, cm, 0... Start Date: 02/24/23 Stop Date: 02/19/24 Status: Ordered Aspirin Low Dose 81 mg oral delayed release tablet See Instructions, MARCOS KIA TABLETA TODOS LOS BENDER, # 90 tablet, 1 Refills, Maintenance, 06/13/23 10:59:00 EDT, [facility]/pharmacy #[id number], 175, cm, 06/13/23 10:36:00 EDT, Height, 81.9, kg, 01/04/23 22:19:00 EST, Dry Weight Start Date: 06/13/23 Status: Ordered atorvastatin 20 mg oral tablet See Instructions, MARCOS KIA TABLETA TODOS LOS BENDER AT SUPPER, # 90 tablet, 1 Refills, Maintenance, 06/13/23 10:59:00 EDT, [facility]/pharmacy #[id number], 175, cm, 06/13/23 10:36:00 EDT, Height, 81.9, kg, 01/04/2322:19:00 EST, Dry Weight Start Date: 06/13/23 Status: Ordered BuPROPion (Eqv-Wellbutrin SR) 150 mg/12 hours oral tablet, extended release See Instructions, TOME 1 TABLETA POR VIA ORAL DOS VECES AL BALA, # 180 Unknown, 1 Refills, Maintenance, 10/24/23 8:26:00 EDT, [facility] STORE [id number], 175, cm, 06/13/23 10:36:00 EDT, Height, 81.9, kg, 01/04/23 22:19:00 EST, Dry Weight Start Date: 10/24/23 Status: Ordered Daily Yasmine oral tablet See Instructions, MARCOS KIA TABLETA RANDELL [place] BENDER, # 90 tablet, 1 Refills, Maintenance, 10/25/23 12:53:00 EDT, [facility] STORE [id number], 90, TOME KIA TABLETA RANDELL [place] BENDER, [...] Gm, 5 Refills, Maintenance, 02/24/23 12:05:00 EST, [facility]/pharmacy #[id number], 14, DISSOLVE 17 GRAMS IN WATER AND DRINK ONCE DAILY, 175, cm, 02/24/23 11:28:00 EST, Height, 81.9, kg, 12/21... Start Date: 02/24/23 Status: Ordered glipiZIDE 5 mg oral tablet, extended release 1 tablet = 5 mg, By Mouth, Daily, dose of 5 mg ER please dose., # 90 tablet, 3 Refills, Maintenance, 02/24/23 11:59:00 EST, ER Tablet, [facility]/pharmacy #[id number], Partial fill upon patient [...] Replace Required Details, [id number] 175, cm, 06/13/23 10:36:00 EDT,... Start Date: 06/13/23 Status: Ordered Multi-Day Plus Minerals oral tablet 1 tablet, By Mouth, Daily, resent to new pharmacy, # 90 tablet, 1 Refills, Maintenance, 10/18/21 16:12:00 EDT, Tablet, [facility]/pharmacy #[id number], 1 tablet By Mouth Daily,Instr:resent [...] Team Personnel Name: Declan Louise MD Position: [facility] Physician - Primary Care Member Role: PCP Address: Address: [address] [place] [id number]- Name: Simran Shannon RN Position: [facility] RN Member Role: Primary Care Nurse Name: Torie Jo RN Position: [facility] RN Supv Member Role: Primary Care Nurse Name: Hussein Waters RN Position: [facility] RN Member Role: Primary Care Nurse Name: Vandana Sorensen NP Position: [facility] Associate Professional Member Role: Primary Care Nurse Name: Karsten Kowng MD Position: [facility] Renal MD Member Role: Lifetime Consulting Physician Address: Address: [address] [place] [address] [address] [facility] [place] [address]- Name: Rebecca Leon RN Position: [facility] ED RN W/OE and Tasks Member Role: Primary Care Nurse Name: Elisabet Calle Position: [facility] RN Member Role: Primary Care Nurse Name: Paola Cavanaugh RN Position: [facility] ED RN W/OE and Tasks Member Role: Primary Care Nurse Name: Argentina Dixon RN Position: [facility] ED RN W/OE and Tasks Member Role: Primary Care Nurse Name: Simran Huber RN Position: [facility] RN Member Role: Primary Care Nurse Name: Christina Alonso Position: [facility] AMB Nurse Member Role: Lifetime Consulting Physician Name: Ramiro Brody III, RN Position: [facility] RN Member Role: Primary Care Nurse Name: Sherry Moyer RN Position: [facility] SN Agronomy Instructor Member Role: Primary Care Nurse Name: Narayan Spencer RN Position: [facility] SN RN Member Role: Primary Care Nurse Name: Shell Yoder RN Position: [facility] RN Member Role: Primary Care Nurse Name: Yenni Packer RN Position: [facility] RN Member Role: Primary Care Nurse Name: Moon RNRadha Position: [facility] AMB Nurse Member Role: Primary Care Nurse Name: Misti Pickard RN Position: [facility] RN Member Role: Primary Care Nurse Name: Kay RN, William Position: [facility] RN Member Role: Primary Care Nurse Name: Viky Torre RN Position: [facility] Tailor Helper Member Role: Primary Care Nurse Name: Carolee Tesfaye RN Position: [facility] RN Member Role: Primary Care Nurse Name: Joey Perez MD Position: [facility] Renal MD Member Role: Lifetime Consulting Physician Address: Address: [address] [place] [address] [facility] [address] Name: Brittney Ledezma RN Position: [facility] Tailor Helper Member Role: Primary Care Nurse Name: Eliezer Wagner RN Position: [facility] RN Member Role: Primary Care Nurse Name: Najma Causey RN Position: [facility] SN RN Member Role: Primary Care Nurse Name: Brunilda Thomas RN Position: [facility] RN Member Role: Primary Care Nurse Care Team Related Persons Name: ROOPA XIE Address: [address] [address] Name: HOPE XIE Address: [address] [address]
--- OUTSIDE RECORDS SUMMARY | 2023-12-13 12:21 | XMS_ITS | Continuity of Care Document ---
Author Organization [facility] Address [address] [place] [id number]- Care Team Providers Care Court Liaison Name Role Railroad Conductor Declan ALVAREZ Primary Care Physician [facility]): 06[facility]14[facility]23 - 07/14/[address] [address] Allergies, Adverse Reactions, Alerts No [...] virus vaccine, inactivated 1 12/06/10 Gi dory [id number] 12y+ bivalent booster vax 01/18/22 Given SARS-CoV-2 (COVID-19) mRNA BNT-162b2 vac 02/08/21 Given SARS-CoV-2 (COVID-19) mRNA BNT-162b2 vac 01/18/21 Given pneumococcal 23-valent vaccine 12/08/14 Given FluLaval (oldterm) 2 12/26/11 Given tetanus-diphtheria toxoids (Td) 3 12/06/10 Given 1Admin Note: vis given Romansh 2Admin Note: vis [id number] 3Admin Note: VIS given Romansh. Medications acetaminophen 325 mg oral tablet 650 mg, By Mouth, Every 4 hours, PRN, # 50 tablet, Refills 5, Tot. Refills 5, Maintenance, as needed for pain, 06/13/23 10:58:00 EDT, Route to Pharmacy Electronically, [facility]/pharmacy #[id number], 175, cm, 06/13/23 10:36:00 EDT, Height, 81.9, kg, 01/04/23 22:1... Start Date: 06/13/23 Status: Ordered amLODIPine 10 mg oral tablet 10 mg, By Mouth, Daily, # 90 each, Refills 3, Tot. Refills 3, Maintenance, 02/24/23 12:06:00 EST, [id number] fill upon patient request if the prescription is for a schedule II opioid drug., 175, cm, 0... Start Date: 02/24/23 Stop Date: 02/19/24 Status: Ordered Aspirin Low Dose 81 mg oral delayed release tablet See Instructions, MARCOS ADAM TABLETA TOS LOS BENDER, # 90 tablet, 1 Refills, Maintenance, 06/13/23 10:59:00 EDT, [facility]/pharmacy #[id number], 175, cm, 06/13/23 10:36:00 EDT, Height, 81.9, kg, 01/04/23 22:19:00 EST, Dry Weight Start Date: 06/13/23 Status: Ordered atorvastatin 20 mg oral tablet See Instructions, MARCOS KIA TABLETA TOS ZORAIDA BENDER AT SUPPER, # 90 tablet, 1 Refills, Maintenance, 06/13/23 10:59:00 EDT, [facility]/pharmacy #[id number], 175, cm, 06/13/23 10:36:00 EDT, Height, 81.9, kg, 01/04/2322:19:00 EST, Dry Weight Start Date: 06/13/23 Status: Ordered BuPROPion (Eqv-Wellbutrin SR) 150 mg/12 hours oral tablet, extended release See Instructions, NANETTEE KIA TABLETA DOS VECES AL BALA, # 180 each, 1 Refills, Maintenance, 06/13/23 10:59:00 EDT, [id number], 175, cm, 06/13/23 10:36:00 EDT, Height, 81.9, kg, 01/04/23 22:19:00EST, Dry Weight Start Date: 06/13/23 Status: Ordered Daily Yasmine oral tablet See Instructions, TOME KIA TABLETA TODOS LOS BENDER, # 90 tablet, 1 Refills, Maintenance, 02/24/23 12:05:00 EST, [facility]/pharmacy #[id number], 90, TOME KIA TABLETA TODOS LOS [...] Gm, 5 Refills, Maintenance, 02/24/23 12:05:00 EST, [facility]/pharmacy #[id number], 14, DISSOLVE 17 GRAMS IN WATER AND DRINK ONCE DAILY, 175, cm, 02/24/23 11:28:00 EST, Height, 81.9, kg, 12/21... Start Date: 02/24/23 Status: Ordered glipiZIDE 5 mg oral tablet, extended release 1 tablet = 5 mg, By Mouth, Daily, dose of 5 mg ER please dose., # 90 tablet, 3 Refills, Maintenance, 02/24/23 11:59:00 EST, ER Tablet, [id number] Partial fill upon patient request [...] Instructions Replace Required Details, [id number] 175, cm, 06/13/23 10:36:00 EDT,... Start Date: 06/13/23 Status: Ordered Multi-Day Plus Minerals oral tablet 1 tablet, By Mouth, Daily, resent to new pharmacy, # 90 tablet, 1 Refills, Maintenance, 10/18/21 16:12:00 EDT, [facility]t, [id number] 1 tablet By Mouth Daily,Instr:resent to [...] Team Personnel Name: Declan Louise MD Position: [facility] Physician - Primary Care Member Role: PCP Address: Address: [address] [place] [address]- Name: Simran Shannon RN Position: [facility] RN Member Role: Primary Care Nurse Name: Torie Jo RN Position: [facility] RN Supv Member Role: Primary Care Nurse Name: Hussein Waters RN Position: [facility] RN Member Role: Primary Care Nurse Name: Vandana Sorensen NP Position: [facility] Associate Professional Member Role: Primary Care Nurse Name: Karsten Kwong MD Position: [facility] Renal MD Member Role: Lifetime Consulting Physician Address: Address: [address] [place] [address] [address] [facility] [address]- Name: Rebecca Leon RN Position: [facility] ED RN W/OE and Tasks Member Role: Primary Care Nurse Name: Elisabet Calle Position: [facility] RN Member Role: Primary Care Nurse Name: Paola Cavanaugh RN Position: [facility] ED RN W/OE and Tasks Member Role: Primary Care Nurse Name: Argentina Dixon RN Position: [facility] ED RN W/OE and Tasks Member Role: Primary Care Nurse Name: Christina Alonso Position: [facility] AMB Nurse Member Role: Lifetime Consulting Physician Name: Ramiro Brody III, RN Position: [facility] RN Member Role: Primary Care Nurse Name: Simran Tariq RN Position: [facility] RN Member Role: Primary Care Nurse Name: Narayan Spencer RN Position: [facility] SN RN Member Role: Primary Care Nurse Name: Shell Yoder RN Position: [facility] RN Member Role: Primary Care Nurse Name: Yenni Packer RN Position: [facility] RN Member Role: Primary Care Nurse Name: Moon RNRadha Position: [facility] AMB Nurse Member Role: Primary Care Nurse Name: Misti Pickard RN Position: [facility] RN Member Role: Primary Care Nurse Name: William Villanueva RN Position: [facility] RN Member Role: Primary Care Nurse Name: Viky Torre RN Position: [facility] Forestry Extension Specialist Member Role: Primary Care Nurse Name: Carolee Tesfaye RN Position: [facility] RN Member Role: Primary Care Nurse Name: Joey Perez MD Position: [facility] Renal MD Member Role: Lifetime Consulting Physician Address: Address: [address] [place] [address] [facility] [address] Name: Brittney Ledezma RN Position: [facility] Forestry Extension Specialist Member Role: Primary Care Nurse Name: Eliezer Wagner RN Position: [facility] RN Member Role: Primary Care Nurse Name: Najma Causey RN Position: [facility] SN RN Member Role: Primary Care Nurse Name: Brunilda Thomas RN Position: [facility] RN Member Role: Primary Care Nurse Care Team Related Persons Name: ROOPA XIE Address: [address] [address] Name: HOPE XIE Address: [address] [address]
--- OUTSIDE RECORDS SUMMARY | 2023-12-13 12:22 | XMS_ITS | Continuity of Care Document ---
Author Organization [facility] Address [address] [place] [address]- Care Team Providers Care Work Counselor Name Role Mandrel Maker Declan ALVAREZ Primary Care Physician [phone] Encounter [facility] Date(s): 10/10/23 - 11/09/[address] [address] Allergies, Adverse Reactions, Alerts No Known [...] virus vaccine, inactivated 1 12/06/10 Gi dory [id number] 12y+ bivalent booster vax 01/18/22 Given SARS-CoV-2 (COVID-19) mRNA BNT-162b2 vac 02/08/21 Given SARS-CoV-2 (COVID-19) mRNA BNT-162b2 vac 01/18/21 Given pneumococcal 23-valent vaccine 12/08/14 Given FluLaval (oldterm) 2 12/26/11 Given tetanus-diphtheria toxoids (Td) 3 12/06/10 Given 1Admin Note: vis given Romansh 2Admin Note: vis [id number] 3Admin Note: VIS given Romansh. Medications acetaminophen 325 mg oral tablet 650 mg, By Mouth, Every 4 hours, PRN, # 50 tablet, Refills 5, Tot. Refills 5, Maintenance, as needed for pain, 06/13/23 10:58:00 EDT, Route to Pharmacy Electronically, [facility]/pharmacy #[id number], 175, cm, 06/13/23 10:36:00 EDT, Height, 81.9, kg, 01/04/23 22:1... Start Date: 06/13/23 Status: Ordered amLODIPine 10 mg oral tablet 10 mg, By Mouth, Daily, # 90 each, Refills 3, Tot. Refills 3, Maintenance, 02/24/23 12:06:00 EST, [id number] Partial fill upon patient request if the prescription is for a schedule II opioid drug., 175, cm, 0... Start Date: 02/24/23 Stop Date: 02/19/24 Status: Ordered Aspirin Low Dose 81 mg oral delayed release tablet See Instructions, MARCOS IKA TABLETA TODOS LOS BENDER, # 90 tablet, 1 Refills, Maintenance, 06/13/23 10:59:00 EDT, [facility]/pharmacy #[id number], 175, cm, 06/13/23 10:36:00 EDT, Height, 81.9, kg, 01/04/23 22:19:00 EST, Dry Weight Start Date: 06/13/23 Status: Ordered atorvastatin 20 mg oral tablet See Instructions, MARCOS KIA TABLETA TODOS LOS BENDER AT SUPPER, # 90 tablet, 1 Refills, Maintenance, 06/13/23 10:59:00 EDT, [facility]/pharmacy #[id number], 175, cm, 06/13/23 10:36:00 EDT, Height, 81.9, kg, 01/04/2322:19:00 EST, Dry Weight Start Date: 06/13/23 Status: Ordered BuPROPion (Eqv-Wellbutrin SR) 150 mg/12 hours oral tablet, extended release See Instructions, TOME 1 TABLETA POR VIA ORAL DOS VECES AL BALA, # 180 Unknown, 1 Refills, Maintenance, 10/24/23 8:26:00 EDT, [facility] STORE [id number], 175, cm, 06/13/23 10:36:00 EDT, Height, 81.9, kg, 01/04/23 22:19:00 EST, Dry Weight Start Date: 10/24/23 Status: Ordered Daily Yasmine oral tablet See Instructions, MARCOS KIA TABLETA RANDELL CONWAY BENDER, # 90 tablet, 1 Refills, Maintenance, 10/25/23 12:53:00 EDT, [facility] STORE [id number], 90, TOME KIA TABLETA RANDELL CONWAY BENDER, [...] Gm, 5 Refills, Maintenance, 02/24/23 12:05:00 EST, [facility]/pharmacy #[id number], 14, DISSOLVE 17 GRAMS IN WATER AND DRINK ONCE DAILY, 175, cm, 02/24/23 11:28:00 EST, Height, 81.9, kg, 12/21... Start Date: 02/24/23 Status: Ordered glipiZIDE 5 mg oral tablet, extended release 1 tablet = 5 mg, By Mouth, Daily, dose of 5 mg ER please dose., # 90 tablet, 3 Refills, Maintenance, 02/24/23 11:59:00 EST, ER Tablet, [facility]/pharmacy #[id number], Partial fill upon patient [...] Instructions Replace Required Details, [id number] 175, cm, 06/13/23 10:36:00 EDT,... [...] Team Personnel Name: Declan Louise MD Position: [facility] Physician - Primary Care Member Role: PCP Address: Address: [address] [place] [address]- Name: Simran Shannon RN Position: [facility] RN Member Role: Primary Care Nurse Name: Torie Jo RN Position: [facility] RN Supv Member Role: Primary Care Nurse Name: Hussein Waters RN Position: [facility] RN Member Role: Primary Care Nurse Name: Vandana Sorensen NP Position: [facility] Associate Professional Member Role: Primary Care Nurse Name: Karsten Kwong MD Position: [facility] Renal MD Member Role: Lifetime Consulting Physician Address: Address: [address] [place] [address] [address] [place] [address]- Name: Rebecca Leon RN Position: [facility] ED RN W/OE and Tasks Member Role: Primary Care Nurse Name: Elisabet Calle Position: [facility] RN Member Role: Primary Care Nurse Name: Paola Cavanaugh RN Position: [facility] ED RN W/OE and Tasks Member Role: Primary Care Nurse Name: Argentina Dixon RN Position: [facility] ED RN W/OE and Tasks Member Role: Primary Care Nurse Name: Simran Huber RN Position: [facility] RN Member Role: Primary Care Nurse Name: Christina Alonso Position: [facility] AMB Nurse Member Role: Lifetime Consulting Physician Name: Ramiro Brody III, RN Position: [facility] RN Member Role: Primary Care Nurse Name: Sherry Moyer RN Position: [facility] SN Motor Vehicle Operator Road Supervisor Member Role: Primary Care Nurse Name: Narayan Spencer RN Position: [facility] SN RN Member Role: Primary Care Nurse Name: Shell Yoder RN Position: [facility] RN Member Role: Primary Care Nurse Name: Yenni Packer RN Position: [facility] RN Member Role: Primary Care Nurse Name: Moon RNRadha Position: [facility] AMB Nurse Member Role: Primary Care Nurse Name: Misti Pickard RN Position: [facility] RN Member Role: Primary Care Nurse Name: Kay RN, mckay Position: [facility] RN Member Role: Primary Care Nurse Name: Viky Torre RN Position: [facility] Yard Engineer Member Role: Primary Care Nurse Name: Carolee Tesfaye RN Position: [facility] RN Member Role: Primary Care Nurse Name: Joey Perez MD Position: [facility] Renal MD Member Role: Lifetime Consulting Physician Address: Address: [address] [place] [address] [facility] [address] Name: Brittney Ledezma RN Position: [facility] Yard Engineer Member Role: Primary Care Nurse Name: Eliezer Wagner RN Position: [facility] RN Member Role: Primary Care Nurse Name: Najma Causey RN Position: [facility] SN RN Member Role: Primary Care Nurse Name: Brunilda Thomas RN Position: [facility] RN Member Role: Primary Care Nurse Care Team Related Persons Name: ROOPA XIE Address: [address] [address] Name: HOPE XIE Address: [address] [address]
== END 2023-12-13 12:50 | disposition home or self-care (01) ==
LOC: HO.HUSH 12:17
PROVIDERS: PCP Internal Medicine; Visit Provider Nurse Practitioner Family
DX: C61 Malignant neoplasm of prostate (principal); E29.1 Testicular hypofunction
CPT/HCPCS: 99442

== ENCOUNTER → 2023-12-13 12:17 | Outpatient (BNVA) | payer MEDICARE, MEDICAID, SELFPAY | PROVIDERS: PCP Internal Medicine; Visit Provider Nurse Practitioner Family ==

== ENCOUNTER 2023-12-25 11:20 | Outpatient (REF) | payer MEDICARE, MEDICAID, SELFPAY ==
[2023-12-25 14:21] LABS: Anion Gap 17 (12-20); Blood Urea Nitrogen 23 mg/dL (9-16); Carbon Dioxide 21 mmol/L (22-29); Chloride 109 mmol/L (96-108); Estimated Glomerular Filt Rate 39; Potassium 4.1 mmol/L (3.3-5.1); Sodium 143 mmol/L (135-145)
== END 2023-12-25 11:21 | disposition home or self-care (01) ==
LOC: HO.HMGCLDS 11:20
PROVIDERS: PCP Internal Medicine; Visit Provider Internal Medicine Nephrology
DX: I12.9 Hypertensive chronic kidney disease with stage 1 through stage 4 chronic kidney disease, or unspecified chronic kidney disease (principal); N18.31 Chronic kidney disease, stage 3a
CPT/HCPCS: 36415; 80051; 82565; 84520

== ENCOUNTER 2024-01-02 11:57 | Outpatient (AMB) | payer MEDICARE, MEDICAID, SELFPAY ==
[2024-01-02 11:50] VITALS: BP 131/87; BMI 23.6
--- NOTE | 2024-01-02 11:50 | HO.NEPHOV ---
Vital Signs 01/02/24 11:50 Height 5 ft 9 in Weight 160 lb BMI 23.6 BP 131/87 Intake Visit Reasons: 6 mon follow up-[facility] Showroom Sales Assistant Required: No Accompanied by: Spouse Allergies No Known Allergies [No Known Allergies*] Allergy (Verified 01/02/24 11:51) HPI Comments Details: Henry was seen by [facility] for follow up for his CKD. He has been having sleep issues. His is providing at most attention to his medical care. He denies any chest pain, shortness of breath, nausea vomiting or diarrhea. He has no pedal edema or urinary symptoms. He had been followed up by Dr. Lopez for his prostate cancer. His blood sugar control is better. His renal functions have been stable. [facility] Medical History Dementia Diabetes HTN (hypertension) Surgical History History of prostate surgery Social History Alcohol intake: never Patient Tobacco Use Status: Never used Tobacco Review of Systems Const All systems reviewed & are unremarkable except as noted in HPI and below Physical Exam Vital Signs: Last Vital Signs BP 131/87 01/02/24 11:50 BMI result Body Mass Index 23.6 Telehealth Telehealth Telehealth Platform: Telephone Location of provider rendering services: practice address Location of patient: address on file Patient Identification confirmed using: Name, : Yes Telehealth method: voice only Patient verbally consented to treatment: Yes Patient verbally consented to billing insurance company: Yes Patient informed of any privacy concerns related to visit: No Minutes spent on Phone/Video with Pt.: 10 Results Reviewed Nephrology Results: Sodium 143 mmol/L (135-145) 12/25/23 Potassium 4.1 mmol/L (3.3-5.1) 12/25/23 Chloride 109 mmol/L (96-108) H 12/25/23 Carbon Dioxide 21 mmol/L (22-29) L 12/25/23 BUN 23 mg/dL (9-16) H 12/25/23 Creatinine 1.75 mg/dL (0.5-1.4) H 12/25/23 Calcium 10.1 mg/dL (8.4-10.2) 06/27/23 Urine Creatinine 90.23 mg/dL 06/27/23 Protein/Creatinin Ratio 0.19 (<0.2) 06/27/23 Assessment & Plan Assessment & Plan (1) CKD (chronic kidney disease) stage 3, GFR 30-59 ml/min: Code(s): N18.30 - Chronic kidney disease, stage 3 unspecified Category: Medical Qualifiers: Chronic kidney disease stage 3 subtype: stage 3a (GFR 45-59) Qualified Code(s): N18.31 - Chronic kidney disease, stage 3a (2) HTN (hypertension): Code(s): I10 - Essential (primary) hypertension Category: Medical Qualifiers: Hypertension type: primary hypertension Qualified Code(s): I10 - Essential (primary) hypertension Cathy Figueroa is known to have chronic kidney disease stage 3 at baseline. He is diabetic. His history of prostate cancer. He is currently clinically stable. His blood pressure is at goal. He is on amlodipine and atenolol. He is not on any CHINTAN inhibitor or ARB. His blood sugar control is better. He is a great candidate for Jardiance if there are no other contra indications.I have ordered follow-up blood work . I did not make any other medication changes today. All his 's questions were answered. Orders: Orders Electrolytes 6 Months I10 - Essential (primary) hypertension, N18.31 - Chronic kidney disease, stage 3a Creatinine 6 Months I10 - Essential (primary) hypertension, N18.31 - Chronic kidney disease, stage 3a Blood Urea Nitrogen 6 Months I10 - Essential (primary) hypertension, N18.31 - Chronic kidney disease, stage 3a Coding Level of Care Code Tele Est Pt Level 4 (218[address]) Diagnoses Stage 3a chronic kidney disease N18.31 Chronic kidney disease stage 3 subtype: stage 3a (GFR 45-59) Primary hypertension I10 Hypertension type: primary hypertension
== END 2024-01-02 12:09 | disposition home or self-care (01) ==
PROVIDERS: PCP Internal Medicine; Visit Provider Internal Medicine Nephrology
DX: I12.9 Hypertensive chronic kidney disease with stage 1 through stage 4 chronic kidney disease, or unspecified chronic kidney disease (principal); N18.31 Chronic kidney disease, stage 3a
CPT/HCPCS: 99441

== ENCOUNTER 2024-05-07 10:59 | Outpatient (REF) | payer MEDICARE, MEDICAID, SELFPAY ==
--- OUTSIDE RECORDS SUMMARY | 2024-05-07 13:15 | XMS_ITS | Clinical Summary ---
Author Organization [facility] Address [address] [facility] [address] [place] [address] Phone Care Team Providers Care Behavioral Health Specialist Name Role BoardmarkerDeclan Louise MD Primary Care Provider [phone] Allergies No known active allergies Medications aspirin (ST AURE) 81 MG EC tablet Take 1 tablet by mouth 1 (one) time each day Active atorvastatin (LIPITOR) 20 MG tablet Take 1 tablet by mouth 1 (one) time each day Active buPROPion SR (WELLBUTRIN SR) 150 MG 12 hr tablet Take 1 tablet by mouth 2 (two) times a day Active polyethylene glycol (GLYCOLAX) 17 GM/SCOOP powder 17 g by Other route 1 (one) time each day Active glipiZIDE (GLUCOTROL XL) 2.5 MG 24 hr tablet Take 5 mg by mouth 1 (one) time each day 01/12/2021 Active amLODIPine (NORVASC) 5 MG tablet TAKE 1 TABLET BY MOUTH 1 TIME EACH DAY. 90 tablet 1 07/14/2021 Active Multiple Vitamin (Daily-Yasmine Multivitamin) tablet Take 1 tablet by mouth 1 (one) time each day 07/20/2022 Active Active Problems Problem Noted Date Diagnosed Date Type 2 diabetes mellitus 11/08/2021 Cerebrovascular accident 10/20/2021 Diabetes mellitus 10/20/2021 Impaired cognition 10/20/2021 Prostate specific antigen above reference range 10/20/2021 Hypertension 03/23/2021 Acute nontraumatic kidney injury 07/06/2020 Stage 3a chronic kidney disease 07/06/2020 Hypertensive heart and renal disease with (congestive) heart failure 07/06/2020 Microalbuminuria 11/17/2014 Resolved Problems Problem Noted Date Diagnosed Date Resolved Date Adenocarcinoma of prostate 10/20/2021 0 10/20/2021 Allergic rhinitis 10/20/2021 10/20/2021 Major depressive disorder 10/20/2021 Male hypogonadism 10/20/2021 10/20/2021 Simple obesity 10/20/2021 10/20/2021 Immunizations Name Administration Dates Next Due Pfizer SARS-COV-2 02/08/2021,01/18/2021 Pneumococcal Polysaccharide 12/08/2014 Family History Medical History Relation Comments Diabetes Father Relation Status Comments Father Mother Social History Tobacco Use Types Packs/Day Years Used Date Smoking Tobacco: Never Smokeless Tobacco: Never Tobacco Cessation:Counseling Given: Not Answered Alcohol Use Standard Drinks/Week Comments No 0 (1 standard drink = 0.6 oz pur e alcohol) Sex and Gender Information Value Date Recorded Sex Assigned at Not on file Legal Sex Male 5:07 PM EST Gender Identity Not on file Sexual Orientation Not on file Last Filed Vital Signs Vital Sign Reading Time Taken Comments Blood Pressure 122/86 09/13/2022 1:23 PM EDT Pulse 110 09/13/2022 1:23 PM EDT Temperature - - Respiratory Rate - - Oxygen Saturation - - Inhaled Oxygen Concentration - - Weight 84.7 kg (186 lb 11.2 oz) 09/13/2022 1:23 PM EDT Height 177.8 cm (5' 10 ) 08/07/2019 12: 00 PM EDT Body Mass Index 26.79 08/07/2019 12:00 PM EDT Plan of Treatment Health Maintenance Due Date Last Done Comments Colorectal Cancer Screening: Annual FOBT 2003 Colorectal Cancer Screening: Colonoscopy 2003 Colorectal Cancer Screening: Sigmoidoscopy 2003 Pneumococcal Vaccine: 65+ Ye ars (2 of 2 - PCV) 12/09/2015 12/08/2014 Diabetes: Hemoglobin A1C 07/15/2021 Diabetes: Ophthalmology Exam 07/15/2021 Diabetes: Pedal Pulse Checked 07/15/2021 Diabetes: Sensory Foot Exam 07/15/2021 Diabetes: Visual Foot Exam 07/15/2021 Influenza Vaccine (#1) 2023 Hepatitis B Vaccine Aged Out No longe r eligible based on patient's age to complete this topic Insurance [place] Care Teams Behavioral Health Specialist Relationship Specialty Start Date End Date Declan Louise MD PCP - General Internal Medicine 11/08/21
[2024-05-07 13:52] LABS: Prostate Specific Antigen < 0.10 ng/mL (<0.05-4.0)
[2024-05-11 19:49] LABS: Testosterone, Free 53 pg/mL (30.0-135.0); Testosterone, Total 270 ng/dL (250-1100)
== END 2024-05-07 11:00 | disposition home or self-care (01) ==
LOC: HO.HMGCLDS 10:59
PROVIDERS: PCP Internal Medicine; Visit Provider Nurse Practitioner Family
DX: Z12.5 Encounter for screening for malignant neoplasm of prostate (principal); E29.1 Testicular hypofunction; C61 Malignant neoplasm of prostate; N52.1 Erectile dysfunction due to diseases classified elsewhere; E11.69 Type 2 diabetes mellitus with other specified complication
CPT/HCPCS: 36415; 84153; 84402; 84403

== ENCOUNTER 2024-05-14 11:13 | Outpatient (AMB) | payer MEDICARE, MEDICAID, SELFPAY ==
--- NOTE | 2024-05-14 11:31 | A.OFFVIS_ITS ---
Intake Visit Reasons: Follow up in 6 months with labs(set) Intake Note: Patient presents today for follow up on: hypogonadism and prostate cancer PSA: <0.10 Testosterone: 270; Free Testosterone: 53 Meds- None Allergies to Antibiotic- No Known Allergies Blood Thinner- Aspirin Ship Engines Operating Engineer Required: No Accompanied by: Spouse Allergies No Known Allergies [No Known Allergies*] Allergy (Verified 05/14/24 16:10) Medication List - Last Reconciled 05/14/24 by JOSE Murphy- acetaminophen 650 mg PO Q4H PRN alcohol swabs 0 pad topical amlodipine 10 mg PO DAILY aspirin 81 mg PO DAILY atorvastatin 20 mg PO BEDTIME blood sugar diagnostic (FreeStyle Lite Strips) As directed bupropion HCl SR 150 mg PO BID glipizide ER 5 mg PO DAILY lancets (FreeStyle Lancets) As directed loratadine 10 mg PO DAILY multivitamin with folic acid 400 mcg (Daily-Yasmine (with folic acid)) 1 tab PO DAILY polyethylene glycol 3350 17 grams PO DAILY HPI Comments Details: Henry is a very pleasant 69 year old Telugu speaking male patient of Dr. Louise who is accompanied by his during today's telehealth visit. He has a PMH of dementia, hypertension, hyperlipidemia, diabetes, hypogonadism, and prostate cancer. He is being followed up on today for his hypogonadism and history of prostate cancer. In discussion with the who provides most of the patient's history given patient's progressive dementia she discusses patient has been doing extremely well. She discusses he has since been able to ambulate with a walker and has not really needed to use his wheelchair. She discusses continuing to follow-up with Dr. Kwong (Nephrology) and PCP. He continues to use adult diapers however she does not find this and issue. Recent PSA and testosterone results reviewed with the patient and his today as noted and trended below.... PSAs: 08/10 <0.05, 02/09 <0.05 08/11 <0.05, 09/11 <0.10, 05/13 <0.10, 07/13 <0.10, 05/14 <0.10 Total Testosterone: 247, 02/09 233, 08/11 302, 05/13 286, 07/13 280, 05/14 270 He is able to answer basic yes and no questions however is slow to respond and hard to understand at times. reports as patients dementia progresses she does note increased episodes of urinary incontinence. We discussed at length timed voiding/scheduled toileting to assist with decreasing incontinent episodes. She otherwise denies any issues or concerns at this time. PREVIOUS HISTORY Prostate cancer was diagnosed 08/2014. Diagnosis was reached by needle biopsy, for elevated PSA, PSA at diagnosis 7.1. The Spencer grade is At biopsy, 3+4 = 7, right apex, right mid gland, left apex, left mid gland , at surgery, 3+4 = 7. TNM Classification of Malignant Tumours (TNM) T1c. The D'Humberto (NCCN) risk category is Intermediate Risk (PSA 10-20, Gl 7, T2). Initial therapy included Primary treatment, Prostatectomy (RRP/Robotic). Recent labs included a PSA (prostate-specific antigen) November 2015 , < 0.1, March 2016, < 0.1, a testosterone March 2016 139 10/07 PSA < 0.1, 02/09 <0.1, 08/11 <0.1 T 300, 09/11 <0.10 Associated conditions erectile dysfunction Yes hematuria No hot flashes No incontinence Yes Bladder neck contracture. Incision 09/05 Stress incontinence occasional, with cough, laugh, sneeze, does not require pad protection Urge incontinence Yes Worsening urge incontinence with use of protection osteopenia No pathologic fracture No radiation cystitis No rectal urgency No Therapeutic plan: Continue with surveillance Hypogonadism: Hematocrit persistent at 58. Needs phlebotomy. This is starting next week. Planning for therapeutic blood removal. Laboratories of planned. To happen at [facility]. He presents today for further evaluation and followup of his hypogonadism - T shot. Initial symptoms include erectile dysfunction Yes decreased libido Yes change in mood/depression Yes in muscle size/strength Yes increased fatigue/malaise Yes increased abdominal fat No tender breasts/gynecomastia No hair loss No osteopenia No The onset of symptoms has been gradual. Associate conditions include chronic pain with opioid use Yes obstructive sleep apnea No CAD No diabetes Yes dyslipidemia Yes obesity No stress - financial, family, employment No heavy alcohol or illicit drug use No He has been taking narcotics. Laboratory results baseline 03/08 139 8/ T 800 HCT 53 PSA < 0.1 04/10 T 650 PSA < 0.1, HCT borderline 55 11/08 T 815 PSA < 0.1 HCt 58 - reduce T to 75units. 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 [facility] Medical History Dementia Diabetes HTN (hypertension) Surgical History History of prostate surgery Social History Alcohol intake: never Patient Tobacco Use Status: Never used Tobacco Review of Systems Const Unobtainable due to mental status Reports as per HPI Physical Exam Const General: cooperative, healthy appearing, comfortable, no acute distress, well developed and alert Orientation/consciousness: oriented to person Limitations: ambulation with walker HEENT Head: Yes normal to inspection, Yes normocephalic and Yes atraumatic Eyes General: appearance normal, both eyes and all related structures Neck Neck: Yes normal visual inspection and Yes trachea midline Chest Chest palpation & inspection: normal inspection of the chest Resp Effort & Inspection: normal respiratory effort and able to speak in complete sentences Cardio Rate: regular rate GI Inspection: Yes normal to inspection General: Yes no CVA tenderness Back/Spine/Pelvis Back: no CVA tenderness Skin General skin exam: no rashes or lesions noted Neuro General: oriented to person Extrem General: Yes normal to inspection Psych Appearance: grossly normal and well kempt Speech and movement: Clear speech present Attitude: cooperative Insight: Limited insight present (Psych) Judgement: Limited judgement present (Psych) Assessment & Plan Assessment & Plan (1) Prostate cancer: Code(s): C61 - Malignant neoplasm of prostate Category: Medical (2) Hypogonadism in male: Code(s): E29.1 - Testicular hypofunction Category: Medical Plan Unable to obtain urine for urinalysis today as patient baseline urinary status is incontinence. Recent testosterone and PSA results reviewed with the patient and his today; as noted above. Patient and family deny any bothersome urinary issues or concerns. Will continue with surveillance monitoring of prostate cancer and hypogonadism. We discussed further treatment options of hypogonadism as patient had previously been on testosterone replacement however patient and do not wish to restart at this time. Will obtain PSA and testosterone in 6 months. Follow-up in 6 months with labs to be completed prior; or sooner with any issues, concerns, and or questions. Orders: Orders AMB Urinalysis Automated Today Z13.9 - Encounter for screening, unspecified Prostate Specific Antigen 6 Months C61 - Malignant neoplasm of prostate, E29.1 - Testicular hypofunction Testosterone, Free/Total Today C61 - Malignant neoplasm of prostate, E29.1 - Testicular hypofunction Patient Instructions: The patient had an opportunity to ask questions regarding the treatment plan. All questions were answered. Physical exam, labs, and imaging were discussed and reviewed in detail. As well as risks, benefits, and discussion of treatment choices. No major barriers to understanding were identified. The patient expres sed understanding and agreement with the above treatment plan. The patient was made aware they should contact our office by phone for worsening of their current condition, the appearance of new symptoms, or with any questions or concerns. Compliance is encouraged with any medications and follow up testing that is ordered. It is a privilege to be allowed the opportunity to participate in? your urological care.? Again, if you have any questions or concerns If you have any questions or concerns please do not hesitate to contact me. The office is [phone]. This note is constructed using voice recognition software. While every effort has been made to ensure accuracy solutions operator errors may have been included. Yours sincerely, DONNA Murphy Coding Level of Care Code Est Pt Level 3 (77410) Complex EM visit Add On G2211 Diagnoses Prostate cancer C61 Hypogonadism in male E29.1
--- OUTSIDE RECORDS SUMMARY | 2024-05-14 13:55 | XMS_ITS | Clinical Summary ---
Author Organization [facility] Address [address] [facility] [address] [place] [address] Phone Care Team Providers Care Plastic Cutter Name Role Ventilation Equipment TenderDeclan Louise MD Primary Care Provider [phone] Allergies No known active allergies Medications aspirin [...] [place] Care Teams Plastic Cutter Relationship Specialty Start Date End Date Declan Louise MD PCP - General Internal Medicine 11/08/21
== END 2024-05-14 12:23 | disposition home or self-care (01) ==
LOC: HO.HUSH 11:14
PROVIDERS: PCP Internal Medicine; Visit Provider Nurse Practitioner Family
DX: C61 Malignant neoplasm of prostate (principal); E29.1 Testicular hypofunction
CPT/HCPCS: 99213; G2211

== ENCOUNTER → 2024-05-14 11:13 | Outpatient (BNVA) | payer MEDICARE, MEDICAID, SELFPAY | PROVIDERS: PCP Internal Medicine; Visit Provider Nurse Practitioner Family | DX: C61 Malignant neoplasm of prostate (principal); E29.1 Testicular hypofunction | CPT/HCPCS: 99212 ==

== ENCOUNTER 2024-07-09 11:13 | Outpatient (REF) | payer MEDICARE, MEDICAID, SELFPAY ==
--- OUTSIDE RECORDS SUMMARY | 2024-07-09 12:31 | XMS_ITS | Clinical Summary ---
Author Organization [facility] Address [address] [place] [address] Phone Care Team Providers Care Satin Finisher Name Role Slicing Machine FeederDeclan Louise MD Primary Care Provider [phone] Allergies No known active allergies Medications aspirin [...] 10/20/2021 10/20/2021 Simple obesity 10/20/2021 10/20/2021 Immunizations Immunization Administration Dates Next Due Pfizer SARS-COV-2 02/08/2021,01/18/2021 [...] Colorectal Cancer Screening: Sigmoidoscopy 2003 Pneumococcal Vaccine: 50+ Ye ars (2 of 2 - PCV) 12/09/2015 12/08/2014 Diabetes: Hemoglobin A1C 07/15/2021 Diabetes: Ophthalmology Exam 07/15/2021 Diabetes: Pedal Pulse Checked 07/15/2021 Diabetes: Sensory Foot Exam 07/15/2021 Diabetes: Visual Foot Exam 07/15/2021 Influenza Vaccine (Season Ended) 2024 Pneumococcal Vaccine: Peds ( 0 to 5 Years) and At-Risk Patients (6 to 49 Years) Discontinued 12/08/2014 Hepatitis B Vaccine Aged Out No longe r eligible based on patient's age to complete this topic Insurance Medicare Medicaid [place] Medicare [place] Care Teams Satin Finisher Relationship Specialty Start Date End Date Declan Louise MD PCP - General Internal Medicine 11/08/21
--- OUTSIDE RECORDS SUMMARY | 2024-07-09 12:31 | XMS_ITS | Data Portability ---
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 He has had fevers, cough or shortness of breath. There are multiple household members sick and awaiting their COVID-19 test results. Exam VS: T 98.2 HR 81 BP 160/88 RR 18 95% RA Constitutional: Awake and alert, appearance normal, NAD ENMT: No hearing loss, canals clear, TM landmarks clear. Nares are patent, no erythema, no sinus tenderness. Oral cavity mucous membrane moist, normal dentition. pharynx has no erythema, no tenderness, no tonsil enlargement. No LAD. Lungs: LSCTA no wheezing, rales, or ronchi Heart: RRR, normal S1 & S2 no murmur GI: +BS x 4 quadrant. Soft, non-tender, non-distended. Psych: Calm and cooperative DDx considered, but not limited to: COVID-19, nasal congestion, sinus infection No significant finding with physical exam and VS are stable no fevers. Symptoms are consistent with a viral syndrome possibly COVID-19. Will perform a rapid COVID-19 if negative will order a COVID-19 PCR. Work up/Results: Rapid COVID-19 - Negative COVID-19 PCR -Pending Plan/Discussion: Patient/ advised of results. Patient/ informed of new Rx Fluticasone nasal spray 1 spray each nostril daily. Advised patient/ to start taking loratadine as previously prescribed Patient/ informed if COVID-19 PCR is positive a provider call to provide those results. Patient/ advised to use Tylenol 650 mg every 4-6 hours as needed Patient/ advised if he develops new or worsening of symptoms he can contact for re-evaluation or be evaluated in the emergency department. The patient is in agreement with the plan of care. Proper Personal Protective Equipment (PPE), including gloves, eye protection, N95 mask, gown, were donned and doffed appropriately and all equipment cleaned using approved technique with germicidal disposable wipes prior to and after care of this patient according [email or web address]. [email or web address] Not available 03/02/2021 15:37:31 11/17/2021 11/17/2021 Overview/History :66 yo male who is established with and is new to this provider with prostate cancer, dementia, DM, HTN, hyperlipidemia, and stroke being seen for cough, congestion, headache, fever, with exposure to COVID Exam: NAD, resting comfortably in bed, interactive and alert, pt's translates for him, tranlsation service offered, prefers to translate herself, RRR, lungs CTA bilaterally Vital Signs:VSS with borderline temp and HR DDx considered, but not limited to:COVID, pneumonia, bronchitis, URI, flu, dehydration Work up/Results:Rapid COVID-POS Plan/Discussion: Rapid COVID test positive, known exposure and symptoms consistent with COVID. Pt is candidate for paxlovid given underlying medical conditions. Discussed with pt and his . Advised contacting pcp. May need some medications adjusted for short period of time while taking paxlovid. Reviewed proper use of medications and potential side effects. Pt's states she will call pcp today In order to obtain further information and compare any laboratory results/values, I have accessed old patient records. This information was pertinent in my medical decision making today. Time On Scene with Patient: 00:20:54 [email or web address] Not available 11/17/2021 11:49:05 Plan of Treatment Reminders Order Date Submit Date Provider Last Modified By Organization Details Last Modified Time Details Appointments None recorded. Lab rapid SARS CoV 2 Ag, QL IA, respiratory specimen 09/2021 kj [facility], [address] [facility], [place], [address], 11:49:40 rapid SARS CoV 2 Ag, QL IA, respiratory specimen 2021 [email or web address] [facility], [address] [facility], [place], [address], 15:07:01 unlisted lab - covid-19 (novel coronavirus ) PCR 2021 [email or web address] [facility] (Centralized Electronic Ordering - All Locations), Patient Can Go To The Location Of Their Choice, [id number] 18:24:39 Referral None recorded. Procedures None recorded. Surgeries None recorded. Imaging None recorded. Medication Orders fluticasone propionate 50 mcg/actuati on nasal spray,suspe nsion 2021 [id number], [address] [place], [address], 15:07:08 Patient TargetsNo targets recorded. Patient Instructions Encounter Date Encounter Id Patient Instructions Last Modified By Organization Details Last Modified Time 03/02/2021 [id number] Viral Illness Discharge Instructions BASIC INFORMATION A viral infection can range anywhere between a common cold and influenza. Most viruses will respond to a combination of time and supportive care. Viruses are eliminated by the bodies immune system and do not respond to antibiotics. Viruses can cause many different symptoms including runny stuffy nose, sore throat, headache, fever, body aches, cough, nausea, vomiting,diarrhea. Most of the viral illnesses are spread by hand to face contact, and the rest are spread through sneezing and coughing which releases virus into the air. Over the counter medications can help to relieve annoying symptoms. Occasionally having a virus may cause a secondary bacterial infection such as ear infections, pneumonia, sinusitis. INSTRUCTIONS Keeping your body as healthy as possible will help to limit your illness. Get plenty of rest Drink lots of fluids (water, herbal tea, gatorade) Reduce your risk of getting or giving a cold by avoiding touching your face with your hands. When you cough and sneeze cover your mouth/nose by placing your elbow or upper arm over the area rather than using your hand. Use a teaspoon of honey(avoid organic honey in infants and small children < 1 year) at bedtime to soothe your throat and ease cough. Sleep with head of bed elevated to promote drainage of secretions. Hot showers and humidifiers can help to loosen secretions. Tylenol over the counter can be helpful for aches and fever. Suck on hard, sugar-free candy during the day to keep the throat moist. MEDICATIONS Over the counter remedies are not recommended for young children, but can help relieve symptoms temporarily in adults. In general it is better to take only the medication you need rather than using combination products that contain ingredients that are unnecessary and may cause side effects. 1. Antihistamines (Benadryl, Chlor-Trimeton, Zyrtec, Claritin, Hermelinda) reduce secretions, but can cause drowsiness and sedation, do not drink alcohol or drive while taking these medications. 2. Decongestants (Phenylephrine, Sudafed) can help to shrink swollen nasal passages and dry secretions, but may cause palpitations, anxiety,and are not safe for people with High blood pressure or heart arrhythmias. 3. Topical Decongestants (Afrin/Loc-synephr ine) can be very helpful for acute relief of nasal swelling and runny nose, HOWEVER they should not be used regularly for more than 3 days as they will cause rebound congestion if over-used. 4. Cough aids generally contain DM( Dextromethorphan) which is a cough suppressant and Guaifenesin which is an expectorant. While the DM portion can be helpful for suppressing the cough, guaifenesin, particularly as dosed in Mucinex like products has minimal effect and may cause nausea. 5. Tamiflu an anti-viral agent may be prescribed if you are diagnosed with influenza. Viral symptoms usually last between 5-10 days, it is not uncommon to have a mild cough for up to 6 weeks afterward. If you have been diagnosed with influenza you should minimize your contact with others. You may return to work/school after 24 hours of being fever free without medication (usually 5-10 days). FOLLOW UP if your symptoms are not improving in 7-10 days If you have severe ear pain, sinus pain, cough productive large amounts of mucus, wheezing. You have underlying medical problems that may become worse as a result of your viral illness (asthma, diabetes, COPD) and need to follow up to ensure you are improving. SEEK CARE IMMEDIATELY IF 1 Severe headache unresponsive to Tylenol or severe neck stiffness 2. Confusion 3. Severe chest pain 4. Difficulty breathing 5. Persistent vomiting 6. Cough productive large amounts of sputum or blood 7. Inability to keep liquids down 8. Fever unresponsive to medication over 102 If you develop any new or worsening symptoms and need after hours care, please go to nearest ER and/or call 911. If you have additional concerns or develop a change in your condition between 8am-10pm, please [facility] at [phone] to help navigate your care. [email or web address] Not available 03/02/2021 15:11:50 11/17/2021 [id number] please call primary care today discuss paxlovid. May need to adjust regular medications In the meantime continue supportive care tylenol for pain/fever lots of fluids rest ER if difficulty breathing Follow up if worse What is coronavirus disease 2019? Coronavirus disease 2019 (COVID-19) is a respiratory illness that can spread from person to person. The virus that causes COVID-19 is a novel coronavirus that was first identified during an investigation into an outbreak in [facility]. Can I get COVID-19? Yes. COVID-19 is spreading from person to person in parts of the world. Risk of infection from the virus that causes COVID-19 is higher for people who are close contacts of someone known to have COVID-19, for example household members. Other people at higher risk for infection are those who live in or have recently been in an area with ongoing spread of COVID-19. How does COVID-19 spread? The virus that causes COVID-19 probably emerged from an animal source, but is now spreading from person to person. The virus is thought to spread mainly between people who are in close contact with one another (within about 6 feet) through respiratory droplets produced when an infected person coughs or sneezes. It also may be possible that a person can get COVID-19 by touching a surface or object that has the virus on it and then touching their own mouth, nose or possibly their eyes, but this is not thought to be the main way the virus spreads. What are the symptoms of COVID-19? Patients with COVID-19 have mild to severe respiratory illness with symptoms of: fever cough shortness of breath What are severe complications from this virus? Some patients have pneumonia in both lungs, multi-organ failure and in some cases . People can help protect themselves from respiratory illness with everyday preventative actions. Avoid close contact with people who are sick. Avoid touching your eyes, nose, and mouth with unwashed hands. Wash your hands often with soap and water for at least 20 seconds. Use an alcohol-based hand oven builder that contains at least 60% alcohol if soap and water are not available If you are sick, to keep from spreading respiratory illness to others, you should Stay home when you are sick. Cover your cough or sneeze with a tissue, then throw the tissue in the trash. Clean and disinfect frequently touched objects and surfaces. Is there a treatment? There is no specific antiviral treatment for COVID-19. People with COVID-19 can seek medical care to help relieve symptoms. FOR MORE INFORMATION: [email or web address].CDC.GOV/COVID1 [email or web address] Not available 11/17/2021 11:45:45 Reason for Referral None Reported. Results Created Date Observation Date Name Description Value Unit Range Abnormal Flag Note LastModifiedBy Organization Detail LastModifiedTime 03/02/19 22 03/04/20212018 NOVEL CORON AVIRU S, PCR covid-19, PCR NOT DETEC HELADIO Refer ence range : NOT DETEC HELADIO (NOTE ) A Not Detec heladio resul t means that SARS- CoV-2 RNA was not prese nt in the speci men above the limit of detec tion. A Not Detec heladio resul t does not rule out the possi bilit y of COVID -19 and shoul d not be used as the sole basis for treat ment or patie nt manag ement decis ions. If COVID -19 is still suspe cted, based on expos ure histo ry toget her with other clini reji findi ngs, re-te sting shoul d be consi dered in the sebas xt of clini reji obser vatio ns and epide miolo gical data for patie nt manag ement decis ions. = Test Metho d: Nucle ic Acid Ampli ficat ion Test inclu ding rever se trans cript ion polym erase chain react ion (RT-P CR) and trans cript ion media heladio ampli ficat ion (TMA) . The test metho d meets the [place] [facility] Contr ol and preve ntion ([facility]) pre depar ture and arriv al requi remen t for viral test for COVID -19 dated 2020. Testi ng requi remen ts for georgette wise june carter e with time. The patie nt is respo nsibl e for deter minin g the test requi remen ts for each natio n while they are georgette wise. This test has been autho rized by the FDA under an Emerg ency Use Autho rizat ion (EUA) for use by autho rized labor atori es. = Pleshalom e jatin w the Fact Sheet s and FDA autho rized label ing avail able for healt h care provi ders and patie nts using the follo wing websi tani: https ://simeon w.que stdia gnost ics.c om/ho me/Co vid-1 9/HCP /Ques tLDT/ fact- sheet .html https ://simeon w.que stdia gnost ics.c om/ho me/Co vid-1 9/Pat ients /Ques tLDT/ fact- sheet .html = Due to the curre nt publi c healt h emerg ency, [facility] is accep ting sampl es from appro priat e clini reji sourc es colle cted using wide varie ty of swabs and trans port media for COVID -19. Not detec heladio test resul ts deriv ed from speci mens recei vito in non- comme rcial ly manuf actur ed viral colle ction kits or those not yet autho rized by FDA for COVID -19 testi ng shoul d be cauti ously evalu ated and take extra preca ution s such as addit ional clini reji monit oring , inclu ding colle ction of an addit ional speci men. = Addit ional infor matio n about COVID -19 can be found at the [facility] websi te: www.[employer] uestD iagno stics .com/ Covid 19. Test Perfo rmed by: [employer], [address], [place]. [address] . Labor atory Direc tor: Ish boggs MD. Not Available [facility] (Centralized Electronic Ordering - All Locations) Patient Can Go To The Location Of Their Choice, [id number] 03/04/2021 22:36:53 03/02/19 22 03/02/2021 rapid SARS CoV 2 Ag, QL IA, respi rator y speci men Covid-19 (ref: neg) positi ve Not Available [facility] [address] [place], [address], 03/02/2021 15:04:52 03/02/19 22 03/02/2021 rapid SARS CoV 2 Ag, QL IA, respi rator y speci men Control Visual ized/V alid Not Available [facility] [address] [place], [address], 03/02/2021 15:04:52 03/02/19 22 03/02/2021 rapid SARS CoV 2 Ag, QL IA, respi rator y speci men Location [facility], [facility], [address] [place] [address], [id number] Not Available [facility] [address] [place], [address], 03/02/2021 15:04:52 11/18/19 22 11/17/2021 rapid SARS CoV 2 Ag, QL IA, respi rator y speci men Covid-19 (ref: neg) positi ve Not Available [facility] [address] [place], [address], 11/17/2021 11:49:13 11/18/19 22 11/17/2021 rapid SARS CoV 2 Ag, QL IA, respi rator y speci men Control Visual ized/V alid Not Available [facility] [address] [place], [address], 11/17/2021 11:49:13 11/18/19 22 11/17/2021 rapid SARS CoV 2 Ag, QL IA, respi rator y speci men Location [facility], [address], [place] [address], [id number] Not Available [facility] [address], [place], [address], 11/17/2021 11:49:13 Result Notes None recorded. Procedures Surgical History Date Name Laterality Status Provider Name and Address Organization Details Recorded Time Prostatectomy (turp) completed Helena Díaz NP [address] [facility], [place], [address], [place] [facility] 03/02/2021 14:56:45 Imaging Results None recorded. Procedure Notes None recorded. Medical Equipment None Reported. Allergies No known drug allergies Medications Name Sig Start Date Stop Date Status Note LastModified by Organization Details LastModified Time metformin 500 mg tablet 03/02 completed Not Available Not Available Not Available bupropion HCl SR 150 mg tablet,12 hr sustained-r elease TOME KIA TABLETA DOS VECES AL D A active Not Available Not Available No t Available acetaminoph en 325 mg tablet TOME DOS TABLETAS POR V A ORAL CADA CUATRO HORAS CUANDO SEA NECESARIO PARA EL DOLOR active Not Available Not Available No t Available doxycycline hyclate 100 mg capsule TOME 1 C PSULA POR V A ORAL DOS VECES AL D A POR 5 D WITH FLUIDS AND FOOD 11/17 completed Not Available Not Available Not Available atorvastati n 20 mg tablet TOME KIA TABLETA TODOS LOS BENDER AT SUPPER active Not Available Not Available No t Available cetirizine 10 mg tablet 03/02 completed Not Available Not Available Not Available Mason Stubbs 28 gauge DIABETES MELLITUS. DM E11.9. USE 3 TIMES A DAY active Not Available Not Available No t Available amlodipine 2.5 mg tablet TOME KIA TABLETA TODOS LOS D active Not Available Not Available No t Available amlodipine 5 mg tablet TAKE 1 TABLET BY MOUTH 1 TIME EACH DAY. active Not Available Not Available No t Available aspirin 81 mg tablet,tavia yed release TOME KIA TABLETA TODOS LOS D active Not Available Not Available No t Available glipizide ER 2.5 mg tablet, extended release 24 hr TOME KIA TABLETA TODOS LOS D active Not Available Not Available No t Available fluticasone propionate 50 mcg/actuati on nasal spray,suspe nsion USE 1 SPRAY IN EACH NOSTRIL TODOS LOS BENDER active Not Available Not Available No t Available loratadine 10 mg tablet TOME KIA TABLETA TODOS LOS D active Not Available Not Available No t Available Alcohol Prep Pads active Not Available Not Available No t Available FreeStyle Lite Meter kit active Not Available Not Available Not Available FreeStyle Lite Strips USE TO CHECK BLOOD SUGAR 3 TIMES A DAY. E11.9 active Not Available Not Available No t Available Gavilax 17 gram/dose oral powder active Not Available Not Available Not Available Gavilax 17 gram oral powder packet active Not Available Not Available Not Available multivitami n-minerals- iron fumarate 7.5 mg-folic acid 400 mcg tablet TOME KIA TABLETA POR V A ORAL TODOS LOS D active Not Available Not Available No t Available multivitami n with minerals-fe rrous fumarate 15 mg iron tablet active Not Available Not Available Not Available Daily-Yasmine (with folic acid) 400 mcg tablet TOME KIA TABLETA POR V A ORAL TODOS LOS D active Not Available Not Available No t Available Vitals Date Recorded Body temperature Respiratory rate Oxygen saturation Oxygen saturation in Arterial blood by Pulse oximetry Heart rate Systolic blood pressure Diastolic blood pressure Provider Name and Address Organization Details Last Updated DateTime 2 98.2 [degF] 18 /min 95 % 95 % 81 /min 160 mm[Hg] 88 mm[Hg] Not Available [facility] 15:00:35 Date Recorded Oxygen saturation Oxygen saturation in Arterial blood by Pulse oximetry Respiratory rate Heart rate Body temperature Systolic blood pressure Diastolic blood pressure Provider Name and Address Organization Details Last Updated DateTime 2 95 % 95 % 18 /min 106 /min 99.6 [degF] 160 mm[Hg] 96 mm[Hg] Not Available [facility] 11:29:08 Date Recorded Heart rate Provider Name an d Address Organization Details Last Updated DateTime 11/17/2021 95 /min GEORGE TORREZ [address], [place], [address], [place] [facility] 11/17/2021 11:40:08 Social History Question Answer Notes LastModified by [employer] Details LastModified Time Do You Have An Advance Directive? No Information not available 03/02/2021 What Is Your Code Status? Full Code Information not available 03/02/2021 Within The Past 12 Months, Has It Happened That The Food You Bought Just Didn't Last And You Didn't Have Money To Get More. No Information not available 03/02/2021 Within The Past 12 Months, Have You Worried That Your Food Would Run Out Before You Got Money To Buy More. No Information not available 03/02/2021 Fall Risk: Do You Feel Unsteady When Standing Or Walking? No Information not available 03/02/2021 We Know That How And When People Interact With Friends And Family Can Be Very Different From Person To Person. How Often Do You Have The Opportunity To See Or Talk To People That You Care About And Feel Close To? (Ex: Talking To Friends On The Phone Or Visiting Friends Or Family Or Going To Yarsanism Or Club Meetings) 3 Or 4 Times Per Week Information not available 03/02/2021 Excessive Alcohol Or Drug Use No Information not available 03/02/2021 Does This Patient Have A PCP? Yes Information not available 03/02/2021 What Is Your Housing Situation Today? I Have Housing Information not available 03/02/2021 Would You Like Help Connecting To Resources? None Information not available 03/02/2021 Sex: Unknown Functional Status Question Answer Note LastModified by [employer] Details LastModified Time Do you use any illicit or recreational drugs? No Information not available 03/02/2021 Do you or have you ever used any other forms of tobacco or nicotine? No Information not available 03/02/2021 What is your level of alcohol consumption? None Information not available 03/02/2021 Mental Status None recorded. Family History Nothing Reported. Medical History Condition Response Diabetes Y Cancer Dementia Y Stroke Y High Cholesterol Y Hypertension Y Past Encounters Encounter ID Performer Location Encounter Start Date Encounter Closed Date Diagnosis/Indication Diagnosis SNOMED-CT Code Diagnosis ICD10 Code Diagnosis Note [id number] Helena Díaz NP [facility] [address] [place] [address] 03/02/2021 14:49:43 03/07/2021 00:35:36 Nasal congestion 46899711 R09.81 [id number] GEORGE TORREZ [facility] [address] [place] [address] 11/17/2021 11:19:32 11/18/2021 09:48:27 COVID-19 173720607 U07.1 Type 2 marco antonio betes mellitus without complication 232193280 E11.9 Essential hypertension 32638398 I10 History of cerebrovascular accident 906484419 Z86.73 Exposure t o SARS-CoV-2 066083873 Z20.822 Health Concerns Section Related Observation LastModified by Organization Detai ls LastModified Time None Recorded Concern Status LastModified by Organization Details LastModified Time None Recorded Advance Directives Directive N: Payers Insurance Date Sequence Insurance Name Policy Number Policy Fraga Covered Member ID Fraga Member ID Guarantor Name 11/23/2021 1 MEDICARE B-PA: [facility] Paul diaz [id number] Paul Segovia 03/01/2021 1 *SELF PAY* Paul Segovia [id number] Paul Segovia 11/17/2021 1 MEDICARE B-PA: [facility] Paul fitcho [id number] Paul Segovia 11/23/2021 2 MEDICAID-PA: [facility] Paul Segovia [id number] Paul Segovia Notes Date Note Type Note Provider Name and Address Organization Details Recorded Time 03/02/2021 text/html 66 yo m with a PMH prostate CA, dementia, DM, HLD, HTN and stroke has been sneezing, and stuffy nose x 3 days. Multiple household members are sick with similar symptoms. Helena Díaz NP [address] [place], [address], [place] [facility] 03/02/2021 15:38:35 11/17/2021 text/html 66 yo male with cough, headache, congestion, and not feeling well since yesterday. 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 No obvious difficulty breathing, no chest pain. No diarrhea or vomiting. Decreased appetite. Is vaccinated for COVID. Family has tried giving tylenol with some improvement. BG 181 at time of visit GEORGE TORREZ [address] [place], [address], [place] [facility] 11/17/2021 11:53:13
[2024-07-09 13:43] LABS: Anion Gap 18 (12-20); Blood Urea Nitrogen 26 mg/dL (9-16); Carbon Dioxide 23 mmol/L (22-29); Chloride 105 mmol/L (96-108); Estimated Glomerular Filt Rate 44; Potassium 4.3 mmol/L (3.3-5.1); Sodium 142 mmol/L (135-145)
== END 2024-07-09 11:14 | disposition home or self-care (01) ==
LOC: HO.HMGCLDS 11:13
PROVIDERS: PCP Internal Medicine; Visit Provider Internal Medicine Nephrology
DX: I12.9 Hypertensive chronic kidney disease with stage 1 through stage 4 chronic kidney disease, or unspecified chronic kidney disease (principal); N18.31 Chronic kidney disease, stage 3a
CPT/HCPCS: 36415; 80051; 82565; 84520

== ENCOUNTER 2024-07-18 11:20 | Outpatient (AMB) | payer MEDICARE, MEDICAID, SELFPAY ==
--- NOTE | 2024-07-18 11:34 | HO.NEPHOV_ITS ---
Vital Signs 07/18/24 11:35 Height 5 ft 9 in Weight 181 lb 8 oz BMI 26.8 BP 110/70 Blood Pressure Location Lt brachial Position Sitting Pulse 115 H Pulse Source Pulse Oximeter Pulse Oximetry (%) 99 Oxygen Delivery Method Room Air Intake Visit Reasons: 6mon follow up-[facility] Can Dragger Required: No Accompanied by: Spouse Allergies No Known Allergies [No Known Allergies*] Allergy (Verified 07/18/24 11:35) HPI Comments Details: Henry was seen for follow up for his CKD. He was accompanied by his who has been providing at most attention to his medical care. He denies any chest pain, shortness of breath, nausea vomiting or diarrhea. He has no pedal edema or urinary symptoms. He had been followed up by Dr. Lopez for his prostate cancer. His blood sugar control is better. His renal functions have been stable. [facility] Medical History Dementia Diabetes HTN (hypertension) Surgical History History of prostate surgery Social History Alcohol intake: never Patient Tobacco Use Status: Never used Tobacco Review of Systems Const All systems reviewed & are unremarkable except as noted in HPI and below Physical Exam Vital Signs: Last Vital Signs Pulse 115 H 07/18/24 11:35 BP 110/70 07/18/24 11:35 Pulse Ox 99 07/18/24 11:35 Oxygen Delivery Method Room Air 07/18/24 11:35 BMI result Body Mass Index 26.8 Const General: comfortable and no acute distress Orientation/consciousness: patient oriented x3 HEENT Head: Yes normocephalic Mouth: Normal oral and palatal mucosa present Eyes EOM: EOMs intact bilaterally Neck Neck: Yes supple Resp Auscultation: clear to auscultation bilaterally Cardio Jugular venous distension: no JVD Rate: regular rate GI Palpation (GI): Soft to palpation Auscultation: normal bowel sounds General: Yes no CVA tenderness Back/Spine/Pelvis Back: no CVA tenderness Skin General skin exam: no rashes or lesions noted Neuro General: patient oriented x3 and moves all extremities Extrem General: Yes no pedal edema Results Reviewed Nephrology Results: Sodium 142 mmol/L (135-145) 05/20/25 Potassium 4.3 mmol/L (3.3-5.1) 07/09/24 Chloride 105 mmol/L (96-108) 07/09/24 Carbon Dioxide 23 mmol/L (22-29) 07/09/24 BUN 26 mg/dL (9-16) H 07/09/24 Creatinine 1.58 mg/dL (0.5-1.4) H 07/09/24 Calcium 10.1 mg/dL (8.4-10.2) 06/27/23 Urine Creatinine 90.23 mg/dL 06/27/23 Protein/Creatinin Ratio 0.19 (<0.2) 06/27/23 Assessment & Plan Assessment & Plan (1) HTN (hypertension): Code(s): I10 - Essential (primary) hypertension Category: Medical Qualifiers: Hypertension type: primary hypertension Qualified Code(s): I10 - Essential (primary) hypertension (2) CKD (chronic kidney disease) stage 3, GFR 30-59 ml/min: Code(s): N18.30 - Chronic kidney disease, stage 3 unspecified Category: Medical Qualifiers: Chronic kidney disease stage 3 subtype: stage 3a (GFR 45-59) Qualified Code(s): N18.31 - Chronic kidney disease, stage 3a Cathy Figueroa is known to have chronic kidney disease stage 3 at baseline. He is diabetic. His history of prostate cancer. He is currently clinically stable. His renal function is stable as well. His blood pressure is at goal. He is not on any CHINTAN inhibitor or ARB. His blood sugar control is better. He is a great candidate for Jardiance if there are no other contra indications.I have ordered follow-up blood work . I did not make any other medication changes today. All his 's questions were answered. Orders: Orders Blood Urea Nitrogen 6 Months I10 - Essential (primary) hypertension, N18.31 - Chronic kidney disease, stage 3a Calcium 6 Months I10 - Essential (primary) hypertension, N18.31 - Chronic kidney disease, stage 3a Complete Blood Count Auto Diff 6 Months I10 - Essential (primary) hypertension, N18.31 - Chronic kidney disease, stage 3a Creatinine 6 Months I10 - Essential (primary) hypertension, N18.31 - Chronic kidney disease, stage 3a Electrolytes 6 Months I10 - Essential (primary) hypertension, N18.31 - Chronic kidney disease, stage 3a Coding Level of Care Code Est Pt Level 4 (74502) Diagnoses Primary hypertension I10 Hypertension type: primary hypertension Stage 3a chronic kidney disease N18.31 Chronic kidney disease stage 3 subtype: stage 3a (GFR 45-59)
[2024-07-18 11:35] VITALS: BP 110/70; PULSE 115; O2SAT 99; BMI 26.8
--- OUTSIDE RECORDS SUMMARY | 2024-07-18 11:44 | XMS_ITS | Data Portability ---
Author Organization [place] - [facility] Address [address] [place] [id number] Care Team Providers Care Railways Assistant Name Role Phone [facility] Primary Care Provider Assessment Encounter Date Assessment [...] after care of this patient [facility] prevention protocols. [email or web address] Not available [...] today. Time On Scene with Patient: 00:20:54 [email or web address] Not available 11/17/2021 11:49:05 Plan of Treatment Reminders Order Date Submit Date Provider Last Modified By Organization Details Last Modified Time Details Appointments None recorded. Lab rapid SARS CoV 2 Ag, QL IA, respiratory specimen 09/2021 kj [facility], [address] [facility], [place], [address], 11:49:40 rapid SARS CoV 2 Ag, QL IA, respiratory specimen 2021 [email or web address] [facility], [address] [facility], [place], [address], 15:07:01 unlisted lab - covid-19 (novel coronavirus ) PCR 2021 [email or web address] [facility] (Centralized Electronic Ordering - All Locations), Patient Can Go To The Location Of Their Choice, [id number] 18:24:39 Referral None recorded. Procedures None recorded. Surgeries None recorded. Imaging None recorded. Medication Orders fluticasone propionate 50 mcg/actuati on nasal spray,suspe nsion 2021 [facility] #[id number], [address] [place], [address], 15:07:08 Patient TargetsNo targets recorded. Patient Instructions Encounter Date Encounter Id Patient Instructions Last Modified By Organization Details Last Modified Time 03/02/2021 [id number] Viral Illness Discharge Instructions BASIC INFORMATION A [...] in your condition between 8am-10pm, [facility] at [phone] to help navigate your care. [email or web address] Not available 03/02/2021 15:11:50 11/17/2021 [id number] please call primary care today discuss paxlovid. [...] during an investigation into an outbreak in [facility]. Can I get COVID-19? Yes. COVID-19 [...] least 20 seconds. Use an alcohol-based hand delimer that contains at least 60% alcohol if [...] relieve symptoms. FOR MORE INFORMATION: [email or web address].GOV/COVID1 [email or web address] Not available 11/17/2021 11:45:45 Reason for Referral [...] Disea se Contr ol and preve ntion ([facility]) pre depar ture and arriv [...] the [facility] websi te: www.Coupz uestD iagno stics .com/ Covid 19. Test Perfo rmed by: [employer], [address], [place]. [address] . Labor atory Direc tor: Ish boggs MD. Not Available [facility] (Centralized Electronic Ordering - All Locations) Patient Can Go To The Location Of Their Choice, [id number] 03/04/2021 22:36:53 03/02/19 22 03/02/2021 rapid SARS CoV 2 Ag, QL IA, respi rator y speci men Covid-19 (ref: neg) positi ve Not Available [facility] - Home [address] [place], [address], 03/02/2021 15:04:52 03/02/19 22 03/02/2021 rapid SARS CoV 2 Ag, QL IA, respi rator y speci men Control Visual ized/V alid Not Available [facility] - Home [address] [place], [address], 03/02/2021 15:04:52 03/02/19 22 03/02/2021 rapid SARS CoV 2 Ag, QL IA, respi rator y speci men Location [facility], [facility], [address] [place] [address], [id number] Not Available [facility] - Home [address] [place], [address], 03/02/2021 15:04:52 11/18/19 22 11/17/2021 rapid SARS CoV 2 Ag, QL IA, respi rator y speci men Covid-19 (ref: neg) positi ve Not Available [facility] - [facility] [address] [place], [address], 11/17/2021 11:49:13 11/18/19 22 11/17/2021 rapid SARS CoV 2 Ag, QL IA, respi rator y speci men Control Visual ized/V alid Not Available [facility] - Home [address] [place], [address], 11/17/2021 11:49:13 11/18/19 22 11/17/2021 rapid SARS CoV 2 Ag, QL IA, respi rator y speci men Location [facility], [facility], [address], [place] [address], [id number] Not Available [facility] - Home [address], [place], [address], 11/17/2021 11:49:13 Result Notes None recorded. Procedures Surgical History Date Name Laterality Status Provider Name and Address Organization Details Recorded Time Prostatectomy (turp) completed Helena Díaz NP [address] [facility], [place], [address], [place] [facility] 03/02/2021 14:56:45 Imaging Results [...] 160 mm[Hg] 88 mm[Hg] Not Available [facility] 15:00:35 Date Recorded Heart rate Provider Name an d Address Organization Details Last Updated DateTime 11/17/2021 95 /min GEORGE TORERZ [address], [place], [address], [place] [facility] 11/17/2021 11:40:08 Date Recorded Oxygen saturation Oxygen saturation in Arterial blood by Pulse oximetry Respiratory rate Heart rate Body temperature Systolic blood pressure Diastolic blood pressure Provider Name and Address Organization Details Last Updated DateTime 2 95 % 95 % 18 /min 106 /min 99.6 [degF] 160 mm[Hg] 96 mm[Hg] Not Available [facility] 11:29:08 Social History Question Answer Notes LastModified by Zapper Details LastModified Time Do You Have An [...] Visiting Friends Or Family Or Going To Pentecostal Or Club Meetings) 3 Or 4 Times [...] Functional Status Question Answer Note LastModified by Zapper Details LastModified Time Do you use any illicit or recreational drugs? No Information not available 03/02/2021 Do you or have you ever used any other forms of tobacco or nicotine? No Information not available 03/02/2021 What is your level of alcohol consumption? None Information not available 03/02/2021 Mental Status None recorded. Family History Nothing Reported. Medical History Condition Response Cancer Stroke Y High Cholesterol Y Diabetes Y Dementia Y Hypertension Y Past Encounters Encounter ID Performer Location Encounter Start Date Encounter Closed Date Diagnosis/Indication Diagnosis SNOMED-CT Code Diagnosis ICD10 Code Diagnosis Note [id number] Helena Díaz NP [facility] [address] [place] [address] 03/02/2021 14:49:43 03/07/2021 00:35:36 Nasal congestion 08893116 R09.81 [id number] GEORGE TORREZ [facility] [address] [place] [address] 11/17/2021 11:19:32 11/18/2021 09:48:27 COVID-19 792904308 U07.1 Type 2 marco antonio betes mellitus without complication 971287587 E11.9 Essential hypertension 71450011 I10 History of cerebrovascular accident 980484073 Z86.73 Exposure t o SARS-CoV-2 123519362 Z20.822 Health Concerns Section Related Observation LastModified by Organization Detai ls LastModified Time None Recorded Concern Status LastModified by Organization Details LastModified Time None Recorded Advance Directives Directive N: Payers Insurance Date Sequence Insurance Name Policy Number Policy Fraga Covered Member ID Fraga Member ID Guarantor Name 11/23/2021 1 MEDICARE B-MD: [facility] Paul diaz [id number] Paul Segovia 03/01/2021 1 *SELF PAY* Paul Segovia [id number] Paul Segovia 11/17/2021 1 MEDICARE B-MD: [facility] Paul fitcho [id number] Paul Segovia 11/23/2021 2 MEDICAID-MD: [facility] Paul Segovia [id number] Paul Segovia Notes Date Note Type Note Provider Name and Address Organization Details Recorded Time 03/02/2021 text/html 66 yo m with a PMH prostate CA, dementia, DM, HLD, HTN and stroke has been sneezing, and stuffy nose x 3 days. Multiple household members are sick with similar symptoms. Helena Díaz NP [address] [place], [address], [place] [facility] 03/02/2021 15:38:35 11/17/2021 text/html 66 yo male with cough, headache, congestion, and not feeling well since yesterday. 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 No obvious difficulty breathing, no chest pain. No diarrhea or vomiting. Decreased appetite. Is vaccinated for COVID. Family has tried giving tylenol with some improvement. BG 181 at time of visit GEORGE TORREZ [address] [place], [address], [place] [facility] 11/17/2021 11:53:13
== END 2024-07-18 12:18 | disposition home or self-care (01) ==
LOC: HO.HKAS 11:21
PROVIDERS: PCP Internal Medicine; Visit Provider Internal Medicine Nephrology
DX: I10 Essential (primary) hypertension (principal); N18.31 Chronic kidney disease, stage 3a
CPT/HCPCS: 99214

== ENCOUNTER → 2024-07-18 11:20 | Outpatient (BNVA) | payer MEDICARE, MEDICAID, SELFPAY | PROVIDERS: PCP Internal Medicine; Visit Provider Internal Medicine Nephrology | DX: I12.9 Hypertensive chronic kidney disease with stage 1 through stage 4 chronic kidney disease, or unspecified chronic kidney disease (principal); N18.31 Chronic kidney disease, stage 3a | CPT/HCPCS: 99212 ==

== ENCOUNTER 2024-11-01 09:32 | Outpatient (REF) | payer MEDICARE, MEDICAID, SELFPAY ==
--- OUTSIDE RECORDS SUMMARY | 2024-11-01 10:40 | XMS_ITS | Clinical Summary ---
Author Organization [facility] Address [address] [facility] [address] [place] [address] Phone Care Team Providers Care Trucking Contractor Name Role Oxide Furnace TenderDeclan oLuise MD Primary Care Provider [phone] Allergies No known active allergies Medications aspirin [...] Visual Foot Exam 07/15/2021 Influenza Vaccine (#1) 2024 Pneumococcal Vaccine: Peds ( 0 to 5 Years) and At-Risk Patients (6 to 49 Years) Discontinued 12/08/2014 Hepatitis B Vaccine Aged Out No longe r eligible based on patient's age to complete this topic Insurance Medicare Medicaid [place] Medicare Medicaid [place] Care Teams Trucking Contractor Relationship Specialty Start Date End Date Declan Louise MD PCP - General Internal Medicine 11/08/21
[2024-11-01 14:20] LABS: Prostate Specific Antigen < 0.10 ng/mL (<0.05-4.0)
[2024-11-06 18:08] LABS: Testosterone, Free 47.4 pg/mL (30.0-135.0)
== END 2024-11-01 09:33 | disposition home or self-care (01) ==
LOC: HO.HMGCLDS 09:32
PROVIDERS: PCP Internal Medicine; Visit Provider Nurse Practitioner Family
DX: Z12.5 Encounter for screening for malignant neoplasm of prostate (principal); C61 Malignant neoplasm of prostate; E29.1 Testicular hypofunction
CPT/HCPCS: 36415; 84153; 84402; 84403

== ENCOUNTER 2024-11-12 11:56 | Outpatient (AMB) | payer MEDICARE, MEDICAID, SELFPAY ==
--- NOTE | 2024-11-12 11:57 | A.OFFVIS_ITS ---
Intake Visit Reasons: 6m/PSA/Testo Intake Note: Patient presents today for follow up on: hypogonadism and prostate cancer PSA: <0.10 Testosterone: 247; Free Testosterone: 47.4 Meds- None Allergies to Antibiotic- No Known Allergies Blood Thinner- Aspirin Disaster Response Director Required: No Accompanied by: Spouse Allergies No Known Allergies (No Known Allergies*) Allergy (Verified 11/12/24 11:59) HPI Comments Details: Henry is a pleasant Chinese-speaking. He is a patient of Dr. Louise. He is seen for the following urologic conditions - prostate cancer - urinary incontinence secondary to dementia Telemedicine Evaluation 15 min Consultation [employer] Responding well to timed voiding Discussed PSA results He is now 10 years since treatment May follow with PCP Check PSA yearly If PSA becomes detectable they will contact our office PSAs: 08/10 <0.05, 02/09 <0.05 08/11 <0.05, 09/11 <0.10, 05/13 <0.10, 07/13 <0.10, 05/14 <0.10, 11/14 <0.1 Total Testosterone: 247, 02/09 233, 08/11 302, 05/13 286, 07/13 280, 05/14 270 He is able to answer basic yes and no questions however is slow to respond and hard to understand at times. reports as patients dementia progresses she does note increased episodes of urinary incontinence. We discussed at length timed voiding/scheduled toileting to assist with decreasing incontinent episodes. She otherwise denies any issues or concerns at this time. PREVIOUS HISTORY Prostate cancer was diagnosed 08/2014. Diagnosis was reached by needle biopsy, for elevated PSA, PSA at diagnosis 7.1. The [place] grade is At biopsy, 3+4 = 7, right apex, right mid gland, left apex, left mid gland , at surgery, 3+4 = 7. TNM Classification of Malignant Tumours (TNM) T1c. The D'Humberto (NCCN) risk category is Intermediate Risk (PSA 10-20, Gl 7, T2). Initial therapy included Primary treatment, Prostatectomy (RRP/Robotic). Recent labs included a PSA (prostate-specific antigen) November 2015 , < 0.1, March 2016, < 0.1, a testosterone March 2016 139 10/07 PSA < 0.1, 02/09 <0.1, 08/11 <0.1 T 300, 09/11 <0.10 Associated conditions erectile dysfunction Yes hematuria No hot flashes No incontinence Yes Bladder neck contracture. Incision 09/05 Stress incontinence occasional, with cough, laugh, sneeze, does not require pad protection Urge incontinence Yes Worsening urge incontinence with use of protection osteopenia No pathologic fracture No radiation cystitis No rectal urgency No Therapeutic plan: Continue with surveillance [facility] Medical History Dementia Diabetes HTN (hypertension) Surgical History History of prostate surgery Social History Alcohol intake: never Patient Tobacco Use Status: Never used Tobacco Review of Systems Const All systems reviewed & are unremarkable except as noted in HPI and below Reports no additional complaints Resp Reports no additional complaints GI Reports no additional complaints Reports as per HPI Musc Reports no additional complaints Physical Exam Telemedicine evaluation Appropriate responses Regular breathing rate and rhythm HEENT Head: Yes normal to inspection Ears: hearing grossly normal bilaterally Eyes General: appearance normal, both eyes and all related structures Neck Neck: Yes normal visual inspection Chest Chest palpation & inspection: normal inspection of the chest Resp Effort & Inspection: normal respiratory effort and able to speak in complete sentences Telehealth Telehealth Telehealth [facility]: [facility] Location of provider rendering services: practice address Location of patient: address on file Patient Identification confirmed using: Name, : Yes Telehealth method: video Patient verbally consented to treatment: Yes Patient verbally consented to billing insurance company: Yes Patient informed of any privacy concerns related to visit: Yes Minutes spent on Phone/Video with Pt.: 15 Assessment & Plan Assessment & Plan (1) Prostate cancer: Code(s): C61 - Malignant neoplasm of prostate Category: Medical Plan P.r.n. follow-up Patient Instructions: This note is constructed using voice recognition software. While every effort has been made to ensure accuracy pig farm manager errors may have been included. Imaging studies, laboratory and physical exam results were discussed and reviewed in detail. No major barriers to patient understanding were identified. An opportunity to ask questions regarding the treatment plan was provided. All questions were answered. The patient expressed understanding and agreement with the above treatment plan. The patient is aware they should contact our office by phone for worsening of their current condition or the appearance of new urologic symptoms. Compliance is encouraged with any medications and followup testing that is ordered. It is a privilege to participate in the urologic care of your patient. If you have any questions or concerns regarding treatment for the above conditions, or other urologic issues, please do not hesitate to contact me. The office telephone contact is [phone]. Sincerely, Dr Abisai Lopez MD, [facility] - Urology Compassionate Specialist Care for the Genitourinary System Coding Level of Care Code Tele Est Pt Level 3 (66442) Complex EM visit Add On G2211 Diagnoses Prostate cancer C61
--- OUTSIDE RECORDS SUMMARY | 2024-11-12 14:47 | XMS_ITS | Clinical Summary ---
Author Organization [facility] Address [address] [facility] [address] [place] [address] Phone Care Team Providers Care Champion Of Sustainable Design Name Role Tech Brazer TesterDeclan Louise MD Primary Care Provider [phone] Allergies No known active allergies Medications aspirin [...] Medicaid [place] Medicare Medicaid [place] Care Teams Champion Of Sustainable Design Relationship Specialty Start Date End Date Declan Louise MD PCP - General Internal Medicine 11/08/21
== END 2024-11-12 12:23 | disposition home or self-care (01) ==
LOC: HO.HUSH 11:56
PROVIDERS: PCP Internal Medicine; Visit Provider Urology
DX: C61 Malignant neoplasm of prostate (principal)
CPT/HCPCS: 99213; G2211

== ENCOUNTER 2025-01-28 11:04 | Outpatient (REF) | payer MEDICARE, MEDICAID, SELFPAY ==
[2025-01-28 13:50] LABS: MANUAL DIFF FLAG NO
[2025-01-28 13:58] LABS: Hematocrit 44.2 % (42.0-52.0); Hemoglobin 14.2 g/dl (14.0-18.0); Imm Gran Abs Auto 0.04 X10*3/uL (0.00-0.03); Imm Gran Pct Auto 0.5 % (0.0-0.4); Lymphocytes Absolute Auto 2.2 X10*3/uL (1.2-4.9); Mean Corpuscular HGB Conc 32.1 g/dl (31.0-36.0); Mean Corpuscular Hemoglobin 28.2 pg (27.0-33.0); Mean Corpuscular Volume 87.9 fL (80.0-98.0); NRBC Abs Auto 0.000 X10*3/uL (0.0-0.012); NRBC Pct Auto 0.0 /100WBC (0.0-0.2); Platelet Count 285 X10*3/uL (160-400); Red Blood Count 5.03 X10*6/uL (4.60-5.80); White Blood Count 8.1 X10*3/uL (4.8-10.8)
[2025-01-28 14:22] LABS: Anion Gap 17 (12-20); Blood Urea Nitrogen 25 mg/dL (9-16); Calcium 9.2 mg/dL (8.4-10.2); Carbon Dioxide 18 mmol/L (22-29); Chloride 111 mmol/L (96-108); Estimated Glomerular Filt Rate 45; Potassium 4.3 mmol/L (3.3-5.1); Sodium 142 mmol/L (135-145)
== END 2025-01-28 11:05 | disposition home or self-care (01) ==
LOC: HO.HMGCLDS 11:04
PROVIDERS: PCP Internal Medicine; Visit Provider Internal Medicine Nephrology
DX: I12.9 Hypertensive chronic kidney disease with stage 1 through stage 4 chronic kidney disease, or unspecified chronic kidney disease (principal); N18.31 Chronic kidney disease, stage 3a
CPT/HCPCS: 36415; 80051; 82310; 82565; 84520; 85025

== ENCOUNTER 2025-02-06 10:58 | Outpatient (AMB) | payer MEDICARE, MEDICAID, SELFPAY ==
--- NOTE | 2025-02-06 11:06 | HO.NEPHOV_ITS ---
Vital Signs 02/06/25 11:09 Height 5 ft 9 in Weight 185 lb 2 oz BMI 27.3 BP 100/80 Blood Pressure Location Lt brachial Position Sitting Pulse 105 H Pulse Source Pulse Oximeter Pulse Oximetry (%) 100 Oxygen Delivery Method Room Air Intake Visit Reasons: 6mon follow-up w/labs-Conf Employment Representative Required: Yes Employment Representative Language: Chef Broiler Or Fry Services: Employment Representative Offered & Declined ([facility] Employment Representative services refused ) Accompanied by: Spouse Allergies No Known Allergies (No Known Allergies*) Allergy (Verified 02/06/25 11:08) HPI Comments Details: Henry was seen for follow up for his CKD. He was accompanied by his who has been providing at most attention to his medical care. He denies any chest pain, shortness of breath, nausea vomiting or diarrhea. He has no pedal edema or urinary symptoms. He had been followed up by Dr. Lopez for his prostate cancer. His blood sugar control was up and was started on metformin. His renal functions have been stable. [facility] Medical History Dementia Diabetes HTN (hypertension) Surgical History History of prostate surgery Social History Alcohol intake: never Patient Tobacco Use Status: Never used Tobacco Review of Systems Const All systems reviewed & are unremarkable except as noted in HPI and below Physical Exam Vital Signs: Last Vital Signs Pulse 105 H 02/06/25 11:09 BP 100/80 02/06/25 11:09 Pulse Ox 100 02/06/25 11:09 Oxygen Delivery Method Room Air 02/06/25 11:09 BMI result Body Mass Index 27.3 Const General: comfortable and no acute distress Orientation/consciousness: patient oriented x3 HEENT Head: Yes normocephalic Mouth: Normal oral and palatal mucosa present Eyes EOM: EOMs intact bilaterally Neck Neck: Yes supple Resp Auscultation: clear to auscultation bilaterally Cardio Jugular venous distension: no JVD Rate: regular rate GI Palpation (GI): Soft to palpation Auscultation: normal bowel sounds General: Yes no CVA tenderness Back/Spine/Pelvis Back: no CVA tenderness Skin General skin exam: no rashes or lesions noted Neuro General: patient oriented x3 and moves all extremities Extrem General: Yes no pedal edema Results Reviewed Nephrology Results: Hgb, (14.0-18.0) 14.2 g/dl 01/28/25 WBC, (4.8-10.8) 8.1 X10*3/uL 01/28/25 Plt Count, (160-400) 285 X10*3/uL 01/28/25 Sodium, (135-145) 142 mmol/L 01/28/25 Potassium, (3.3-5.1) 4.3 mmol/L 01/28/25 Chloride, (96-108) 111 mmol/L H 01/28/25 Carbon Dioxide, (22-29) 18 mmol/L L 01/28/25 BUN, (9-16) 25 mg/dL H 01/28/25 Creatinine, (0.5-1.4) 1.54 mg/dL H 01/28/25 Calcium, (8.4-10.2) 9.2 mg/dL Δ 01/28/25 Assessment & Plan Assessment & Plan (1) HTN (hypertension): Code(s): I10 - Essential (primary) hypertension Category: Medical Qualifiers: Hypertension type: primary hypertension Qualified Code(s): I10 - Essential (primary) hypertension (2) CKD (chronic kidney disease) stage 3, GFR 30-59 ml/min: Code(s): N18.30 - Chronic kidney disease, stage 3 unspecified Category: Medical Qualifiers: Chronic kidney disease stage 3 subtype: stage 3a (GFR 45-59) Qualified Code(s): N18.31 - Chronic kidney disease, stage 3a Cathy Figueroa is known to have chronic kidney disease stage 3 at baseline. He is diabetic. His history of prostate cancer. He is currently clinically stable. His renal function is stable as well. His blood pressure is at goal. He is not on any CHINTAN inhibitor or ARB. He is a great candidate for Jardiance if there are no other contra indications.I have ordered follow-up blood work . I did not make any other medication changes today. All his 's questions were answered. Orders: Orders Electrolytes 7 Months I10 - Essential (primary) hypertension, N18.31 - Chronic kidney disease, stage 3a Creatinine 7 Months I10 - Essential (primary) hypertension, N18.31 - Chronic kidney disease, stage 3a Blood Urea Nitrogen 7 Months I10 - Essential (primary) hypertension, N18.31 - Chronic kidney disease, stage 3a Coding Level of Care Code Est Pt Level 4 (03452) Diagnoses Primary hypertension I10 Hypertension type: primary hypertension Stage 3a chronic kidney disease N18.31 Chronic kidney disease stage 3 subtype: stage 3a (GFR 45-59)
[2025-02-06 11:09] VITALS: BP 100/80; PULSE 105; O2SAT 100; BMI 27.3
--- OUTSIDE RECORDS SUMMARY | 2025-02-06 14:18 | XMS_ITS | Clinical Summary ---
Author Organization [facility] Address [address] [facility] [address] [place] [address] Phone Care Team Providers Care Software Development Advisor Name Role Carbon AccountantDeclna Louise MD Primary Care Provider [phone] Allergies No known active allergies Medications aspirin [...] Medicaid [place] Medicare Medicaid [place] Care Teams Software Development Advisor Relationship Specialty Start Date End Date Declan Louise MD PCP - General Internal Medicine 11/08/21
== END 2025-02-06 11:28 | disposition home or self-care (01) ==
LOC: HO.HKAS 10:59
PROVIDERS: PCP Internal Medicine; Visit Provider Internal Medicine Nephrology
DX: I10 Essential (primary) hypertension (principal); N18.31 Chronic kidney disease, stage 3a
CPT/HCPCS: 99214

== ENCOUNTER → 2025-02-06 10:58 | Outpatient (BNVA) | payer MEDICARE, MEDICAID, SELFPAY | PROVIDERS: PCP Internal Medicine; Visit Provider Internal Medicine Nephrology | DX: I12.9 Hypertensive chronic kidney disease with stage 1 through stage 4 chronic kidney disease, or unspecified chronic kidney disease (principal); E11.22 Type 2 diabetes mellitus with diabetic chronic kidney disease; N18.31 Chronic kidney disease, stage 3a; Z79.84 Long term (current) use of oral hypoglycemic drugs | CPT/HCPCS: 99212 ==